=== PATIENT | male | born 1950 | race Caucasian/White ===

== ENCOUNTER 2019-02-18 12:16 | Emergency (ER) | payer BC, MEDICARE ==
[~2019-02-18] VITALS: Ht 177.8 cm; Wt 109.0 kg
[~2019-02-18 12:16] MED LIST: CPR500T PO; DIGO125T PO; FINA5TAB PO; FLEC100T2 PO; PHEN200T27 PO; SILO8CAP PO; WRF5T PO
--- NOTE | 2019-02-18 12:44 | ED GU-Male ---
General Chief Complaint: - Urinary Stated Complaint: HEMATURIA Nursing Triage Note: Pt ambulatory to ED with c/o blood in urine. Pt denies injury or any other pain or problem. Pt reports being on blood thinners. History of Present Illness Date Seen by Provider: Feb 18, 2019 Time Seen by Provider: 12:40 Initial Comments 68-year-old male Presents with grossly apparent hematuria first noted ~16 hours ago Is status post TURP about 9 years ago 2 or 3 years ago he began to have frequent urinary incontinence and has been wearing an external condom-type catheter since has not seen urologist also has implanted devise to help incontinence but says it didn't make any difference Has not had problems with urinary retention is not having any symptoms of infection no pain no fever no vomiting etc. He also apparently has had paroxysmal atrial fibrillation and reports a proximal aortic aneurysm he is on Coumadin, 5 mg by mouth daily most days 4 mg Friday and , prescribed by his mask design engineer who his aware of the aneurysm, he states he checks his INR at home, the last time he checked 10 days ago was 2.7 he has not had bleeding anywhere else such as nosebleed bleeding gums black tarry stools etc. Allergies and Home Medications Allergies Coded Allergies: No Known Drug Allergies (Unverified , 01/15/10) Home Medications Ciprofloxacin 500 Mg Tablet, 1 TAB PO BID, (Reported) Digoxin 125 Mcg Tablet, 1 EACH PO DAILY, (Reported) Finasteride 5 Mg Tablet, 5 MG PO DAILY, (Reported) Flecainide Acetate 100 Mg Tablet, 100 MG PO DAILY, (Reported) Phenazopyridine Hcl 200 Mg Tablet, 200 MG PO TID PRN, (Reported) Silodosin 8 Mg Capsule, 8 MG PO DAILY, (Reported) Warfarin Sod 5 Mg Tab, 5 MG PO DAILY, (Reported) 5 MG PER DAY, AND ON FRIDAY ONLY TAKES AN ADDITIONAL 2 MG Patient Home Medication List Home Medication List Reviewed: Yes Review of Systems Review of Systems Constitutional: no symptoms reported; No chills, No dizziness, No fever EENTM: epistaxis Respiratory: no symptoms reported Cardiovascular: no symptoms reported Gastrointestinal: no symptoms reported; No hematemesis, No melena, No nausea, No vomiting Genitourinary: denies burning, denies discharge, denies dysuria, denies frequency, denies flank pain; hematuria Skin: no symptoms reported Patient has bilateral leg edema left worse than right he states this is baseline for him All Other Systemes Reviewed Negative Unless Noted: Yes Past Uofcgio-Yauybv-Qgdikz Hx Patient Social History Recent Foreign Travel: No Contact w/Someone Who Travel: No Recent Infectious Disease Expo: No Past Medical History Reproductive Disorders: No Physical Exam Vital Signs Vital Signs - First Documented 02/18/19 12:34 Pulse 60 Resp 14 B/P (MAP) 129/75 (93) Pulse Ox 95 Capillary Refill : Less Than 3 Seconds Height, Weight, BMI Height: '" Weight: lbs. oz. kg; 34.00 BMI Method: General Appearance: WD/WN HEENT: PERRL/EOMI Neck: non-tender Cardiovascular: regular rate, rhythm Respiratory: lungs clear, normal breath sounds Gastrointestinal: normal bowel sounds, non tender, soft Genital/Rectal: normal genital exam (no bladder distension or tenderness CVA's neg abd exam normal) Progress/Results/Core Measures Suspected Sepsis Recent Fever Within 48 Hours: No Infection Criteria Present: None New/Unexplained Altered Menta: No Sepsis Screen: No Definite Risk SIRS Temperature: Pulse: 60 Respiratory Rate: 14 Laboratory Tests 02/18/19 12:45: White Blood Count 9.9 Blood Pressure 129 /75 Mean: 93 Laboratory Tests 02/18/19 12:45: Creatinine 1.09, INR Comment 3.0H, Platelet Count 433H Results/Orders Lab Results Laboratory Tests Test 02/18/19 12:23 02/18/19 12:45 Range/Units Urine Color BROWN H Urine Clarity TURBID H Urine pH 6.5 5-9 Urine Specific Grandin 1.020 1.016-1.022 Urine Protein 2+ H NEGATIVE Urine Glucose (UA) NEGATIVE NEGATIVE Urine Ketones NEGATIVE NEGATIVE Urine Nitrite NEGATIVE NEGATIVE Urine Bilirubin NEGATIVE NEGATIVE Urine Urobilinogen 0.2 NORMAL MG/DL Urine Leukocyte Esterase 2+ H NEGATIVE Urine RBC (Auto) 3+ H NEGATIVE Urine RBC >100 H /HPF Urine WBC >100 H /HPF Urine Crystals NONE /LPF Urine Bacteria LARGE H /HPF Urine Casts NONE /LPF Urine Mucus NEGATIVE /LPF Urine Culture Indicated YES White Blood Count 9.9 4.3-11.0 10^3/uL Red Blood Count 4.17 L 4.35-5.85 10^6/uL Hemoglobin 13.1 L 13.3-17.7 G/DL Hematocrit 39 L 40-54 % Mean Corpuscular Volume 94 80-99 FL Mean Corpuscular Hemoglobin 31 25-34 PG Mean Corpuscular Hemoglobin Concent 34 32-36 G/DL Red Cell Distribution Width 15.3 H 10.0-14.5 % Platelet Count 433 H 130-400 10^3/uL Mean Platelet Volume 9.3 7.4-10.4 FL Prothrombin Time 32.9 H 12.2-14.7 SEC INR Comment 3.0 H 0.8-1.4 Sodium Level 137 135-145 MMOL/L Potassium Level 4.8 3.6-5.0 MMOL/L Chloride Level 104 98-107 MMOL/L Carbon Dioxide Level 21 21-32 MMOL/L Anion Gap 12 5-14 MMOL/L Blood Urea Nitrogen 32 H 7-18 MG/DL Creatinine 1.09 0.60-1.30 MG/DL Estimat Glomerular Filtration Rate > 60 BUN/Creatinine Ratio 29 Glucose Level 97 70-105 MG/DL Calcium Level 9.0 8.5-10.1 MG/DL My Orders Orders - MÓNICA DIAZ MD Cbc No Diff (02/18/19 12:25) Urinalysis (02/18/19 12:25) Protime With Inr (02/18/19 12:25) Basic Metabolic Panel (02/18/19 12:25) Urine Culture (02/18/19 12:23) Lidocaine 1% Inj 20 Ml (Xylocaine 1% Inj (02/18/19 13:15) Ceftriaxone For Iv Use (Rocephin For I (02/18/19 13:45) Ct Abdomen/Pelvis W (02/18/19 13:34) Iohexol Injection (Omnipaque 350 Mg/Ml 1 (02/18/19 13:45) Received Contrast (Hold Metformin- Contr (02/18/19 13:45) Sodium Chloride Flush (Catheter Flush Sy (02/18/19 13:45) Ns (Ivpb) (Sodium Chloride 0.9% Ivpb Bag (02/18/19 13:45) Medications Given in ED Current Medications Medications Dose Ordered Sig/Benigno Route Start Time Stop Time Status Last Admin Dose Admin Ceftriaxone Sodium 1000 mg/ Sterile Water 10 ml @ 200 mls/hr ONCE ONCE IV 02/18/19 13:45 10/17/19 13:54 DC 02/18/19 14:21 200 MLS/HR Iohexol 100 ml ONCE ONCE IV 02/18/19 13:45 02/18/19 13:46 DC 02/18/19 14:03 100 ML Sodium Chloride 10 ml NEEDED PRN IV 02/18/19 13:45 02/18/19 14:03 10 ML Sodium Chloride 100 ml ONCE ONCE IV 02/18/19 13:45 02/18/19 13:46 DC 02/18/19 14:03 100 ML Vital Signs/I&O 02/18/19 12:34 Pulse 60 Resp 14 B/P (MAP) 129/75 (93) Pulse Ox 95 Capillary Refill : Less Than 3 Seconds Blood Pressure Mean: 93 Progress Note : Progress Note pt is stable Hb 13.1 WBC normal UA suggests UTI or colonization pt doesn't seem to have sx's of UTI INR 3.0 pt may simply have blood due to colonization and elevated INR will CT to see if any other pathology apparent urine cult and IV rocephin ordered Diagnostic Imaging Comments CT abd pelvis shows only enlarged prostate nothing acute Departure Impression Primary Impression: Hematuria Qualified Codes: R31.9 - Hematuria, unspecified Additional Impressions: Urinary tract infection Qualified Codes: N39.0 - Urinary tract infection, site not specified; R31.9 - Hematuria, unspecified Warfarin-induced coagulopathy Disposition: 01 HOME, SELF-CARE Condition: Stable Departure-Patient Inst. Decision time for Depature: 14:51 Referrals: MANI WALL MD (PCP/Family) Primary Care Physician Patient Instructions: Blood in the Urine (Hematuria), Adult (DC), Urinary Tract Infection, Adult (DC) Add. Discharge Instructions: CT scan showed only enlarged prostate, nothing more worrisome urine analysis shows infection and your INR is 3.0 these things combined are likely causing the blood recommend no coumadin today, 4mg Friday and Friday please check with your primary doctor on Friday for further guidance if you become worse in some way, don't hesitate to return antibiotic Rx SeptraDS one pill twice daily MÓNICA DIAZ MD Feb 18, 2019 12:44
[2019-02-18 12:47] LABS: CLARITY,URINE TURBID; COLOR,URINE BROWN; PH,URINE 6.5 (5-9); PROTEIN,URINE 2+ (NEGATIVE)
[2019-02-18 12:48] LABS: BACTERIA,URINE LARGE /HPF; BILIRUBIN,URINE NEGATIVE (NEGATIVE); GLUCOSE, URINE (UA) NEGATIVE (NEGATIVE); KETONES,URINE NEGATIVE (NEGATIVE); LEUKOCYTE ESTERASE ,URINE 2+ (NEGATIVE); NITRITE,URINE NEGATIVE (NEGATIVE); RBC,URINE >100 /HPF; WBC,URINE >100 /HPF
[2019-02-18] MEDS ORDERED: cefTRIAXone 500 MG/1.43 ML vial (IM ONLY) IM ONE (13:00)
[2019-02-18] MEDS ORDERED: LIDOCAINE 1% INJ 20 ML 20 ML VIAL ONE (13:15)
[2019-02-18 13:21] LABS: BUN/CREATININE RATIO 29; CARBON DIOXIDE 21 MMOL/L (21-32); CHLORIDE 104 MMOL/L (98-107); CREATININE SERUM 1.09 MG/DL (0.60-1.30); GFR ESTIMATED > 60; GLUCOSE 97 MG/DL (70-105); POTASSIUM 4.8 MMOL/L (3.6-5.0); SODIUM 137 MMOL/L (135-145)
[2019-02-18 13:22] LABS: PROTHROMBIN TIME PATIENT 32.9 SEC (12.2-14.7); WHITE BLOOD COUNT 9.9 10^3/uL (4.3-11.0)
[2019-02-18 13:23] LABS: HEMOGLOBIN 13.1 G/DL (13.3-17.7); MEAN PLATELET VOLUME 9.3 FL (7.4-10.4); RED CELL DISTRIBUTION WIDTH 15.3 % (10.0-14.5)
[2019-02-18] MEDS ORDERED: cefTRIAXone FOR IV USE 1,000 MG in WATER (STERILE) FOR INJECTION 10 ML IV ONE (13:45)
[2019-02-18] MEDS ORDERED: IOHEXOL 350 MG/ML 100 ML (OMNIPAQUE 350) VIAL IV ONE (13:45)
[2019-02-18] MEDS ORDERED: NS 100 ML (IVPB) BAG IV ONE (13:45)
[2019-02-18] MEDS ORDERED: CATHETER FLUSH 10 ML SYR IV PRN (13:45)
[2019-02-18] MEDS ORDERED: HOLD METFORMIN - RECEIVED CONTRAST 20 ML VIAL IV SCH (13:45)
--- NOTE | 2019-02-18 14:29 | Diagnostic Imaging Report ---
PROCEDURE: CT abdomen and pelvis with contrast. TECHNIQUE: Multiple contiguous axial images were obtained through the abdomen and pelvis after administration of intravenous contrast. Auto Exposure Controls were utilized during the CT exam to meet ALARA standards for radiation dose reduction. INDICATION: Painless severe hematuria since yesterday. COMPARISON: No prior studies are available for comparison. FINDINGS: The lung bases are clear. No discrete liver mass is detected. Gallbladder is unremarkable. No biliary ductal dilatation is seen. Pancreas and spleen are unremarkable. No adrenal mass is detected. No renal mass or calculus is seen. There is no hydronephrosis. The renal collecting systems and ureters opacify normally and are without evidence of filling defect. Bladder is unremarkable. Aorta is non-aneurysmal. No central, retroperitoneal or mesenteric lymphadenopathy is seen. Small and large bowel loops are normal caliber. Appendix is unremarkable. No obstruction is seen. There is no free fluid or loculated fluid collection. Prostate does appear to be enlarged. No pelvic lymphadenopathy is seen. IMPRESSION: Essentially unremarkable CT of the abdomen and pelvis. No urinary tract mass, calculus or hydronephrosis is seen. There is prostatomegaly. No other significant abnormality is seen. Dictated by: Dictated on workstation # [id number]
[2019-02-18 15:04] VITALS: BP 122/71
[2019-02-19] MEDS ORDERED: WARF-48 PO (09:07)
[2019-02-19] MEDS ORDERED: WARF4TAB70 PO (09:07)
[2019-02-19] MEDS ORDERED: ACET-2267 PO (09:07)
[2019-02-19] MEDS ORDERED: IBUP-30 PO (09:07)
[2019-02-19] MEDS ORDERED: SULF1TAB35 PO (09:07)
[2019-02-19] MEDS ORDERED: LISI-552 PO (09:07)
[2019-02-19] MEDS ORDERED: FLEC100T PO (09:07)
[2019-02-19] MEDS ORDERED: AMLO10TA7 PO (09:07)
== END 2019-02-18 15:04 | disposition home or self-care (01) ==
LOC: EDUNIT# 12:16 → ER FS 12:17
DX: N39.0 Urinary tract infection, site not specified (principal); D68.32 Hemorrhagic disorder due to extrinsic circulating anticoagulants; Z79.01 Long term (current) use of anticoagulants
CPT/HCPCS: 36415; 74177; 80048; 81000; 85027; 85610; 87077; 87088; 87186

== ENCOUNTER 2019-02-18 21:44 | Observation (INO) | payer MEDICARE ==
[~2019-02-18] VITALS: Ht 177.8 cm; Wt 106.0 kg
[2019-02-18] MEDS ORDERED: ONDANSETRON 4 MG/2 ML (SDV) Z0FRAN IVP STA (22:07)
[2019-02-18] MEDS ORDERED: NS IV 500 ML 500 ML IV STA (22:07)
--- NOTE | 2019-02-18 22:49 | ED General ---
General Chief Complaint: Allergic Reaction Stated Complaint: WEAKNESS Source of Information: Patient, EMS History of Present Illness Date Seen by Provider: Feb 18, 2019 Time Seen by Provider: 21:48 Initial Comments 68 yo M presenting by EMS with having subjective fever/chills at home and having low blood pressure. He had systolic blood pressure around 80 when he was feeling bad and having diaphoresis at home. He was 110-120 for systolic blood pressure for EMS. He was having diarrhea after getting home as well. He was concerned that he was having allergic reaction to his IV contrast from CT scan this afternoon when he was evaluated by ED. He had nausea but no vomiting only dry heaves. He was diagnosed with UTI this afternoon and started on Rocephin IV for antibiotics. Allergies and Home Medications Allergies Coded Allergies: No Known Drug Allergies (Unverified , 01/15/10) Home Medications Ciprofloxacin 500 Mg Tablet, 1 TAB PO BID, (Reported) Digoxin 125 Mcg Tablet, 1 EACH PO DAILY, (Reported) Finasteride 5 Mg Tablet, 5 MG PO DAILY, (Reported) Flecainide Acetate 100 Mg Tablet, 100 MG PO DAILY, (Reported) Phenazopyridine Hcl 200 Mg Tablet, 200 MG PO TID PRN, (Reported) Silodosin 8 Mg Capsule, 8 MG PO DAILY, (Reported) Warfarin Sod 5 Mg Tab, 5 MG PO DAILY, (Reported) 5 MG PER DAY, AND ON FRIDAY ONLY TAKES AN ADDITIONAL 2 MG Patient Home Medication List Home Medication List Reviewed: Yes Review of Systems Review of Systems Constitutional: chills, fever, malaise, weakness EENTM: no symptoms reported Respiratory: no symptoms reported Cardiovascular: no symptoms reported Gastrointestinal: abdominal pain (aching lower abdomen pain), diarrhea, nausea; No vomiting Genitourinary: no symptoms reported Musculoskeletal: no symptoms reported Skin: no symptoms reported Psychiatric/Neurological: No Symptoms Reported Past Dyapcye-Byzjte-Vjnezc Hx Patient Social History 2nd Hand Smoke Exposure: No Recent Foreign Travel: No Contact w/Someone Who Travel: No Recent Hopitalizations: Yes (PAST SURGERIES) Past Medical History Surgeries: No Respiratory: No Cardiac: Yes Aneurysm, Atrial Fibrillation Neurological: No Reproductive Disorders: No Genitourinary: Yes (Incontinence) Gastrointestinal: No Musculoskeletal: Yes Endocrine: No Cancer: No Psychosocial: Yes Blood Disorders: No Physical Exam Vital Signs Vital Signs - First Documented 02/18/19 22:00 Temp 36.7 Pulse 62 Resp 16 B/P (MAP) 114/54 (74) Pulse Ox 95 O2 Delivery Room Air Capillary Refill : Height, Weight, BMI Height: '" Weight: lbs. oz. kg; 34.00 BMI Method: General Appearance: WD/WN, Anxious, Chronically ill, Mild Distress HEENT: PERRL/EOMI, Pharynx Normal Neck: Normal Inspection, Non Tender, Supple Respiratory: Chest Non Tender, Lungs Clear, Normal Breath Sounds Cardiovascular: Regular Rate, Rhythm Gastrointestinal: No Pulsatile Mass, Soft, Abnormal Bowel Sounds (hyperactive bowel sounds); No Distended, No Guarding, No Mass, No Rebound; Tenderness (mild tenderness over low abdomen) Back: No CVA Tenderness Extremity: Normal Capillary Refill, Normal Inspection, Normal Range of Motion, Non Tender Neurologic/Psychiatric: Alert, Oriented x3, No Motor/Sensory Deficits Focused Exam Lactate Level 02/18/19 23:15: Lactic Acid Level 1.22 Lactic Acid Level Laboratory Tests Test 02/18/19 23:15 Lactic Acid Level 1.22 MMOL/L (0.50-2.00) Progress/Results/Core Measures Suspected Sepsis SIRS Temperature: Pulse: Respiratory Rate: Laboratory Tests 02/18/19 23:15: White Blood Count 26.5H Blood Pressure / Mean: 02/18/19 23:15: Lactic Acid Level 1.22 Laboratory Tests 02/18/19 23:15: Platelet Count 441H Results/Orders Lab Results Laboratory Tests Test 02/18/19 23:15 Range/Units White Blood Count 26.5 H 4.3-11.0 10^3/uL Red Blood Count 4.28 L 4.35-5.85 10^6/uL Hemoglobin 13.4 13.3-17.7 G/DL Hematocrit 41 40-54 % Mean Corpuscular Volume 96 80-99 FL Mean Corpuscular Hemoglobin 31 25-34 PG Mean Corpuscular Hemoglobin Concent 33 32-36 G/DL Red Cell Distribution Width 15.3 H 10.0-14.5 % Platelet Count 441 H 130-400 10^3/uL Mean Platelet Volume 9.1 7.4-10.4 FL Neutrophils (%) (Auto) 92 H 42-75 % Lymphocytes (%) (Auto) 2 L 12-44 % Monocytes (%) (Auto) 5 0-12 % Eosinophils (%) (Auto) 0 0-10 % Basophils (%) (Auto) 0 0-10 % Neutrophils # (Auto) 24.5 H 1.8-7.8 X 10^3 Lymphocytes # (Auto) 0.6 L 1.0-4.0 X 10^3 Monocytes # (Auto) 1.2 H 0.0-1.0 X 10^3 Eosinophils # (Auto) 0.0 0.0-0.3 10^3/uL Basophils # (Auto) 0.1 0.0-0.1 10^3/uL Neutrophils % (Manual) 94 % Lymphocytes % (Manual) 1 % Monocytes % (Manual) 1 % Eosinophils % (Manual) 1 % Band Neutrophils 2 % Atypical Lymphocytes % Reactive Lymphocytes 1 % Lactic Acid Level 1.22 0.50-2.00 MMOL/L My Orders Orders - LEOBARDO BERRIOS MD Lactic Acid Analyzer (02/18/19 22:07) Cbc With Automated Diff (02/18/19 22:07) Ondansetron Injection (Zofran Injectio (02/18/19 22:07) Ns Iv 500 Ml (Sodium Chloride 0.9%) (02/18/19 22:07) Monitor-Rhythm Ecg Trace Only (02/18/19 22:) Manual Differential (02/18/19 23:15) Ns Iv 1000 Ml (Sodium Chloride 0.9%) (02/19/19 01:00) Vital Signs/I&O 02/18/19 02/19/19 22:00 00:56 Temp 36.7 37.1 Pulse 62 60 Resp 16 16 B/P (MAP) 114/54 (74) 121/63 Pulse Ox 95 94 O2 Delivery Room Air Room Air 02/19/19 00:00 Intake Total 500 ml Balance 500 ml Capillary Refill : Progress Note #1: Progress Note obtain labs and recheck his CBC to see if any change from earlier today. Will add on Lactic acid since he had subjective fever and chills in case he might be septic. Give IVF for hydration. Progress Note #2: Progress Note Labs show he has more than doubled his WBC since this afternoon. His lactic acid is normal. He is feeling a little better after IVF in ED. However, with his sudden increase in WBC count with left shift and being treated for UTI with hypotension at home will admit to Dr. Rossi for CHC so that he can continue on IVF and antibiotics Departure Communication (Admissions) Time/Spoke to Admitting Phy: 00:[address] Rossi about the patient and his lab results. The fact that he had hypotension at home with his blood pressure monitor reading 80 systolic as well as having sweats with subjective fever and chills at home and now having a large jump in his white blood cell count from a little over 9000 to over 26,000 and less than 8 hours will admit for observation and continue IV antibiotics for the UTI in addition to IV fluids for hydration. Impression Primary Impression: UTI (urinary tract infection) Qualified Codes: N30.00 - Acute cystitis without hematuria Additional Impressions: Diarrhea Qualified Codes: R19.7 - Diarrhea, unspecified Leukocytosis Qualified Codes: D72.829 - Elevated white blood cell count, unspecified Disposition: ADMITTED INPATIENT Condition: Stable Admissions Decision to Admit Reason: Admit from ER (General) Decision to Admit/Date: Feb 19, 2019 Time/Decision to Admit Time: 00:25 Departure-Patient Inst. Referrals: MANI WALL MD (PCP/Family) Primary Care Physician LEOBARDO BERRIOS MD Feb 18, 2019 22:49
[2019-02-18 23:45] LABS: HEMATOCRIT 41 % (40-54); HEMOGLOBIN 13.4 G/DL (13.3-17.7); LYMPHOCYTES % (AUTO) 2 % (12-44); MEAN CORPUSCULAR HEMOGLOBIN 31 PG (25-34); MEAN CORPUSCULAR HGB CONC 33 G/DL (32-36); MEAN CORPUSCULAR VOLUME 96 FL (80-99); MEAN PLATELET VOLUME 9.1 FL (7.4-10.4); MONOCYTES % (AUTO) 5 % (0-12); NEUTROPHILS % (AUTO) 92 % (42-75); PLATELET COUNT 441 10^3/uL (130-400); RED CELL DISTRIBUTION WIDTH 15.3 % (10.0-14.5); WHITE BLOOD COUNT 26.5 10^3/uL (4.3-11.0)
[2019-02-18 23:46] LABS: BASOPHILS # (AUTO) 0.1 10^3/uL (0.0-0.1); BASOPHILS % (AUTO) 0 % (0-10); EOSINOPHILS % (AUTO) 0 % (0-10); LYMPHOCYTES # (AUTO) 0.6 X 10^3 (1.0-4.0); MONOCYTES # (AUTO) 1.2 X 10^3 (0.0-1.0); NEUTROPHILS # (AUTO) 24.5 X 10^3 (1.8-7.8)
[2019-02-18 23:59] LABS: BAND NEUTROPHILS 2 %; EOSINOPHILS % (MANUAL) 1 %; LYMPHOCYTES % (MANUAL) 1 %; MONOCYTES % (MANUAL) 1 %; NEUTROPHILS % (MANUAL) 94 %
[2019-02-19 00:01] LABS: REACTIVE LYMPHOCYTES 1 %
[2019-02-19] MEDS ORDERED: NS IV 1000 ML 1,000 ML IV SCH (01:00)
[2019-02-19 02:50] VITALS: BP 123/73
--- NOTE | 2019-02-19 03:27 | NUR ---
JER PETERSON admitted to room 429-1, with an admitting diagnosis of UTI, on 02/19/19 from EMS via [facility], accompanied by STAFF.JER PETERSON introduced to surroundings, call light, bed controls, phone, TV, temperature control, lights, meal times, smoking policy, visitor policy, side rail policy, bathrooms and showers. Patient Rights given to patient in the handbook. JER PETERSON verbalizes understanding that [facility] is not responsible for the loss or damage to any personal effects or valuables that are kept in the patients posession during their hospitalization.
[2019-02-19] MEDS ORDERED: ACETAMINOPHEN 325 MG TABLET PO PRN (03:30)
[2019-02-19 03:55] VITALS: BP 134/62
[2019-02-19] MEDS: NS IV 1000 ML 1,000 ML IV SCH ×3 (04:00→22:24)
[2019-02-19 08:00] VITALS: BP 126/60
[2019-02-19 08:09] LABS: BASOPHILS % (AUTO) 0 % (0-10); EOSINOPHILS # (AUTO) 0.1 10^3/uL (0.0-0.3); EOSINOPHILS % (AUTO) 1 % (0-10); HEMATOCRIT 36 % (40-54); HEMOGLOBIN 11.9 G/DL (13.3-17.7); LYMPHOCYTES # (AUTO) 1.5 X 10^3 (1.0-4.0); LYMPHOCYTES % (AUTO) 10 % (12-44); MEAN CORPUSCULAR HEMOGLOBIN 31 PG (25-34); MEAN CORPUSCULAR HGB CONC 33 G/DL (32-36); MEAN CORPUSCULAR VOLUME 94 FL (80-99); MEAN PLATELET VOLUME 9.3 FL (7.4-10.4); MONOCYTES # (AUTO) 1.2 X 10^3 (0.0-1.0); MONOCYTES % (AUTO) 8 % (0-12); NEUTROPHILS # (AUTO) 12.9 X 10^3 (1.8-7.8); NEUTROPHILS % (AUTO) 82 % (42-75); PLATELET COUNT 422 10^3/uL (130-400); RED CELL DISTRIBUTION WIDTH 15.7 % (10.0-14.5); WHITE BLOOD COUNT 15.7 10^3/uL (4.3-11.0)
[2019-02-19 08:23] LABS: ALANINE AMINOTRANSFERASE 16 U/L (0-55); ALBUMIN 3.3 GM/DL (3.2-4.5); ALKALINE PHOSPHATASE 45 U/L (40-136); BILIRUBIN,TOTAL 0.9 MG/DL (0.1-1.0); BUN/CREATININE RATIO 24; CALCIUM 8.9 MG/DL (8.5-10.1); CARBON DIOXIDE 21 MMOL/L (21-32); CHLORIDE 109 MMOL/L (98-107); CREATININE SERUM 1.18 MG/DL (0.60-1.30); GFR ESTIMATED > 60; GLUCOSE 97 MG/DL (70-105); POTASSIUM 4.6 MMOL/L (3.6-5.0); SODIUM 139 MMOL/L (135-145); TOTAL PROTEIN 6.5 GM/DL (6.4-8.2)
[2019-02-19] MEDS ORDERED: WARF4TAB70 PO (09:07)
[2019-02-19] MEDS ORDERED: WARF-48 PO (09:07)
[2019-02-19] MEDS ORDERED: LISI-552 PO (09:07)
[2019-02-19] MEDS ORDERED: ACET-2267 PO (09:07)
[2019-02-19] MEDS ORDERED: SULF1TAB35 PO (09:07)
[2019-02-19] MEDS ORDERED: FLEC100T PO (09:07)
[2019-02-19] MEDS ORDERED: IBUP-30 PO (09:07)
[2019-02-19] MEDS ORDERED: AMLO10TA7 PO (09:07)
--- NOTE | 2019-02-19 09:10 | NUR ---
SPOKE WITH THE PATIENT ABOUT HIS MEDICATIONS. HE HAD HIS BOTTLES WITH HIM AND VERIFIED HOW HE IS TAKING THEM. I COMPARED WITH THE EXT MED HX. IN ADDITION TO WHAT IS SHOWN ON THE EXT MED HX HE FILLED BACTRIM DS YESTERDAY 02-18-19 #14 BID. HE STATES HE DID NOT TAKE ONE TABLET BEFORE BEING ADMITTED BUT DOES HAVE IT WITH HIM. I ADDED IT TO THE MED REC TO BE ADDRESSED. HE TAKES TYLENOL 2 TABS BID AND IBU 4 TABS BID SCHEDULED OTC. HIS FLECAINIDE 100MG WAS FILLED #60 FOR 30 DAYS 01-13-19 HOWEVER HE STATES THIS WAS DECREASED BY THE DOCTOR TO 1/2 TAB BID.
[2019-02-19 12:00] VITALS: BP 115/55
[2019-02-19 16:45] VITALS: BP 121/61
--- NOTE | 2019-02-19 16:51 | History & Physical ---
HPI History of Present Illness: 68 yo M that presented to the ED x2 yesterday. He was first diagnosed with UTI and had normal labs and vital signs. States that he then went home and in about 6 hrs he was calmy and felt like he was going to pass out. Told his that he was unable to get to the van to go to the ER and patient's then called EMS. When they arrived his blood pressure was systolic 70s but patient stated that they could not get a bottom number. He was shaky and sweating profusely. Denies any chest pain or shortness of breath. States that he never got any rash or cough after antibiotics were given in the ER. Last does of coumadin was Wed because his INR was 3.0 which it is normal well controlled. His PCP had him hold his dose yesterday. Source: patient Exam Limitations: no limitations Date seen by provider: Feb 19, 2019 Time Seen by Provider: 10:15 Attending Physician Kana Rossi MD PCP Ramin Marcos MD Consult Date of Admission Feb 19, 2019 at 00:25 Home Medications Home Medications Reviewed patient Home Medication Reconciliation performed by pharmacy medication reconciliations technician anatomic pathology and/or nursing. Patients Allergies have been reviewed. Allergies Coded Allergies: No Known Drug Allergies (Unverified , 01/15/10) HFO-Hehkeo-Zwklag Hx Patient Social History Living Status: Lives at home with and adult son with down syndrome 2nd Hand Smoke Exposure: No Recent Foreign Travel: No Contact w/other who traveled: No Recent Hopitalizations: Yes (PAST SURGERIES) Recent Infectious Disease Expo: No Past Medical History Atrial Fibrillation BPH Chronic Catheter (Condom) Review of Systems (CHC) Constitutional: chills, fever, malaise, weakness EENTM: no symptoms reported; No mouth pain, No mouth swelling, No nose congestion, No nose pain, No throat pain, No throat swelling Respiratory: no symptoms reported; No cough, No dyspnea on exertion, No orthopnea, No short of breath Cardiovascular: no symptoms reported; No chest pain, No edema, No palpitations Gastrointestinal: abdominal pain; No constipation, No diarrhea; loss of appetite, nausea; No vomiting Genitourinary: hematuria Musculoskeletal: no symptoms reported; No back pain, No joint pain, No muscle pain Skin: no symptoms reported; No lesions, No rash Psychiatric/Neurological: Weakness Reviewed Test Results Reviewed Test Results Lab Laboratory Tests Test 02/18/19 23:15 02/19/19 07:55 Range/Units White Blood Count 26.5 H 15.7 H 4.3-11.0 10^3/uL Red Blood Count 4.28 L 3.85 L 4.35-5.85 10^6/uL Hemoglobin 13.4 11.9 L 13.3-17.7 G/DL Hematocrit 41 36 L 40-54 % Mean Corpuscular Volume 96 94 80-99 FL Mean Corpuscular Hemoglobin 31 31 25-34 PG Mean Corpuscular Hemoglobin Concent 33 33 32-36 G/DL Red Cell Distribution Width 15.3 H 15.7 H 10.0-14.5 % Platelet Count 441 H 422 H 130-400 10^3/uL Mean Platelet Volume 9.1 9.3 7.4-10.4 FL Neutrophils (%) (Auto) 92 H 82 H 42-75 % Lymphocytes (%) (Auto) 2 L 10 L 12-44 % Monocytes (%) (Auto) 5 8 0-12 % Eosinophils (%) (Auto) 0 1 0-10 % Basophils (%) (Auto) 0 0 0-10 % Neutrophils # (Auto) 24.5 H 12.9 H 1.8-7.8 X 10^3 Lymphocytes # (Auto) 0.6 L 1.5 1.0-4.0 X 10^3 Monocytes # (Auto) 1.2 H 1.2 H 0.0-1.0 X 10^3 Eosinophils # (Auto) 0.0 0.1 0.0-0.3 10^3/uL Basophils # (Auto) 0.1 0.0 0.0-0.1 10^3/uL Neutrophils % (Manual) 94 % Lymphocytes % (Manual) 1 % Monocytes % (Manual) 1 % Eosinophils % (Manual) 1 % Band Neutrophils 2 % Atypical Lymphocytes % Reactive Lymphocytes 1 % Lactic Acid Level 1.22 0.50-2.00 MMOL/L Sodium Level 139 135-145 MMOL/L Potassium Level 4.6 3.6-5.0 MMOL/L Chloride Level 109 H 98-107 MMOL/L Carbon Dioxide Level 21 21-32 MMOL/L Anion Gap 9 5-14 MMOL/L Blood Urea Nitrogen 28 H 7-18 MG/DL Creatinine 1.18 0.60-1.30 MG/DL Estimat Glomerular Filtration Rate > 60 BUN/Creatinine Ratio 24 Glucose Level 97 70-105 MG/DL Calcium Level 8.9 8.5-10.1 MG/DL Corrected Calcium 9.5 8.5-10.1 MG/DL Total Bilirubin 0.9 0.1-1.0 MG/DL Aspartate Amino Transf (AST/SGOT) 12 5-34 U/L Alanine Aminotransferase (ALT/SGPT) 16 0-55 U/L Alkaline Phosphatase 45 40-136 U/L Total Protein 6.5 6.4-8.2 GM/DL Albumin 3.3 3.2-4.5 GM/DL Physical Exam-(CHC) Physical Exam Vital Signs VS - Last 72 Hours, by Label 02/18/19 02/19/19 02/19/19 02/19/19 22:00 00:56 02:50 03:34 Temp 36.7 37.1 37.1 Pulse 62 60 60 Resp 16 16 24 B/P (MAP) 114/54 (74) 121/63 123/73 (90) Pulse Ox 95 94 98 O2 Delivery Room Air Room Air Room Air Room Air 02/19/19 02/19/19 02/19/19 02/19/19 03:55 04:04 07:00 08:00 Temp 37.2 Pulse 63 62 49 Resp 23 B/P (MAP) 134/62 (86) Pulse Ox 97 O2 Delivery Room Air Room Air 02/19/19 02/19/19 02/19/19 08:00 12:00 13:00 Temp 37.9 37.1 Pulse 56 52 57 Resp 18 18 B/P (MAP) 126/60 (82) 115/55 (75) Pulse Ox 97 98 O2 Delivery Room Air Room Air Capillary Refill : Less Than 3 SecondsLess Than 3 Seconds General Appearance: WD/WN, no apparent distress HEENT: PERRL/EOMI Neck: non-tender, full range of motion, supple Respiratory: chest non-tender, lungs clear, normal breath sounds, no respiratory distress, no accessory muscle use Cardiovascular: normal peripheral pulses, regular rate, rhythm, no edema, no murmur Gastrointestinal: normal bowel sounds, soft, other (suprapubic pain) Back: no CVA tenderness, no vertebral tenderness Extremities: normal range of motion, no pedal edema, no calf tenderness, normal capillary refill Neurologic/Psychiatric: car dispatcher II-XII nml as tested, no motor/sensory deficits, alert, normal mood/affect, oriented x 3 Skin: normal color, warm/dry Lymphatic: no adenopathy Assessment/Plan Assessment/Plan Admission Status: Observation (1) Sepsis Status: Acute Assessment & Plan: - Culture pending, continue IV antibiotics, LA normal, VS stabilized, Leukocytosis trending down Qualifiers: Qualified Codes: A41.9 - Sepsis, unspecified organism (2) UTI (urinary tract infection) Status: Acute Assessment & Plan: - See Above Qualifiers: Qualified Codes: N30.01 - Acute cystitis with hematuria (3) Atrial fibrillation Status: Chronic Assessment & Plan: - Patient on Coumadin, INR pending, last dose was friday when INR 3.0 Qualifiers: Qualified Codes: I48.91 - Unspecified atrial fibrillation (4) BPH (benign prostatic hyperplasia) Status: Chronic Assessment & Plan: - Patient wears condom catheter Qualifiers: Qualified Codes: N40.1 - Benign prostatic hyperplasia with lower urinary tract symptoms (5) DVT prophylaxis Status: Acute Assessment & Plan: - On coumadin, INR pending Clinical Quality Measures DVT/VTE Risk/Contraindication: Risk Factor Score Per Nursin RFS Level Per Nursing on Admit: 4+=Very High Copy Copies To 1: SELF,KANA PACHECO MD, MD Feb 19, 2019 16:51
--- NOTE | 2019-02-19 17:00 | NUR ---
Report received from Angelika REVELES, will assume care of patient at this time.
[2019-02-19 17:39] LABS: INR 2.9 (0.8-1.4); PROTHROMBIN TIME PATIENT 31.6 SEC (12.2-14.7)
[2019-02-19] MEDS: FLECAINIDE 100 MG (TAMBOCOR) TAB PO SCH (20:20)
[2019-02-19 20:59] VITALS: BP 136/77
[2019-02-19] MEDS: cefTRIAXone 1,000 MG/SWFI 10 ML IV PUSH IV SCH ×2 (22:19)
[2019-02-20 00:20] VITALS: BP 108/52
[2019-02-20 04:00] VITALS: BP 110/54
[2019-02-20 05:38] LABS: BASOPHILS % (AUTO) 0 % (0-10); EOSINOPHILS # (AUTO) 0.3 10^3/uL (0.0-0.3); EOSINOPHILS % (AUTO) 3 % (0-10); HEMATOCRIT 35 % (40-54); HEMOGLOBIN 11.3 G/DL (13.3-17.7); LYMPHOCYTES # (AUTO) 1.8 X 10^3 (1.0-4.0); LYMPHOCYTES % (AUTO) 18 % (12-44); MEAN CORPUSCULAR HEMOGLOBIN 31 PG (25-34); MEAN CORPUSCULAR HGB CONC 33 G/DL (32-36); MEAN CORPUSCULAR VOLUME 94 FL (80-99); MEAN PLATELET VOLUME 9.6 FL (7.4-10.4); MONOCYTES % (AUTO) 10 % (0-12); NEUTROPHILS # (AUTO) 7.1 X 10^3 (1.8-7.8); NEUTROPHILS % (AUTO) 70 % (42-75); PLATELET COUNT 355 10^3/uL (130-400); RED CELL DISTRIBUTION WIDTH 15.4 % (10.0-14.5); WHITE BLOOD COUNT 10.1 10^3/uL (4.3-11.0)
[2019-02-20 05:51] LABS: INR 2.3 (0.8-1.4); PROTHROMBIN TIME PATIENT 26.4 SEC (12.2-14.7)
[2019-02-20 05:59] LABS: ALANINE AMINOTRANSFERASE 13 U/L (0-55); ALBUMIN 3.1 GM/DL (3.2-4.5); ALKALINE PHOSPHATASE 52 U/L (40-136); BILIRUBIN,TOTAL 0.8 MG/DL (0.1-1.0); BUN/CREATININE RATIO 22; CALCIUM 8.3 MG/DL (8.5-10.1); CARBON DIOXIDE 20 MMOL/L (21-32); CHLORIDE 110 MMOL/L (98-107); GFR ESTIMATED > 60; GLUCOSE 93 MG/DL (70-105); POTASSIUM 4.3 MMOL/L (3.6-5.0); SODIUM 137 MMOL/L (135-145); TOTAL PROTEIN 6.2 GM/DL (6.4-8.2)
[2019-02-20 08:00] VITALS: BP 133/65
[2019-02-20] MEDS: NS IV 1000 ML 1,000 ML IV SCH (08:33)
[2019-02-20] MEDS: amLODIPine 10 MG (NORVASC) TAB PO SCH (09:02)
[2019-02-20] MEDS: FLECAINIDE 100 MG (TAMBOCOR) TAB PO SCH ×2 (09:02→20:40)
[2019-02-20] MEDS: lisINopril 20 MG (PRINIVIL) TABLET PO SCH (09:02)
[2019-02-20 12:00] VITALS: BP 137/68
--- NOTE | 2019-02-20 13:29 | Progress Note - Hospitalist ---
Subjective HPI/CC On Admission Date Seen by Provider: Feb 20, 2019 Time Seen by Provider: 13:00 Subjective/Events-last exam Patient is somewhat stronger but has to ambulate with a walker and has not been out of bed since admission. Urine grew out Escherichia coli greater than 10 to the fifth sensitive to Rocephin. His last diarrhea stool was early this morning. He has some concerns about a lesion the right lateral malleolus of his ankle where he has history of chronic venous stasis change and plate there. Review of Systems Neurological: Weakness Focused Exam Lactate Level 02/18/19 23:15: Lactic Acid Level 1.22 Objective Exam Vital Signs Vital Signs Date Time Temp Pulse Resp B/P (MAP) Pulse Ox O2 Delivery O2 Flow Rate FiO2 02/20/19 13:00 64 02/20/19 12:00 37.1 20 137/68 (91) 93 Room Air Capillary Refill : Less Than 3 SecondsLess Than 3 Seconds General Appearance: WD/WN HEENT: Normal ENT Inspection Neck: Supple Respiratory: Chest Non Tender, Lungs Clear, Normal Breath Sounds, No Accessory Muscle Use, No Respiratory Distress Cardiovascular: No Gallop, No Murmur, Irregularly Irregular Gastrointestinal: Normal Bowel Sounds, Non Tender, Soft Extremity: Pedal Edema, Other (right lateral malleolus a small 5 mm ulcer) Skin: Warm/Dry Results/Procedures Lab Laboratory Tests 02/20/19 05:20 Patient resulted labs reviewed. Assessment/Plan Assessment and Plan Assess & Plan/Chief Complaint Sepsis UTI greater than 10 to the fifth Diarrhea resolved Chronic basis stasis change with an ulcer will start wound dressing Chronic atrial fibrillation Possible discharge tomorrow if he is able to get up and walk with his walker Clinical Quality Measures DVT/VTE Risk/Contraindication: Risk Factor Score Per Nursin RFS Level Per Nursing on Admit: 4+=Very High PEDRO LINN MD Feb 20, 2019 13:29
[2019-02-20 16:00] VITALS: BP 127/75
[2019-02-20 20:00] VITALS: BP 130/70
[2019-02-20] MEDS: cefTRIAXone 1,000 MG/SWFI 10 ML IV PUSH IV SCH ×2 (23:19)
[2019-02-21 00:35] VITALS: BP 128/66
[2019-02-21 04:30] VITALS: BP 101/60
[2019-02-21 07:55] VITALS: BP 117/64
[2019-02-21] MEDS: FLECAINIDE 100 MG (TAMBOCOR) TAB PO SCH (08:44)
[2019-02-21] MEDS: amLODIPine 10 MG (NORVASC) TAB PO SCH (08:44)
[2019-02-21] MEDS: lisINopril 20 MG (PRINIVIL) TABLET PO SCH (08:44)
[2019-02-21 11:48] LABS: BASOPHILS # (AUTO) 0.1 10^3/uL (0.0-0.1); BASOPHILS % (AUTO) 1 % (0-10); EOSINOPHILS # (AUTO) 0.3 10^3/uL (0.0-0.3); EOSINOPHILS % (AUTO) 3 % (0-10); HEMATOCRIT 37 % (40-54); HEMOGLOBIN 12.5 G/DL (13.3-17.7); LYMPHOCYTES # (AUTO) 1.2 X 10^3 (1.0-4.0); LYMPHOCYTES % (AUTO) 14 % (12-44); MEAN CORPUSCULAR HEMOGLOBIN 31 PG (25-34); MEAN CORPUSCULAR HGB CONC 34 G/DL (32-36); MEAN CORPUSCULAR VOLUME 93 FL (80-99); MEAN PLATELET VOLUME 9.3 FL (7.4-10.4); MONOCYTES # (AUTO) 0.9 X 10^3 (0.0-1.0); MONOCYTES % (AUTO) 10 % (0-12); NEUTROPHILS # (AUTO) 6.5 X 10^3 (1.8-7.8); NEUTROPHILS % (AUTO) 73 % (42-75); PLATELET COUNT 389 10^3/uL (130-400)
[2019-02-21 12:00] LABS: INR 1.5 (0.8-1.4); PROTHROMBIN TIME PATIENT 18.2 SEC (12.2-14.7)
[2019-02-21 12:04] VITALS: BP 108/63
[2019-02-21 12:05] LABS: BUN/CREATININE RATIO 19; CARBON DIOXIDE 22 MMOL/L (21-32); CHLORIDE 106 MMOL/L (98-107); CREATININE SERUM 1.12 MG/DL (0.60-1.30); GFR ESTIMATED > 60; GLUCOSE 96 MG/DL (70-105); SODIUM 137 MMOL/L (135-145)
--- NOTE | 2019-02-21 13:11 | Discharge Summary ---
Discharge Summary Hospital Course Was the Problem List Reviewed?: Yes Hospital Course Date of Admission: Feb 19, 2019 at 00:25 Admission Diagnosis : Sepsis Urinary tract infection Prolonged INR Chronic A. fib Family Physician/Provider: Ramin Marcos MD Date of Discharge: 02/21/19 Discharge Diagnosis: [ ] Sepsis Urinary tract infection Chronic atrial fibrillation BPH Hospital Course: 68-year-old white male admitted with diagnosis of sepsis secondary to urinary tract infection. UA grew grew greater than 10 to the fifth Escherichia coli - sensitive to Rocephin and Bactrim. In addition the PT INR was prolonged. The patient had some weakness of the initial few days of hospitalization that improved dramatically with IV fluid hydration and IV antibiotics. At the time of discharge his INR is 1.5 any will restart his Coumadin of 5 mg at at bedtime. He will continue to monitor INR daily. He will receive a 1 time shot of Lovenox to cover overnight. [ ] Labs and Pending Lab Test: Laboratory Tests 02/21/19 11:30: White Blood Count 9.0, Red Blood Count 3.99L, Hemoglobin 12.5L, Hematocrit 37L, Mean Corpuscular Volume 93, Mean Corpuscular Hemoglobin 31, Mean Corpuscular Hemoglobin Concent 34, Red Cell Distribution Width 15.0H, Platelet Count 389, Mean Platelet Volume 9.3, Neutrophils (%) (Auto) 73, Lymphocytes (%) (Auto) 14, Monocytes (%) (Auto) 10, Eosinophils (%) (Auto) 3, Basophils (%) (Auto) 1, Neutrophils # (Auto) 6.5, Lymphocytes # (Auto) 1.2, Monocytes # (Auto) 0.9, Eosinophils # (Auto) 0.3, Basophils # (Auto) 0.1, Prothrombin Time 18.2H, INR Comment 1.5H, Sodium Level 137, Potassium Level 4.0, Chloride Level 106, Carbon Dioxide Level 22, Anion Gap 9, Blood Urea Nitrogen 21H, Creatinine 1.12, Estimat Glomerular Filtration Rate > 60, BUN/Creatinine Ratio 19, Glucose Level 96, Calcium Level 9.0 Home Meds Active Reported Flecainide Acetate 100 Mg Tablet 50 Mg PO BID TAKES 1/2 (100MG) TABLET Warfarin Sodium 5 Mg Tablet 5 Mg PO SUTUWEFRSA Warfarin Sodium 4 Mg Tablet 4 Mg PO MOTH Amlodipine Besylate 10 Mg Tablet 10 Mg PO DAILY Lisinopril 20 Mg Tablet 20 Mg PO DAILY Tylenol Extra Strength (Acetaminophen) 500 Mg Tablet 1,000 Mg PO BID Bactrim Ds Tablet (Sulfamethoxazole/Trimethoprim) 1 Each Tablet 1 Tab PO BID #14 TABLETS FILLED 02-18-19 Assessment/Pt Instructions Please monitor your INR closely as it may go out quickly secondary to the combination of taking a sulfa drug and Coumadin. Your INR at the day of discharge is 1.5. Discharge Planning: >30 minutes discharge planning Discharge Instructions Discharge Diet: No Restrictions Activity as Tolerated: Yes Pneumonia Vaccine Order Indica: Yes Discharge Physical Examination Vital Signs Vital Signs Date Time Temp Pulse Resp B/P (MAP) Pulse Ox O2 Delivery O2 Flow Rate FiO2 02/21/19 12:04 36.8 62 20 108/63 (78) 94 Room Air General Appearance: No Apparent Distress, WD/WN HEENT: TMs Normal, Normal ENT Inspection, Pharynx Normal Respiratory: Lungs Clear, Normal Breath Sounds, No Accessory Muscle Use, No Respiratory Distress Cardiovascular: Systolic Murmur, Irregularly Irregular Gastrointestinal: Non Tender, Soft Extremity: Normal Range of Motion, Non Tender, No Calf Tenderness Skin: Normal Color, Warm/Dry Neurologic/Psychiatric: Alert, Oriented x3, Normal Mood/Affect, fuel technician II-XII Norm as Tested Allergies: Coded Allergies: No Known Drug Allergies (Unverified , 01/15/10) Discharge Summary Date of Admission Feb 19, 2019 at 00:25 Date of Discharge Discharge Date: Feb 21, 2019 Discharge Time: 1500 Discharge Diagnosis Sepsis UTI greater than 10 to the fifth Diarrhea resolved Chronic basis stasis change with an ulcer will start wound dressing Chronic atrial fibrillation Possible discharge tomorrow if he is able to get up and walk with his walker Clinical Quality Measures DVT/VTE Risk/Contraindication: Risk Factor Score Per Nursin RFS Level Per Nursing on Admit: 4+=Very High PEDRO LINN MD Feb 21, 2019 13:11
[2019-02-21] MEDS ORDERED: ENOXAPARIN 100 MG/1 ML (LOVENOX) SYR SC ONE (13:15)
[2019-02-21 17:03] VITALS: BP 108/63
== END 2019-02-21 16:50 | disposition home or self-care (01) ==
LOC: EDUNIT# 21:44 → ER FS 21:46 → 4TH 02-19 00:25
PROVIDERS: ADMIT Family Medicine; ATTEND Family Medicine
DX: N30.01 Acute cystitis with hematuria (principal); A41.9 Sepsis, unspecified organism; I72.9 Aneurysm of unspecified site; I48.91 Unspecified atrial fibrillation; R19.7 Diarrhea, unspecified; D72.829 Elevated white blood cell count, unspecified; N40.1 Benign prostatic hyperplasia with lower urinary tract symptoms; Z79.01 Long term (current) use of anticoagulants; Z79.899 Other long term (current) drug therapy
CPT/HCPCS: 36415; 80048; 80053; 83605; 85007; 85025; 85027; 85610; 93041; 96374; G0378

== ENCOUNTER 2020-05-21 21:17 | Emergency (ER) | payer MEDICARE ==
[~2020-05-21] VITALS: Ht 182.9 cm; Wt 81.8 kg
[~2020-05-21 21:17] MED LIST changes: +ACET-2267 PO; +AMLO-251 PO; +CEPH500T PO; +FLEC100T PO; +IBUP-30 PO; +LISI-552 PO; +SULF1TAB35 PO; +WARF-48 PO; +WARF4TAB3 PO
[2020-05-21] MEDS ORDERED: NS IV 1000 ML 1,000 ML IV SCH (21:45)
--- NOTE | 2020-05-21 21:51 | ED GI ---
General Stated Complaint: NAUSEA/VOMITING Source of Information: Patient, EMS History of Present Illness Date Seen by Provider: May 21, 2020 Time Seen by Provider: 21:32 Initial Comments This 70 y/o male Saad and nonsmoker presents by EMS from his local residence where he reports severe generalized weakness from recent bloody emesis (on xarelto for a-fib) yesterday and 2-3 days of non-bloody diarrhea 15 or more times daily. he called EMs when got fed up with him lying in feces and too weak to walk to bathroom or to clean himself up. He was recently given antibiotics for a venous leg ulcer on RLE that was wrapped at wound care clinic < 1 week ago for 1st time. He denies fever, headache, cough, SOA, abdominal pain, chest pain, COVID sx/exposure, travel, or diabetes/HIV/immune disorder. Timing/Duration: 2-3 Days Severity/Quality: Severe Associated Symptoms: No Back Pain, No Chest Pain; Fatigue; No Headache; Nausea/Vomiting; No Shortness of Air, No Syncope; Weakness Allergies and Home Medications Allergies Coded Allergies: No Known Drug Allergies (Unverified , 01/15/10) Home Medications Acetaminophen 500 Mg Tablet, 1,000 MG PO BID, (Reported) Amlodipine Besylate 10 Mg Tablet, 10 MG PO DAILY, (Reported) Cephalexin 500 Mg Tablet, 500 MG PO BID Prescribed by: KIANA PICHARDO on 12/14/191731 Flecainide Acetate 100 Mg Tablet, 50 MG PO BID, (Reported) TAKES 1/2 (100MG) TABLET Lisinopril 20 Mg Tablet, 20 MG PO DAILY, (Reported) Sulfamethoxazole/Trimethoprim 1 Each Tablet, 1 TAB PO BID, (Reported) #14 TABLETS FILLED 02-18-19 Warfarin Sodium 4 Mg Tablet, 4 MG PO MoTh, (Reported) Warfarin Sodium 5 Mg Tablet, 5 MG PO SuTuWeFrSa, (Reported) Patient Home Medication List Home Medication List Reviewed: No Review of Systems Review of Systems Constitutional: see HPI; No fever; malaise, weakness EENTM: No Symptoms Reported Respiratory: No Symptoms Reported Cardiovascular: No Symptoms Reported Gastrointestinal: See HPI; Denies Abdominal Pain, Denies Blood Streaked Stools; Diarrhea, Nausea, Poor Fluid Intake, Vomiting (reportedly dark blood-colored) Genitourinary: Other (wears external catheter since bladder stim failed) Musculoskeletal: No back pain, No neck pain Skin: other (VLU on RLE under compression wrap from wound care center in [place]) Psychiatric/Neurological: Denies Headache, Denies Numbness; Weakness (global) Hematologic/Lymphatic: Easy Bruising (chronic oral anticoagulation for atrial fibrillation) Past Amijmef-Gaddwp-Dsmjsw Hx Past Med/Social Hx: Reviewed and Corrections made Patient Social History Smoking Status: Never a Smoker 2nd Hand Smoke Exposure: No Recent Hopitalizations: Yes Seasonal Allergies Seasonal Allergies: No Past Medical History Surgeries: Yes (previous bladder stimulator, not currently working) Orthopedic Respiratory: No Cardiac: Yes Aneurysm, Atrial Fibrillation, Heart Attack Neurological: No Reproductive Disorders: No Genitourinary: Yes (Incontinence, Wears external catheter) Gastrointestinal: No Musculoskeletal: Yes Endocrine: No HEENT: No Cancer: No Psychosocial: Yes Integumentary: No Blood Disorders: No Physical Exam Vital Signs Vital Signs - First Documented 05/21/20 21:17 Temp 36.3 Pulse 87 Resp 19 B/P (MAP) 113/76 (88) Pulse Ox 96 O2 Delivery Nasal Cannula O2 Flow Rate 2.00 Capillary Refill : Height/Weight/BMI Height: '" Weight: lbs. oz. kg; 34.00 BMI Method: General Appearance: no apparent distress HEENT: pharynx normal; No scleral icterus (R), No scleral icterus (L) Neck: non-tender, supple Respiratory: chest non-tender, lungs clear Cardiovascular: normal peripheral pulses Gastrointestinal: non tender, soft, no pulsatile mass Extremities: non-tender (except at VLU distal RLE-medial), no calf tenderness, slow capillary refill Back: no vertebral tenderness Neurologic/Psychiatric: no motor/sensory deficits, alert, oriented x 3 Skin: cool; No jaundice Focused Exam Lactate Level 05/22/20 01:30: Lactic Acid Level 3.19*H Lactic Acid Level Laboratory Tests Test 05/22/20 01:30 Lactic Acid Level 3.19 MMOL/L (0.50-2.00) *H Progress/Results/Core Measures Results/Orders Lab Results Laboratory Tests Test 05/21/20 22:00 05/22/20 01:30 Range/Units White Blood Count 28.1 H 4.3-11.0 10^3/uL Red Blood Count 5.37 4.35-5.85 10^6/uL Hemoglobin 16.1 13.3-17.7 G/DL Hematocrit 47 40-54 % Mean Corpuscular Volume 88 80-99 FL Mean Corpuscular Hemoglobin 30 25-34 PG Mean Corpuscular Hemoglobin Concent 34 32-36 G/DL Red Cell Distribution Width 14.6 H 10.0-14.5 % Platelet Count 288 130-400 10^3/uL Mean Platelet Volume 10.7 H 7.4-10.4 FL Immature Granulocyte % (Auto) 1 % Neutrophils (%) (Auto) 88 H 42-75 % Lymphocytes (%) (Auto) 6 L 12-44 % Monocytes (%) (Auto) 4 0-12 % Eosinophils (%) (Auto) 0 0-10 % Basophils (%) (Auto) 0 0-10 % Neutrophils # (Auto) 24.8 H 1.8-7.8 X 10^3 Lymphocytes # (Auto) 1.7 1.0-4.0 X 10^3 Monocytes # (Auto) 1.2 H 0.0-1.0 X 10^3 Eosinophils # (Auto) 0.0 0.0-0.3 10^3/uL Basophils # (Auto) 0.1 0.0-0.1 10^3/uL Immature Granulocyte # (Auto) 0.3 H 0.0-0.1 10^3/uL Neutrophils % (Manual) 84 % Lymphocytes % (Manual) 4 % Monocytes % (Manual) 4 % Eosinophils % (Manual) 0 % Basophils % (Manual) 1 % Metamyelocytes % 1 % Band Neutrophils 6 % Platelet Estimate ADEQUATE Blood Morphology Comment NORMAL Sodium Level 132 L 135-145 MMOL/L Potassium Level 3.8 3.6-5.0 MMOL/L Chloride Level 97 L 98-107 MMOL/L Carbon Dioxide Level 23 21-32 MMOL/L Anion Gap 12 5-14 MMOL/L Blood Urea Nitrogen 37 H 7-18 MG/DL Creatinine 1.39 H 0.60-1.30 MG/DL Estimat Glomerular Filtration Rate 50 BUN/Creatinine Ratio 27 Glucose Level 106 H 70-105 MG/DL Calcium Level 9.5 8.5-10.1 MG/DL Corrected Calcium 9.8 8.5-10.1 MG/DL Total Bilirubin 0.5 0.1-1.0 MG/DL Aspartate Amino Transf (AST/SGOT) 29 5-34 U/L Alanine Aminotransferase (ALT/SGPT) 20 0-55 U/L Alkaline Phosphatase 93 40-136 U/L Total Protein 8.1 6.4-8.2 GM/DL Albumin 3.6 3.2-4.5 GM/DL Lipase 31 8-78 U/L Lactic Acid Level 3.19 *H 0.50-2.00 MMOL/L My Orders Orders - AMY SANTOYO MD Comprehensive Metabolic Panel (05/21/20 21:28) Lipase (05/21/20 21:28) Ua Culture If Indicated (05/21/20 21:28) Ed Iv/Invasive Line Start (05/21/20 21:28) Acute Abd Series (05/21/20 21:28) Cbc With Automated Diff (05/21/20 21:28) C Difficile Ag + Toxin A/B. (05/21/20 21:28) Fecal Wbc (05/21/20 21:28) Occult Blood Stool (05/21/20 21:28) Isolation Central Supply Req (05/21/20 21:28) Ns Iv 1000 Ml (Sodium Chloride 0.9%) (05/21/20 21:45) Manual Differential (05/21/20 22:00) Famotidine Injection (Pepcid Injection) (05/21/20 23:15) Ng Tube To Low Wall Suction (05/21/20 23:10) Ng Tube Insert & Assessment (05/21/20 23:10) Ct Abdomen/Pelvis W (05/21/20 23:27) Iohexol Injection (Omnipaque 350 Mg/Ml 1 (05/21/20 23:45) Received Contrast (Hold Metformin- Contr (05/21/20 23:45) Sodium Chloride Flush (Catheter Flush Sy (05/21/20 23:45) Ns (Ivpb) (Sodium Chloride 0.9% Ivpb Bag (05/21/20 23:45) Ciprofloxacin Iv 400mg/200ml (Cipro Iv S (05/22/20 00:15) Metronidazole 500mg/100ml Ivpb (Flagyl 5 (05/22/20 00:15) Ondansetron Injection (Zofran Injectio (05/22/20 00:40) Lactic Acid Analyzer (05/22/20 01:18) Ondansetron Injection (Zofran Injectio (05/22/20 01:30) Medications Given in ED Current Medications Medications Dose Ordered Sig/Benigno Route Start Time Stop Time Status Last Admin Dose Admin Ciprofloxacin/ Dextrose 200 ml @ 200 mls/hr ONCE ONCE IV 05/22/20 00:15 05/22/20 01:14 DC 05/22/20 00:31 200 MLS/HR Famotidine 20 mg ONCE ONCE IVP 05/21/20 23:15 05/21/20 23:16 DC 05/22/20 00:06 20 MG Iohexol 100 ml ONCE ONCE IV 05/21/20 23:45 05/21/20 23:46 DC 05/22/20 00:35 100 ML Metronidazole 100 ml @ 100 mls/hr ONCE ONCE IV 05/22/20 00:15 05/22/20 01:14 DC 05/22/20 00:31 100 MLS/HR Ondansetron HCl 4 mg ONCE ONCE IVP 05/22/20 01:30 05/22/20 01:31 DC 05/22/20 01:28 4 MG Sodium Chloride 10 ml NEEDED PRN IV 05/21/20 23:45 05/22/20 00:36 10 ML Sodium Chloride 100 ml ONCE ONCE IV 05/21/20 23:45 05/21/20 23:46 DC 05/22/20 00:36 100 ML Vital Signs/I&O 05/21/20 05/22/20 05/22/20 21:17 03:19 03:32 Temp 36.3 36.0 36.0 Pulse 87 88 88 Resp 19 20 20 B/P (MAP) 113/76 (88) 114/68 114/68 Pulse Ox 96 96 96 O2 Delivery Nasal Cannula Room Air Room Air O2 Flow Rate 2.00 Consults : Consulting Physician: A Consults Notes Disc by phone w/ Dr Whaley, senior automation engineer for Dr Marcos, and she accepts admission / transfer to [facility] and will call in orders (no beds in [place]); she requests CT ABD/pelvis with IV contrast and hold patient in ER until 3 am due to congestion in transfer traffic at [place]. 00:40 I spoke w/ Dr Villanueva, radiologist, who advised me CT shows "possible sigmoid volvulus"; I then contacted Dr Whaley who still accepts transfer but requests surgical consult w/ "Dr Leonardo" who admits to [place]. I then spoke w/ Dr Leonardo and he accepts consultation; only additional request is NPO and no Xarelto. 03:30 Awaiting transfer; remains stable; blood cultures taken and antibiotics started. Responded nicely to IV fluid bolus and skin perfusion, mental status, vital signs improved and/or stable. Transfer of Care Time: 23:24 Departure Communication (Admissions) Time/Spoke to Consulting Phy: 00:42 as above Impression Primary Impression: Diarrhea Additional Impressions: Nausea and vomiting Volvulus of sigmoid colon Disposition: XFER SHT-TRM HOSP Condition: Stable Admissions Decision to Admit Reason: Admit from ER (General) Decision to Admit/Date: May 22, 2020 Time/Decision to Admit Time: 00:44 Transfer Transfer Reason: Exceeds level of care (Local facility at [place] has no beds; we have no inpatient care at [facility] ER) Time Spoke to Accepting Phy: 00:[address] Whaley & Dr Leonardo Method of Transfer: EMS Departure-Patient Inst. Referrals: MANI MARCOS MD (PCP/Family) Primary Care Physician AMY SANTOYO MD May 21, 2020 21:51
[2020-05-21 22:53] LABS: HEMATOCRIT 47 % (40-54); HEMOGLOBIN 16.1 G/DL (13.3-17.7); MEAN CORPUSCULAR HEMOGLOBIN 30 PG (25-34); MEAN CORPUSCULAR VOLUME 88 FL (80-99); WHITE BLOOD COUNT 28.1 10^3/uL (4.3-11.0)
[2020-05-21 22:54] LABS: BASOPHILS % (AUTO) 0 % (0-10); EOSINOPHILS % (AUTO) 0 % (0-10); LYMPHOCYTES # (AUTO) 1.7 X 10^3 (1.0-4.0); LYMPHOCYTES % (AUTO) 6 % (12-44); MEAN PLATELET VOLUME 10.7 FL (7.4-10.4); MONOCYTES % (AUTO) 4 % (0-12); NEUTROPHILS # (AUTO) 24.8 X 10^3 (1.8-7.8); NEUTROPHILS % (AUTO) 88 % (42-75); PLATELET COUNT 288 10^3/uL (130-400)
[2020-05-21 22:55] LABS: BASOPHILS # (AUTO) 0.1 10^3/uL (0.0-0.1); MEAN CORPUSCULAR HGB CONC 34 G/DL (32-36); MONOCYTES # (AUTO) 1.2 X 10^3 (0.0-1.0)
--- NOTE | 2020-05-21 22:55 | NUR ---
CALLED (GUSTAVO) AT THIS TIME AND SHE STATED THAT SHE MADE AN APPOINTMENT WITH THE DOCTOR FOR 1500 ON FRIDAY, BUT THE PATIENT STATED HE COULDN'T MAKE IT. SHE IS IN A WHEELCHAIR AND COULDN'T GET HIM ANYWHERE. HER SON AND DAUGHTER ATTEMPTED TO GET HIM IN THE BATHTUB TODAY WITH A GAIT BELT AND WERE NOT ABLE TO GET HIM UP, SO THEY CALLED EMS. PT WAS SEEN IN [place] FROM WOUND CARE LAST FRIDAY (DR. CONTI) AND WAS PRESCRIBED AN ANTIBIOTIC. PT IS SUPPOSED TO HAVE DRESSING CHANGE ON FRIDAY. PT STARTED IT FRIDAY, BUT ONLY TOOK ONE DOSE. STATED PT DID NOT TAKE SOME OF HIS MEDICATIONS, BECAUSE HE HASN'T BEEN ABLE TO KEEP ANYTHING DOWN. WAS WORRIED ABOUT HIM BEING DEHYDRATED.
[2020-05-21 22:57] LABS: BAND NEUTROPHILS 6 %; BASOPHILS % (MANUAL) 1 %; EOSINOPHILS % (MANUAL) 0 %; LYMPHOCYTES % (MANUAL) 4 %; METAMYELOCYTES % 1 %; MONOCYTES % (MANUAL) 4 %; NEUTROPHILS % (MANUAL) 84 %
[2020-05-21 22:58] LABS: PLATELET ESTIMATE ADEQUATE; RBC MORPH NORMAL
[2020-05-21 23:03] LABS: BILIRUBIN,TOTAL 0.5 MG/DL (0.1-1.0); CALCIUM 9.5 MG/DL (8.5-10.1); CREATININE SERUM 1.39 MG/DL (0.60-1.30); POTASSIUM 3.8 MMOL/L (3.6-5.0)
[2020-05-21 23:04] LABS: ALBUMIN 3.6 GM/DL (3.2-4.5); TOTAL PROTEIN 8.1 GM/DL (6.4-8.2)
[2020-05-21] MEDS ORDERED: FAMOTIDINE 20MG/2ML IV (PEPCID) IVP ONE (23:15)
[2020-05-21] MEDS ORDERED: CATHETER FLUSH 10 ML SYR IV PRN (23:45)
[2020-05-21] MEDS ORDERED: HOLD METFORMIN - RECEIVED CONTRAST 20 ML VIAL IV SCH (23:45)
[2020-05-21] MEDS ORDERED: NS 100 ML (IVPB) BAG IV ONE (23:45)
[2020-05-21] MEDS ORDERED: IOHEXOL 350 MG/ML 100 ML (OMNIPAQUE 350) VIAL IV ONE (23:45)
[2020-05-22] MEDS ORDERED: CIPROFLOXACIN IV 400MG/200ML 200 ML IV ONE (00:15)
[2020-05-22] MEDS ORDERED: metroNIDAZOLE 500MG/100ML IVPB 100 ML IV ONE (00:15)
[2020-05-22] MEDS ORDERED: ONDANSETRON 4 MG/2 ML (SDV) Z0FRAN ONE (00:40)
[2020-05-22] MEDS ORDERED: ONDANSETRON 4 MG/2 ML (SDV) Z0FRAN IVP ONE (01:30)
[2020-05-22 03:32] VITALS: BP 114/68
--- NOTE | 2020-05-22 04:10 | NUR ---
REPORT WAS GIVEN TO [facility] AT THIS TIME. CARE WAS TRANSFERRED.
[2020-05-22 04:47] LABS: BILIRUBIN,URINE 1+ (NEGATIVE); CLARITY,URINE CLOUDY; COLOR,URINE YELLOW; GLUCOSE, URINE (UA) NEGATIVE (NEGATIVE); KETONES,URINE NEGATIVE (NEGATIVE); NITRITE,URINE NEGATIVE (NEGATIVE); PROTEIN,URINE TRACE (NEGATIVE)
[2020-05-22 04:48] LABS: BACTERIA,URINE LARGE /HPF; LEUKOCYTE ESTERASE ,URINE 3+ (NEGATIVE); WBC,URINE 25-50 /HPF
--- NOTE | 2020-05-22 07:39 | Diagnostic Imaging Report ---
INDICATION: Nausea vomiting and diarrhea EXAMINATION: Abdomen series 05/21/2020. FINDINGS: Linear atelectasis seen at the lung bases. Heart and pulmonary vasculature unremarkable. No free air seen beneath diaphragm. Diffusely distended large bowel seen especially in the right mid and upper abdomen. There is air and stool to the left lower quadrant. Hyperdensity throughout the abdomen likely contrast from a previous administration. Stimulator device overlies the left hip and extends towards the sacrum. IMPRESSION: 1. Possible early colonic obstructive process versus ileus. Correlate with symptoms follow-up recommended. 2. Bibasilar atelectasis. Dictated by: Dictated on workstation # [id number]
--- NOTE | 2020-05-22 08:22 | Diagnostic Imaging Report ---
PROCEDURE: CT abdomen and pelvis with contrast. TECHNIQUE: Multiple contiguous axial images were obtained through the abdomen and pelvis after administration of intravenous contrast. Auto Exposure Controls were utilized during the CT exam to meet ALARA standards for radiation dose reduction. All CT scans use one or more of the following dose optimizing techniques: automated exposure control, MA and/or KvP adjustment based on patient size and exam type or iterative reconstruction. INDICATION: Nausea, vomiting, and diarrhea. Abdominal pain. EXAMINATION: CT abdomen and pelvis with contrast 05/21/2020 COMPARISON: 02/18/2019 FINDINGS: There is linear atelectasis at the lung bases. Diffuse dilated loops of large bowel seen in the upper abdomen. The region of the rectosigmoid demonstrates wall thickening and overall narrowing. In configuration these findings may be due to a sigmoid volvulus. Early partial obstruction is not excluded. There is no evidence for free air. No abscess. The liver demonstrates fatty infiltration. Spleen unremarkable. Adrenal glands unremarkable. No acute process in either kidney. A feeding tube tip lies in the stomach. There is atherosclerotic disease. There are cystic lesions within the pancreas the largest of which is in the distal body measuring approximately 1.5 x 1.5 cm. A smaller subcentimeter nodule is seen in the tail. There is no free air or free fluid seen. Minimal wall thickening of the urinary bladder is noted and likely due to incomplete distention; cystitis should be clinically excluded. There is a stimulator device overlying the left buttock region. The osseous structures demonstrate chronic disease. IMPRESSION: 1. Findings suspicious for a sigmoid volvulus with early obstruction not excluded. Wall thickening of the distal sigmoid and into the rectosigmoid nonspecific. Focal colitis not excluded. 2. Small lesions within the pancreas nonspecific. Follow-up using pancreatic protocol CT could provide further characterization. 3. Other incidental findings as discussed above. The pertinent findings do agree with the preliminary report. Dictated by: Dictated on workstation # [id number]
== END 2020-05-22 04:15 | disposition short-term general hospital (02) ==
LOC: EDUNIT# 21:17 → ER FS 21:20
DX: R19.7 Diarrhea, unspecified (principal); R11.2 Nausea with vomiting, unspecified; K56.2 Volvulus; I25.2 Old myocardial infarction; I48.91 Unspecified atrial fibrillation; Z79.01 Long term (current) use of anticoagulants
CPT/HCPCS: 36415; 51702; 74022; 74177; 80053; 81000; 83605; 83690; 85007; 85027; 87088

== ENCOUNTER 2020-08-05 11:53 | Emergency (ER) | payer MEDICARE ==
[~2020-08-05 11:53] MED LIST changes: -LISI-552 PO; +LISI20TA26 PO
--- NOTE | 2020-08-05 12:08 | ED Dyspnea ---
General Stated Complaint: HIGH BLOOD PRESSURE | SOB Source of Information: Patient Exam Limitations: No Limitations History of Present Illness Date Seen by Provider: Aug 05, 2020 Time Seen by Provider: 12:08 Initial Comments 70-year-old male presents with complaint of shortness of air. States that he got up this morning and ate breakfast and after he stood up he felt lightheaded and a little short of air so he checked his blood pressure and it was 200 systolic. He waited 15 minutes and checked again and had a gone down to 165. He was seen in the urgent care and advised to come to the emergency room. On a rrival he denies chest pain, only has minimal shortness of air, primarily with light exertion. He denies any abdominal pain or excessive swelling of extremities. He does admit he was on lisinopril until June when he was taken off after hospitalization as his blood pressure seem to have normalized. Denies recent illness, fever or chills. Denies cough or abdominal pain Allergies and Home Medications Allergies Coded Allergies: No Known Drug Allergies (Unverified , 01/15/10) Home Medications Acetaminophen 500 Mg Tablet, 1,000 MG PO BID, (Reported) Amlodipine Besylate 10 Mg Tablet, 10 MG PO DAILY, (Reported) Cephalexin 500 Mg Tablet, 500 MG PO BID Prescribed by: KIANA PICHARDO on 12/14/191731 Flecainide Acetate 100 Mg Tablet, 50 MG PO BID, (Reported) TAKES 1/2 (100MG) TABLET Lisinopril 20 Mg Tablet, 20 MG PO DAILY, (Reported) Sulfamethoxazole/Trimethoprim 1 Each Tablet, 1 TAB PO BID, (Reported) #14 TABLETS FILLED 02-18-19 Warfarin Sodium 4 Mg Tablet, 4 MG PO MoTh, (Reported) Warfarin Sodium 5 Mg Tablet, 5 MG PO SuTuWeFrSa, (Reported) Patient Home Medication List Home Medication List Reviewed: Yes Review of Systems Review of Systems Constitutional: No chills, No diaphoresis; dizziness; No fever; malaise; No weakness EENTM: no symptoms reported Respiratory: see HPI; No cough, No orthopnea, No phlegm; short of breath; No stridor, No wheezing Cardiovascular: see HPI; No chest pain, No palpitations, No syncope Gastrointestinal: No abdominal pain, No nausea, No vomiting Musculoskeletal: No back pain, No joint pain Skin: No change in color, No lesions, No lumps Past Rlpgdvi-Cpcajn-Tbjtog Hx Past Med/Social Hx: Reviewed Nursing Past Med/Soc Hx Patient Social History 2nd Hand Smoke Exposure: No Recent Hopitalizations: Yes Seasonal Allergies Seasonal Allergies: No Past Medical History Surgeries: Yes (previous bladder stimulator, not currently working) Orthopedic Respiratory: No Cardiac: Yes Aneurysm, Atrial Fibrillation, Heart Attack Neurological: No Reproductive Disorders: No Genitourinary: Yes (Incontinence, Wears external catheter) Gastrointestinal: No Musculoskeletal: Yes Endocrine: No HEENT: No Cancer: No Psychosocial: Yes Integumentary: No Blood Disorders: No Physical Exam Vital Signs Vital Signs - First Documented 08/05/20 08/05/20 12:00 13:38 Temp 36.6 Pulse 58 Resp 17 B/P (MAP) 161/72 (101) Pulse Ox 96 O2 Delivery Room Air Capillary Refill : Height, Weight, BMI Height: '" Weight: lbs. oz. kg; 24.00 BMI Method: General Appearance: No Apparent Distress, WD/WN HEENT: PERRL/EOMI, Normal ENT Inspection Neck: Normal Inspection, Non Tender, Supple Respiratory: Chest Non Tender, Lungs Clear, Normal Breath Sounds, No Accessory Muscle Use, No Respiratory Distress Cardiovascular: Regular Rate, Rhythm, No Edema, No Gallop, No JVD, No Murmur, Normal Peripheral Pulses Gastrointestinal: No Organomegaly, Non Tender, Soft Extremity: Normal Capillary Refill, Non Tender, No Calf Tenderness Neurologic/Psychiatric: Alert, Oriented x3, Normal Mood/Affect Skin: Normal Color, Warm/Dry Progress/Results/Core Measures Results/Orders Lab Results Laboratory Tests Test 08/05/20 12:30 Range/Units White Blood Count 7.8 4.3-11.0 10^3/uL Red Blood Count 4.93 4.35-5.85 10^6/uL Hemoglobin 14.7 13.3-17.7 G/DL Hematocrit 43 40-54 % Mean Corpuscular Volume 88 80-99 FL Mean Corpuscular Hemoglobin 30 25-34 PG Mean Corpuscular Hemoglobin Concent 34 32-36 G/DL Red Cell Distribution Width 15.1 H 10.0-14.5 % Platelet Count 234 130-400 10^3/uL Mean Platelet Volume 10.6 H 7.4-10.4 FL Immature Granulocyte % (Auto) 0 % Neutrophils (%) (Auto) 81 H 42-75 % Lymphocytes (%) (Auto) 12 12-44 % Monocytes (%) (Auto) 5 0-12 % Eosinophils (%) (Auto) 1 0-10 % Basophils (%) (Auto) 1 0-10 % Neutrophils # (Auto) 6.3 1.8-7.8 X 10^3 Lymphocytes # (Auto) 0.9 L 1.0-4.0 X 10^3 Monocytes # (Auto) 0.4 0.0-1.0 X 10^3 Eosinophils # (Auto) 0.1 0.0-0.3 10^3/uL Basophils # (Auto) 0.1 0.0-0.1 10^3/uL Immature Granulocyte # (Auto) 0.0 0.0-0.1 10^3/uL Sodium Level 139 135-145 MMOL/L Potassium Level 4.3 3.6-5.0 MMOL/L Chloride Level 105 98-107 MMOL/L Carbon Dioxide Level 26 21-32 MMOL/L Anion Gap 8 5-14 MMOL/L Blood Urea Nitrogen 21 H 7-18 MG/DL Creatinine 0.98 0.60-1.30 MG/DL Estimat Glomerular Filtration Rate > 60 BUN/Creatinine Ratio 21 Glucose Level 106 H 70-105 MG/DL Calcium Level 9.4 8.5-10.1 MG/DL Corrected Calcium 9.3 8.5-10.1 MG/DL Total Bilirubin 0.7 0.1-1.0 MG/DL Aspartate Amino Transf (AST/SGOT) 13 5-34 U/L Alanine Aminotransferase (ALT/SGPT) 9 0-55 U/L Alkaline Phosphatase 76 40-136 U/L Troponin I < 0.30 <0.30 NG/ML Pro-B-Type Natriuretic Peptide 947.2 H <75.0 PG/ML Total Protein 7.8 6.4-8.2 GM/DL Albumin 4.1 3.2-4.5 GM/DL My Orders Orders - ROVENSTJER HARDWICK DO Ed Iv/Invasive Line Start (08/05/20 12:10) Cbc With Automated Diff (08/05/20 12:10) Comprehensive Metabolic Panel (08/05/20 12:10) Probnp Fs (08/05/20 12:10) Troponin I Fs (08/05/20 12:10) Chest 1 View Ap/Pa Only (08/05/20 12:10) Ekg Tracing (08/05/20 12:10) Vital Signs/I&O 08/05/20 08/05/20 12:00 13:38 Temp 36.6 Pulse 58 48 Resp 17 18 B/P (MAP) 161/72 (101) 138/56 Pulse Ox 96 99 O2 Delivery Room Air Progress Progress Note : Progress Note patient stable for entire ER visit with normal vitals, did have pulse upper 40's to 50's. Patient admits his HR runs around 50 and his Provisioning Specialist is aware. Discussed normal labs and CXR and advised to communicate w his PCP and Cardio, but would resume his Lisinopril tomorrow. He expresses understanding. Asymptomatic and without any complaint Initial ECG Impression Date: Aug 05, 2020 Initial ECG Impression Time: 12:20 Initial ECG Rate: 53 Initial ECG Rhythm: Normal Sinus Initial ECG Intervals: Normal Departure Impression Primary Impression: Dyspnea Qualified Codes: R06.00 - Dyspnea, unspecified Additional Impressions: Hypertension Qualified Codes: I10 - Essential (primary) hypertension Bradycardia Disposition: 01 HOME, SELF-CARE Condition: Improved Departure-Patient Inst. Decision time for Depature: 13:18 Referrals: SELF,MANI VALENZUELA (PCP/Family) Primary Care Physician Add. Discharge Instructions: RE-start your Lisinopril and see Doctor Self in 1 week. Call your Provisioning Specialist on Friday to set up a follow up appointment regarding your slow heart rate. JER ZAVALA DO Aug 05, 2020 12:08
[2020-08-05 12:36] LABS: HEMATOCRIT 43 % (40-54); HEMOGLOBIN 14.7 G/DL (13.3-17.7); MEAN CORPUSCULAR HEMOGLOBIN 30 PG (25-34); MEAN CORPUSCULAR HGB CONC 34 G/DL (32-36); MEAN CORPUSCULAR VOLUME 88 FL (80-99); WHITE BLOOD COUNT 7.8 10^3/uL (4.3-11.0)
[2020-08-05 12:37] LABS: BASOPHILS # (AUTO) 0.1 10^3/uL (0.0-0.1); BASOPHILS % (AUTO) 1 % (0-10); EOSINOPHILS # (AUTO) 0.1 10^3/uL (0.0-0.3); EOSINOPHILS % (AUTO) 1 % (0-10); LYMPHOCYTES # (AUTO) 0.9 X 10^3 (1.0-4.0); LYMPHOCYTES % (AUTO) 12 % (12-44); MEAN PLATELET VOLUME 10.6 FL (7.4-10.4); MONOCYTES # (AUTO) 0.4 X 10^3 (0.0-1.0); MONOCYTES % (AUTO) 5 % (0-12); NEUTROPHILS # (AUTO) 6.3 X 10^3 (1.8-7.8); NEUTROPHILS % (AUTO) 81 % (42-75); PLATELET COUNT 234 10^3/uL (130-400)
[2020-08-05 12:53] LABS: ALANINE AMINOTRANSFERASE 9 U/L (0-55); ALBUMIN 4.1 GM/DL (3.2-4.5); ALKALINE PHOSPHATASE 76 U/L (40-136); BILIRUBIN,TOTAL 0.7 MG/DL (0.1-1.0); BUN/CREATININE RATIO 21; CALCIUM 9.4 MG/DL (8.5-10.1); CARBON DIOXIDE 26 MMOL/L (21-32); CHLORIDE 105 MMOL/L (98-107); CREATININE SERUM 0.98 MG/DL (0.60-1.30); GFR ESTIMATED > 60; GLUCOSE 106 MG/DL (70-105); POTASSIUM 4.3 MMOL/L (3.6-5.0); SODIUM 139 MMOL/L (135-145); TOTAL PROTEIN 7.8 GM/DL (6.4-8.2)
--- NOTE | 2020-08-05 13:19 | Diagnostic Imaging Report ---
INDICATION: Shortness of breath. COMPARISON: 05/21/2020 FINDINGS: There is cardiomegaly. There is no pleural effusion or pneumothorax. Mediastinum is unremarkable. IMPRESSION: No acute cardiopulmonary abnormality. Cardiomegaly. Dictated by: Dictated on workstation # [id number]
[2020-08-05 13:38] VITALS: BP 138/56
== END 2020-08-05 13:39 | disposition home or self-care (01) ==
LOC: EDUNIT# 11:53 → ER FS 11:55
DX: I10 Essential (primary) hypertension (principal); I25.2 Old myocardial infarction; I48.91 Unspecified atrial fibrillation; Z79.01 Long term (current) use of anticoagulants; Z79.899 Other long term (current) drug therapy
CPT/HCPCS: 36415; 71045; 80053; 83880; 84484; 85025; 93005

== ENCOUNTER 2020-09-04 13:46 | Emergency (ER) | payer MEDICARE ==
--- NOTE | 2020-09-04 13:53 | ED General ---
General Stated Complaint: LOW BP; GEN WEAKNESS History of Present Illness Date Seen by Provider: September 04, 2020 Time Seen by Provider: 13:52 Initial Comments 70-year-old male presents with some generalized weakness, body aches, nausea vomiting diarrhea. Patient also reports his blood pressure seemed a little bit low. Patient reports around 10/08/1930's morning he started with some nausea vomiting diarrhea. He is just has some generalized body aches now along with some continued nausea. Reports he feels like he got ran over by a truck. Patient denies any cough, shortness of breath, chest pain, fever, chills, abdominal pain. He denies any other systemic complaints Allergies and Home Medications Allergies Coded Allergies: No Known Drug Allergies (Unverified , 01/15/10) Home Medications Acetaminophen 500 Mg Tablet, 1,000 MG PO BID, (Reported) Amlodipine Besylate 10 Mg Tablet, 10 MG PO DAILY, (Reported) Cephalexin 500 Mg Tablet, 500 MG PO BID Prescribed by: KIANA PICHARDO on 12/14/191731 Flecainide Acetate 100 Mg Tablet, 50 MG PO BID, (Reported) TAKES 1/2 (100MG) TABLET Lisinopril 20 Mg Tablet, 20 MG PO DAILY, (Reported) Sulfamethoxazole/Trimethoprim 1 Each Tablet, 1 TAB PO BID, (Reported) #14 TABLETS FILLED 02-18-19 Warfarin Sodium 4 Mg Tablet, 4 MG PO MoTh, (Reported) Warfarin Sodium 5 Mg Tablet, 5 MG PO SuTuWeFrSa, (Reported) Patient Home Medication List Home Medication List Reviewed: Yes Review of Systems Review of Systems Constitutional: No chills, No fever; malaise, weakness Respiratory: No cough, No short of breath Cardiovascular: No chest pain, No palpitations Gastrointestinal: No abdominal pain; diarrhea, nausea, vomiting Genitourinary: no symptoms reported Musculoskeletal: no symptoms reported Skin: no symptoms reported Past Sfloqat-Gctcad-Hwfhtz Hx Past Med/Social Hx: Reviewed Nursing Past Med/Soc Hx Patient Social History 2nd Hand Smoke Exposure: No Recent Hopitalizations: Yes Seasonal Allergies Seasonal Allergies: No Past Medical History Surgeries: Yes (previous bladder stimulator, not currently working) Orthopedic Respiratory: No Cardiac: Yes Aneurysm, Atrial Fibrillation, Heart Attack Neurological: No Reproductive Disorders: No Genitourinary: Yes (Incontinence, Wears external catheter) Gastrointestinal: No Musculoskeletal: Yes Endocrine: No HEENT: No Cancer: No Psychosocial: Yes Integumentary: No Blood Disorders: No Physical Exam Vital Signs Vital Signs - First Documented 09/04/20 14:15 Temp 36.4 Pulse 61 Resp 20 B/P (MAP) 113/64 (80) Pulse Ox 95 Capillary Refill : Height, Weight, BMI Height: '" Weight: lbs. oz. kg; 24.00 BMI Method: General Appearance: No Apparent Distress, WD/WN Neck: Supple Respiratory: Lungs Clear, Normal Breath Sounds Cardiovascular: Regular Rate, Rhythm, No Edema Gastrointestinal: Soft; No Distended, No Guarding; Tenderness (minimal diffuse ) Extremity: Normal Capillary Refill Neurologic/Psychiatric: Alert, Oriented x3, No Motor/Sensory Deficits, strategic planning director II- XII Norm as Tested Skin: Normal Color, Warm/Dry Progress/Results/Core Measures Suspected Sepsis SIRS Temperature: Pulse: Respiratory Rate: Laboratory Tests 09/04/20 14:07: White Blood Count 22.8H Blood Pressure / Mean: Laboratory Tests 09/04/20 14:07: Creatinine 1.10, Platelet Count 216, Total Bilirubin 1.1H Results/Orders Lab Results Laboratory Tests Test 09/04/20 14:07 Range/Units White Blood Count 22.8 H 4.3-11.0 10^3/uL Red Blood Count 4.89 4.35-5.85 10^6/uL Hemoglobin 14.6 13.3-17.7 G/DL Hematocrit 44 40-54 % Mean Corpuscular Volume 89 80-99 FL Mean Corpuscular Hemoglobin 30 25-34 PG Mean Corpuscular Hemoglobin Concent 34 32-36 G/DL Red Cell Distribution Width 14.5 10.0-14.5 % Platelet Count 216 130-400 10^3/uL Mean Platelet Volume 10.8 H 7.4-10.4 FL Immature Granulocyte % (Auto) 1 % Neutrophils (%) (Auto) 98 H 42-75 % Lymphocytes (%) (Auto) 1 L 12-44 % Monocytes (%) (Auto) 1 0-12 % Eosinophils (%) (Auto) 0 0-10 % Basophils (%) (Auto) 0 0-10 % Neutrophils # (Auto) 22.2 H 1.8-7.8 X 10^3 Lymphocytes # (Auto) 0.2 L 1.0-4.0 X 10^3 Monocytes # (Auto) 0.2 0.0-1.0 X 10^3 Eosinophils # (Auto) 0.0 0.0-0.3 10^3/uL Basophils # (Auto) 0.1 0.0-0.1 10^3/uL Immature Granulocyte # (Auto) 0.2 H 0.0-0.1 10^3/uL Neutrophils % (Manual) 60 % Lymphocytes % (Manual) 0 % Monocytes % (Manual) 1 % Metamyelocytes % 3 % Band Neutrophils 36 % Blood Morphology Comment NORMAL Sodium Level 139 135-145 MMOL/L Potassium Level 3.5 L 3.6-5.0 MMOL/L Chloride Level 106 98-107 MMOL/L Carbon Dioxide Level 19 L 21-32 MMOL/L Anion Gap 14 5-14 MMOL/L Blood Urea Nitrogen 21 H 7-18 MG/DL Creatinine 1.10 0.60-1.30 MG/DL Estimat Glomerular Filtration Rate > 60 BUN/Creatinine Ratio 19 Glucose Level 106 H 70-105 MG/DL Calcium Level 9.1 8.5-10.1 MG/DL Corrected Calcium 9.6 8.5-10.1 MG/DL Total Bilirubin 1.1 H 0.1-1.0 MG/DL Aspartate Amino Transf (AST/SGOT) 224 H 5-34 U/L Alanine Aminotransferase (ALT/SGPT) 118 H 0-55 U/L Alkaline Phosphatase 107 40-136 U/L C-Reactive Protein 1.78 H <0.50 MG/DL Total Protein 6.8 6.4-8.2 GM/DL Albumin 3.4 3.2-4.5 GM/DL Lipase 13 8-78 U/L Micro Results Microbiology 09/04/20 Influenza Types A,B Antigen (ACRRIE) - Final, Complete My Orders Orders - GILLIAN MARTINEZ DO Cbc With Automated Diff (09/04/20 13:59) Comprehensive Metabolic Panel (09/04/20 13:59) Lipase (09/04/20 13:59) Influenza A And B Antigens (09/04/20 13:59) Crp Fs (09/04/20 13:59) Abdomen (Kub) 1 View (09/04/20 13:59) Ondansetron Injection (Zofran Injectio (09/04/20 14:00) Lactated Ringers (Lr 1000 Ml Iv Solution (09/04/20 13:59) Manual Differential (09/04/20 14:07) Ct Abdomen/Pelvis W (09/04/20 14:43) Iohexol Injection (Omnipaque 350 Mg/Ml 1 (09/04/20 15:00) Received Contrast (Hold Metformin- Contr (09/04/20 15:00) Sodium Chloride Flush (Catheter Flush Sy (09/04/20 15:00) Ns (Ivpb) (Sodium Chloride 0.9% Ivpb Bag (09/04/20 15:00) Medications Given in ED Current Medications Medications Dose Ordered Sig/Benigno Route Start Time Stop Time Status Last Admin Dose Admin Iohexol 100 ml ONCE ONCE IV 09/04/20 15:00 09/04/20 15:01 DC 09/04/20 15:21 100 ML Ondansetron HCl 4 mg ONCE ONCE IVP 09/04/20 14:00 09/04/20 14:02 DC 09/04/20 14:12 4 MG Sodium Chloride 10 ml NEEDED PRN IV 09/04/20 15:00 09/04/20 15:22 10 ML Sodium Chloride 100 ml ONCE ONCE IV 09/04/20 15:00 09/04/20 15:01 DC 09/04/20 15:22 80 ML Vital Signs/I&O 09/04/20 14:15 Temp 36.4 Pulse 61 Resp 20 B/P (MAP) 113/64 (80) Pulse Ox 95 Capillary Refill : Progress Note : Progress Note Patient with elevated white count likely from gastroenteritis. Patient with negative x-ray, CT. Patient was offered admission. However patient states he can rest just as well at home. I will provide him with Flagyl, Cipro and Zofran. He should drink plenty of fluids, I recommend Gatorade or body armor. Recommend he return to the ER if symptoms continue to worsen for admission. Patient voices understanding and is in agreement with that plan. Patient is stable at discharge Departure Impression Primary Impression: Gastroenteritis and colitis, viral Disposition: 01 HOME, SELF-CARE Condition: Stable Departure-Patient Inst. Referrals: SELF,MANI VALENZUELA (PCP/Family) Primary Care Physician Patient Instructions: Viral Gastroenteritis, Adult (DC) Add. Discharge Instructions: Tylenol or ibuprofen as needed for pain Drink plenty of fluids Clear liquid diet then advance as you can tolerate Scripts Ondansetron (Ondansetron Odt) 4 Mg Tab.rapdis 4 MG PO Q6H PRN for NAUSEA/VOMITING, #20 TAB 0 Refills Prov: GILLIAN MARTINEZ DO 09/04/20 Metronidazole (Metronidazole) 500 Mg Tablet 500 MG PO BID, #14 TAB 0 Refills Prov: GILLIAN MARTINEZ DO 09/04/20 Ciprofloxacin HCl (Ciprofloxacin HCl) 500 Mg Tablet 500 MG PO BID, #14 TAB Prov: GILLIAN MARTINEZ DO 09/04/20 GILLIAN MARTINEZ DO September 04, 2020 13:52
[2020-09-04] MEDS ORDERED: LACTATED RINGERS 1,000 ML IV STA (13:59)
[2020-09-04] MEDS ORDERED: ONDANSETRON 4 MG/2 ML (SDV) Z0FRAN IVP ONE (14:00)
[2020-09-04 14:28] LABS: WHITE BLOOD COUNT 22.8 10^3/uL (4.3-11.0)
[2020-09-04 14:29] LABS: BASOPHILS # (AUTO) 0.1 10^3/uL (0.0-0.1); BASOPHILS % (AUTO) 0 % (0-10); EOSINOPHILS % (AUTO) 0 % (0-10); HEMATOCRIT 44 % (40-54); HEMOGLOBIN 14.6 G/DL (13.3-17.7); LYMPHOCYTES # (AUTO) 0.2 X 10^3 (1.0-4.0); LYMPHOCYTES % (AUTO) 1 % (12-44); MEAN CORPUSCULAR HEMOGLOBIN 30 PG (25-34); MEAN CORPUSCULAR HGB CONC 34 G/DL (32-36); MEAN CORPUSCULAR VOLUME 89 FL (80-99); MEAN PLATELET VOLUME 10.8 FL (7.4-10.4); MONOCYTES # (AUTO) 0.2 X 10^3 (0.0-1.0); MONOCYTES % (AUTO) 1 % (0-12); NEUTROPHILS # (AUTO) 22.2 X 10^3 (1.8-7.8); NEUTROPHILS % (AUTO) 98 % (42-75); PLATELET COUNT 216 10^3/uL (130-400)
--- NOTE | 2020-09-04 14:31 | Diagnostic Imaging Report ---
INDICATION: Abdominal pain. COMPARISON: 05/21/2020 FINDINGS: Two supine radiographic views of the abdomen were obtained. Small bowel loops are nondistended. Moderate air is seen scattered throughout the colon. There is no large collection of free intraperitoneal air. No unexpected extraosseous calcifications or radiopaque foreign bodies are seen. Note is made of sacral neurostimulator device on the left. Osseous structures show age-related degenerative changes. IMPRESSION: 1. Nonobstructed small bowel gas pattern. Dictated by: Dictated on workstation # [id number]
[2020-09-04 14:33] LABS: ALANINE AMINOTRANSFERASE 118 U/L (0-55); ALKALINE PHOSPHATASE 107 U/L (40-136); BILIRUBIN,TOTAL 1.1 MG/DL (0.1-1.0); BUN/CREATININE RATIO 19; CALCIUM 9.1 MG/DL (8.5-10.1); CARBON DIOXIDE 19 MMOL/L (21-32); CHLORIDE 106 MMOL/L (98-107); GFR ESTIMATED > 60; GLUCOSE 106 MG/DL (70-105); POTASSIUM 3.5 MMOL/L (3.6-5.0); SODIUM 139 MMOL/L (135-145)
[2020-09-04 14:34] LABS: ALBUMIN 3.4 GM/DL (3.2-4.5); LIPASE 13 U/L (8-78); TOTAL PROTEIN 6.8 GM/DL (6.4-8.2)
[2020-09-04 15:00] LABS: BAND NEUTROPHILS 36 %; LYMPHOCYTES % (MANUAL) 0 %; METAMYELOCYTES % 3 %; MONOCYTES % (MANUAL) 1 %; NEUTROPHILS % (MANUAL) 60 %; RBC MORPH NORMAL
[2020-09-04] MEDS ORDERED: HOLD METFORMIN - RECEIVED CONTRAST 20 ML VIAL IV SCH (15:00)
[2020-09-04] MEDS ORDERED: CATHETER FLUSH 10 ML SYR IV PRN (15:00)
[2020-09-04] MEDS ORDERED: IOHEXOL 350 MG/ML 100 ML (OMNIPAQUE 350) VIAL IV ONE (15:00)
[2020-09-04] MEDS ORDERED: NS 100 ML (IVPB) BAG IV ONE (15:00)
--- NOTE | 2020-09-04 15:37 | Diagnostic Imaging Report ---
EXAMINATION: CT abdomen and pelvis with intravenous contrast. TECHNIQUE: Multiple contiguous axial images were obtained through the abdomen and pelvis after the uneventful administration of intravenous contrast. All CT scans use one or more of the following dose optimizing techniques: automated exposure control, MA and/or KvP adjustment based on patient size and exam type or iterative reconstruction. HISTORY: Abdominal pain, elevated white blood cell count. COMPARISON: 05/21/2020. 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 The liver is normal without focal lesion. There is no biliary ductal dilation. Gallbladder is normal. There is an unchanged 14 mm cyst in the body of the pancreas. Spleen is normal. Adrenal glands are normal. The kidneys are normal. There is no hydronephrosis. Urinary bladder is normal. Visualized bowel is normal in caliber without obstruction or inflammation. No drainable fluid collection is seen. No free fluid or air. No abdominal or pelvic lymphadenopathy. Aorta is normal in caliber without aneurysm. There are no suspicious osseous lesions. Sacral nerve stimulator is present. IMPRESSION: 1. No acute abnormality in the abdomen or pelvis. 2. 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 Dictated by: Dictated on workstation # [id number]
[2020-09-04] MEDS ORDERED: METR-145 PO (15:49)
[2020-09-04] MEDS ORDERED: ONDA4TAB11 PO (15:49)
[2020-09-04] MEDS ORDERED: CIPR500T5 PO (15:49)
[2020-09-04 15:56] VITALS: BP 117/60
== END 2020-09-04 16:10 | disposition home or self-care (01) ==
LOC: EDUNIT# 13:46 → ER FS 13:47
DX: A08.4 Viral intestinal infection, unspecified (principal); I48.91 Unspecified atrial fibrillation; I25.2 Old myocardial infarction; Z79.01 Long term (current) use of anticoagulants
CPT/HCPCS: 36415; 74018; 74177; 80053; 83690; 85007; 85027; 86141; 87804

== ENCOUNTER 2020-09-23 12:40 | Inpatient (IN) | payer MEDICARE ==
[~2020-09-23] VITALS: Ht 182 cm; Wt 90.0 kg
[~2020-09-23 12:40] MED LIST changes: +CIPR500T5 PO; +METR-145 PO; +ONDA4TAB11 PO
--- NOTE | 2020-09-23 12:46 | ED GI ---
General Chief Complaint: Abdominal/GI Problems Stated Complaint: NAUSEA | VOMITING History of Present Illness Date Seen by Provider: September 23, 2020 Time Seen by Provider: 12:42 Initial Comments 70-year-old male presents via EMS for weakness, nausea & vomiting. Normally able to get up and walk around and a little more active, however lately just sitting and has soiled himself it is failure to get to the bathroom. Patient admits to vomiting even liquids for the past couple days. Allergies and Home Medications Allergies Coded Allergies: No Known Drug Allergies (Unverified , 01/15/10) Home Medications Acetaminophen 500 Mg Tablet, 1,000 MG PO BID, (Reported) Last Action: Continued Amlodipine Besylate 10 Mg Tablet, 10 MG PO DAILY, (Reported) Last Action: Held Flecainide Acetate 100 Mg Tablet, 50 MG PO BID, (Reported) TAKES 1/2 (100MG) TABLET Last Action: Continued Lisinopril 20 Mg Tablet, 20 MG PO DAILY, (Reported) Last Action: Held Ondansetron 4 Mg Tab.rapdis, 4 MG PO Q6H PRN for NAUSEA/VOMITING Prescribed by: GILLIAN MARTINEZ on 09/04/20 0529 Last Action: Continued Rivaroxaban 10 Mg Tablet, 20 MG PO DAILY, (Reported) Last Action: Continued Patient Home Medication List Home Medication List Reviewed: Yes Review of Systems Review of Systems Constitutional: No chills, No fever; malaise, weakness Respiratory: Denies Cough, Denies Shortness of Air Cardiovascular: Denies Chest Pain; Edema; Denies Lightheadedness, Denies Palpitations, Denies Syncope Gastrointestinal: Denies Abdominal Pain; Diarrhea, Nausea, Vomiting Skin: No change in color, No rash Psychiatric/Neurological: Denies Headache, Denies Seizure; Weakness Past Askpvxi-Wdtfcb-Sojiyd Hx Past Med/Social Hx: Reviewed Nursing Past Med/Soc Hx Physical Exam Vital Signs Vital Signs - First Documented 09/23/20 12:42 Temp 37.3 Pulse 82 Resp 18 B/P (MAP) 105/89 (94) Pulse Ox 96 O2 Delivery Room Air Capillary Refill : Height/Weight/BMI Height: '" Weight: lbs. oz. kg; BMI Method: General Appearance: WD/WN, other (soiled pants- urine and stool) Respiratory: chest non-tender, lungs clear Cardiovascular: regular rate, rhythm, no JVD Gastrointestinal: non tender, soft Neurologic/Psychiatric: no motor/sensory deficits, alert, normal mood/affect Skin: normal color, warm/dry Progress/Results/Core Measures Results/Orders Lab Results Laboratory Tests Test 09/23/20 12:47 09/23/20 13:38 Range/Units White Blood Count 18.2 H 4.3-11.0 10^3/uL Red Blood Count 5.07 4.35-5.85 10^6/uL Hemoglobin 15.0 13.3-17.7 G/DL Hematocrit 45 40-54 % Mean Corpuscular Volume 88 80-99 FL Mean Corpuscular Hemoglobin 30 25-34 PG Mean Corpuscular Hemoglobin Concent 34 32-36 G/DL Red Cell Distribution Width 15.6 H 10.0-14.5 % Platelet Count 277 130-400 10^3/uL Mean Platelet Volume 10.7 H 7.4-10.4 FL Immature Granulocyte % (Auto) 0 % Neutrophils (%) (Auto) 86 H 42-75 % Lymphocytes (%) (Auto) 5 L 12-44 % Monocytes (%) (Auto) 9 0-12 % Eosinophils (%) (Auto) 0 0-10 % Basophils (%) (Auto) 0 0-10 % Neutrophils # (Auto) 15.7 H 1.8-7.8 X 10^3 Lymphocytes # (Auto) 0.8 L 1.0-4.0 X 10^3 Monocytes # (Auto) 1.5 H 0.0-1.0 X 10^3 Eosinophils # (Auto) 0.0 0.0-0.3 10^3/uL Basophils # (Auto) 0.1 0.0-0.1 10^3/uL Immature Granulocyte # (Auto) 0.1 0.0-0.1 10^3/uL Neutrophils % (Manual) 82 % Lymphocytes % (Manual) 4 % Monocytes % (Manual) 9 % Band Neutrophils 5 % Sodium Level 130 L 135-145 MMOL/L Potassium Level 6.0 H 3.6-5.0 MMOL/L Chloride Level 101 98-107 MMOL/L Carbon Dioxide Level 17 L 21-32 MMOL/L Anion Gap 12 5-14 MMOL/L Blood Urea Nitrogen 33 H 7-18 MG/DL Creatinine 0.83 0.60-1.30 MG/DL Estimat Glomerular Filtration Rate > 60 BUN/Creatinine Ratio 40 Glucose Level 135 H 70-105 MG/DL Calcium Level 8.7 8.5-10.1 MG/DL Corrected Calcium 9.4 8.5-10.1 MG/DL Total Bilirubin 1.5 H 0.1-1.0 MG/DL Aspartate Amino Transf (AST/SGOT) 47 H 5-34 U/L Alanine Aminotransferase (ALT/SGPT) 23 0-55 U/L Alkaline Phosphatase 106 40-136 U/L Total Protein 7.1 6.4-8.2 GM/DL Albumin 3.1 L 3.2-4.5 GM/DL Urine Color DARK YELLOW Urine Clarity CLOUDY Urine pH 6.0 5-9 Urine Specific [place] 1.025 H 1.016-1.022 Urine Protein TRACE H NEGATIVE Urine Glucose (UA) NEGATIVE NEGATIVE Urine Ketones NEGATIVE NEGATIVE Urine Nitrite POSITIVE H NEGATIVE Urine Bilirubin 2+ H NEGATIVE Urine Urobilinogen 1.0 < = 1.0 MG/DL Urine Leukocyte Esterase TRACE H NEGATIVE Urine RBC (Auto) NEGATIVE NEGATIVE Urine RBC NONE /HPF Urine WBC 10-25 H /HPF Urine Squamous Epithelial Cells NONE /HPF Urine Renal Epithelial Cells 2-5 /HPF Urine Crystals NONE /LPF Urine Bacteria LARGE H /HPF Urine Casts PRESENT /LPF Urine Coarse Granular Casts 0-2 H /LPF Urine Mucus NEGATIVE /LPF Urine Culture Indicated YES My Orders Orders - JER ZAVALA DO Cbc With Automated Diff (09/23/20 12:46) Comprehensive Metabolic Panel (09/23/20 12:46) Urinalysis (09/23/20 12:46) Abdomen Flat & Upright/Decub (09/23/20 12:46) Ns Iv 500 Ml (Sodium Chloride 0.9%) (09/23/20 13:00) Ondansetron Injection (Zofran Injectio (09/23/20 13:00) Herman Cath (09/23/20 12:46) Manual Differential (09/23/20 12:47) Alcohol (09/23/20 13:46) Urine Culture (09/23/20 13:38) Vital Signs/I&O 09/23/20 12:42 Temp 37.3 Pulse 82 Resp 18 B/P (MAP) 105/89 (94) Pulse Ox 96 O2 Delivery Room Air Departure Communication (Admissions) Time/Spoke to Admitting Phy: 13:[address] Whaley who accepts for admission. 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 Likely needs LT care placement. Impression Primary Impression: Weakness generalized Additional Impressions: Physical debility Incontinence of urine Qualified Codes: R32 - Unspecified urinary incontinence Incontinence of bowel Qualified Codes: R15.9 - Full incontinence of feces Disposition: 30 STILL A PATIENT Condition: Stable Admissions Decision to Admit Reason: Admit from ER (General) Decision to Admit/Date: September 23, 2020 Time/Decision to Admit Time: 12:48 JER ZAVALA DO September 23, 2020 12:46
[2020-09-23 12:53] LABS: BASOPHILS # (AUTO) 0.1 10^3/uL (0.0-0.1); BASOPHILS % (AUTO) 0 % (0-10); EOSINOPHILS % (AUTO) 0 % (0-10); HEMATOCRIT 45 % (40-54); LYMPHOCYTES # (AUTO) 0.8 X 10^3 (1.0-4.0); LYMPHOCYTES % (AUTO) 5 % (12-44); MEAN CORPUSCULAR HEMOGLOBIN 30 PG (25-34); MEAN CORPUSCULAR HGB CONC 34 G/DL (32-36); MEAN CORPUSCULAR VOLUME 88 FL (80-99); MEAN PLATELET VOLUME 10.7 FL (7.4-10.4); MONOCYTES # (AUTO) 1.5 X 10^3 (0.0-1.0); MONOCYTES % (AUTO) 9 % (0-12); NEUTROPHILS # (AUTO) 15.7 X 10^3 (1.8-7.8); NEUTROPHILS % (AUTO) 86 % (42-75); PLATELET COUNT 277 10^3/uL (130-400); WHITE BLOOD COUNT 18.2 10^3/uL (4.3-11.0)
[2020-09-23] MEDS ORDERED: NS IV 500 ML 500 ML IV SCH (13:00)
[2020-09-23] MEDS ORDERED: ONDANSETRON 4 MG/2 ML (SDV) Z0FRAN IVP ONE (13:00)
[2020-09-23 13:10] LABS: BUN/CREATININE RATIO 40; CALCIUM 8.7 MG/DL (8.5-10.1); CARBON DIOXIDE 17 MMOL/L (21-32); CHLORIDE 101 MMOL/L (98-107); CREATININE SERUM 0.83 MG/DL (0.60-1.30); GFR ESTIMATED > 60; GLUCOSE 135 MG/DL (70-105); SODIUM 130 MMOL/L (135-145)
[2020-09-23 13:11] LABS: ALANINE AMINOTRANSFERASE 23 U/L (0-55); ALBUMIN 3.1 GM/DL (3.2-4.5); ALKALINE PHOSPHATASE 106 U/L (40-136); BILIRUBIN,TOTAL 1.5 MG/DL (0.1-1.0); TOTAL PROTEIN 7.1 GM/DL (6.4-8.2)
[2020-09-23 13:25] LABS: BAND NEUTROPHILS 5 %; LYMPHOCYTES % (MANUAL) 4 %; MONOCYTES % (MANUAL) 9 %; NEUTROPHILS % (MANUAL) 82 %
[2020-09-23 13:46] LABS: CLARITY,URINE CLOUDY; COLOR,URINE DARK YELLOW
[2020-09-23 13:47] LABS: BACTERIA,URINE LARGE /HPF; BILIRUBIN,URINE 2+ (NEGATIVE); GLUCOSE, URINE (UA) NEGATIVE (NEGATIVE); KETONES,URINE NEGATIVE (NEGATIVE); LEUKOCYTE ESTERASE ,URINE TRACE (NEGATIVE); NITRITE,URINE POSITIVE (NEGATIVE); PROTEIN,URINE TRACE (NEGATIVE)
--- NOTE | 2020-09-23 14:27 | Diagnostic Imaging Report ---
INDICATION: Vomiting. Weakness. FINDINGS: The visualized portion of the lung bases demonstrate some chronic interstitial changes but no alveolar consolidation or effusion. The abdomen demonstrates a large degree of stool within the colon but no convincing evidence of abnormal small bowel dilation. There is a sacral stimulator device. There are advanced degenerative features present within the spine. There are also arthritic changes at both of the hips. There is no evidence of free air. There are no unexpected abdominal calcifications. IMPRESSION: Large degree of stool within the colon particularly at the ascending colon and proximal transverse colon at the level of the rectum. There are no findings to suggest abnormal small bowel dilatation by plain radiography. There is no free air. There are no unexpected abdominal calcifications. Lung bases appear clear. Dictated by: Dictated on workstation # [id number]
[2020-09-23] MEDS: ONDANSETRON 4 MG/2 ML (SDV) Z0FRAN IVP PRN ×2 (15:30→20:51)
[2020-09-23 15:40] VITALS: BP 137/70
[2020-09-23] MEDS ORDERED: ONDANSETRON 4 MG/2 ML (SDV) Z0FRAN ONE (15:52)
[2020-09-23] MEDS ORDERED: CATHETER FLUSH 10 ML SYR IV PRN (16:15)
[2020-09-23] MEDS ORDERED: ONDANSETRON 4 MG/2 ML (SDV) Z0FRAN IV PRN (16:15)
[2020-09-23] MEDS ORDERED: HYDROcodone/APAP 5 MG/325 MG (LORTAB) TAB PO PRN (16:30)
[2020-09-23] MEDS ORDERED: DOCUSATE SODIUM 100 MG (COLACE) CAP PO PRN (16:30)
[2020-09-23] MEDS ORDERED: CALCIUM CARBONATE 500 MG (TUMS) TAB.CHEW PO PRN (16:30)
[2020-09-23] MEDS ORDERED: diphenhydrAMINE 25 MG TAB (BENADRYL) PO PRN (16:30)
[2020-09-23] MEDS ORDERED: ENOXAPARIN 40 MG/0.4 ML (LOVENOX) SYR SC SCH (16:30)
[2020-09-23] MEDS ORDERED: ACETAMINOPHEN 325 MG TABLET PO PRN (16:30)
[2020-09-23] MEDS ORDERED: MELATONIN 3 MG TABLET PO PRN (16:30)
[2020-09-23] MEDS ORDERED: ACETAMINOPHEN 500 MG TAB (TYLENOL) PO PRN (16:30)
[2020-09-23] MEDS ORDERED: morphine INJ 10 MG/ML 1ML (SYR OR VIAL) IVP PRN (16:30)
[2020-09-23] MEDS: NS IV 1000 ML 1,000 ML IV SCH (16:31)
[2020-09-23] MEDS: cefTRIAXone FOR IV USE 1,000 MG in WATER (STERILE) FOR INJECTION 10 ML IV SCH (16:40)
[2020-09-23] MEDS ORDERED: TRAM50TA3 PO (16:48)
[2020-09-23] MEDS ORDERED: CELE100C84 PO (16:48)
[2020-09-23] MEDS ORDERED: RIVA10TA PO (16:48)
[2020-09-23] MEDS ORDERED: ONDANSETRON 4 MG (ZOFRAN) ORAL DISSOLVE TAB PO PRN (17:00)
[2020-09-23] MEDS ORDERED: PATIENT MAY USE OWN MEDS, ALL MC SCH (18:00)
[2020-09-23] MEDS ORDERED: RELABEL FOR HOME USE MC SCH (18:00)
[2020-09-23] MEDS: polyethylene glycoL POWDER 17 GM (MIRALAX) PACK PO SCH (20:02)
[2020-09-23] MEDS: SENNA W/DOCUSATE (SENOKOT S) TABLET PO SCH (20:03)
[2020-09-23 20:06] VITALS: BP 111/58
[2020-09-23] MEDS: ALPRAZolam 0.25 MG (XANAX) TAB PO PRN (20:51)
[2020-09-23] MEDS: ACETAMINOPHEN 500 MG TAB (TYLENOL) PO SCH (20:57)
[2020-09-23] MEDS: FLECAINIDE 100 MG (TAMBOCOR) TAB PO SCH ×2 (20:58→21:07)
[2020-09-23 23:33] VITALS: BP 122/60
[2020-09-24] MEDS: NS IV 1000 ML 1,000 ML IV SCH ×3 (02:47→22:39)
[2020-09-24 04:41] VITALS: BP 97/57
[2020-09-24] MEDS: LOPERAMIDE 2 MG (IMODIUM) TABLET PO PRN ×2 (04:45→16:27)
[2020-09-24 04:58] LABS: BASOPHILS # (AUTO) 0.1 10^3/uL (0.0-0.1); BASOPHILS % (AUTO) 0 % (0-10); EOSINOPHILS % (AUTO) 0 % (0-10); HEMATOCRIT 39 % (40-54); HEMOGLOBIN 13.2 g/dL (13.3-17.7); LYMPHOCYTES # (AUTO) 1.3 10^3/uL (1.0-4.0); LYMPHOCYTES % (AUTO) 10 % (12-44); MEAN CORPUSCULAR HEMOGLOBIN 30 pg (25-34); MEAN CORPUSCULAR HGB CONC 34 g/dL (32-36); MEAN CORPUSCULAR VOLUME 87 fL (80-99); MEAN PLATELET VOLUME 10.6 fL (9.0-12.2); MONOCYTES # (AUTO) 2.1 10^3/uL (0.0-1.0); MONOCYTES % (AUTO) 15 % (0-12); NEUTROPHILS # (AUTO) 10.3 10^3/uL (1.8-7.8); NEUTROPHILS % (AUTO) 74 % (42-75); PLATELET COUNT 299 10^3/uL (130-400); WHITE BLOOD COUNT 13.8 10^3/uL (4.3-11.0)
[2020-09-24 05:19] LABS: ALANINE AMINOTRANSFERASE 19 U/L (0-55); ALBUMIN 2.8 GM/DL (3.2-4.5); ALKALINE PHOSPHATASE 74 U/L (40-136); BILIRUBIN,TOTAL 0.9 MG/DL (0.1-1.0); BUN/CREATININE RATIO 30; CARBON DIOXIDE 20 MMOL/L (21-32); CHLORIDE 108 MMOL/L (98-107); CREATININE SERUM 1.06 MG/DL (0.60-1.30); GFR ESTIMATED > 60; GLUCOSE 97 MG/DL (70-105); POTASSIUM 4.1 MMOL/L (3.6-5.0); SODIUM 134 MMOL/L (135-145); TOTAL PROTEIN 5.9 GM/DL (6.4-8.2)
--- NOTE | 2020-09-24 06:34 | History & Physical-Hospitalist ---
History of Present Illness HPI/Chief Complaint CC: Dehydration and UTI HPI: This is a 70yoWM clinic patient of [facility] who is [place] me [place] [facility] [place] of [place] who presents to the [facility] with report of poor social living situation in [place] with severe poor hygiene and was found to have UTI and BALBIR. Patient is doing better currently and all his home meds have been restarted. No pain is reported. Source: patient Exam Limitations: no limitations Date Seen 09/24/20 Time Seen by a Provider: 10:00 Attending Physician Monserrat Whaley DO PCP Self,Ramin VALENZUELA Referring Physician Date of Admission September 23, 2020 at 15:30 Home Medications & Allergies Home Medications Reviewed patient Home Medication Reconciliation performed by pharmacy medication reconciliations tool and die technician and/or nursing. Patients Allergies have been reviewed. Allergies Allergies Coded Allergies No Known Drug Allergies (Unverified01/15/10) Past Medical/Social/Family Hx Patient Social History Marrital Status: single Employed/Student: retired Tobacco Use?: No Smoking Status: Never a Smoker Alcohol Use?: No Pt stated abuse/neglect: No Immunizations Up To Date Influenza Vaccine Up-to-Date: No; Not Current First/Initial COVID19 Vaccinat: 09/18/2020 Second COVID19 Vaccination Piter: 10/19/2020-scheduled Current Status Advance Directives: No Communicates: Verbally Primary Language: Cook Islander Preferred Spoken Language: [place] Islander Is interpretation needed?: No Implanted or Applied Medical D: None Past Medical History Atrial Fibrillation BPH Chronic Catheter (Condom) Partial colon resection Review of Systems Constitutional: see HPI, malaise, weakness Physical Exam Physical Exam Vital Signs Vital Signs - First Documented 09/23/20 09/23/20 12:42 15:40 Temp 37.3 Pulse 82 Resp 18 B/P (MAP) 105/89 (94) Pulse Ox 96 O2 Delivery Room Air O2 Flow Rate 126.00 79.00 Capillary Refill : Less Than 3 Seconds Height, Weight, BMI Height: '" Weight: lbs. oz. kg; 27.17 BMI Method: General Appearance: No Apparent Distress, Chronically ill Eyes: Right Eye Normal Inspection, Right Eye PERRL HEENT: PERRL/EOMI, Normal ENT Inspection, Pharynx Normal, Moist Mucous Membranes Neck: Full Range of Motion, Normal Inspection, Non Tender Respiratory: Chest Non Tender, Lungs Clear, Normal Breath Sounds, No Accessory Muscle Use, No Respiratory Distress Cardiovascular: No Edema, No Gallop, No JVD, No Murmur, Normal Peripheral Pulse s, Irregularly Irregular Gastrointestinal: Normal Bowel Sounds, No Organomegaly, No Pulsatile Mass, Non Tender, Soft Back: Normal Inspection, No CVA Tenderness, No Vertebral Tenderness Extremity: Normal Capillary Refill, Normal Inspection, Normal Range of Motion, Non Tender, No Calf Tenderness, No Pedal Edema Neurologic/Psychiatric: Alert, Oriented x3, No Motor/Sensory Deficits, Normal Mood/Affect Skin: Normal Color, Warm/Dry Lymphatic: No Adenopathy Results Results/Procedures Labs Laboratory Tests 09/23/20 12:47 09/24/20 04:45 Patient resulted labs reviewed. Assessment/Plan Admission Diagnosis Assessment: Dehydration with diarrhea and UTI and BALBIR Previous partial colon [place] 05/29/20 Dr [place] [facility] [place] Chronic urinary incontinence HTN AF CAD Plan: Home meds Monitor closely OAC Admission Status: Inpatient Order (span 2 midnights) Reason for Inpatient Admission: balbir and dehydration MONSERRAT WHALEY DO September 24, 2020 06:34
[2020-09-24 08:00] VITALS: BP 132/67
[2020-09-24] MEDS ORDERED: RIVAROXABAN 10 MG TABLET (XARELTO) PO SCH (08:00)
[2020-09-24] MEDS: CELECOXIB 100 MG (CeleBREX) CAP PO SCH (08:13)
[2020-09-24] MEDS: ACETAMINOPHEN 500 MG TAB (TYLENOL) PO SCH ×2 (08:13→20:20)
[2020-09-24] MEDS: FLECAINIDE 100 MG (TAMBOCOR) TAB PO SCH ×2 (08:21→20:19)
[2020-09-24] MEDS: polyethylene glycoL POWDER 17 GM (MIRALAX) PACK PO SCH ×2 (08:33→19:35)
[2020-09-24] MEDS: SENNA W/DOCUSATE (SENOKOT S) TABLET PO SCH ×2 (08:34→19:35)
[2020-09-24 11:38] VITALS: BP 112/65
[2020-09-24 16:09] VITALS: BP 116/67
[2020-09-24] MEDS: cefTRIAXone FOR IV USE 1,000 MG in WATER (STERILE) FOR INJECTION 10 ML IV SCH (16:19)
[2020-09-24 19:08] VITALS: BP 140/70
[2020-09-25 00:07] VITALS: BP 98/63
[2020-09-25 03:51] VITALS: BP 156/73
[2020-09-25 04:35] LABS: BASOPHILS % (AUTO) 0 % (0-10); EOSINOPHILS % (AUTO) 0 % (0-10); HEMATOCRIT 39 % (40-54); HEMOGLOBIN 12.9 g/dL (13.3-17.7); LYMPHOCYTES # (AUTO) 1.7 10^3/uL (1.0-4.0); LYMPHOCYTES % (AUTO) 18 % (12-44); MEAN CORPUSCULAR HEMOGLOBIN 29 pg (25-34); MEAN CORPUSCULAR HGB CONC 33 g/dL (32-36); MEAN CORPUSCULAR VOLUME 89 fL (80-99); MEAN PLATELET VOLUME 10.8 fL (9.0-12.2); MONOCYTES # (AUTO) 1.1 10^3/uL (0.0-1.0); MONOCYTES % (AUTO) 12 % (0-12); NEUTROPHILS # (AUTO) 6.5 10^3/uL (1.8-7.8); NEUTROPHILS % (AUTO) 69 % (42-75); PLATELET COUNT 258 10^3/uL (130-400); WHITE BLOOD COUNT 9.4 10^3/uL (4.3-11.0)
[2020-09-25 04:57] LABS: ALANINE AMINOTRANSFERASE 14 U/L (0-55); ALBUMIN 2.6 GM/DL (3.2-4.5); ALKALINE PHOSPHATASE 61 U/L (40-136); BILIRUBIN,TOTAL 0.5 MG/DL (0.1-1.0); BUN/CREATININE RATIO 24; CALCIUM 7.8 MG/DL (8.5-10.1); CARBON DIOXIDE 20 MMOL/L (21-32); CHLORIDE 110 MMOL/L (98-107); CREATININE SERUM 0.75 MG/DL (0.60-1.30); GFR ESTIMATED > 60; GLUCOSE 93 MG/DL (70-105); POTASSIUM 3.7 MMOL/L (3.6-5.0); SODIUM 136 MMOL/L (135-145); TOTAL PROTEIN 5.5 GM/DL (6.4-8.2)
[2020-09-25 07:44] VITALS: BP 128/79
[2020-09-25] MEDS: FLECAINIDE 100 MG (TAMBOCOR) TAB PO SCH ×2 (08:11→20:10)
[2020-09-25] MEDS: RIVAROXABAN 20 MG TABLET (XARELTO) PO SCH (08:12)
[2020-09-25] MEDS: ACETAMINOPHEN 500 MG TAB (TYLENOL) PO SCH ×2 (08:12→20:10)
[2020-09-25] MEDS: polyethylene glycoL POWDER 17 GM (MIRALAX) PACK PO SCH ×2 (08:12→20:09)
[2020-09-25] MEDS: CELECOXIB 100 MG (CeleBREX) CAP PO SCH (08:12)
[2020-09-25] MEDS: NS IV 1000 ML 1,000 ML IV SCH ×2 (08:12→17:47)
[2020-09-25] MEDS: SENNA W/DOCUSATE (SENOKOT S) TABLET PO SCH ×2 (08:13→20:09)
[2020-09-25] MEDS ORDERED: CELE400C PO (10:26)
[2020-09-25] MEDS ORDERED: ONDA4TAB11 PO (10:26)
--- NOTE | 2020-09-25 10:51 | Physical Therapy Evaluation ---
PT Evaluation-General Medical Diagnosis Admission Date September 23, 2020 at 15:30 Medical Diagnosis: weakness/physical debility Onset Date: September 23, 2020 Therapy Diagnosis Therapy Diagnosis: generalized weakness/debility Precautions Precautions/Isolations: Fall Prevention, Standard Precautions Weight Bear Status Right Lower Extremity: Right Weight Bearing/Tolerated Left Lower Extremity: Left Weight Bearing/Tolerated Referral Physician: Jovana Reason for Referral: Evaluation/Treatment Medical History Pertinent Medical History: Atrial Fib, CAD, HTN Additional Medical History colon resection Current History EMS secondary to nausea, vomiting, diarrhea, and weakness (inability to care for self) Reviewed History: Yes Social History Current Living Status: Spouse (disabled) Prior Prior Level of Function SCALE: Activities may be completed with or without assistive devices. 9-Cllscnibhz-hxtnzlr completes the activity by him/herself with no assistance from a helper. 5-Set-up or Clean-up Assistance-helper sets up or cleans up; patient completes activity. [place] assists only prior to or following the activity. 4-Supervision or Touching Assistance-helper provides verbal cues and/or touching/steadying and/or contact guard assistance as patient completes activity. Assistance may be provided throughout the activity or intermittently. 3-Partial/Moderate Assistance-helper does LESS THAN HALF the effort. [place] lifts, holds or supports trunk or limbs, but provides less than half the effort. 2-Substantial/Maximal Assistance-helper does MORE THAN HALF the effort. [place] lifts or holds trunk or limbs and provides more than half the effort. 2-Hgzpxaant-gzhozu does ALL the effort. Patient does none of the effort to co mplete the activity. Or, the assistance of 2 or more helpers is required for the patient to complete the activity. If activity was not attempted, code reason: 7-Patient Refused. 9-Not Applicable-not attempted and the patient did not perform the activity before the current illness, exacerbation or injury. 10-Not Attempted due to Environmental Limitations-(lack of equipment, weather restraints, etc.). 88-Not Attempted due to Medical Conditions or Safety Concerns. Bed Mobility: 4 Transfers (B,C,W/C): 4 Gait: 4 Stairs: 9 Indoor Mobility (Ambulation): Needed Some Help Stairs: Not Applicalbe Prior Devices Use: Walker PT Evaluation-Current Subjective Patient agrees to PT. Objective Patient Orientation: Normal For Age Attachments: Herman Catheter, IV ROM/Strength ROM Lower Extremities bilateral LE WFL Strength Lower Extremities 2+/5 grossly bilateral LE Integumentary/Posture Integumentary refer to nursing notes Bowel Incontinence: Yes Bladder Incontinence: Herman Cath Posture severe kyphosis (noted severely diminished core strength) Neuromuscular (Tone, Coordination, Reflexes) severely diminished coordination due to severe weakness/inactivity Sensory Vision: Functional Hearing: Functional Transfers Roll Left to Right (QC): 2 Sit to Lying (QC): 2 Lying to Sitting/Side of Bed(Q: 2 Sit to Stand (QC): 1 (x 2 x 5 sets with display of severe trunk and bilateral knee flexion posture) Chair/Say-kz-Nhggl Xfer(QC): 88 Toilet Transfer (QC): 88 Gait Does the Patient Walk?: No and Walking Goal IS indicated Balance Sitting Static: Fair Sitting Dynamic: Fair Standing Static: Poor Standing Dynamic: Poor Treatment Patient unable to perform sit to stand to FWW and will require sit to stand lift for safe sit to stand transfers. RN notified Assessment/Needs 70 y.o. male, will benefit from skilled PT to address functional strength and mobility to improve current LOF. Patient has recently received skilled stay at [place] per patient report. From a PT standpoint, patient will require extended care facility due to severe debility and inability to care for self. Rehab Potential: Guarded PT Clin Asst Goals Clin Asst Goals PT Clin Asst Goals Time Frame: Oct 14, 2020 Roll Left & Right (QC): 4 Sit to Lying (QC): 4 Lying-Sitting on Side/Bed(QC): 4 Sit to Stand (QC): 3 Chair/Ptu-tu-Ifdpr Xfer(QC): 3 Toilet Transfer (QC): 3 Walk 10 feet (QC): 3 PT Plan Problem List Problem List: Activity Tolerance, Functional Strength, Safety, Balance, Gait, Transfer, Bed Mobility Treatment/Plan Treatment Plan: Continue Plan of Care Treatment Plan: Bed Mobility, Education, Functional Activity Norma, Functional Strength, Gait, Safety, Therapeutic Exercise, Transfers Treatment Duration: Oct 14, 2020 Frequency: 6 times per week Estimated Hrs Per Day: .25 hour per day Patient and/or Family Agrees t: Yes Discharge Recommendations Therapy Discharge Recommendati: Other, See Comments (nursing home facility) Time/GCodes Time In: 955 Time Out: 1012 Total Billed Treatment Time: 17 Total Billed Treatment 1 visit EVMod 17 min SVITLANA SANCHEZ PT September 25, 2020 10:51
[2020-09-25 11:38] VITALS: BP 151/83
[2020-09-25 15:27] VITALS: BP 123/68
[2020-09-25] MEDS: cefTRIAXone FOR IV USE 1,000 MG in WATER (STERILE) FOR INJECTION 10 ML IV SCH (16:35)
--- NOTE | 2020-09-25 18:11 | Progress Note ---
Subjective Subjective/Events-last exam Afebrile, is feeling much better. He states he has had much less diarrhea in the past several hours and ate a good breakfast, but still feels very weak. Objective Exam Last Set of Vital Signs Vital Signs Date Time Temp Pulse Resp B/P (MAP) Pulse Ox O2 Delivery O2 Flow Rate FiO2 09/25/20 15:27 37.0 80 18 123/68 (86) 96 Room Air 09/23/20 15:40 126.00 79.00 Capillary Refill : Less Than 3 Seconds I&O Intake and Output 09/25/20 00:00 Intake Total 3060 ml Output Total 1050 ml Balance 2010 ml Intake Oral 2060 ml IV Total 1000 ml Output Urine Total 1050 ml # Bowel Movements 5 General: Alert, No Acute Distress Lungs: Clear to Auscultation, Normal Air Movement Heart: Regular Rate Abdomen: Normal Bowel Sounds, Soft Neuro: Normal Speech Psych/Mental Status: Mental Status NL, Mood NL Results/Procedures Lab Laboratory Tests 09/25/20 04:02: White Blood Count 9.4, Red Blood Count 4.45, Hemoglobin 12.9L, Hematocrit 39L, Mean Corpuscular Volume 89, Mean Corpuscular Hemoglobin 29, Mean Corpuscular Hemoglobin Concent 33, Red Cell Distribution Width 15.1H, Platelet Count 258, Mean Platelet Volume 10.8, Immature Granulocyte % (Auto) 0, Neutrophils (%) (Auto) 69, Lymphocytes (%) (Auto) 18, Monocytes (%) (Auto) 12, Eosinophils (%) (Auto) 0, Basophils (%) (Auto) 0, Neutrophils # (Auto) 6.5, Lymphocytes # (Auto) 1.7, Monocytes # (Auto) 1.1H, Eosinophils # (Auto) 0.0, Basophils # (Auto) 0.0, Immature Granulocyte # (Auto) 0.0, Sodium Level 136, Potassium Level 3.7, Chloride Level 110H, Carbon Dioxide Level 20L, Anion Gap 6, Blood Urea Nitrogen 18, Creatinine 0.75, Estimat Glomerular Filtration Rate > 60, BUN/Creatinine Ratio 24, Glucose Level 93, Calcium Level 7.8L, Corrected Calcium 8.9, Total Bilirubin 0.5, Aspartate Amino Transf (AST/SGOT) 13, Alanine Aminotransferase (ALT/SGPT) 14, Alkaline Phosphatase 61, Total Protein 5.5L, Albumin 2.6L Microbiology 5/22/21 Urine Culture - Preliminary, Resulted Escherichia coli Assessment/Plan Assessment/Plan (1) Sepsis Status: Acute Assessment & Plan: Secondary to UTI. On ceftriaxone. Qualifiers: Qualified Codes: A41.51 - Sepsis due to Escherichia coli [e. coli] (2) UTI (urinary tract infection) Status: Acute Assessment & Plan: Culture with E coli, sensitivity pending. On ceftriaxone. Qualifiers: Qualified Codes: N30.00 - Acute cystitis without hematuria (3) Atrial fibrillation Status: Chronic Assessment & Plan: Resumed home flecainide and Xarelto. (4) Hypertension Status: Chronic Assessment & Plan: Had some low BP initially as well as hyperkalemia, home lisinopril held, resume as needed. Qualifiers: Qualified Codes: I10 - Essential (primary) hypertension (5) Gastroenteritis and colitis, viral Status: Acute Assessment & Plan: Improving with supportive care. (6) Weakness generalized Status: Acute (7) Physical debility Status: Acute Assessment & Plan: Discussed possible need for assisted, he notes he has needed in the past. (8) Hyponatremia Status: Resolved Assessment & Plan: Suspect hypovolemic. (9) Hyperkalemia Status: Resolved (10) DVT prophylaxis Status: Acute Assessment & Plan: On rivaroxaban. PIERCE POWERS MD September 25, 2020 18:11
[2020-09-25 19:31] VITALS: BP 122/64
[2020-09-26] VITALS: BP 118/67
[2020-09-26] MEDS: NS IV 1000 ML 1,000 ML IV SCH ×3 (03:20→21:48)
[2020-09-26 04:00] VITALS: BP 132/67
[2020-09-26 04:52] LABS: HEMATOCRIT 37 % (40-54); HEMOGLOBIN 12.4 g/dL (13.3-17.7); MEAN CORPUSCULAR HEMOGLOBIN 29 pg (25-34); MEAN CORPUSCULAR HGB CONC 34 g/dL (32-36); MEAN CORPUSCULAR VOLUME 87 fL (80-99); MEAN PLATELET VOLUME 10.3 fL (9.0-12.2); PLATELET COUNT 265 10^3/uL (130-400); WHITE BLOOD COUNT 6.2 10^3/uL (4.3-11.0)
[2020-09-26 05:01] LABS: CHLORIDE 109 MMOL/L (98-107); POTASSIUM 3.3 MMOL/L (3.6-5.0); SODIUM 140 MMOL/L (135-145)
[2020-09-26 05:02] LABS: GLUCOSE 99 MG/DL (70-105)
[2020-09-26 05:04] LABS: CARBON DIOXIDE 22 MMOL/L (21-32)
[2020-09-26 05:06] LABS: CREATININE SERUM 0.69 MG/DL (0.60-1.30); GFR ESTIMATED > 60
[2020-09-26 05:07] LABS: BUN/CREATININE RATIO 12
[2020-09-26] MEDS ORDERED: KCL 20 MEQ TAB (K-DUR) PO ONE (07:45)
[2020-09-26 08:00] VITALS: BP 174/89
[2020-09-26] MEDS: RIVAROXABAN 20 MG TABLET (XARELTO) PO SCH (08:58)
[2020-09-26] MEDS: CELECOXIB 100 MG (CeleBREX) CAP PO SCH (08:59)
[2020-09-26] MEDS: SENNA W/DOCUSATE (SENOKOT S) TABLET PO SCH ×2 (08:59→20:24)
[2020-09-26] MEDS: ALPRAZolam 0.25 MG (XANAX) TAB PO PRN (08:59)
[2020-09-26] MEDS: ACETAMINOPHEN 500 MG TAB (TYLENOL) PO SCH ×2 (08:59→21:43)
[2020-09-26] MEDS: FLECAINIDE 100 MG (TAMBOCOR) TAB PO SCH ×2 (08:59→21:43)
[2020-09-26] MEDS: polyethylene glycoL POWDER 17 GM (MIRALAX) PACK PO SCH ×2 (09:00→20:24)
--- NOTE | 2020-09-26 09:40 | Physical Therapy Daily Note ---
PT Daily Note-Current Subjective Patient agrees to PT and reports he is feeling better today. Pain Numeric Pain Scale: 0-No Pain Location: No Pain Reported Mental Status Patient Orientation: Normal For Age Attachments: Herman Catheter, IV Transfers SCALE: Activities may be completed with or without assistive devices. 0-Wbhkersgds-bwksqex completes the activity by him/herself with no assistance from a helper. 5-Set-up or Clean-up Assistance-helper sets up or cleans up; patient completes activity. [place] assists only prior to or following the activity. 4-Supervision or Touching Assistance-helper provides verbal cues and/or touching/steadying and/or contact guard assistance as patient completes activity. Assistance may be provided throughout the activity or intermittently. 3-Partial/Moderate Assistance-helper does LESS THAN HALF the effort. [place] lifts, holds or supports trunk or limbs, but provides less than half the effort. 2-Substantial/Maximal Assistance-helper does MORE THAN HALF the effort. [place] lifts or holds trunk or limbs and provides more than half the effort. 3-Mixvjfqbp-hegqdr does ALL the effort. Patient does none of the effort to complete the activity. Or, the assistance of 2 or more helpers is required for the patient to complete the activity. If activity was not attempted, code reason: 7-Patient Refused. 9-Not Applicable-not attempted and the patient did not perform the activity before the current illness, exacerbation or injury. 10-Not Attempted due to Environmental Limitations-(lack of equipment, weather restraints, etc.). 88-Not Attempted due to Medical Conditions or Safety Concerns. Lying to Sitting/Side of Bed(Q: 3 Sit to Stand (QC): 2 (x 4 reps to FWW with standing x 1 min each) Chair/Bvj-ju-Isqda Xfer(QC): 2 patient able to take a few steps to recliner with use of FWW Weight Bearing Right Lower Extremity: Right Weight Bearing/Tolerated Left Lower Extremity: Left Weight Bearing/Tolerated Gait Training Does the Patient Walk?: No and Walking Goal IS indicated Distance: 5 steps to recliner Gait Assistive Device: FWW Exercises Supine Ex: Ankle pumps, Heel Slides, Straight leg raise Supine Reps: 8 (AAROM bilateral LE) Assessment Patient improved on this date and fatigues with minimal activity. Patient is in recliner with needs met. Nursing is aware. PT General Ii Farmworker Goals General Ii Farmworker Goals PT [facility] Goals Time Frame: Oct 14, 2020 Roll Left & Right (QC): 4 Sit to Lying (QC): 4 Lying-Sitting on Side/Bed(QC): 4 Sit to Stand (QC): 3 Chair/Uaq-zh-Kdaid Xfer(QC): 3 Toilet Transfer (QC): 3 Walk 10 feet (QC): 3 PT Plan Treatment/Plan Treatment Plan: Continue Plan of Care Treatment Plan: Bed Mobility, Education, Functional Activity Norma, Functional Strength, Gait, Safety, Therapeutic Exercise, Transfers Treatment Duration: Oct 14, 2020 Frequency: 6 times per week Estimated Hrs Per Day: .25 hour per day Patient and/or Family Agrees t: Yes Time/GCodes Time In: 857 Time Out: 912 Total Billed Treatment Time: 15 Total Billed Treatment 1 visit FA 15 min SVITLANA SANCHEZ PT September 26, 2020 09:40
--- NOTE | 2020-09-26 13:02 | Progress Note ---
Subjective Subjective/Events-last exam Feeling again significantly better than yesterday, eating well, reports decreasing frequency of bowel movements. Is ready to go to [facility] when he can. Objective Exam Last Set of Vital Signs Vital Signs Date Time Temp Pulse Resp B/P (MAP) Pulse Ox O2 Delivery O2 Flow Rate FiO2 09/26/20 08:00 37.0 82 16 174/89 (117) 93 Room Air 09/23/20 15:40 126.00 79.00 Capillary Refill : Less Than 3 Seconds I&O Intake and Output 09/26/20 00:00 Intake Total 2600 ml Output Total 1900 ml Balance 700 ml Intake Oral 2000 ml IV Total 600 ml Output Urine Total 1900 ml # Bowel Movements 3 General: Alert, No Acute Distress Lungs: Clear to Auscultation, Normal Air Movement Heart: Other (irregularly irregular) Abdomen: Normal Bowel Sounds, Soft, No Tenderness Psych/Mental Status: Mental Status NL Results/Procedures Lab Laboratory Tests 09/26/20 04:38: White Blood Count 6.2, Red Blood Count 4.22L, Hemoglobin 12.4L, Hematocrit 37L, Mean Corpuscular Volume 87, Mean Corpuscular Hemoglobin 29, Mean Corpuscular Hemoglobin Concent 34, Red Cell Distribution Width 14.8H, Platelet Count 265, Mean Platelet Volume 10.3, Sodium Level 140, Potassium Level 3.3L, Chloride Level 109H, Carbon Dioxide Level 22, Anion Gap 9, Blood Urea Nitrogen 8, Creatinine 0.69, Estimat Glomerular Filtration Rate > 60, BUN/Creatinine Ratio 12, Glucose Level 99, Calcium Level 8.0L Microbiology 09/23/20 Urine Culture - Final, Complete Escherichia coli Assessment/Plan Assessment/Plan (1) Sepsis Status: Acute Assessment & Plan: Secondary to UTI. On ceftriaxone. 09/26 change to cefdinir Qualifiers: Qualified Codes: A41.51 - Sepsis due to Escherichia coli [e. coli] (2) UTI (urinary tract infection) Status: Acute Assessment & Plan: Culture with E coli, sensitivity pending. On ceftriaxone. Qualifiers: Qualified Codes: N30.00 - Acute cystitis without hematuria (3) Atrial fibrillation Status: Chronic Assessment & Plan: Resumed home flecainide and Xarelto. (4) Hypertension Status: Chronic Assessment & Plan: Had some low BP initially as well as hyperkalemia, home lisinopril held, resume as needed. Qualifiers: Qualified Codes: I10 - Essential (primary) hypertension (5) Gastroenteritis and colitis, viral Status: Acute Assessment & Plan: Improving with supportive care. (6) Weakness generalized Status: Acute (7) Physical debility Status: Acute Assessment & Plan: Discussed possible need for [facility], he notes he has needed in the past. (8) Hyponatremia Status: Resolved Assessment & Plan: Suspect hypovolemic. (9) Hyperkalemia Status: Resolved (10) DVT prophylaxis Status: Acute Assessment & Plan: On rivaroxaban. PIERCE POWERS MD September 26, 2020 13:02
[2020-09-26 15:44] VITALS: BP 156/85
[2020-09-26] MEDS: CEFDINIR 300 MG (OMNICEF) CAP PO SCH (21:43)
[2020-09-27 00:45] VITALS: BP 125/78
[2020-09-27 05:53] LABS: HEMATOCRIT 37 % (40-54); HEMOGLOBIN 12.6 g/dL (13.3-17.7); MEAN CORPUSCULAR HEMOGLOBIN 29 pg (25-34); MEAN CORPUSCULAR HGB CONC 34 g/dL (32-36); MEAN CORPUSCULAR VOLUME 87 fL (80-99); MEAN PLATELET VOLUME 10.6 fL (9.0-12.2); PLATELET COUNT 263 10^3/uL (130-400); WHITE BLOOD COUNT 8.2 10^3/uL (4.3-11.0)
[2020-09-27 06:02] LABS: CHLORIDE 109 MMOL/L (98-107); POTASSIUM 3.6 MMOL/L (3.6-5.0); SODIUM 138 MMOL/L (135-145)
[2020-09-27 06:03] LABS: CALCIUM 8.3 MG/DL (8.5-10.1)
[2020-09-27 06:04] LABS: GLUCOSE 95 MG/DL (70-105)
[2020-09-27 06:05] LABS: CARBON DIOXIDE 21 MMOL/L (21-32)
[2020-09-27 06:07] LABS: GFR ESTIMATED > 60
[2020-09-27 06:08] LABS: BUN/CREATININE RATIO 10
[2020-09-27] MEDS: SENNA W/DOCUSATE (SENOKOT S) TABLET PO SCH ×2 (07:50→16:54)
[2020-09-27] MEDS: polyethylene glycoL POWDER 17 GM (MIRALAX) PACK PO SCH ×2 (07:51→16:54)
[2020-09-27] MEDS ORDERED: CEFD300C3 PO (08:05)
[2020-09-27] MEDS ORDERED: LOPE2CAP PO (08:05)
[2020-09-27 08:10] VITALS: BP 162/89
[2020-09-27] MEDS: NS IV 1000 ML 1,000 ML IV SCH ×2 (09:36→20:35)
[2020-09-27] MEDS: CEFDINIR 300 MG (OMNICEF) CAP PO SCH ×2 (09:38→20:35)
[2020-09-27] MEDS: CELECOXIB 100 MG (CeleBREX) CAP PO SCH (09:38)
[2020-09-27] MEDS: FLECAINIDE 100 MG (TAMBOCOR) TAB PO SCH ×2 (09:38→20:35)
[2020-09-27] MEDS: RIVAROXABAN 20 MG TABLET (XARELTO) PO SCH (09:38)
[2020-09-27] MEDS: ACETAMINOPHEN 500 MG TAB (TYLENOL) PO SCH ×2 (09:38→20:35)
--- NOTE | 2020-09-27 15:10 | Physical Therapy Daily Note ---
PT Daily Note-Current Subjective Patient sitting in chair upon PT arrival with nurse in the room, both agreeable to treatment. Patient rates pain at 0/10 currently, but notes he has had to use the BR and is uncomfortable. Pain Numeric Pain Scale: 0-No Pain Mental Status Patient Orientation: Person, Place, Time, Situation Transfers SCALE: Activities may be completed with or without assistive devices. 1-Lsoqgcfrxm-zdpcrjh completes the activity by him/herself with no assistance from a helper. 5-Set-up or Clean-up Assistance-helper sets up or cleans up; patient completes activity. [place] assists only prior to or following the activity. 4-Supervision or Touching Assistance-helper provides verbal cues and/or touching/steadying and/or contact guard assistance as patient completes activity. Assistance may be provided throughout the activity or intermittently. 3-Partial/Moderate Assistance-helper does LESS THAN HALF the effort. [place] lifts, holds or supports trunk or limbs, but provides less than half the effort. 2-Substantial/Maximal Assistance-helper does MORE THAN HALF the effort. [place] lifts or holds trunk or limbs and provides more than half the effort. 0-Dfpbsxmao-bsvghp does ALL the effort. Patient does none of the effort to complete the activity. Or, the assistance of 2 or more helpers is required for the patient to complete the activity. If activity was not attempted, code reason: 7-Patient Refused. 9-Not Applicable-not attempted and the patient did not perform the activity before the current illness, exacerbation or injury. 10-Not Attempted due to Environmental Limitations-(lack of equipment, weather restraints, etc.). 88-Not Attempted due to Medical Conditions or Safety Concerns. Sit to Stand (QC): 3 Chair/Eav-dq-Tpfcy Xfer(QC): 3 Toilet Transfer (QC): 3 Weight Bearing Right Lower Extremity: Right Weight Bearing/Tolerated Left Lower Extremity: Left Weight Bearing/Tolerated Gait Training Does the Patient Walk?: Yes Distance: 30 feet Walk 10 feet (QC): 3 Walk 50 ft with 2 Turns(QC): 1 Walk 150 ft (QC): 1 Gait Persons Needed: 1 Gait Assistive Device: FWW Patient ambulates with severe thoracic kyphosis, forward trunk posture and forward head posture. Lacks ~ 20 degrees TKE during stance phase and unable to come fully erect. Patient demonstrates narrow DONNY, shortened stride length bilaterally. Wheelchair Training Does the Pt Use a Wheelchair?: No Exercises Seated Therapy Exercises: Ankle pumps, Long arc quads, Hip flexion, Hamstring Curls, Hip abd/add Seated Reps: 20 Assessment Current Status: Fair Progress PT Music Video Producer Goals Music Video Producer Goals PT Half-Way Goals Time Frame: Oct 14, 2020 Roll Left & Right (QC): 4 Sit to Lying (QC): 4 Lying-Sitting on Side/Bed(QC): 4 Sit to Stand (QC): 3 Chair/Ynd-hz-Kyxge Xfer(QC): 3 Toilet Transfer (QC): 3 Walk 10 feet (QC): 3 PT Plan Problem List Problem List: Activity Tolerance, Functional Strength, Balance, Gait, Transfer Treatment/Plan Treatment Plan: Continue Plan of Care Treatment Plan: Bed Mobility, Education, Functional Activity Norma, Functional Strength, Gait, Safety, Therapeutic Exercise, Transfers Treatment Duration: Oct 14, 2020 Frequency: 6 times per week Estimated Hrs Per Day: .25 hour per day Patient and/or Family Agrees t: Yes Safety Risks/Education Patient Education: Gait Training, Transfer Techniques Teaching Recipient: Patient Teaching Methods: Demonstration, Discussion Response to Teaching: Verbalize Understanding Time/GCodes Time In: 1430 Time Out: 1510 Total Billed Treatment Time: 40 Total Billed Treatment Visit, Gait (15), Ther ex (15), Ther Act (10) HILARIO BUSCH PT September 27, 2020 15:10
--- NOTE | 2020-09-27 15:57 | Progress Note ---
Subjective Subjective/Events-last exam Afebrile, feeling pretty well, and overall having less stools, but now bloody stools and still with incontinence. Objective Exam Last Set of Vital Signs Vital Signs Date Time Temp Pulse Resp B/P (MAP) Pulse Ox O2 Delivery O2 Flow Rate FiO2 09/27/20 08:10 36.8 80 16 162/89 (113) 96 Room Air 09/23/20 15:40 126.00 79.00 Capillary Refill : Less Than 3 Seconds I&O Intake and Output 09/27/20 00:00 Intake Total 5760 ml Output Total 4050 ml Balance 1710 ml Intake Oral 2260 ml IV Total 3500 ml Output Urine Total 4050 ml # Bowel Movements 2 General: Alert, No Acute Distress Heart: Other (irregular) Abdomen: Normal Bowel Sounds, Soft Neuro: Normal Speech Psych/Mental Status: Mood NL Results/Procedures Lab Laboratory Tests 09/27/20 05:20: White Blood Count 8.2, Red Blood Count 4.30, Hemoglobin 12.6L, Hematocrit 37L, Mean Corpuscular Volume 87, Mean Corpuscular Hemoglobin 29, Mean Corpuscular Hemoglobin Concent 34, Red Cell Distribution Width 14.8H, Platelet Count 263, M sravani Platelet Volume 10.6, Sodium Level 138, Potassium Level 3.6, Chloride Level 109H, Carbon Dioxide Level 21, Anion Gap 8, Blood Urea Nitrogen 7, Creatinine 0.70, Estimat Glomerular Filtration Rate > 60, BUN/Creatinine Ratio 10, Glucose Level 95, Calcium Level 8.3L Microbiology 09/23/20 Urine Culture - Final, Complete Escherichia coli Assessment/Plan Assessment/Plan (1) Sepsis Status: Acute Assessment & Plan: Secondary to UTI. On ceftriaxone. 09/26 change to cefdinir Qualifiers: Qualified Codes: A41.51 - Sepsis due to Escherichia coli [e. coli] (2) UTI (urinary tract infection) Status: Acute Assessment & Plan: Culture with E coli. On ceftriaxone. Qualifiers: Qualified Codes: N30.00 - Acute cystitis without hematuria (3) Atrial fibrillation Status: Chronic Assessment & Plan: Resumed home flecainide and Xarelto. (4) Hypertension Status: Chronic Assessment & Plan: Had some low BP initially as well as hyperkalemia, home lisinopril held, resume as needed. Qualifiers: Qualified Codes: I10 - Essential (primary) hypertension (5) Gastroenteritis and colitis, viral Status: Acute Assessment & Plan: 09/27 given bloody stool and need for anticoagulation, will check stool cultures, c diff and monitor blood counts closely (6) Weakness generalized Status: Acute (7) Physical debility Status: Acute Assessment & Plan: Discussed possible need for [place] [facility], he notes he has needed in the past. (8) Hyponatremia Status: Resolved Assessment & Plan: Suspect hypovolemic. (9) Hyperkalemia Status: Resolved (10) DVT prophylaxis Status: Acute Assessment & Plan: On rivaroxaban. PIERCE POWERS MD September 27, 2020 15:57
[2020-09-27 16:00] VITALS: BP 135/74
[2020-09-28] VITALS: BP 124/62
[2020-09-28 04:51] LABS: HEMATOCRIT 35 % (40-54); HEMOGLOBIN 12.2 g/dL (13.3-17.7); MEAN CORPUSCULAR HEMOGLOBIN 30 pg (25-34); MEAN CORPUSCULAR HGB CONC 35 g/dL (32-36); MEAN CORPUSCULAR VOLUME 85 fL (80-99); MEAN PLATELET VOLUME 9.8 fL (9.0-12.2); PLATELET COUNT 266 10^3/uL (130-400); WHITE BLOOD COUNT 10.1 10^3/uL (4.3-11.0)
[2020-09-28 04:57] LABS: CHLORIDE 108 MMOL/L (98-107); POTASSIUM 3.4 MMOL/L (3.6-5.0)
[2020-09-28 04:58] LABS: SODIUM 137 MMOL/L (135-145)
[2020-09-28 04:59] LABS: CALCIUM 7.9 MG/DL (8.5-10.1); GLUCOSE 99 MG/DL (70-105)
[2020-09-28 05:01] LABS: CARBON DIOXIDE 20 MMOL/L (21-32)
[2020-09-28 05:03] LABS: CREATININE SERUM 0.74 MG/DL (0.60-1.30); GFR ESTIMATED > 60
[2020-09-28 05:04] LABS: BUN/CREATININE RATIO 14
[2020-09-28] MEDS: NS IV 1000 ML 1,000 ML IV SCH ×3 (06:32→23:39)
[2020-09-28 08:00] VITALS: BP 134/91
[2020-09-28] MEDS: polyethylene glycoL POWDER 17 GM (MIRALAX) PACK PO SCH ×2 (08:26→19:53)
[2020-09-28] MEDS: SENNA W/DOCUSATE (SENOKOT S) TABLET PO SCH ×2 (08:26→19:53)
[2020-09-28] MEDS: ACETAMINOPHEN 500 MG TAB (TYLENOL) PO SCH ×2 (09:22→19:52)
[2020-09-28] MEDS: FLECAINIDE 100 MG (TAMBOCOR) TAB PO SCH ×2 (09:22→19:52)
[2020-09-28] MEDS: CEFDINIR 300 MG (OMNICEF) CAP PO SCH ×2 (09:22→19:52)
[2020-09-28] MEDS: RIVAROXABAN 20 MG TABLET (XARELTO) PO SCH (09:22)
[2020-09-28] MEDS: CELECOXIB 100 MG (CeleBREX) CAP PO SCH (09:22)
[2020-09-28 12:00] VITALS: BP 122/77
--- NOTE | 2020-09-28 14:19 | Physical Therapy Daily Note ---
PT Daily Note-Current Subjective Patient agrees to PT. No c/o. Mental Status Patient Orientation: Normal For Age Attachments: Herman Catheter, IV Transfers SCALE: Activities may be completed with or without assistive devices. 0-Znebkwybve-xiejpoo completes the activity by him/herself with no assistance from a helper. 5-Set-up or Clean-up Assistance-helper sets up or cleans up; patient completes activity. [place] assists only prior to or following the activity. 4-Supervision or Touching Assistance-helper provides verbal cues and/or touching/steadying and/or contact guard assistance as patient completes activity. Assistance may be provided throughout the activity or intermittently. 3-Partial/Moderate Assistance-helper does LESS THAN HALF the effort. [place] lifts, holds or supports trunk or limbs, but provides less than half the effort. 2-Substantial/Maximal Assistance-helper does MORE THAN HALF the effort. [place] lifts or holds trunk or limbs and provides more than half the effort. 7-Dpubhjujf-jjkjef does ALL the effort. Patient does none of the effort to complete the activity. Or, the assistance of 2 or more helpers is required for the patient to complete the activity. If activity was not attempted, code reason: 7-Patient Refused. 9-Not Applicable-not attempted and the patient did not perform the activity before the current illness, exacerbation or injury. 10-Not Attempted due to Environmental Limitations-(lack of equipment, weather restraints, etc.). 88-Not Attempted due to Medical Conditions or Safety Concerns. Sit to Lying (QC): 2 Lying to Sitting/Side of Bed(Q: 3 Sit to Stand (QC): 3 Weight Bearing Right Lower Extremity: Right Weight Bearing/Tolerated Left Lower Extremity: Left Weight Bearing/Tolerated Gait Training Does the Patient Walk?: Yes Distance: 35' Walk 10 feet (QC): 3 Gait Assistive Device: FWW flexed trunk and bilateral knee posture (noted kyphosis)/shuffle gait sequence Assessment Patient returned to bed with needs met. Plan dismissal to [facility] this week per BRANDON. PT Skilled Nursing Goals Barrel Repairer Goals PT Barrel Repairer Goals Time Frame: Oct 14, 2020 Roll Left & Right (QC): 4 Sit to Lying (QC): 4 Lying-Sitting on Side/Bed(QC): 4 Sit to Stand (QC): 3 Chair/Xyl-dd-Itnjb Xfer(QC): 3 Toilet Transfer (QC): 3 Walk 10 feet (QC): 3 PT Plan Treatment/Plan Treatment Plan: Continue Plan of Care Treatment Plan: Bed Mobility, Education, Functional Activity Norma, Functional Strength, Gait, Safety, Therapeutic Exercise, Transfers Treatment Duration: Oct 14, 2020 Frequency: 6 times per week Estimated Hrs Per Day: .25 hour per day Patient and/or Family Agrees t: Yes Time/GCodes Time In: 1340 Time Out: 1356 Total Billed Treatment Time: 16 Total Billed Treatment 1 visit GT 16 min SVITLANA SANCHEZ PT September 28, 2020 14:19
[2020-09-28 16:11] VITALS: BP 129/74
--- NOTE | 2020-09-28 16:26 | Progress Note ---
Subjective Subjective/Events-last exam Afebrile, continues to have diarrhea, but infrequent. Objective Exam Last Set of Vital Signs Vital Signs Date Time Temp Pulse Resp B/P (MAP) Pulse Ox O2 Delivery O2 Flow Rate FiO2 09/28/20 16:11 36.6 77 18 129/74 (92) 97 Room Air 09/23/20 15:40 126.00 79.00 Capillary Refill : Less Than 3 Seconds I&O Intake and Output0 09/28/20 00:00 Intake Total 3980 ml Output Total 3175 ml Balance 805 ml Intake Oral 2680 ml IV Total 1300 ml Output Urine Total 3175 ml # Bowel Movements 2 General: Alert, No Acute Distress Lungs: Clear to Auscultation, Normal Air Movement Heart: Regular Rate, No Murmurs Abdomen: Normal Bowel Sounds, Soft Neuro: Normal Speech Psych/Mental Status: Mood NL Results/Procedures Lab Laboratory Tests 09/28/20 04:43: White Blood Count 10.1, Red Blood Count 4.11L, Hemoglobin 12.2L, Hematocrit 35L, Mean Corpuscular Volume 85, Mean Corpuscular Hemoglobin 30, Mean Corpuscular Hemoglobin Concent 35, Red Cell Distribution Width 14.6H, Platelet Count 266, Mean Platelet Volume 9.8, Sodium Level 137, Potassium Level 3.4L, Chloride Level 108H, Carbon Dioxide Level 20L, Anion Gap 9, Blood Urea Nitrogen 10, Creatinine 0.74, Estimat Glomerular Filtration Rate > 60, BUN/Creatinine Ratio 14, Glucose Level 99, Calcium Level 7.9L Microbiology 09/27/20 C. difficile GDH Antigen & Toxins - Final, Resulted 09/27/20 Stool Culture, Resulted Pending 09/23/20 Urine Culture - Final, Complete Escherichia coli Assessment/Plan Assessment/Plan (1) Sepsis Status: Acute Assessment & Plan: Secondary to UTI. On ceftriaxone. 09/26 change to cefdinir Qualifiers: Qualified Codes: A41.51 - Sepsis due to Escherichia coli [e. coli] (2) UTI (urinary tract infection) Status: Acute Assessment & Plan: Culture with E coli. On cefdinir. Qualifiers: Qualified Codes: N30.00 - Acute cystitis without hematuria (3) Atrial fibrillation Status: Chronic Assessment & Plan: Resumed home flecainide and Xarelto. (4) Hypertension Status: Chronic Assessment & Plan: Had some low BP initially as well as hyperkalemia, home lisinopril held, resume as needed. Qualifiers: Qualified Codes: I10 - Essential (primary) hypertension (5) Gastroenteritis and colitis, viral Status: Acute Assessment & Plan: 09/27 given bloody stool and need for anticoagulation, will check stool cultures, c diff and monitor blood counts closely 09/28 C diff indeterminate, waiting on confirmation (6) Weakness generalized Status: Acute (7) Physical debility Status: Acute Assessment & Plan: Planning for d/c to SNF. (8) Hyponatremia Status: Resolved Assessment & Plan: Suspect hypovolemic. (9) Hyperkalemia Status: Resolved (10) DVT prophylaxis Status: Acute Assessment & Plan: On rivaroxaban. PIERCE PWOERS MD September 28, 2020 16:26
[2020-09-28] MEDS: VANCOMYCIN 125 MG CAPSULE PO SCH (23:38)
[2020-09-28 23:39] VITALS: BP 157/78
[2020-09-29 05:42] LABS: HEMATOCRIT 36 % (40-54); HEMOGLOBIN 12.2 g/dL (13.3-17.7); MEAN CORPUSCULAR HEMOGLOBIN 29 pg (25-34); MEAN CORPUSCULAR HGB CONC 34 g/dL (32-36); MEAN CORPUSCULAR VOLUME 86 fL (80-99); MEAN PLATELET VOLUME 10.1 fL (9.0-12.2); PLATELET COUNT 291 10^3/uL (130-400); WHITE BLOOD COUNT 10.7 10^3/uL (4.3-11.0)
[2020-09-29] MEDS: VANCOMYCIN 125 MG CAPSULE PO SCH ×2 (05:48→11:41)
[2020-09-29 05:57] LABS: CHLORIDE 110 MMOL/L (98-107); POTASSIUM 3.4 MMOL/L (3.6-5.0); SODIUM 140 MMOL/L (135-145)
[2020-09-29 05:58] LABS: CALCIUM 8.1 MG/DL (8.5-10.1)
[2020-09-29 05:59] LABS: GLUCOSE 94 MG/DL (70-105)
[2020-09-29 06:00] LABS: CARBON DIOXIDE 20 MMOL/L (21-32)
[2020-09-29 06:03] LABS: GFR ESTIMATED > 60
[2020-09-29 06:04] LABS: BUN/CREATININE RATIO 11
[2020-09-29 07:30] VITALS: BP 159/84
[2020-09-29] MEDS: SENNA W/DOCUSATE (SENOKOT S) TABLET PO SCH (07:57)
[2020-09-29] MEDS: FLECAINIDE 100 MG (TAMBOCOR) TAB PO SCH (07:57)
[2020-09-29] MEDS: CELECOXIB 100 MG (CeleBREX) CAP PO SCH (07:57)
[2020-09-29] MEDS: RIVAROXABAN 20 MG TABLET (XARELTO) PO SCH (07:57)
[2020-09-29] MEDS: ACETAMINOPHEN 500 MG TAB (TYLENOL) PO SCH (07:57)
[2020-09-29] MEDS: polyethylene glycoL POWDER 17 GM (MIRALAX) PACK PO SCH (07:58)
[2020-09-29] MEDS ORDERED: VANC125C5 PO (08:37)
[2020-09-29] MEDS ORDERED: KCL 20 MEQ TAB (K-DUR) PO ONE (08:45)
--- NOTE | 2020-09-29 11:27 | Discharge Inst-Skilled Nursing ---
Discharge Inst-Skilled NF Patient Instructions Patient Problems: Debility C diff colitis Urinary tract infection Atrial fibrillation Consult/Follow Up/Orders Skilled NF Admit to: [facility] Certifications SNF I certify that SNF services are required to be given on an inpatient basis because of the above named patient's need for assisted care on a continuing basis for the conditions(s) for which he/she was receiving inpatient hospital services prior to his/her transfer to the SNF. [facility] Facility Order: Nursing Services, Physical Therapy-Evaluate & Treat Oxygen Delivery Method: Room Air Discharge Diet: Cardiac Diet Daily Activity as Tolerated: Yes Discharge Medications New Medications: Loperamide HCl (Loperamide) 2 Mg Capsule 2 MG PO NEEDED PRN for DIARRHEA MDD 8 capsules, #60 CAP 0 Refills Vancomycin HCl (Vancomycin HCl) 125 Mg Capsule 125 MG PO Q6HR for 9 Days, #36 CAP 0 Refills Continued Medications: Acetaminophen (Tylenol Extra Strength) 500 Mg Tablet 1000 MG PO BID, TAB Amlodipine Besylate (Amlodipine Besylate) 10 Mg Tablet 10 MG PO DAILY, TAB Celecoxib (Celebrex) 400 Mg Capsule 400 MG PO DAILY, CAP Flecainide Acetate (Flecainide Acetate) 100 Mg Tablet 100 MG PO BID, TAB Lisinopril (Lisinopril) 20 Mg Tablet 20 MG PO DAILY, TAB Ondansetron (Ondansetron Odt) 4 Mg Tab.rapdis 4 MG PO Q6H PRN for NAUSEA/VOMITING-1ST LINE, TAB Rivaroxaban (Xarelto) 10 Mg Tablet 20 MG PO HS Tramadol HCl (Tramadol HCl) 50 Mg Tablet 100 MG PO BID, TAB TAKES 2 (50MG) TABLETS Pierce Gupta September 29, 2020 11:24 PIERCE GUPTA MD September 29, 2020 11:27
[2020-09-29 11:49] VITALS: BP 159/84
--- NOTE | 2020-09-29 12:37 | Discharge Summary ---
Discharge Summary Hospital Course Problems/Diagnosis: (1) Sepsis Status: Resolved Resolution Date/Time: 09/29/20 @ 12:34 Assessment & Plan: Secondary to UTI. On ceftriaxone. 09/26 change to cefdinir, completed course prior to d/c. Qualifiers: Qualified Codes: A41.51 - Sepsis due to Escherichia coli [e. coli] (2) UTI (urinary tract infection) Status: Resolved Resolution Date/Time: 09/29/20 @ 12:34 Assessment & Plan: Culture with E coli. On cefdinir, completed course prior to d/c. Qualifiers: Qualified Codes: N30.00 - Acute cystitis without hematuria (3) Atrial fibrillation Status: Chronic Assessment & Plan: Resumed home flecainide and Xarelto. (4) Hypertension Status: Chronic Assessment & Plan: Had some low BP initially as well as hyperkalemia, home lisinopril held, resumed on d/c. Qualifiers: Qualified Codes: I10 - Essential (primary) hypertension (5) Weakness generalized Status: Acute (6) Physical debility Status: Acute Assessment & Plan: Planning for d/c to SNF. (7) Hyponatremia Status: Resolved Resolution Date/Time: 09/25/20 @ 18:11 Assessment & Plan: Suspect hypovolemic. (8) Hyperkalemia Status: Resolved Resolution Date/Time: 09/25/20 @ 18:11 (9) C. difficile diarrhea Status: Acute Assessment & Plan: Oral Vancomycin, continued on d/c, having small amount of output by d/c. Hospital Course Date of Admission: September 23, 2020 at 15:30 Admission Diagnosis : Family Physician/Provider: Ramin Marcos MD Date of Discharge: 09/29/20 Discharge Diagnosis: See problem list Hospital Course: See problem list Labs and Pending Lab Test: Laboratory Tests 09/29/20 05:12: White Blood Count 10.7, Red Blood Count 4.20L, Hemoglobin 12.2L, Hematocrit 36L, Mean Corpuscular Volume 86, Mean Corpuscular Hemoglobin 29, Mean Corpuscular Hemoglobin Concent 34, Red Cell Distribution Width 14.9H, Platelet Count 291, Mean Platelet Volume 10.1, Sodium Level 140, Potassium Level 3.4L, Chloride Level 110H, Carbon Dioxide Level 20L, Anion Gap 10, Blood Urea Nitrogen 8, Creatinine 0.70, Estimat Glomerular Filtration Rate > 60, BUN/Creatinine Ratio 11, Glucose Level 94, Calcium Level 8.1L Microbiology 09/27/20 C. difficile DNA Amplification - Final, Complete 09/23/20 Urine Culture - Final, Complete Escherichia coli Home Meds Active Vancomycin HCl 125 Mg Capsule 125 Mg PO Q6HR 9 Days Loperamide (Loperamide HCl) 2 Mg Capsule 2 Mg PO NEEDED PRN MDD 8 capsules Reported Celebrex (Celecoxib) 400 Mg Capsule 400 Mg PO DAILY Ondansetron Odt (Ondansetron) 4 Mg Tab.rapdis 4 Mg PO Q6H PRN Tramadol HCl 50 Mg Tablet 100 Mg PO BID TAKES 2 (50MG) TABLETS Xarelto (Rivaroxaban) 10 Mg Tablet 20 Mg PO HS Flecainide Acetate 100 Mg Tablet 100 Mg PO BID Amlodipine Besylate 10 Mg Tablet 10 Mg PO DAILY Lisinopril 20 Mg Tablet 20 Mg PO DAILY Tylenol Extra Strength (Acetaminophen) 500 Mg Tablet 1,000 Mg PO BID Assessment/Pt DC Instructions Follow up with Dr. Marcos after SNF d/c. Discharge Diet: Cardiac Diet Activity as Tolerated: Yes Discharge Physical Examination Allergies: Coded Allergies: No Known Drug Allergies (Unverified , 01/15/10) General Appearance: No Apparent Distress, WD/WN Respiratory: Lungs Clear Cardiovascular: Irregularly Irregular Extremity: No Pedal Edema Skin: Warm/Dry Neurologic/Psychiatric: Alert, Normal Mood/Affect Copy Copies To 1: MAE,PIERCE LABOY MD, MD September 29, 2020 12:37
[2020-09-29] MEDS: NS IV 1000 ML 1,000 ML IV SCH (12:47)
== END 2020-09-29 14:10 | DRG 872 ==
LOC: EDUNIT# 12:40 → ER FS 12:42 → 4TH 15:30 → INTOOBSV 15:30 → UNDOADMOB 15:30 → OBSVTOIN 09-27 08:41 → 4TH 09-27 12:38 → UNDODISOB 09-29 14:10
PROVIDERS: ADMIT Internal Medicine; ATTEND Family Medicine
DX: A41.51 Sepsis due to Escherichia coli [E. coli] (principal); N39.0 Urinary tract infection, site not specified; A04.72 Enterocolitis due to Clostridium difficile, not specified as recurrent; N17.9 Acute kidney failure, unspecified; E87.1 Hypo-osmolality and hyponatremia; E86.0 Dehydration; E87.5 Hyperkalemia; R32 Unspecified urinary incontinence; I48.91 Unspecified atrial fibrillation; N40.0 Benign prostatic hyperplasia without lower urinary tract symptoms; I10 Essential (primary) hypertension; I25.10 Atherosclerotic heart disease of native coronary artery without angina pectoris; Z90.49 Acquired absence of other specified parts of digestive tract
CPT/HCPCS: 36415; 51702; 74019; 80048; 80053; 80320; 81000; 82274; 85007; 85025; 85027; 87015; 87045; 87046; 87077; 87088; 87186; 87324; 87449; 87493; 87899; G0378

== ENCOUNTER → 2020-10-11 | Outpatient (CLI) | payer MEDICARE ==
[~2020-10-11] MED LIST changes: +CEFD300C3 PO; +CELE100C84 PO; +CELE400C PO; +LOPE2CAP PO; +RIVA10TA PO; +TRAM50TA3 PO; +VANC125C5 PO
== END ==
LOC: LAB FS 13:53
PROVIDERS: ATTEND Family Medicine
DX: A04.72 Enterocolitis due to Clostridium difficile, not specified as recurrent (principal)
CPT/HCPCS: 87324; 87449

== ENCOUNTER 2020-10-21 12:06 | Inpatient (IN) | payer MEDICARE ==
[~2020-10-21] VITALS: Ht 182.8 cm; Wt 90.0 kg
[2020-10-21] MEDS ORDERED: NS IV 1000 ML 1,000 ML IV STA (12:23)
[2020-10-21] MEDS ORDERED: IOHEXOL 350 MG/ML 100 ML (OMNIPAQUE 350) VIAL IV ONE (12:30)
[2020-10-21] MEDS ORDERED: NS 100 ML (IVPB) BAG IV ONE (12:30)
[2020-10-21] MEDS ORDERED: CATHETER FLUSH 10 ML SYR IV PRN (12:30)
[2020-10-21] MEDS ORDERED: HOLD METFORMIN - RECEIVED CONTRAST 20 ML VIAL IV SCH (12:30)
[2020-10-21 12:31] LABS: BASOPHILS % (AUTO) 0 % (0-10); EOSINOPHILS % (AUTO) 0 % (0-10); HEMATOCRIT 40 % (40-54); HEMOGLOBIN 13.7 G/DL (13.3-17.7); LYMPHOCYTES % (AUTO) 5 % (12-44); MEAN CORPUSCULAR HEMOGLOBIN 30 PG (25-34); MEAN CORPUSCULAR HGB CONC 34 G/DL (32-36); MEAN CORPUSCULAR VOLUME 87 FL (80-99); MEAN PLATELET VOLUME 9.5 FL (7.4-10.4); MONOCYTES % (AUTO) 7 % (0-12); NEUTROPHILS % (AUTO) 87 % (42-75); PLATELET COUNT 313 10^3/uL (130-400); WHITE BLOOD COUNT 25.2 10^3/uL (4.3-11.0)
[2020-10-21 12:32] LABS: BASOPHILS # (AUTO) 0.1 10^3/uL (0.0-0.1); LYMPHOCYTES # (AUTO) 1.3 X 10^3 (1.0-4.0); MONOCYTES # (AUTO) 1.8 X 10^3 (0.0-1.0)
--- NOTE | 2020-10-21 12:38 | ED General ---
General Chief Complaint: Abdominal/GI Problems Stated Complaint: DIARRHEA Nursing Triage Note: Patient presents to the ED with c/o of nausea and diarrhea. He reports that his symptoms began yesterday and have not improved. Nursing Sepsis Screen: No Definite Risk Source of Information: Patient, Old Records History of Present Illness Date Seen by Provider: Oct 21, 2020 Time Seen by Provider: 12:07 Initial Comments 70 yo male presenting with recurrent issues of diarrhea and nausea. He states that this started for him yesterday and has been nonstop diarrhea since it started yesterday morning. He has had nausea but no vomiting. He has had decreased intake. He has a catheter for his urine because he had previous prostate issues and has no control over his bladder. He states the urine has been darker in color today. He denies fever chills but states he did get very hot and flushed this morning when the family had to help him try get into the tub to clean up and is able help him get back out. He has recently been in the hospital in September for similar symptoms and had to be on antibiotics at that time. he states this seems similar but is not as severe yet. He has edema in legs and presents in wheelchair because he has difficulty standing and walking. Timing/Duration: 1-2 Days Severity: Severe Associated Systoms: No Chest Pain, No Cough, No Diaphoresis, No Fever/Chills, No Headaches; Malaise, Nausea/Vomiting (nausea but no vomiting); No Rash, No Seizure, No Shortness of Air, No Syncope; Weakness (generalized) Allergies and Home Medications Allergies Coded Allergies: No Known Drug Allergies (Unverified , 01/15/10) Home Medications Acetaminophen 500 Mg Tablet, 1,000 MG PO BID, (Reported) Amlodipine Besylate 10 Mg Tablet, 10 MG PO DAILY, (Reported) Celecoxib 400 Mg Capsule, 400 MG PO DAILY, (Reported) Flecainide Acetate 100 Mg Tablet, 100 MG PO BID, (Reported) Lisinopril 20 Mg Tablet, 20 MG PO DAILY, (Reported) Loperamide HCl 2 Mg Capsule, 2 MG PO NEEDED PRN for DIARRHEA Prescribed by: PIERCE POWERS on 09/27/20 0805 Ondansetron 4 Mg Tab.rapdis, 4 MG PO Q6H PRN for NAUSEA/VOMITING-1ST LINE, (Reported) Rivaroxaban 10 Mg Tablet, 20 MG PO HS, (Reported) Tramadol HCl 50 Mg Tablet, 100 MG PO BID, (Reported) TAKES 2 (50MG) TABLETS Vancomycin HCl 125 Mg Capsule, 125 MG PO Q6HR Prescribed by: PIERCE POWERS on 09/29/20 0837 Patient Home Medication List Home Medication List Reviewed: Yes Review of Systems Review of Systems Constitutional: see HPI; No chills EENTM: no symptoms reported Respiratory: no symptoms reported Cardiovascular: no symptoms reported Gastrointestinal: see HPI Genitourinary: see HPI Musculoskeletal: no symptoms reported Skin: no symptoms reported Psychiatric/Neurological: See HPI Past Jtipzrb-Yhorjd-Nhgvwa Hx Past Med/Social Hx: Reviewed Nursing Past Med/Soc Hx Patient Social History Alcohol Use: Denies Use Smoking Status: Never a Smoker 2nd Hand Smoke Exposure: No Recent Infectious Disease Expo: No Recent Hopitalizations: Yes Seasonal Allergies Seasonal Allergies: No Past Medical History Surgeries: Yes (previous bladder stimulator, not currently working) Orthopedic Respiratory: No Cardiac: Yes Aneurysm, Atrial Fibrillation, Heart Attack Neurological: No Reproductive Disorders: No Genitourinary: Yes (Incontinence, Wears external catheter) Gastrointestinal: No Musculoskeletal: Yes Endocrine: No HEENT: No Cancer: No Psychosocial: Yes Integumentary: No Blood Disorders: No Physical Exam Vital Signs Vital Signs - First Documented 10/21/20 12:20 Temp 37.6 Pulse 78 Resp 20 B/P (MAP) 132/54 (80) Pulse Ox 94 O2 Delivery Room Air Capillary Refill : Less Than 3 Seconds Height, Weight, BMI Height: '" Weight: lbs. oz. kg; 26.00 BMI Method: General Appearance: Chronically ill HEENT: No Moist Mucous Membranes (slightly dry mucus membranes) Respiratory: Chest Non Tender, No Accessory Muscle Use, No Respiratory Distress, Decreased Breath Sounds Cardiovascular: Regular Rate, Rhythm, Normal Peripheral Pulses Gastrointestinal: Normal Bowel Sounds, No Pulsatile Mass, Non Tender, Soft Rectal: Deferred Extremity: Normal Capillary Refill, Pedal Edema (2-3 + pedal edema to BLE) Neurologic/Psychiatric: Alert, Oriented x3 Skin: Normal Color, Warm/Dry Focused Exam Lactate Level 10/21/20 12:21: Lactic Acid Level 1.78 Lactic Acid Level Laboratory Tests Test 10/21/20 12:21 Lactic Acid Level 1.78 MMOL/L (0.50-2.00) Progress/Results/Core Measures Suspected Sepsis Recent Fever Within 48 Hours: No Infection Criteria Present: Suspected New Infection New/Unexplained Altered Menta: No Sepsis Screen: No Definite Risk SIRS Temperature: Pulse: 78 Respiratory Rate: 20 Laboratory Tests 10/21/20 12:21: White Blood Count 25.2H Blood Pressure 132 /54 Mean: 80 10/21/20 12:21: Lactic Acid Level 1.78 Laboratory Tests 10/21/20 12:21: Creatinine 1.21, Platelet Count 313, Total Bilirubin 0.9 Results/Orders Lab Results Laboratory Tests Test 10/21/20 12:21 10/21/20 14:00 Range/Units White Blood Count 25.2 H 4.3-11.0 10^3/uL Red Blood Count 4.63 4.35-5.85 10^6/uL Hemoglobin 13.7 13.3-17.7 G/DL Hematocrit 40 40-54 % Mean Corpuscular Volume 87 80-99 FL Mean Corpuscular Hemoglobin 30 25-34 PG Mean Corpuscular Hemoglobin Concent 34 32-36 G/DL Red Cell Distribution Width 16.1 H 10.0-14.5 % Platelet Count 313 130-400 10^3/uL Mean Platelet Volume 9.5 7.4-10.4 FL Immature Granulocyte % (Auto) 0 % Neutrophils (%) (Auto) 87 H 42-75 % Lymphocytes (%) (Auto) 5 L 12-44 % Monocytes (%) (Auto) 7 0-12 % Eosinophils (%) (Auto) 0 0-10 % Basophils (%) (Auto) 0 0-10 % Neutrophils # (Auto) 22.0 H 1.8-7.8 X 10^3 Lymphocytes # (Auto) 1.3 1.0-4.0 X 10^3 Monocytes # (Auto) 1.8 H 0.0-1.0 X 10^3 Eosinophils # (Auto) 0.0 0.0-0.3 10^3/uL Basophils # (Auto) 0.1 0.0-0.1 10^3/uL Immature Granulocyte # (Auto) 0.1 0.0-0.1 10^3/uL Neutrophils % (Manual) 89 % Lymphocytes % (Manual) 5 % Monocytes % (Manual) 5 % Band Neutrophils 1 % Toxic Granulation 4+ Polychromasia SLIGHT Elliptocytes SLIGHT Blood Morphology Comment LRG PLTS Sodium Level 135 135-145 MMOL/L Potassium Level 3.6 3.6-5.0 MMOL/L Chloride Level 101 98-107 MMOL/L Carbon Dioxide Level 21 21-32 MMOL/L Anion Gap 13 5-14 MMOL/L Blood Urea Nitrogen 25 H 7-18 MG/DL Creatinine 1.21 0.60-1.30 MG/DL Estimat Glomerular Filtration Rate 59 BUN/Creatinine Ratio 21 Glucose Level 122 H 70-105 MG/DL Lactic Acid Level 1.78 0.50-2.00 MMOL/L Calcium Level 8.5 8.5-10.1 MG/DL Corrected Calcium 9.0 8.5-10.1 MG/DL Total Bilirubin 0.9 0.1-1.0 MG/DL Aspartate Amino Transf (AST/SGOT) 12 5-34 U/L Alanine Aminotransferase (ALT/SGPT) 7 0-55 U/L Alkaline Phosphatase 78 40-136 U/L Total Protein 7.3 6.4-8.2 GM/DL Albumin 3.4 3.2-4.5 GM/DL Lipase 14 8-78 U/L Urine Color YELLOW Urine Clarity CLOUDY Urine pH 6.0 5-9 Urine Specific [place] 1.010 L 1.016-1.022 Urine Protein TRACE H NEGATIVE Urine Glucose (UA) NEGATIVE NEGATIVE Urine Ketones NEGATIVE NEGATIVE Urine Nitrite POSITIVE H NEGATIVE Urine Bilirubin NEGATIVE NEGATIVE Urine Urobilinogen 0.2 < = 1.0 MG/DL Urine Leukocyte Esterase 1+ H NEGATIVE Urine RBC (Auto) 1+ H NEGATIVE Urine RBC /HPF Urine WBC TNTC H /HPF Urine Crystals NONE /LPF Urine Bacteria /HPF Urine Casts NONE /LPF Urine Mucus /LPF Urine Culture Indicated YES My Orders Orders - LEOBARDO BERRIOS MD Stool Culture (10/21/20 12:23) Fecal Wbc (10/21/20 12:23) C Difficile Ag + Toxin A/B. (10/21/20 12:23) Comprehensive Metabolic Panel (10/21/20 12:23) Lipase (10/21/20 12:23) Ua Culture If Indicated (10/21/20 12:23) Ed Iv/Invasive Line Start (10/21/20 12:23) Cbc With Automated Diff (10/21/20 12:23) Ct Abdomen/Pelvis W (10/21/20 12:23) Isolation Central Supply Req (10/21/20 12:23) Lactic Acid Analyzer (10/21/20 12:23) Ns Iv 1000 Ml (Sodium Chloride 0.9%) (10/21/20 12:23) Iohexol Injection (Omnipaque 350 Mg/Ml 1 (10/21/20 12:30) Di Iv Start (Assessment) .IV start (10/21/20 12:28) Received Contrast (Hold Metformin- Contr (10/21/20 12:30) Sodium Chloride Flush (Catheter Flush Sy (10/21/20 12:30) Ns (Ivpb) (Sodium Chloride 0.9% Ivpb Bag (10/21/20 12:30) Manual Differential (10/21/20 12:21) Ritchie Cath (10/21/20 13:48) Blood Culture (10/21/20 13:48) Urine Culture (10/21/20 14:00) Medications Given in ED Current Medications Medications Dose Ordered Sig/Benigno Route Start Time Stop Time Status Last Admin Dose Admin Iohexol 100 ml ONCE ONCE IV 10/21/20 12:30 10/21/20 12:31 DC 10/21/20 12:44 100 ML Sodium Chloride 10 ml NEEDED PRN IV 10/21/20 12:30 10/21/20 12:44 10 ML Sodium Chloride 100 ml ONCE ONCE IV 10/21/20 12:30 10/21/20 12:31 DC 10/21/20 12:44 80 ML Vital Signs/I&O 10/21/20 12:20 Temp 37.6 Pulse 78 Resp 20 B/P (MAP) 132/54 (80) Pulse Ox 94 O2 Delivery Room Air Capillary Refill : Less Than 3 Seconds Blood Pressure Mean: 80 Progress Note #1: Progress Note Check labs and urine as well as CT scan of abdomen pelvis with his complaint of diarrhea. Diarrhea for stool studies. Give IVF for hydration. Had recent sepsis and UTI with similar symptoms so will recheck for that. Differential diagnosis includes C. difficile colitis, diverticulitis, UTI, cholecystitis, colitis, infectious diarrhea Progress Note #2: Progress Note Labs show elevated white count 25,000 left shift. His lactic acid was not elevated. His BUN was elevated 25 up from 8 at the end of September. His creatinine has gone from 0.7 to 1.4 since the end of September. He has No acute findings on CT scan and appears stable from September 04. He does have a large amount of stool in colon. No signs of colitis or diverticulitis. He has a condom or [place] catheter on and has not provided any urine so will place ritchie and send UA. Progress Note #3: Progress Note UA shows Nit and Bacteria for signs of UTI. With his elevated white blood cell count and findings for UTI will start him on antibiotics as well as continue some fluids. His last urine culture result showed sensitivity of E. coli to ceftriaxone. Will treat with ceftriaxone for now and await stool studies. Discussed with Dr. Whaley for the [facility] service and will admit as an observation patient for IV fluids and antibiotics. Diagnostic Imaging Diagonstic Imaging: CT Plain Films/CT/US/NM/MRI: abdomen, pelvis Comments [facility] [place], [place] NAME: JER PETERSON [facility] REC#: [id number] PT STATUS: REG ER : 1950 PHYSICIAN: LEOBARDO BERRIOS MD ADMIT DATE: 10/21/20/ER FS Signed Date of Exam:10/21/20 CT ABDOMEN/PELVIS W PROCEDURE: CT abdomen and pelvis with contrast. TECHNIQUE: Multiple contiguous axial images were obtained through the abdomen and pelvis after administration of intravenous contrast. Auto Exposure Controls were utilized during the CT exam to meet ALARA standards for radiation dose reduction. All CT scans use one or more of the following dose optimizing techniques: automated exposure control, MA and/or KvP adjustment based on patient size and exam type or iterative reconstruction. INDICATION: Diarrhea. Patient has history of prostate carcinoma. Comparison is made with prior CT from 09/04/2020. Imaging through lung bases demonstrate some linear atelectasis or scarring bilateral lower lobes. Liver is unremarkable. Gallbladder is unremarkable. No biliary ductal dilatation. There is a small cyst in the region of the pancreatic body 14 mm in size, stable when compared with prior exam. No pancreatic ductal dilatation is seen. The spleen is unremarkable. No adrenal mass is detected. Kidneys are unremarkable. Aorta is calcified but nonaneurysmal. Bowel loops appear to be fairly normal caliber without evidence of obstruction. There is moderate stool right colon as well as the sigmoid and rectum. Bladder is decompressed. No free fluid or fluid collection is identified. IMPRESSION: Overall stable CT abdomen and pelvis with compared prior exam from 09/04/2020. No acute abnormality is identified. There is moderate stool in the colon particularly the rectum and sigmoid. Dictated by: Dictated on workstation # [id number] Dict: 10/21/20 1257 Trans: 10/21/20 1533 CVB [id number] Interpreted by: ROMELIA FRAUSTO MD Electronically signed by: ROMELIA FRAUSTO MD 10/21/20 1533 Reviewed: Reviewed by Me Departure Communication (Admissions) Time/Spoke to Admitting Phy: 14:49 d/w Dr. Whaley for [facility] and will place in observation status for UTI and dehydration with diarrhea. Based off of his last culture she should be sensitive to Rocephin will start with that. Impression Primary Impression: Cystitis with hematuria Additional Impressions: Dehydration Acute kidney injury Diarrhea Qualified Codes: R19.7 - Diarrhea, unspecified Leukocytosis, unspecified Disposition: 30 STILL A PATIENT Condition: Stable Admissions Decision to Admit Reason: Admit from ER (General) Decision to Admit/Date: Oct 21, 2020 Time/Decision to Admit Time: 14:49 Departure-Patient Inst. Referrals: MANI WALL MD (PCP/Family) Primary Care Physician LEOBARDO BERRIOS MD Oct 21, 2020 12:38
[2020-10-21 12:48] LABS: CALCIUM 8.5 MG/DL (8.5-10.1); CREATININE SERUM 1.21 MG/DL (0.60-1.30); POTASSIUM 3.6 MMOL/L (3.6-5.0)
[2020-10-21 12:49] LABS: ALBUMIN 3.4 GM/DL (3.2-4.5); BILIRUBIN,TOTAL 0.9 MG/DL (0.1-1.0); TOTAL PROTEIN 7.3 GM/DL (6.4-8.2)
[2020-10-21 13:02] LABS: BAND NEUTROPHILS 1 %; LYMPHOCYTES % (MANUAL) 5 %; MONOCYTES % (MANUAL) 5 %; NEUTROPHILS % (MANUAL) 89 %
[2020-10-21 13:03] LABS: ELLIPT/OVALOCYTES SLIGHT; POLYCHROMASIA SLIGHT; RBC MORPH LRG PLTS; TOXIC GRANULATION/VACUOLAZATIO 4+
--- NOTE | 2020-10-21 13:09 | Diagnostic Imaging Report ---
PROCEDURE: CT abdomen and pelvis with contrast. TECHNIQUE: Multiple contiguous axial images were obtained through the abdomen and pelvis after administration of intravenous contrast. Auto Exposure Controls were utilized during the CT exam to meet ALARA standards for radiation dose reduction. All CT scans use one or more of the following dose optimizing techniques: automated exposure control, MA and/or KvP adjustment based on patient size and exam type or iterative reconstruction. INDICATION: Diarrhea. Patient has history of prostate carcinoma. Comparison is made with prior CT from 09/04/2020. Imaging through lung bases demonstrate some linear atelectasis or scarring bilateral lower lobes. Liver is unremarkable. Gallbladder is unremarkable. No biliary ductal dilatation. There is a small cyst in the region of the pancreatic body 14 mm in size, stable when compared with prior exam. No pancreatic ductal dilatation is seen. The spleen is unremarkable. No adrenal mass is detected. Kidneys are unremarkable. Aorta is calcified but nonaneurysmal. Bowel loops appear to be fairly normal caliber without evidence of obstruction. There is moderate stool right colon as well as the sigmoid and rectum. Bladder is decompressed. No free fluid or fluid collection is identified. IMPRESSION: Overall stable CT abdomen and pelvis with compared prior exam from 09/04/2020. No acute abnormality is identified. There is moderate stool in the colon particularly the rectum and sigmoid. Dictated by: Dictated on workstation # [id number]
[2020-10-21 14:10] LABS: CLARITY,URINE CLOUDY; COLOR,URINE YELLOW; GLUCOSE, URINE (UA) NEGATIVE (NEGATIVE); KETONES,URINE NEGATIVE (NEGATIVE); PROTEIN,URINE TRACE (NEGATIVE)
[2020-10-21 14:11] LABS: BILIRUBIN,URINE NEGATIVE (NEGATIVE); LEUKOCYTE ESTERASE ,URINE 1+ (NEGATIVE); NITRITE,URINE POSITIVE (NEGATIVE); WBC,URINE TNTC /HPF
[2020-10-21] MEDS ORDERED: ACETAMINOPHEN 500 MG TAB (TYLENOL) PO PRN (19:30)
[2020-10-21] MEDS ORDERED: CALCIUM CARBONATE 500 MG (TUMS) TAB.CHEW PO PRN (19:30)
[2020-10-21] MEDS ORDERED: diphenhydrAMINE 25 MG TAB (BENADRYL) PO PRN (19:30)
[2020-10-21] MEDS ORDERED: HYDROcodone/APAP 5 MG/325 MG (LORTAB) TAB PO PRN (19:30)
[2020-10-21] MEDS ORDERED: ONDANSETRON 4 MG/2 ML (SDV) Z0FRAN IVP PRN (19:30)
[2020-10-21] MEDS ORDERED: MELATONIN 3 MG TABLET PO PRN (19:30)
[2020-10-21] MEDS ORDERED: LOPERAMIDE 2 MG (IMODIUM) TABLET PO PRN (19:30)
[2020-10-21] MEDS ORDERED: ONDANSETRON 4 MG (ZOFRAN) ORAL DISSOLVE TAB PO PRN (19:30)
[2020-10-21] MEDS ORDERED: ALPRAZolam 0.25 MG (XANAX) TAB PO PRN (19:30)
[2020-10-21] MEDS ORDERED: DOCUSATE SODIUM 100 MG (COLACE) CAP PO PRN (19:30)
[2020-10-21] MEDS: cefTRIAXone 1,000 MG/SWFI 10 ML IV PUSH IV SCH ×2 (20:00)
[2020-10-21] MEDS: NS IV 1000 ML 1,000 ML IV SCH (20:01)
[2020-10-21] MEDS: SENNA W/DOCUSATE (SENOKOT S) TABLET PO SCH (20:07)
[2020-10-21 20:16] VITALS: BP 116/78
[2020-10-21] MEDS: FLECAINIDE 100 MG (TAMBOCOR) TAB PO SCH (21:30)
[2020-10-21] MEDS: RIVAROXABAN 10 MG TABLET (XARELTO) PO SCH (21:30)
[2020-10-21] MEDS: ACETAMINOPHEN 500 MG TAB (TYLENOL) PO SCH (21:31)
[2020-10-22] VITALS (7 sets, daily range): BP systolic 97–117; BP diastolic 57–63
[2020-10-22 05:23] LABS: BASOPHILS # (AUTO) 0.1 10^3/uL (0.0-0.1); BASOPHILS % (AUTO) 1 % (0-10); EOSINOPHILS # (AUTO) 0.4 10^3/uL (0.0-0.3); EOSINOPHILS % (AUTO) 3 % (0-10); HEMATOCRIT 35 % (40-54); HEMOGLOBIN 11.5 g/dL (13.3-17.7); LYMPHOCYTES # (AUTO) 1.5 10^3/uL (1.0-4.0); LYMPHOCYTES % (AUTO) 11 % (12-44); MEAN CORPUSCULAR HEMOGLOBIN 29 pg (25-34); MEAN CORPUSCULAR HGB CONC 33 g/dL (32-36); MEAN CORPUSCULAR VOLUME 88 fL (80-99); MEAN PLATELET VOLUME 9.7 fL (9.0-12.2); MONOCYTES # (AUTO) 1.2 10^3/uL (0.0-1.0); MONOCYTES % (AUTO) 9 % (0-12); NEUTROPHILS # (AUTO) 10.8 10^3/uL (1.8-7.8); NEUTROPHILS % (AUTO) 77 % (42-75); PLATELET COUNT 265 10^3/uL (130-400)
[2020-10-22 05:37] LABS: ALBUMIN 2.8 GM/DL (3.2-4.5); CHLORIDE 108 MMOL/L (98-107); POTASSIUM 3.3 MMOL/L (3.6-5.0); SODIUM 138 MMOL/L (135-145)
[2020-10-22 05:38] LABS: CALCIUM 7.6 MG/DL (8.5-10.1)
[2020-10-22 05:39] LABS: GLUCOSE 95 MG/DL (70-105)
[2020-10-22 05:40] LABS: TOTAL PROTEIN 5.6 GM/DL (6.4-8.2)
[2020-10-22 05:41] LABS: BILIRUBIN,TOTAL 0.7 MG/DL (0.1-1.0); CARBON DIOXIDE 18 MMOL/L (21-32)
[2020-10-22 05:43] LABS: ALKALINE PHOSPHATASE 58 U/L (40-136); CREATININE SERUM 0.91 MG/DL (0.60-1.30); GFR ESTIMATED > 60
[2020-10-22 05:44] LABS: BUN/CREATININE RATIO 22
[2020-10-22 05:46] LABS: ALANINE AMINOTRANSFERASE 11 U/L (0-55)
--- NOTE | 2020-10-22 05:48 | History & Physical-Hospitalist ---
History of Present Illness HPI/Chief Complaint Chief complaint: UTI with weakness History of present illness: This is a 70-year-old white male who is known to me from multiple hospital stays presented to the [place] [facility] due to severe weakness. Elevated white count and UTI prompted admission. Diarrhea has been much improved when given medication from his primary care provider but C. difficile has been diagnosed during my interview with the patient. He had been discharged to [facility] last time he was hospitalized and after 19 days he went home so is only been home for about a week. In my opinion he needs to be in a long-term care facility. Source: patient Exam Limitations: no limitations Date Seen 10/22/20 Time Seen by a Provider: 11:30 Attending Physician Monserrat Whaley DO PCP Self,Ramin VALENZUELA Referring Physician Date of Admission Oct 21, 2020 at 16:16 Home Medications & Allergies Home Medications Reviewed patient Home Medication Reconciliation performed by pharmacy medication reconciliations dietetic technician registered and/or nursing. Patients Allergies have been reviewed. Allergies Allergies Coded Allergies No Known Drug Allergies (Unverified01/15/10) Past Rjqralg-Sjuwio-Tcfvsx Hx Patient Social History Marrital Status: single Employed/Student: retired Tobacco Use?: No Smoking Status: Never a Smoker Use of E-Cig and/or Vaping dev: No Substance use?: No Alcohol Use?: No Pt feels they are or have been: No Immunizations Up To Date First/Initial COVID19 Vaccinat: 09/21/20 Second COVID19 Vaccination Piter: 10/19/20 Tetanus Booster (TDap): Unknown Seasonal Allergies Seasonal Allergies: No Current Status Advance Directives: No Primary Language: Irish Preferred Spoken Language: Irish Is interpretation needed?: No Past Medical History Surgeries: Abdominal (Partial colon resection), Orthopedic Aneurysm, Atrial Fibrillation, Heart Attack Bladder Infection, Neurogenic Bladder Blood Disorders: No Atrial Fibrillation BPH Chronic Catheter (Condom) Partial colon resection Review of Systems Constitutional: see HPI, malaise, weakness Gastrointestinal: diarrhea Physical Exam Physical Exam Vital Signs Vital Signs - First Documented 10/21/20 12:20 Temp 37.6 Pulse 78 Resp 20 B/P (MAP) 132/54 (80) Pulse Ox 94 O2 Delivery Room Air Capillary Refill : Less Than 3 Seconds Height, Weight, BMI Height: '" Weight: lbs. oz. kg; 26.93 BMI Method: General Appearance: No Apparent Distress, Chronically ill Eyes: Right Eye Normal Inspection, Right Eye PERRL HEENT: PERRL/EOMI, Normal ENT Inspection, Pharynx Normal, Moist Mucous Membranes Neck: Full Range of Motion, Normal Inspection, Non Tender Respiratory: Chest Non Tender, Lungs Clear, Normal Breath Sounds, No Accessory Muscle Use, No Respiratory Distress Cardiovascular: No Edema, No Gallop, No JVD, No Murmur, Normal Peripheral Pulses, Irregularly Irregular, Tachycardia Gastrointestinal: Normal Bowel Sounds, No Organomegaly, No Pulsatile Mass, Non Tender, Soft Back: Normal Inspection, No CVA Tenderness, No Vertebral Tenderness Extremity: Normal Capillary Refill, Normal Inspection, Normal Range of Motion, Non Tender, No Calf Tenderness, No Pedal Edema Neurologic/Psychiatric: Alert, Oriented x3, No Motor/Sensory Deficits, Normal Mood/Affect Skin: Normal Color, Warm/Dry Lymphatic: No Adenopathy Results Results/Procedures Labs Laboratory Tests 10/21/20 12:21 10/22/20 04:50 Patient resulted labs reviewed. Assessment/Plan Admission Diagnosis Assessment: UTI Weakness C. difficile colitis Chronic diarrhea Atrial fibrillation Plan: Home meds Cardiology consult IV antibiotics Vancomycin p.o. Admission Status: Observation Diagnosis/Problems Diagnosis/Problems (1) UTI (urinary tract infection) Status: Acute (2) C. difficile diarrhea Status: Acute MONSERRAT WHALEY DO Oct 22, 2020 05:48
[2020-10-22] MEDS: SENNA W/DOCUSATE (SENOKOT S) TABLET PO SCH ×2 (07:55→17:19)
[2020-10-22] MEDS: NS IV 1000 ML 1,000 ML IV SCH ×2 (08:04→22:50)
[2020-10-22] MEDS: ACETAMINOPHEN 500 MG TAB (TYLENOL) PO SCH ×2 (08:05→20:26)
[2020-10-22] MEDS: FLECAINIDE 100 MG (TAMBOCOR) TAB PO SCH ×2 (08:05→20:26)
[2020-10-22] MEDS: amLODIPine 10 MG (NORVASC) TAB PO SCH (08:05)
[2020-10-22] MEDS: CELECOXIB 100 MG (CeleBREX) CAP PO SCH (08:05)
[2020-10-22] MEDS: lisINopril 20 MG (PRINIVIL) TABLET PO SCH (11:12)
[2020-10-22] MEDS ORDERED: KCL 10 MEQ TAB (MICRO K) PO ONE (11:30)
[2020-10-22] MEDS: VANCOMYCIN 125 MG CAPSULE PO SCH ×2 (12:37→17:19)
[2020-10-22] MEDS: cefTRIAXone 1,000 MG/SWFI 10 ML IV PUSH IV SCH ×2 (17:19)
[2020-10-22] MEDS: KCL 10 MEQ TAB (MICRO K) PO SCH (17:19)
[2020-10-22] MEDS: RIVAROXABAN 10 MG TABLET (XARELTO) PO SCH (20:27)
[2020-10-23] MEDS: VANCOMYCIN 125 MG CAPSULE PO SCH ×5 (00:02→23:09)
[2020-10-23] MEDS: NS IV 1000 ML 1,000 ML IV SCH ×2 (04:08→17:24)
[2020-10-23 04:34] VITALS: BP 106/63
[2020-10-23 06:43] LABS: BASOPHILS % (AUTO) 0 % (0-10); EOSINOPHILS # (AUTO) 0.6 10^3/uL (0.0-0.3); EOSINOPHILS % (AUTO) 6 % (0-10); HEMATOCRIT 34 % (40-54); HEMOGLOBIN 11.3 g/dL (13.3-17.7); LYMPHOCYTES # (AUTO) 1.4 10^3/uL (1.0-4.0); LYMPHOCYTES % (AUTO) 14 % (12-44); MEAN CORPUSCULAR HEMOGLOBIN 29 pg (25-34); MEAN CORPUSCULAR HGB CONC 33 g/dL (32-36); MEAN CORPUSCULAR VOLUME 88 fL (80-99); MEAN PLATELET VOLUME 10.2 fL (9.0-12.2); MONOCYTES # (AUTO) 0.9 10^3/uL (0.0-1.0); MONOCYTES % (AUTO) 9 % (0-12); NEUTROPHILS % (AUTO) 70 % (42-75); PLATELET COUNT 256 10^3/uL (130-400)
[2020-10-23 06:59] LABS: ALBUMIN 2.8 GM/DL (3.2-4.5); CHLORIDE 109 MMOL/L (98-107); POTASSIUM 3.3 MMOL/L (3.6-5.0); SODIUM 138 MMOL/L (135-145)
[2020-10-23 07:00] LABS: CALCIUM 7.5 MG/DL (8.5-10.1)
[2020-10-23 07:01] LABS: GLUCOSE 88 MG/DL (70-105)
[2020-10-23 07:02] LABS: TOTAL PROTEIN 5.5 GM/DL (6.4-8.2)
[2020-10-23 07:03] LABS: BILIRUBIN,TOTAL 0.3 MG/DL (0.1-1.0); CARBON DIOXIDE 20 MMOL/L (21-32)
[2020-10-23 07:05] LABS: ALKALINE PHOSPHATASE 57 U/L (40-136); CREATININE SERUM 0.82 MG/DL (0.60-1.30); GFR ESTIMATED > 60
[2020-10-23 07:06] LABS: BUN/CREATININE RATIO 23
[2020-10-23 07:08] LABS: ALANINE AMINOTRANSFERASE 16 U/L (0-55)
[2020-10-23] MEDS: SENNA W/DOCUSATE (SENOKOT S) TABLET PO SCH (07:26)
[2020-10-23] MEDS: lisINopril 20 MG (PRINIVIL) TABLET PO SCH (07:27)
[2020-10-23] MEDS: amLODIPine 10 MG (NORVASC) TAB PO SCH (07:27)
[2020-10-23] MEDS: FLECAINIDE 100 MG (TAMBOCOR) TAB PO SCH ×2 (07:51→20:42)
[2020-10-23] MEDS: ACETAMINOPHEN 500 MG TAB (TYLENOL) PO SCH ×2 (07:51→20:43)
[2020-10-23] MEDS: KCL 10 MEQ TAB (MICRO K) PO SCH ×2 (07:51→17:24)
[2020-10-23] MEDS: CELECOXIB 100 MG (CeleBREX) CAP PO SCH (07:52)
[2020-10-23 08:13] VITALS: BP 130/79
[2020-10-23] MEDS ORDERED: KCL 20 MEQ TAB (K-DUR) PO ONE (08:45)
--- NOTE | 2020-10-23 09:53 | Consultation-Cardiology ---
HPI-Cardiology Cardiology Consultation Date of Consultation 10/23/20 Date of Admission Time Seen by Provider: 11:30 Indication: PAF HPI Patient is a 70 y/o male with history of atrial fibrillation, HTN, TAA. Follows with Dr. Suazo out of [facility]. Admitted to the hospital for UTI, C diff colitits, generalized weakness. Denies any chest pain, dyspnea, dizziness. Home Medications & Allergies Allergies: Coded Allergies: No Known Drug Allergies (Unverified , 01/15/10) Home Medication List Reviewed: Yes YAT-Gkyrrj-Oqebvx Hx Patient Social History Marital Status: Employed/Student: retired Recreational Drug Use: No Smoking Status: Never a Smoker 2nd Hand Smoke Exposure: No Recent Hopitalizations: Yes Have you traveled recently?: No Alcohol Use?: No Past Medical History PAF, HTN, TAA Review of Systems-General Review of Systems Constitutional: see HPI, malaise, weakness EENTM: see HPI, no symptoms reported Respiratory: no symptoms reported, see HPI, cough; No dyspnea on exertion Cardiovascular: no symptoms reported; No chest pain, No Hx of Intervention, No palpitations Gastrointestinal: diarrhea Genitourinary: see HPI Musculoskeletal: no symptoms reported Skin: no symptoms reported Psychiatric/Neurological: See HPI Reviewed Test Results Reviewed Test Results Lab Laboratory Tests 10/23/20 06:22: White Blood Count 10.0, Red Blood Count 3.89L, Hemoglobin 11.3L, Hematocrit 34L, Mean Corpuscular Volume 88, Mean Corpuscular Hemoglobin 29, Mean Corpuscular Hemoglobin Concent 33, Red Cell Distribution Width 15.9H, Platelet Count 256, Mean Platelet Volume 10.2, Immature Granulocyte % (Auto) 0, Neutrophils (%) (Auto) 70, Lymphocytes (%) (Auto) 14, Monocytes (%) (Auto) 9, Eosinophils (%) (Auto) 6, Basophils (%) (Auto) 0, Neutrophils # (Auto) 7.0, Lymphocytes # (Auto) 1.4, Monocytes # (Auto) 0.9, Eosinophils # (Auto) 0.6H, Basophils # (Auto) 0.0, Immature Granulocyte # (Auto) 0.0, Sodium Level 138, Potassium Level 3.3L, Chloride Level 109H, Carbon Dioxide Level 20L, Anion Gap 9, Blood Urea Nitrogen 19H, Creatinine 0.82, Estimat Glomerular Filtration Rate > 60, BUN/Creatinine Ratio 23, Glucose Level 88, Calcium Level 7.5L, Corrected Calcium 8.5, Total Bilirubin 0.3, Aspartate Amino Transf (AST/SGOT) 15, Alanine Aminotransferase (ALT/SGPT) 16, Alkaline Phosphatase 57, Total Protein 5.5L, Albumin 2.8L Microbiology 10/21/20 Urine Culture - Preliminary, Resulted Probable E.coli 10/21/20 Stool Culture - Preliminary, Resulted 10/21/20 Blood Culture - Preliminary, Resulted No growth Physical Exam Physical Exam Vital Signs Vital Signs - First Documented 10/21/20 12:20 Temp 37.6 Pulse 78 Resp 20 B/P (MAP) 132/54 (80) Pulse Ox 94 O2 Delivery Room Air Capillary Refill : Less Than 3 Seconds Height, Weight, BMI Height: '" Weight: lbs. oz. kg; 26.93 BMI Method: General Appearance: No Apparent Distress, Chronically ill Eyes: Right Eye Normal Inspection, Right Eye PERRL HEENT: PERRL/EOMI, Normal ENT Inspection, Pharynx Normal, Moist Mucous Membranes Neck: Full Range of Motion, Normal Inspection, Non Tender Respiratory: Chest Non Tender, Lungs Clear, Normal Breath Sounds, No Accessory Muscle Use, No Respiratory Distress Cardiovascular: Regular Rate, Rhythm, No Edema, No Gallop, No JVD, No Murmur, Normal Peripheral Pulses Gastrointestinal: Normal Bowel Sounds, No Organomegaly, No Pulsatile Mass, Non Tender, Soft Rectal: Deferred Back: Normal Inspection, No CVA Tenderness, No Vertebral Tenderness Extremity: Normal Capillary Refill, Normal Inspection, Normal Range of Motion, Non Tender, No Calf Tenderness, No Pedal Edema Neurologic/Psychiatric: Alert, Oriented x3, No Motor/Sensory Deficits, Normal Mood/Affect Skin: Normal Color, Warm/Dry Lymphatic: No Adenopathy A/P-Cardiology Admission Diagnosis PAF TAA HTN UTI C Diff colitis Assessment/Plan Paroxysmal atrial fibrillation, reports long standing hx. Recently started following Dr. Suazo out of [facility]. Maintained on Flecainide, Xarelto. I will evaluate 2D Echo, EKG. HTN, controlled, continue to monitor. Thoracic aortic aneurysm, reports last CT showed TAA approx 5cm. I will evaluate 2D Echo, continue with tight BP control UTI, management per medical services C. diff colitis, management per medical services Generalized debility/weakness Thank you for allowing us to participate in the management of Mr. Casillas. This is Michelle Tolentino PA-C, as a scribe for Dr. Ballesteros. Patient was seen and evaluated with Michelle, I interviewed the patient and performed physical examination, discussed with the patient the management plan, in summary he is a 70 years old gentleman admitted with diarrhea weakness and cystitis in addition to possible C. difficile colitis. Has extensive cardiac history including paroxysmal atrial fibrillation, maintained in sinus rhythm. History of thoracic aortic aneurysm and aortic valve regurgitation. No recent work-up was done, he was scheduled for echo couple of times and it was canceled. I will evaluate 2D echo Restart home medication monitor blood pressure and lipids. MICHELLE BARRIOS Oct 23, 2020 9:53 am BETHANIE BALLESTEROS MD Oct 23, 2020 10:20 am
[2020-10-23] MEDS ORDERED: ACET325T49 PO (11:35)
[2020-10-23] MEDS ORDERED: MELO7.5T46 PO (11:38)
[2020-10-23 11:49] VITALS: BP 125/66
[2020-10-23 15:30] VITALS: BP 119/58
--- NOTE | 2020-10-23 16:28 | Progress Note ---
Subjective Subjective/Events-last exam Pt states he is feeling okay, but weak. Having less bowel movements, but still feels uncomfortable. Focused Exam Lactate Level 10/21/20 12:21: Lactic Acid Level 1.78 Objective Exam Last Set of Vital Signs Vital Signs Date Time Temp Pulse Resp B/P (MAP) Pulse Ox O2 Delivery O2 Flow Rate FiO2 10/23/20 15:30 36.3 60 18 119/58 (78) 96 Room Air Capillary Refill : Less Than 3 Seconds I&O Intake and Output 10/23/20 00:00 Intake Total 1590 ml Output Total 550 ml Balance 1040 ml Intake Oral 1590 ml Output Urine Total 550 ml # Bowel Movements 4 General: Alert, No Acute Distress Lungs: Clear to Auscultation, Normal Air Movement Abdomen: Normal Bowel Sounds, Soft Neuro: Normal Speech Psych/Mental Status: Mood NL Results/Procedures Lab Laboratory Tests 10/23/20 06:22: White Blood Count 10.0, Red Blood Count 3.89L, Hemoglobin 11.3L, Hematocrit 34L, Mean Corpuscular Volume 88, Mean Corpuscular Hemoglobin 29, Mean Corpuscular Hemoglobin Concent 33, Red Cell Distribution Width 15.9H, Platelet Count 256, Mean Platelet Volume 10.2, Immature Granulocyte % (Auto) 0, Neutrophils (%) (Auto) 70, Lymphocytes (%) (Auto) 14, Monocytes (%) (Auto) 9, Eosinophils (%) (Auto) 6, Basophils (%) (Auto) 0, Neutrophils # (Auto) 7.0, Lymphocytes # (Auto) 1.4, Monocytes # (Auto) 0.9, Eosinophils # (Auto) 0.6H, Basophils # (Auto) 0.0, Immature Granulocyte # (Auto) 0.0, Sodium Level 138, Potassium Level 3.3L, Chlo ride Level 109H, Carbon Dioxide Level 20L, Anion Gap 9, Blood Urea Nitrogen 19H, Creatinine 0.82, Estimat Glomerular Filtration Rate > 60, BUN/Creatinine Ratio 23, Glucose Level 88, Calcium Level 7.5L, Corrected Calcium 8.5, Total Bilirubin 0.3, Aspartate Amino Transf (AST/SGOT) 15, Alanine Aminotransferase (ALT/SGPT) 16, Alkaline Phosphatase 57, Total Protein 5.5L, Albumin 2.8L Microbiology 10/21/20 Urine Culture - Final, Complete Escherichia coli 10/21/20 Stool Culture - Preliminary, Resulted 10/21/20 Blood Culture - Preliminary, Resulted No growth Assessment/Plan Assessment/Plan (1) C. difficile diarrhea Status: Acute Assessment & Plan: Just treated for C diff with vancomycin the end of September. Repeat vanc course, monitor for improvement. (2) UTI (urinary tract infection) Status: Acute Assessment & Plan: E coli in culture, continue ceftriaxone. Qualifiers: Qualified Codes: T83.511A - Infection and inflammatory reaction due to indwelling urethral catheter, initial encounter; N39.0 - Urinary tract infection, site not specified (3) Atrial fibrillation Status: Chronic Assessment & Plan: Cardiology consulted, appreciate recommendations (4) BPH (benign prostatic hyperplasia) Status: Chronic Assessment & Plan: With indwelling ritchie Qualifiers: Qualified Codes: N40.1 - Benign prostatic hyperplasia with lower urinary tract symptoms; R33.8 - Other retention of urine (5) Hypertension Status: Chronic (6) Weakness generalized Status: Chronic Assessment & Plan: Just discharged from senior living 2 days prior to readmit, will consult PT and OT (7) Leukocytosis, unspecified Status: Resolved Assessment & Plan: On admit, possibly secondary to UTI. (8) Acute kidney injury Status: Resolved (9) DVT prophylaxis Status: Acute Assessment & Plan: On rivaroxaban PIERCE POWERS MD Oct 23, 2020 16:28
[2020-10-23] MEDS: cefTRIAXone 1,000 MG/SWFI 10 ML IV PUSH IV SCH ×2 (17:24)
[2020-10-23 20:19] VITALS: BP 108/56
[2020-10-23] MEDS: RIVAROXABAN 10 MG TABLET (XARELTO) PO SCH (20:42)
[2020-10-24] VITALS (7 sets, daily range): BP systolic 110–133; BP diastolic 58–81
[2020-10-24 05:35] LABS: HEMATOCRIT 34 % (40-54); HEMOGLOBIN 11.2 g/dL (13.3-17.7); MEAN CORPUSCULAR HEMOGLOBIN 29 pg (25-34); MEAN CORPUSCULAR HGB CONC 33 g/dL (32-36); MEAN CORPUSCULAR VOLUME 88 fL (80-99); MEAN PLATELET VOLUME 10.1 fL (9.0-12.2); PLATELET COUNT 269 10^3/uL (130-400)
[2020-10-24 05:56] LABS: BUN/CREATININE RATIO 14; CALCIUM 7.9 MG/DL (8.5-10.1); CARBON DIOXIDE 20 MMOL/L (21-32); CHLORIDE 109 MMOL/L (98-107); CREATININE SERUM 0.69 MG/DL (0.60-1.30); GFR ESTIMATED > 60; GLUCOSE 86 MG/DL (70-105); POTASSIUM 3.8 MMOL/L (3.6-5.0); SODIUM 137 MMOL/L (135-145)
[2020-10-24] MEDS: VANCOMYCIN 125 MG CAPSULE PO SCH ×4 (06:27→21:04)
[2020-10-24] MEDS: NS IV 1000 ML 1,000 ML IV SCH ×2 (06:54→17:59)
--- NOTE | 2020-10-24 08:06 | Cardiology Progress Note ---
Subjective Date Seen by Provider: Oct 24, 2020 Time Seen by Provider: 08:03 Subjective/Events-last exam Patient is laying down in bed, reporting persistent diarrhea Review of Systems General: No Chills, No Night Sweats; Fatigue; No Malaise, No Appetite, No Other HEENT: No Head Aches, No Visual Changes, No Eye Pain, No Ear Pain, No Dysphasia, No Sinus Congestion, No Post Nasal Drip, No Sore Throat, No Other Pulmonary: No Dyspnea, No Cough, No Pleuritic Chest Pain, No Other Cardiovascular: No: Chest Pain, Palpitations, Orthopnea, Paroxysmal Noc. Dyspnea, Edema, Lt Headedness, Other Focused Exam Lactate Level 10/21/20 12:21: Lactic Acid Level 1.78 Objective-Cardiology Exam Last Set of Vital Signs Vital Signs 10/24/20 04:16 Temp 36.2 Pulse 55 Resp 18 B/P (MAP) 133/72 (92) Pulse Ox 99 O2 Delivery Room Air Capillary Refill : Less Than 3 Seconds I&O Intake and Output 10/23/20 23:59 Intake Total 2075 ml Output Total 2150 ml Balance -75 ml Intake Oral 1075 ml IV Total 1000 ml Output Urine Total 2150 ml # Bowel Movements 5 General: Alert, Oriented X3, Cooperative, No Acute Distress HEENT: Atraumatic, PERRLA Neck: Supple Lungs: Clear to Auscultation, Normal Air Movement Heart: Regular Rate, Normal S1, Normal S2 Abdomen: Normal Bowel Sounds, Soft Extremities: No Clubbing, No Cyanosis Skin: No Rashes, No Breakdown Neuro: Normal Speech, Strength at 5/5 X4 Ext Psych/Mental Status: Mental Status NL, Mood NL Results Lab Laboratory Tests 10/24/20 05:10 A/P-Cardiology Admission Diagnosis PAF TAA HTN UTI C Diff colitis Assessment/Plan Paroxysmal atrial fibrillation, reports long standing hx. Recently started following Dr. Suazo out of [facility]. Maintained on Flecainide, Xarelto. Echocardiogram showed normal LV size and function ejection fraction 55 to 65%, dilated aortic root measuring 4.5 cm, moderate aortic regurgitation. Continue to monitor Hypertension, controlled on current medication. Continue to monitor C. difficile colitis, persistent diarrhea, managed by primary care team Urinary tract infection, managed by primary care team Thoracic aortic aneurysm, last CT scan reported TAA approximately 5 cm, on the echocardiogram aortic root was measuring 4.5 cm. Continue to monitor. Following with Dr. Suazo at [facility] Generalized debility/weakness BETHANIE WILSON MD Oct 24, 2020 08:06
[2020-10-24] MEDS ORDERED: RIVA20TA2 PO (08:18)
[2020-10-24] MEDS: LACTOBACILLUS ACIDOPHILUS (PROBIOTIC) CAPSULE PO SCH ×3 (08:22→16:35)
[2020-10-24] MEDS: CELECOXIB 100 MG (CeleBREX) CAP PO SCH (08:22)
[2020-10-24] MEDS: ACETAMINOPHEN 500 MG TAB (TYLENOL) PO SCH ×2 (08:22→21:03)
[2020-10-24] MEDS: FLECAINIDE 100 MG (TAMBOCOR) TAB PO SCH ×2 (08:23→21:04)
[2020-10-24] MEDS: KCL 10 MEQ TAB (MICRO K) PO SCH ×2 (08:23→16:35)
[2020-10-24] MEDS: lisINopril 20 MG (PRINIVIL) TABLET PO SCH (08:23)
[2020-10-24] MEDS: amLODIPine 10 MG (NORVASC) TAB PO SCH (08:23)
--- NOTE | 2020-10-24 11:01 | Physical Therapy Evaluation ---
PT Evaluation-General Medical Diagnosis Admission Date Oct 21, 2020 at 16:16 Medical Diagnosis: cystitis with hematuria Onset Date: Oct 21, 2020 Therapy Diagnosis Therapy Diagnosis: generalized weakness/debility Precautions Precautions/Isolations: Contact Isolation, Fall Prevention Referral Physician: Alonso Reason for Referral: Evaluation/Treatment Medical History Pertinent Medical History: Atrial Fib, CAD, HTN, [place] Current History ER secondary to nausea and diarrhea/bilateral LE edema Reviewed History: Yes Social History Home: Care Home Prior Prior Level of Function SCALE: Activities may be completed with or without assistive devices. 4-Dktiolxoun-iktpnpm completes the activity by him/herself with no assistance from a helper. 5-Set-up or Clean-up Assistance-helper sets up or cleans up; patient completes activity. [place] assists only prior to or following the activity. 4-Supervision or Touching Assistance-helper provides verbal cues and/or touching/steadying and/or contact guard assistance as patient completes activ ity. Assistance may be provided throughout the activity or intermittently. 3-Partial/Moderate Assistance-helper does LESS THAN HALF the effort. [place] lifts, holds or supports trunk or limbs, but provides less than half the effort. 2-Substantial/Maximal Assistance-helper does MORE THAN HALF the effort. [place] lifts or holds trunk or limbs and provides more than half the effort. 4-Vlzjsgcjc-mznxwa does ALL the effort. Patient does none of the effort to complete the activity. Or, the assistance of 2 or more helpers is required for the patient to complete the activity. If activity was not attempted, code reason: 7-Patient Refused. 9-Not Applicable-not attempted and the patient did not perform the activity before the current illness, exacerbation or injury. 10-Not Attempted due to Environmental Limitations-(lack of equipment, weather restraints, etc.). 88-Not Attempted due to Medical Conditions or Safety Concerns. Bed Mobility: 3 Transfers (B,C,W/C): 3 Gait: 3 Stairs: 9 Indoor Mobility (Ambulation): Needed Some Help Stairs: Not Applicalbe Prior Devices Use: Manual wheelchair, Walker PT Evaluation-Current Subjective Patient agrees to PT. He reports he is feeling stronger on this date. Objective Patient Orientation: Normal For Age Attachments: Herman Catheter, IV ROM/Strength ROM Lower Extremities bilateral LE WFL Strength Lower Extremities 3+/5 grossly bilateral LE Integumentary/Posture Integumentary refer to nursing notes Bowel Incontinence: Yes Bladder Incontinence: Herman Cath Posture trunk and bilateral knee flexed posture Neuromuscular (Tone, Coordination, Reflexes) grossly intact Sensory Vision: Functional Hearing: Functional Transfers Roll Left to Right (QC): 2 Sit to Lying (QC): 2 Lying to Sitting/Side of Bed(Q: 3 Sit to Stand (QC): 3 Gait Does the Patient Walk?: Yes Mode of Locomotion: Both Anticipated Mode of Locomotion: Both Walk 10 feet (QC): 3 Walk 50 ft with 2 Turns(QC): 3 Walk 150 ft (QC): 88 Distance: 75' Gait Assistive Device: FWW Comments/Gait Description shuffle gait sequence with no foot clearance Balance Sitting Static: Normal Sitting Dynamic: Normal Standing Static: Fair Standing Dynamic: Fair Assessment/Needs 70 y.o. male, will benefit from skilled PT to address functional strength and mobility to improve current LOF to safely return to home or NH for continued. Rehab Potential: Fair PT Detention Goals Extruder Operator Helper Goals PT Extruder Operator Helper Goals Time Frame: Nov 04, 2020 Roll Left & Right (QC): 3 Sit to Lying (QC): 3 Lying-Sitting on Side/Bed(QC): 3 Sit to Stand (QC): 3 Chair/Yym-dt-Mpejo Xfer(QC): 3 (lift chair/patient unable to perform sit to stand from low surface) Does the Patient Walk: Yes Walk 10 feet (QC): 3 Walk 50ft with 2 Turns (QC): 3 Walk 150 ft (QC): 3 PT Plan Problem List Problem List: Activity Tolerance, Functional Strength, Balance, Gait, Transfer, Bed Mobility Treatment/Plan Treatment Plan: Continue Plan of Care Treatment Plan: Bed Mobility, Education, Functional Activity Norma, Functional Strength, Gait, Safety, Therapeutic Exercise, Transfers Treatment Duration: Nov 04, 2020 Frequency: 6 times per week Estimated Hrs Per Day: .25 hour per day Patient and/or Family Agrees t: Yes Time/GCodes Time In: 1014 Time Out: 1028 Total Billed Treatment Time: 14 Total Billed Treatment 1 visit EVModC 14 min SVITLANA SANCHEZ PT Oct 24, 2020 11:01
--- NOTE | 2020-10-24 15:54 | Progress Note ---
Subjective Subjective/Events-last exam Reports feeling improved, still having frequent very loose stools though. Objective Exam Last Set of Vital Signs Vital Signs Date Time Temp Pulse Resp B/P (MAP) Pulse Ox O2 Delivery O2 Flow Rate FiO2 10/24/20 11:59 36.2 65 20 123/64 (83) 95 Room Air Capillary Refill : Less Than 3 Seconds I&O Intake and Output 10/24/20 00:00 Intake Total 2075 ml Output Total 2150 ml Balance -75 ml Intake Oral 1075 ml IV Total 1000 ml Output Urine Total 2150 ml # Bowel Movements 5 General: Alert, No Acute Distress Lungs: Clear to Auscultation, Normal Air Movement Abdomen: Normal Bowel Sounds, Soft, No Tenderness Psych/Mental Status: Mood NL Results/Procedures Lab Laboratory Tests 10/24/20 05:10: White Blood Count 11.0, Red Blood Count 3.84L, Hemoglobin 11.2L, Hematocrit 34L, Mean Corpuscular Volume 88, Mean Corpuscular Hemoglobin 29, Mean Corpuscular Hemoglobin Concent 33, Red Cell Distribution Width 15.7H, Platelet Count 269, Mean Platelet Volume 10.1, Sodium Level 137, Potassium Level 3.8, Chloride Level 109H, Carbon Dioxide Level 20L, Anion Gap 8, Blood Urea Nitrogen 10, Creatinine 0.69, Estimat Glomerular Filtration Rate > 60, BUN/Creatinine Ratio 14, Glucose Level 86, Calcium Level 7.9L Microbiology 10/21/20 Urine Culture - Final, Complete Escherichia coli 10/21/20 Stool Culture - Final, Complete 10/21/20 Blood Culture - Preliminary, Resulted Probable Coag Negative Staph See Comments Assessment/Plan Assessment/Plan (1) C. difficile diarrhea Status: Acute Assessment & Plan: Just treated for C diff with vancomycin the end of September. Repeat vanc course, monitor for improvement. (2) UTI (urinary tract infection) Status: Acute Assessment & Plan: E coli in culture, continue ceftriaxone. Qualifiers: Qualified Codes: T83.511A - Infection and inflammatory reaction due to indwelling urethral catheter, initial encounter; N39.0 - Urinary tract infection, site not specified (3) Atrial fibrillation Status: Chronic Assessment & Plan: Cardiology consulted, appreciate recommendations (4) BPH (benign prostatic hyperplasia) Status: Chronic Assessment & Plan: With indwelling ritchie Qualifiers: Qualified Codes: N40.1 - Benign prostatic hyperplasia with lower urinary tract symptoms; R33.8 - Other retention of urine (5) Hypertension Status: Chronic (6) Weakness generalized Status: Chronic Assessment & Plan: Just discharged from assisted 2 days prior to readmit, will consult PT and OT (7) Leukocytosis, unspecified Status: Resolved Assessment & Plan: On admit, possibly secondary to UTI. (8) Acute kidney injury Status: Resolved (9) DVT prophylaxis Status: Acute Assessment & Plan: On rivaroxaban PIERCE POWERS MD Oct 24, 2020 15:54
[2020-10-24] MEDS: cefTRIAXone 1,000 MG/SWFI 10 ML IV PUSH IV SCH ×2 (16:36)
--- NOTE | 2020-10-24 16:56 | Occupational Therapy Eval ---
OT Evaluation-General/PLF Medical Diagnosis Admission Date Oct 21, 2020 at 16:16 Medical Diagnosis: UTI with weakness/C. Diff Onset Date: Oct 21, 2020 Therapy Diagnosis Therapy Diagnosis: Decreased ADL skills Precautions Precautions/Isolations: Contact Isolation, Fall Prevention Weight Bear Status Weight Bearing Restriction: Weight Bearing/Tolerated Referral Physician: Alonso Landeros Reason: Activity Tolerance, Self Care, Evaluation/Treatment, Strengthening/ROM Medical History Pertinent Medical History: Atrial Fib, CAD, HTN, [place] Additional Medical History Partial colon resection, aneurysm, condom catheter Current History Pt. was in [facility] approximately 20 days after hospitalization. Went home for 2 days and came back with UTI and C.Diff. Reviewed History: Yes Social History Home: Single Level Current Living Status: Spouse ADL-Prior Level of Function SCALE: Activities may be completed with or without assistive devices. 9-Jammcuwilh-jjebeam completes the activity by him/herself with no assistance from a helper. 5-Set-up or Clean-up Assistance-helper sets up or cleans up; patient completes activity. [place] assists only prior to or following the activity. 4-Supervision or Touching Assistance-helper provides verbal cues and/or touching/steadying and/or contact guard assistance as patient completes activity. Assistance may be provided throughout the activity or intermittently. 3-Partial/Moderate Assistance-helper does LESS THAN HALF the effort. [place] lifts, holds or supports trunk or limbs, but provides less than half the effort. 2-Substantial/Maximal Assistance-helper does MORE THAN HALF the effort. [place] lifts or holds trunk or limbs and provides more than half the effort. 5-Nrznsfxrg-alivkt does ALL the effort. Patient does none of the effort to complete the activity. Or, the assistance of 2 or more helpers is required for the patient to complete the activity. If activity was not attempted, code reason: 7-Patient Refused. 9-Not Applicable-not attempted and the patient did not perform the activity before the current illness, exacerbation or injury. 10-Not Attempted due to Environmental Limitations-(lack of equipment, weather restraints, etc.). 88-Not Attempted due to Medical Conditions or Safety Concerns. ADL PLOF Comments Pt. states that his spouse and sometimes his son assisted him with shoes and socks. Otherwise, he was independent with daily tasks. He did use a walker for ambulation. Self Care: Unknown Functional Cognition: Unknown OT unable to fully assess all of pt's prior history and equipment at evaluation. Pt. had been incontinent of bowel, and OT attending to this with nursing assist. Pt. required cues for re-direction as well at times, as he had difficulty staying on specific topics when asked about previous history. Will continue to gather information at treatment sessions for best picture to assist pt. at discharge. OT Current Status Subjective Pt. does not report pain. Mental Status/Objective Patient Orientation: Person, Place Attachments: Herman Catheter ADL-Treatment Eating (QC): 5 (Per pt.) Lower Body Dressing (QC): 2 (Per clinical judgement.) On/Off Footwear (QC): 1 Toileting Hygiene (QC): 1 Other Treatments Pt. at bed level when OT entered room. OT introduced self and educated pt. on OT role. Pt. verbalizes understanding. OT attempted to have pt. sit EOB and participate in self care. Pt. states that he might be soiled. OT assesses. Pt. is, and OT turns on light for clean wipes, linens. Engaged pt. to role side to side to assist with cleaning process. Nursing came in and assisted with clean up. Noted increased red areas in bottom. After cleansing, OT applied barrier cream. Pt. tired, and required max x 2 for bed mobility and further positioning on side. All needs met at bed level. Education OT Patient Education: Correct positioning, Modified ADL techniques, Progress toward Goal/Update tx plan, Purpose of tx/functional activities, Reviewed precautions, Rehab process, Transfer techniques Teaching Recipient: Patient Teaching Methods: Demonstration, Discussion Response to Teaching: Verbalize Understanding, Return Demonstration, Reinforcement Needed OT Short Term Goals Short Term Goals Time Frame: Oct 31, 2020 Eatin Oral hygiene: 5 Toileting hygiene: 3 Shower/bathe self: 3 Upper body dressin Lower body dressin Putting on/taking off footwear: 3 OT Steam Drier Operator Goals Steam Drier Operator Goals Time Frame: Nov 07, 2020 Eating (QC): 6 Oral Hygiene (QC): 6 Toileting Hygiene (QC): 6 Shower/Bathe Self (QC): 4 Upper Body Dressing (QC): 5 Lower Body Dressing (QC): 4 On/Off Footwear (QC): 6 Additional Goals: 1-Demonstrate ADL Tasks, 2-Verbalize Understanding, 3- ImproveStrength/Norma 1=Demonstrate adherence to instructed precautions during ADL tasks. 2=Patient will verbalize/demonstrate understanding of assistive devices/modifications for ADL. 3=Patient will improve strength/tolerance for activity to enable patient to perform ADL's. OT Education/Plan Problem List/Assessment Assessment: Decreased Activ Tolerance, Dependent Transfers, Impaired Bed Mobility, Impaired Funct Balance, Impaired I ADL's, Impaired Self-Care Skills Discharge Recommendations Plan/Recommendations: Continue POC Therapy Discharge Recommendati: Home & Family, Post Acute OT Equpiment Recommendations-D/C: Hip Kit Treatment Plan/Plan of Care Treatment,Training & Education: Yes Patient would benefit from OT for education, treatment and training to promote independence in ADL's, mobility, safety and/or upper extremity function for ADL's. Plan of Care: ADL Retraining, Functional Mobility, UE Funct Exercise/Act Treatment Duration: Nov 07, 2020 Frequency: At least 5 of 7 days/Wk (IRF) Estimated Hrs Per Day: 1.5 hours per day Agreement: Yes Rehab Potential: Fair Time/GCodes Start Time: 09:40 Stop Time: 10:05 Total Time Billed (hr/min): 25 Billed Treatment Time 1, EVH x 10minutes, ADL x 15minutes CHERELLE WOMACK OT Oct 24, 2020 16:56
[2020-10-24] MEDS: RIVAROXABAN 20 MG TABLET (XARELTO) PO SCH (21:04)
[2020-10-25 03:41] VITALS: BP 107/56
[2020-10-25 05:51] LABS: HEMATOCRIT 36 % (40-54); HEMOGLOBIN 11.4 g/dL (13.3-17.7); MEAN CORPUSCULAR HEMOGLOBIN 29 pg (25-34); MEAN CORPUSCULAR HGB CONC 32 g/dL (32-36); MEAN CORPUSCULAR VOLUME 90 fL (80-99); PLATELET COUNT 281 10^3/uL (130-400); WHITE BLOOD COUNT 9.5 10^3/uL (4.3-11.0)
[2020-10-25 06:23] LABS: BUN/CREATININE RATIO 13; CALCIUM 8.1 MG/DL (8.5-10.1); CARBON DIOXIDE 20 MMOL/L (21-32); CHLORIDE 109 MMOL/L (98-107); CREATININE SERUM 0.76 MG/DL (0.60-1.30); GFR ESTIMATED > 60; GLUCOSE 103 MG/DL (70-105); SODIUM 136 MMOL/L (135-145)
[2020-10-25 07:58] VITALS: BP 118/66
--- NOTE | 2020-10-25 08:57 | Cardiology Progress Note ---
Subjective Date Seen by Provider: Oct 25, 2020 Time Seen by Provider: 08:56 Subjective/Events-last exam Patient is sitting up in bed, no new complaints, denies any chest pain or dyspnea. Review of Systems General: No Chills, No Night Sweats, No Fatigue, No Malaise, No Appetite, No Other HEENT: No Head Aches, No Visual Changes, No Eye Pain, No Ear Pain, No Dysphasia, No Sinus Congestion, No Post Nasal Drip, No Sore Throat, No Other Pulmonary: No Dyspnea, No Cough, No Pleuritic Chest Pain, No Other Cardiovascular: No: Chest Pain, Palpitations, Orthopnea, Paroxysmal Noc. Dyspnea, Edema, Lt Headedness, Other Objective-Cardiology Exam Last Set of Vital Signs Vital Signs 10/25/20 10/25/20 07:58 08:00 Temp 35.9 Pulse 53 Resp 20 B/P (MAP) 118/66 (83) Pulse Ox 94 O2 Delivery Room Air Capillary Refill : Less Than 3 Seconds I&O Intake and Output 10/25/20 00:00 Intake Total 1895 ml Output Total 4675 ml Balance -2780 ml Intake Oral 1895 ml Output Urine Total 4675 ml # Bowel Movements 3 General: Alert, No Acute Distress HEENT: Atraumatic, PERRLA Neck: Supple Lungs: Clear to Auscultation, Normal Air Movement Heart: Normal S1, Normal S2, Other (irregulary irregular) Abdomen: Normal Bowel Sounds, Soft, No Tenderness Extremities: No Clubbing, No Cyanosis Skin: No Rashes, No Breakdown Neuro: Normal Speech, Strength at 5/5 X4 Ext Psych/Mental Status: Mood NL Results Lab Laboratory Tests 10/25/20 05:26 A/P-Cardiology Admission Diagnosis PAF TAA HTN UTI C Diff colitis Assessment/Plan Paroxysmal atrial fibrillation, reports long standing hx. Recently started following Dr. Suazo out of [place]. Maintained on Flecainide, Xarelto. Echocardiogram showed normal LV size and function ejection fraction 55 to 65%, dilated aortic root measuring 4.5 cm, moderate aortic regurgitation. Continue to monitor Hypertension, controlled on current medication. Continue to monitor C. difficile colitis, persistent diarrhea, managed by primary care team Urinary tract infection, managed by primary care team Thoracic aortic aneurysm, last CT scan reported TAA approximately 5 cm, on the echocardiogram aortic root was measuring 4.5 cm. Continue to monitor. Following with Dr. Suazo at [facility] Generalized debility/weakness Patient was seen and evaluated with Michelle, examination performed, management plan was discussed, agree with the current scribed note, I made few changes to the note using Italic font Patient was seen at bedside, feeling better, still having diarrhea Receiving physical therapy Blood pressure is better controlled Continue to monitor, no changes are recommended I am signing off at this point, please feel free to reconsult if needed Supervisory-Addendum Brief Supervisory Addendum Participated in pt care: history, MDM, physical Personally performed: exam, history, MDM Care discussed with: MICHELLE CORREA Oct 25, 2020 8:57 am BETHANIE WILSON MD Oct 25, 2020 11:58 am
[2020-10-25] MEDS: CELECOXIB 100 MG (CeleBREX) CAP PO SCH (10:19)
[2020-10-25] MEDS: VANCOMYCIN 125 MG CAPSULE PO SCH ×4 (10:19→20:47)
[2020-10-25] MEDS: lisINopril 20 MG (PRINIVIL) TABLET PO SCH (10:20)
[2020-10-25] MEDS: LACTOBACILLUS ACIDOPHILUS (PROBIOTIC) CAPSULE PO SCH ×3 (10:20→17:28)
[2020-10-25] MEDS: FLECAINIDE 100 MG (TAMBOCOR) TAB PO SCH ×2 (10:21→20:47)
[2020-10-25] MEDS: ACETAMINOPHEN 500 MG TAB (TYLENOL) PO SCH ×2 (10:21→20:47)
[2020-10-25] MEDS: amLODIPine 10 MG (NORVASC) TAB PO SCH (10:21)
[2020-10-25] MEDS: KCL 10 MEQ TAB (MICRO K) PO SCH ×2 (10:22→17:28)
--- NOTE | 2020-10-25 10:38 | Physical Therapy Daily Note ---
PT Daily Note-Current Subjective Patient in bed pre tx, agrees to PT, has no complaints of pain. Appearance Patient in recliner post tx with nurse call, phone, tray, all needs met. Patient notified to use nurse call if he needs to get back to bed. Mental Status Patient Orientation: Person, Place, Situation Attachments: Herman Catheter Transfers SCALE: Activities may be completed with or without assistive devices. 1-Pdkznuxhcx-imexcnx completes the activity by him/herself with no assistance from a helper. 5-Set-up or Clean-up Assistance-helper sets up or cleans up; patient completes activity. [place] assists only prior to or following the activity. 4-Supervision or Touching Assistance-helper provides verbal cues and/or touching/steadying and/or contact guard assistance as patient completes activity. Assistance may be provided throughout the activity or intermittently. 3-Partial/Moderate Assistance-helper does LESS THAN HALF the effort. [place] lifts, holds or supports trunk or limbs, but provides less than half the effort. 2-Substantial/Maximal Assistance-helper does MORE THAN HALF the effort. [place] lifts or holds trunk or limbs and provides more than half the effort. 7-Irxwsczrf-nxaxhn does ALL the effort. Patient does none of the effort to complete the activity. Or, the assistance of 2 or more helpers is required for the patient to complete the activity. If activity was not attempted, code reason: 7-Patient Refused. 9-Not Applicable-not attempted and the patient did not perform the activity before the current illness, exacerbation or injury. 10-Not Attempted due to Environmental Limitations-(lack of equipment, weather restraints, etc.). 88-Not Attempted due to Medical Conditions or Safety Concerns. Roll Left & Right (QC): 6 Lying to Sitting/Side of Bed(Q: 6 Sit to Stand (QC): 4 Chair/Qqq-mi-Vkmtl Xfer(QC): 4 Gait Training Distance: 100' Walk 10 feet (QC): 4 Walk 50 ft with 2 Turns(QC): 4 Gait Persons Needed: 1 Gait Assistive Device: FWW CGA, patient has a tendency to use walker too far forward and needs cues for that, he also has poor foot clearance and slides his feet across the floor. Exercises Seated Therapy Exercises: Ankle pumps, Long arc quads Seated Reps: 20 Treatments bed mobility and transfers, ambulation, LE strengthening Assessment Current Status: Fair Progress slowly improving functional mobility PT Population Health Coach Goals Population Health Coach Goals PT Population Health Coach Goals Time Frame: Nov 04, 2020 Roll Left & Right (QC): 3 Sit to Lying (QC): 3 Lying-Sitting on Side/Bed(QC): 3 Sit to Stand (QC): 3 Chair/Mri-ac-Kgsvc Xfer(QC): 3 (lift chair/patient unable to perform sit to stand from low surface) Does the Patient Walk: Yes Walk 10 feet (QC): 3 Walk 50ft with 2 Turns (QC): 3 Walk 150 ft (QC): 3 PT Plan Problem List Problem List: Activity Tolerance, Functional Strength, Safety, Balance, Gait, Transfer, Bed Mobility, ROM Treatment/Plan Treatment Plan: Continue Plan of Care Treatment Plan: Bed Mobility, Education, Functional Activity Norma, Functional Strength, Gait, Safety, Therapeutic Exercise, Transfers Treatment Duration: Nov 04, 2020 Frequency: 6 times per week Estimated Hrs Per Day: .25 hour per day Patient and/or Family Agrees t: Yes Safety Risks/Education Patient Education: Gait Training, Transfer Techniques, Correct Positioning, Safety Issues Teaching Recipient: Patient Teaching Methods: Demonstration, Discussion Response to Teaching: Reinforcement Needed Time/GCodes Time In: 0955 Time Out: 1017 Total Billed Treatment Time: 22 Total Billed Treatment 1 visit FA ' LYLE VIRAMONTES PT Oct 25, 2020 10:38
--- NOTE | 2020-10-25 10:44 | Progress Note ---
Subjective Subjective/Events-last exam Afebrile, states he didn't have a BM during the night, but this morning had loose stool that got from his bottom all the way to his feet in the bed. He hasn't been able to get to the bedside commode yet. He is working with PT today. Objective Exam Last Set of Vital Signs Vital Signs Date Time Temp Pulse Resp B/P (MAP) Pulse Ox O2 Delivery O2 Flow Rate FiO2 10/25/20 07:58 35.9 53 20 118/66 (83) 94 Room Air Capillary Refill : Less Than 3 Seconds I&O Intake and Output 10/24/20 23:59 Intake Total 1895 ml Output Total 4675 ml Balance -2780 ml Intake Oral 1895 ml Output Urine Total 4675 ml # Bowel Movements 3 General: Alert, No Acute Distress Heart: Regular Rate Extremities: No Edema Neuro: Normal Speech Psych/Mental Status: Mental Status NL, Mood NL Results/Procedures Lab Laboratory Tests 10/25/20 05:26: White Blood Count 9.5, Red Blood Count 3.99L, Hemoglobin 11.4L, Hematocrit 36L, Mean Corpuscular Volume 90, Mean Corpuscular Hemoglobin 29, Mean Corpuscular Hemoglobin Concent 32, Red Cell Distribution Width 15.9H, Platelet Count 281, Mean Platelet Volume 10.0, Sodium Level 136, Potassium Level 4.0, Chloride Level 109H, Carbon Dioxide Level 20L, Anion Gap 7, Blood Urea Nitrogen 10, Creatinine 0.76, Estimat Glomerular Filtration Rate > 60, BUN/Creatinine Ratio 13, Glucose Level 103, Calcium Level 8.1L Microbiology 10/21/20 Urine Culture - Final, Complete Escherichia coli 10/21/20 Stool Culture - Final, Complete 10/21/20 Blood Culture - Preliminary, Resulted Probable Coag Negative Staph See Comments Assessment/Plan Assessment/Plan (1) C. difficile diarrhea Status: Acute Assessment & Plan: Just treated for C diff with vancomycin the end of September. Repeat vanc course, monitor for improvement. (2) UTI (urinary tract infection) Status: Acute Assessment & Plan: E coli in culture, continue ceftriaxone- last dose today. Qualifiers: Qualified Codes: T83.511A - Infection and inflammatory reaction due to indwelling urethral catheter, initial encounter; N39.0 - Urinary tract infection, site not specified (3) Atrial fibrillation Status: Chronic Assessment & Plan: Cardiology consulted, appreciate recommendations (4) BPH (benign prostatic hyperplasia) Status: Chronic Assessment & Plan: With indwelling ritchie Qualifiers: Qualified Codes: N40.1 - Benign prostatic hyperplasia with lower urinary tract symptoms; R33.8 - Other retention of urine (5) Hypertension Status: Chronic Qualifiers: Qualified Codes: I10 - Essential (primary) hypertension (6) Weakness generalized Status: Chronic Assessment & Plan: Just [facility] from [facility] 2 days prior to readmit, will consult PT and OT (7) Leukocytosis, unspecified Status: Resolved Assessment & Plan: On admit, possibly secondary to UTI. (8) Acute kidney injury Status: Resolved (9) DVT prophylaxis Status: Acute Assessment & Plan: On rivaroxaban PIERCE POWERS MD Oct 25, 2020 10:44
[2020-10-25 12:26] VITALS: BP 107/57
[2020-10-25] MEDS ORDERED: ACETAMINOPHEN 325 MG TABLET PO PRN (14:15)
--- NOTE | 2020-10-25 14:39 | Occupational Ther Daily Note ---
OT Current Status-Daily Note Subjective Pt agreeable to OT tx. Pt talked about his life with this therapist, requiring redirection to task. ADL-Treatment Therapy Code Descriptions/Definitions Functional [place] Measure: 0=Not Assessed/NA 4=Minimal Assistance 1=Total Assistance 5=Supervision or Setup 2=Maximal Assistance 6=Modified [place] 3=Moderate Assistance 7=Complete IndependenceSCALE: Activities may be completed with or without assistive devices. 9-Rgcwnlysrq-hysuyuc completes the activity by him/herself with no assistance from a helper. 5-Set-up or Clean-up Assistance-helper sets up or cleans up; patient completes activity. [place] assists only prior to or following the activity. 4-Supervision or Touching Assistance-helper provides verbal cues and/or touching/steadying and/or contact guard assistance as patient completes activity. Assistance may be provided throughout the activity or intermittently. 3-Partial/Moderate Assistance-helper does LESS THAN HALF the effort. [place] lifts, holds or supports trunk or limbs, but provides less than half the effort. 2-Substantial/Maximal Assistance-helper does MORE THAN HALF the effort. [place] lifts or holds trunk or limbs and provides more than half the effort. 8-Hzhdpmdmr-jqzrfh does ALL the effort. Patient does none of the effort to complete the activity. Or, the assistance of 2 or more helpers is required for the patient to complete the activity. If activity was not attempted, code reason: 7-Patient Refused. 9-Not Applicable-not attempted and the patient did not perform the activity before the current illness, exacerbation or injury. 10-Not Attempted due to Environmental Limitations-(lack of equipment, weather restraints, etc.). 88-Not Attempted due to Medical Conditions or Safety Concerns. Oral Hygiene (QC): 4 (CGA standing at sink) Toileting Hygiene (QC): 4 (CGA, pt able to manage hygiene post BM) Other Treatment Pt seated in recliner, used FWW to ambulate into bathroom and onto toilet, CGA. Pt completed toileting, then used FWW to stand at sink to brush teeth, CGA. Pt returned to recliner. OT noted red spot on pt's R buttocks, nurse notified and barrier cream applied. Post tx, pt seated in recliner, call light in reach and all needs met. Education OT Patient Education: Correct positioning, Modified ADL techniques, Progress toward Goal/Update tx plan, Purpose of tx/functional activities Teaching Recipient: Patient Teaching Methods: Discussion Response to Teaching: Verbalize Understanding OT Short Term Goals Short Term Goals Time Frame: Oct 31, 2020 Eatin Oral hygiene: 5 Toileting hygiene: 3 Shower/bathe self: 3 Upper body dressin Lower body dressin Putting on/taking off footwear: 3 OT Service Desk Analyst Goals [facility] Goals Time Frame: Nov 07, 2020 Eating (QC): 6 Oral Hygiene (QC): 6 Toileting Hygiene (QC): 6 Shower/Bathe Self (QC): 4 Upper Body Dressing (QC): 5 Lower Body Dressing (QC): 4 On/Off Footwear (QC): 6 Additional Goals: 1-Demonstrate ADL Tasks, 2-Verbalize Understanding, 3- ImproveStrength/Norma 1=Demonstrate adherence to instructed precautions during ADL tasks. 2=Patient will verbalize/demonstrate understanding of assistive devices/modifications for ADL. 3=Patient will improve strength/tolerance for activity to enable patient to perform ADL's. OT Education/Plan Problem List/Assessment Assessment: Decreased Activ Tolerance, Decreased UE Strength, Impaired I ADL's, Impaired Self-Care Skills Discharge Recommendations Plan/Recommendations: Continue POC Treatment Plan/Plan of Care Patient would benefit from OT for education, treatment and training to promote independence in ADL's, mobility, safety and/or upper extremity function for ADL's. Plan of Care: ADL Retraining, Functional Mobility, UE Funct Exercise/Act Treatment Duration: Nov 07, 2020 Frequency: At least 5 of 7 days/Wk (IRF) Estimated Hrs Per Day: 1.5 hours per day Agreement: Yes Rehab Potential: Fair Time/GCodes Start Time: 13:50 Stop Time: 14:25 Total Time Billed (hr/min): 35 Billed Treatment Time 1, ADL 2 (35') SUZY BYRNE OT Oct 25, 2020 14:39
[2020-10-25 16:22] VITALS: BP 100/63
[2020-10-25] MEDS: NS IV 1000 ML 1,000 ML IV SCH ×2 (16:25→20:47)
[2020-10-25] MEDS: cefTRIAXone 1,000 MG/SWFI 10 ML IV PUSH IV SCH ×2 (18:10)
[2020-10-25 19:58] VITALS: BP 148/75
[2020-10-25] MEDS: RIVAROXABAN 20 MG TABLET (XARELTO) PO SCH (20:47)
[2020-10-25 23:30] VITALS: BP 108/58
[2020-10-26 03:34] VITALS: BP 104/55
[2020-10-26 06:04] LABS: HEMATOCRIT 35 % (40-54); HEMOGLOBIN 11.6 g/dL (13.3-17.7); MEAN CORPUSCULAR HEMOGLOBIN 30 pg (25-34); MEAN CORPUSCULAR HGB CONC 33 g/dL (32-36); MEAN CORPUSCULAR VOLUME 90 fL (80-99); MEAN PLATELET VOLUME 9.7 fL (9.0-12.2); PLATELET COUNT 298 10^3/uL (130-400); WHITE BLOOD COUNT 7.4 10^3/uL (4.3-11.0)
[2020-10-26 06:06] LABS: CHLORIDE 108 MMOL/L (98-107); POTASSIUM 3.9 MMOL/L (3.6-5.0); SODIUM 137 MMOL/L (135-145)
[2020-10-26 06:07] LABS: CALCIUM 8.2 MG/DL (8.5-10.1); GLUCOSE 118 MG/DL (70-105)
[2020-10-26 06:09] LABS: CARBON DIOXIDE 20 MMOL/L (21-32)
[2020-10-26 06:11] LABS: CREATININE SERUM 0.76 MG/DL (0.60-1.30); GFR ESTIMATED > 60
[2020-10-26 06:12] LABS: BUN/CREATININE RATIO 16
[2020-10-26 07:53] VITALS: BP 135/67
--- NOTE | 2020-10-26 09:34 | Occupational Ther Daily Note ---
OT Current Status-Daily Note Subjective Pt's call light on, agrees to tx. On stool upon entry. Pt denies pain, states feeling, "Better and better each day." Mental Status/Objective Patient Orientation: Person, Place, Situation, Normal For Age ADL-Treatment Therapy Code Descriptions/Definitions Functional [place] Measure: 0=Not Assessed/NA 4=Minimal Assistance 1=Total Assistance 5=Supervision or Setup 2=Maximal Assistance 6=Modified [place] 3=Moderate Assistance 7=Complete IndependenceSCALE: Activities may be completed with or without assistive devices. 2-Ysccnxqhhy-cpcqrhj completes the activity by him/herself with no assistance from a helper. 5-Set-up or Clean-up Assistance-helper sets up or cleans up; patient completes activity. [place] assists only prior to or following the activity. 4-Supervision or Touching Assistance-helper provides verbal cues and/or touching/steadying and/or contact guard assistance as patient completes activity. Assistance may be provided throughout the activity or intermittently. 3-Partial/Moderate Assistance-helper does LESS THAN HALF the effort. [place] lifts, holds or supports trunk or limbs, but provides less than half the effort. 2-Substantial/Maximal Assistance-helper does MORE THAN HALF the effort. [place] lifts or holds trunk or limbs and provides more than half the effort. 0-Yxbndupgo-tutxbf does ALL the effort. Patient does none of the effort to complete the activity. Or, the assistance of 2 or more helpers is required for the patient to complete the activity. If activity was not attempted, code reason: 7-Patient Refused. 9-Not Applicable-not attempted and the patient did not perform the activity before the current illness, exacerbation or injury. 10-Not Attempted due to Environmental Limitations-(lack of equipment, weather restraints, etc.). 88-Not Attempted due to Medical Conditions or Safety Concerns. Eating (QC): 6 Shower/Bathe Self (QC): 7 Toileting Hygiene (QC): 6 Toilet Transfer (QC): 4 Other Treatment Pt completes sit to stand with SBA, use of walker and gb. Pt ambulates with walker to chair, completes sit with control/ increased time. Pt completes 3 reps of 15-20 of the following exercises with doubled/ yellow theraband: back flies, shoulder flexion, and bicep curls. Pt denies needs, denies pain; is instructed to complete 2-3x daily. All needs met, call light in reach. Education OT Patient Education: Correct positioning, Exercise program, Home exercise program, Modified ADL techniques, Progress toward Goal/Update tx plan, Purpose of tx/functional activities, Safety issues, Transfer techniques Teaching Recipient: Patient Teaching Methods: Demonstration, Discussion Response to Teaching: Verbalize Understanding, Return Demonstration, Reinforcement Needed OT Short Term Goals Short Term Goals Time Frame: Oct 31, 2020 Eatin Oral hygiene: 5 Toileting hygiene: 3 Shower/bathe self: 3 Upper body dressin Lower body dressin Putting on/taking off footwear: 3 OT [employer] Set Up Operator Goals Retirement Goals Time Frame: Nov 07, 2020 Eating (QC): 6 Oral Hygiene (QC): 6 Toileting Hygiene (QC): 6 Shower/Bathe Self (QC): 4 Upper Body Dressing (QC): 5 Lower Body Dressing (QC): 4 On/Off Footwear (QC): 6 Additional Goals: 1-Demonstrate ADL Tasks, 2-Verbalize Understanding, 3-Impr oveStrength/Norma 1=Demonstrate adherence to instructed precautions during ADL tasks. 2=Patient will verbalize/demonstrate understanding of assistive devices/modifications for ADL. 3=Patient will improve strength/tolerance for activity to enable patient to perform ADL's. OT Education/Plan Problem List/Assessment Assessment: Decreased Activ Tolerance, Decreased UE Strength, Dependent Transfers, Impaired Funct Balance, Impaired I ADL's, Impaired Self-Care Skills Discharge Recommendations Plan/Recommendations: Continue POC Therapy Discharge Recommendati: Home & Family, Post Acute OT Treatment Plan/Plan of Care Treatment,Training & Education: Yes Patient would benefit from OT for education, treatment and training to promote independence in ADL's, mobility, safety and/or upper extremity function for ADL's. Plan of Care: ADL Retraining, Functional Mobility, UE Funct Exercise/Act Treatment Duration: Nov 07, 2020 Frequency: At least 5 of 7 days/Wk (IRF) Estimated Hrs Per Day: 1.5 hours per day Agreement: Yes Rehab Potential: Fair Time/GCodes Start Time: 08:30 Stop Time: 08:52 Total Time Billed (hr/min): 22 Billed Treatment Time 1, ADL (22) MARTIN COLLIER OTR Oct 26, 2020 09:34
[2020-10-26] MEDS: VANCOMYCIN 125 MG CAPSULE PO SCH ×3 (09:43→17:30)
[2020-10-26] MEDS: ACETAMINOPHEN 500 MG TAB (TYLENOL) PO SCH (09:44)
[2020-10-26] MEDS: CELECOXIB 100 MG (CeleBREX) CAP PO SCH (09:44)
[2020-10-26] MEDS: LACTOBACILLUS ACIDOPHILUS (PROBIOTIC) CAPSULE PO SCH ×3 (09:44→17:30)
[2020-10-26] MEDS: amLODIPine 10 MG (NORVASC) TAB PO SCH (09:44)
[2020-10-26] MEDS: lisINopril 20 MG (PRINIVIL) TABLET PO SCH (09:44)
[2020-10-26] MEDS: FLECAINIDE 100 MG (TAMBOCOR) TAB PO SCH (09:44)
[2020-10-26] MEDS: KCL 10 MEQ TAB (MICRO K) PO SCH ×2 (09:45→17:30)
[2020-10-26] MEDS: NS IV 1000 ML 1,000 ML IV SCH (09:48)
--- NOTE | 2020-10-26 09:54 | Physical Therapy Daily Note ---
PT Daily Note-Current Subjective Patient agrees to PT. Mental Status Patient Orientation: Normal For Age Attachments: Herman Catheter, IV Transfers SCALE: Activities may be completed with or without assistive devices. 3-Fpveewnbtg-tjqrngn completes the activity by him/herself with no assistance from a helper. 5-Set-up or Clean-up Assistance-helper sets up or cleans up; patient completes activity. [place] assists only prior to or following the activity. 4-Supervision or Touching Assistance-helper provides verbal cues and/or touching/steadying and/or contact guard assistance as patient completes activity. Assistance may be provided throughout the activity or intermittently. 3-Partial/Moderate Assistance-helper does LESS THAN HALF the effort. [place] lifts, holds or supports trunk or limbs, but provides less than half the effort. 2-Substantial/Maximal Assistance-helper does MORE THAN HALF the effort. [place] lifts or holds trunk or limbs and provides more than half the effort. 8-Edgybartp-lbvkbh does ALL the effort. Patient does none of the effort to complete the activity. Or, the assistance of 2 or more helpers is required for the patient to complete the activity. If activity was not attempted, code reason: 7-Patient Refused. 9-Not Applicable-not attempted and the patient did not perform the activity before the current illness, exacerbation or injury. 10-Not Attempted due to Environmental Limitations-(lack of equipment, weather restraints, etc.). 88-Not Attempted due to Medical Conditions or Safety Concerns. Sit to Stand (QC): 5 Gait Training Does the Patient Walk?: Yes Distance: 300' Walk 10 feet (QC): 5 Walk 50 ft with 2 Turns(QC): 5 Walk 150 ft (QC): 5 Gait Assistive Device: FWW slow, shuffle gait sequence with trunk and bilateral knee flexed posture Exercises Seated Therapy Exercises: Long arc quads Seated Reps: 12 Assessment Improved functional mobility. Per nursing and patient, no BM incontinence since yesterday. PT Half-Way Goals Dentistry Professor Goals PT Dentistry Professor Goals Time Frame: Nov 04, 2020 Roll Left & Right (QC): 3 Sit to Lying (QC): 3 Lying-Sitting on Side/Bed(QC): 3 Sit to Stand (QC): 3 Chair/Amb-kb-Qgkmk Xfer(QC): 3 (lift chair/patient unable to perform sit to stand from low surface) Does the Patient Walk: Yes Walk 10 feet (QC): 3 Walk 50ft with 2 Turns (QC): 3 Walk 150 ft (QC): 3 PT Plan Treatment/Plan Treatment Plan: Continue Plan of Care Treatment Plan: Bed Mobility, Education, Functional Activity Norma, Functional Strength, Gait, Safety, Therapeutic Exercise, Transfers Treatment Duration: Nov 04, 2020 Frequency: 6 times per week Estimated Hrs Per Day: .25 hour per day Patient and/or Family Agrees t: Yes Time/GCodes Time In: 850 Time Out: 813 Total Billed Treatment Time: 23 Total Billed Treatment 1 visit FA x 2 23 min SVITLANA SANCHEZ PT Oct 26, 2020 09:53
[2020-10-26 12:15] VITALS: BP 105/66
[2020-10-26] MEDS ORDERED: LACT1CAP7 PO (15:12)
[2020-10-26] MEDS ORDERED: VANC50SO3 PO (15:12)
--- NOTE | 2020-10-26 15:18 | D/C HH Face to Face Order ---
D/C Face to Face Orders Instructions for Patient Via [facility], Patient Instructions/FollowUp: Follow up with Dr. Marcos November 02 at 9:45 am. Physician to follow Patient: Dr. Marcos Discharge Diet for Home: Cardiac Diet Patient Problems: C diff colitis Weakness Atrial fibrillation Patient Data-Allergies,Ht & Wt Patient Allergies: Coded Allergies: No Known Drug Allergies (Unverified , 01/15/10) Home Health Need/Face to Face Date of Face to Face: Oct 26, 2020 Clinical Findings: Generalized weakness and fatigue, Muscle weakness I have seen Pt ijex-sb-uqmi: Yes Discharged To: Home Diagnosis/Conditions: C diff colitis Weakness Atrial fibrillation Patient is Homebound due to: Muscle weakness Homebound Status Due to the above stated illness, injury or surgical procedure (medical condition or diagnosis) and associated clinical findings, the patient is homebound because of his/her inability to leave home except with aid of a supportive device and/or person AND leaving the home requires a considerable and taxing effort or is medically contraindicated. Pt req the following assistanc: [facility] Start Date: Oct 21, 2020 Therapy Orders Therapy Orders: Physical Therapy, PT to assess for OT Certify Stmt I certify that this patient is under my care and that I, a nurse practitioner or a physician; a medical support assistant working with me, had a face to face encounter that - meets the physician face to face encounter requirements with this patient as dated. PIERCE POWERS MD Oct 26, 2020 15:18
[2020-10-26 15:34] VITALS: BP 116/73
[2020-10-26 20:00] VITALS: BP 167/84
--- NOTE | 2020-10-26 23:07 | Discharge Summary ---
Discharge Summary Hospital Course Problems/Diagnosis: (1) C. difficile diarrhea Status: Acute Assessment & Plan: Just treated for C diff with vancomycin the end of September. Repeat vanc course but with higher dose taper. No bowel accidents night prior and day of dc. (2) UTI (urinary tract infection) Status: Acute Resolution Date/Time: 09/29/20 @ 12:34 Assessment & Plan: E coli in culture, completed treatment with ceftriaxone Qualifiers: Qualified Codes: T83.511A - Infection and inflammatory reaction due to indwelling urethral catheter, initial encounter; N39.0 - Urinary tract infection, site not specified (3) Atrial fibrillation Status: Chronic Assessment & Plan: Cardiology consulted, appreciate recommendations (4) BPH (benign prostatic hyperplasia) Status: Chronic Assessment & Plan: With indwelling ritchie- patient uses condom cath at home and was out of supplies, requested to leave ritchie in until supplies arrive. Qualifiers: Qualified Codes: N40.1 - Benign prostatic hyperplasia with lower urinary tract symptoms; R33.8 - Other retention of urine (5) Hypertension Status: Chronic Qualifiers: Qualified Codes: I10 - Essential (primary) hypertension (6) Weakness generalized Status: Chronic Assessment & Plan: Just discharged from nursing home 2 days prior to readmit, will consult PT and OT (7) Leukocytosis, unspecified Status: Resolved Resolution Date/Time: 10/22/20 @ 16:28 Assessment & Plan: On admit, possibly secondary to UTI. (8) Acute kidney injury Status: Resolved Resolution Date/Time: 10/22/20 @ 16:29 Hospital Course Date of Admission: Oct 21, 2020 at 16:16 Admission Diagnosis : Family Physician/Provider: Ramin Marcos MD Date of Discharge: 10/26/20 Discharge Diagnosis: See problem list Hospital Course: See problem list Labs and Pending Lab Test: Laboratory Tests 10/26/20 05:34: White Blood Count 7.4, Red Blood Count 3.93L, Hemoglobin 11.6L, Hematocrit 35L, Mean Corpuscular Volume 90, Mean Corpuscular Hemoglobin 30, Mean Corpuscular Hemoglobin Concent 33, Red Cell Distribution Width 15.9H, Platelet Count 298, Mean Platelet Volume 9.7, Sodium Level 137, Potassium Level 3.9, Chloride Level 108H, Carbon Dioxide Level 20L, Anion Gap 9, Blood Urea Nitrogen 12, Creatinine 0.76, Estimat Glomerular Filtration Rate > 60, BUN/Creatinine Ratio 16, Glucose Level 118H, Calcium Level 8.2L Microbiology 10/21/20 Urine Culture - Final, Complete Escherichia coli 10/21/20 Stool Culture - Final, Complete 10/21/20 Blood Culture - Preliminary, Resulted Probable Coag Negative Staph See Comments Home Meds Active Acidophilus-Pectin Capsule (Lactobacillus Acidophilus/Pect) 1 Each Capsule 2 Each PO TIDWM Vancomycin HCl 50 Mg/1 Ml Soln.recon 0 PO UD 250 mg QID x 9 days, then BID x 7 days, then daily x 7days, then 250 every three days for 7 days. Reported Xarelto Tablet (Rivaroxaban) 20 Mg Tablet 20 Mg PO DAILY@1700 Meloxicam 7.5 Mg Tablet 7.5 Mg PO DAILY Acetaminophen 325 Mg Tablet 650 Mg PO Q6H PRN TAKES 2 (325MG) TABLETS Tramadol HCl 50 Mg Tablet 100 Mg PO BID TAKES 2 (50MG) TABLETS Flecainide Acetate 100 Mg Tablet 100 Mg PO BID Amlodipine Besylate 10 Mg Tablet 10 Mg PO DAILY Lisinopril 20 Mg Tablet 20 Mg PO DAILY Assessment/Pt DC Instructions [facility] up at [facility] as directed in HH discharge instructions. Discharge Diet: No Restrictions Activity as Tolerated: Yes Discharge Physical Examination Allergies: Coded Allergies: No Known Drug Allergies (Unverified , 01/15/10) General Appearance: No Apparent Distress, WD/WN Respiratory: Lungs Clear, Normal Breath Sounds Cardiovascular: Regular Rate, Rhythm, No Murmur Gastrointestinal: Normal Bowel Sounds, Non Tender, Soft Skin: Normal Color, Warm/Dry Neurologic/Psychiatric: Alert, Normal Mood/Affect Copy Copies To 1: SELF,PIERCE LABOY MD, MD Oct 26, 2020 23:07
== END 2020-10-26 19:45 | disposition home health service (06) | DRG 372 ==
LOC: EDUNIT# 12:06 → ER FS 12:08 → UNDOADMOB 16:16 → 4TH 16:16 → OBSVTOIN 10-23 13:19 → 4TH 10-26 07:47 → UNDODISOB 10-26 19:45
PROVIDERS: ADMIT Internal Medicine; ATTEND Family Medicine
DX: A04.72 Enterocolitis due to Clostridium difficile, not specified as recurrent (principal); T83.511A Infection and inflammatory reaction due to indwelling urethral catheter, initial encounter; N17.9 Acute kidney failure, unspecified; I48.0 Paroxysmal atrial fibrillation; N40.1 Benign prostatic hyperplasia with lower urinary tract symptoms; N39.498 Other specified urinary incontinence; N30.91 Cystitis, unspecified with hematuria; B96.20 Unspecified Escherichia coli [E. coli] as the cause of diseases classified elsewhere; E86.0 Dehydration; N31.9 Neuromuscular dysfunction of bladder, unspecified; I71.2 Thoracic aortic aneurysm, without rupture; I25.2 Old myocardial infarction; Z85.46 Personal history of malignant neoplasm of prostate
CPT/HCPCS: 36415; 51702; 74177; 80048; 80053; 81000; 83605; 83690; 85007; 85025; 85027; 87015; 87040; 87045; 87046; 87088; 87186; 87324; 87449; 87899; 93306; G0378

== ENCOUNTER 2021-02-27 19:47 | Inpatient (IN) | payer MEDICARE ==
[~2021-02-27] VITALS: Ht 180.3 cm; Wt 102.8 kg
[~2021-02-27 19:47] MED LIST changes: +ACET325T49 PO; +LACT1CAP7 PO; +MELO7.5T46 PO; +RIVA20TA2 PO; -SULF1TAB35 PO; +SULF1TAB38 PO; +VANC50SO3 PO
--- OUTSIDE RECORDS SUMMARY | 2021-02-27 19:52 | XMS REPORT | Clinical Summary ---
Author Author [facility] Organization [facility] Address Unknown Phone Unavailable Care Team Providers Care Neurobiologist Name Role Phone PCP Unavailable Allergies Not on File Medications Not on file Active Problems Not on file Social History Date Tobacco Use Types Packs/Day Years Used Never Assessed Sex Assigned at Date Recorded Not on file Last Filed Vital Signs Not on file Plan of Treatment Not on file Results Not on filefrom Last 3 Months
[2021-02-27] MEDS ORDERED: NS IV 1000 ML 1,000 ML IV SCH ×2 (20:15→22:00)
[2021-02-27 20:40] LABS: BASOPHILS % (AUTO) 0 % (0-10); EOSINOPHILS % (AUTO) 0 % (0-10); HEMATOCRIT 48 % (40-54); HEMOGLOBIN 15.8 g/dL (13.3-17.7); LYMPHOCYTES # (AUTO) 1.2 X 10^3 (1.0-4.0); LYMPHOCYTES % (AUTO) 6 % (12-44); MEAN CORPUSCULAR HEMOGLOBIN 29 pg (25-34); MEAN CORPUSCULAR HGB CONC 33 g/dL (32-36); MEAN CORPUSCULAR VOLUME 87 fL (80-99); MEAN PLATELET VOLUME 11.1 fL (9.0-12.2); MONOCYTES % (AUTO) 6 % (0-12); NEUTROPHILS # (AUTO) 16.8 X 10^3 (1.8-7.8); NEUTROPHILS % (AUTO) 87 % (42-75); PLATELET COUNT 214 10^3/uL (130-400); WHITE BLOOD COUNT 19.4 10^3/uL (4.3-11.0)
[2021-02-27 20:41] LABS: MONOCYTES # (AUTO) 1.2 X 10^3 (0.0-1.0)
--- NOTE | 2021-02-27 20:44 | Diagnostic Imaging Report ---
INDICATION: Sepsis. FINDINGS: There is a large degree of free air demonstrated below the diaphragms. There is also a Rigler's sign with visualization of both sides of loops of bowel. The lungs demonstrate patchy scattered alveolar opacities bilaterally suggesting pneumonia. There is no large effusion or pneumothorax. Heart size appropriate for AP technique. Pulmonary vascularity appears appropriate without evidence of current failure IMPRESSION: 1. Large volume of free air below the diaphragms. 2. Patchy bilateral alveolar opacities suggesting developing pneumonia. These findings were called to Dr. Tavera in the [facility] prior to dictation. Dictated by: Dictated on workstation # [id number]
[2021-02-27 20:56] LABS: LYMPHOCYTES % (MANUAL) 7 %; MONOCYTES % (MANUAL) 6 %; NEUTROPHILS % (MANUAL) 87 %
[2021-02-27 20:57] LABS: ANISOCYTOSIS SLIGHT; PLATELET CLUMPS SLIGHT; POLYCHROMASIA SLIGHT; RBC MORPH LRG PLTS
[2021-02-27 20:58] LABS: TOXIC GRANULATION/VACUOLAZATIO 3+
[2021-02-27 20:59] LABS: POTASSIUM 4.6 MMOL/L (3.6-5.0)
[2021-02-27 21:00] LABS: ALBUMIN 3.5 GM/DL (3.2-4.5); BILIRUBIN,TOTAL 0.9 MG/DL (0.1-1.0); CALCIUM 9.4 MG/DL (8.5-10.1); TOTAL PROTEIN 8.2 GM/DL (6.4-8.2)
[2021-02-27 21:01] LABS: CREATININE SERUM 1.56 MG/DL (0.60-1.30)
--- NOTE | 2021-02-27 21:15 | Diagnostic Imaging Report ---
AP view of the abdomen. CORRELATION made with chest radiograph from earlier in the same day and prior KUB from 12/06/2011. FINDINGS: Large volume of free air is again demonstrated within the abdomen and pelvis. Both sides of the bowel wall are evident compatible with a Rigler sign. No convincing evidence of bowel dilation is evident on these 2 views. There is a sacral InterStim device. IMPRESSION: Large volume of abdominal and pelvis free intraperitoneal air. This finding was previously called to the emergency department. Dictated by: Dictated on workstation # [id number]
[2021-02-27 21:31] LABS: CLARITY,URINE CLEAR; COLOR,URINE YELLOW; GLUCOSE, URINE (UA) NEGATIVE (NEGATIVE); KETONES,URINE NEGATIVE (NEGATIVE); NITRITE,URINE POSITIVE (NEGATIVE); PH,URINE 5.5 (5-9); PROTEIN,URINE TRACE (NEGATIVE)
[2021-02-27 21:32] LABS: LEUKOCYTE ESTERASE ,URINE 1+ (NEGATIVE)
[2021-02-27 21:34] LABS: BACTERIA,URINE MODERATE /HPF; BILIRUBIN,URINE 1+ (NEGATIVE); SQUAMOUS EPITHELIAL CELL,UR RARE /HPF
[2021-02-27] MEDS ORDERED: NS 100 ML (IVPB) BAG IV ONE (22:00)
[2021-02-27] MEDS ORDERED: IOHEXOL 350 MG/ML 100 ML (OMNIPAQUE 350) VIAL IV ONE (22:00)
[2021-02-27] MEDS ORDERED: HOLD METFORMIN - RECEIVED CONTRAST 20 ML VIAL IV SCH (22:00)
[2021-02-27 22:11] LABS: PROTHROMBIN TIME PATIENT 18.6 SEC (12.2-14.7)
[2021-02-27 22:12] LABS: INR 1.5 (0.8-1.4)
--- NOTE | 2021-02-27 22:13 | Diagnostic Imaging Report ---
INDICATION: Line placement Frontal chest obtained at 09:39 p.m. and compared to same day at 08:06 p.m. Heart is mildly enlarged. There is mild central vascular prominence and some mild right basilar atelectasis. Extensive pneumoperitoneum is again noted, similar to the prior study. New right IJ central catheter is seen with tip overlying the right atrium. There is no pneumothorax. IMPRESSION: New right IJ central catheter tip overlies the right atrium. There is no pneumothorax. There is mild right basilar atelectasis. Extensive pneumoperitoneum is unchanged compared to the previous study. Dictated by: Dictated on workstation # [id number]
[2021-02-27] MEDS ORDERED: PIPERACILLIN SODIUM/TAZOBACTAM 4.5 GM in NS (IVPB) 100 ML IV ONE (22:15)
[2021-02-27] MEDS ORDERED: FLUCONAZOLE 150 MG TABLET (ED ONLY) PO ONE (23:15)
--- NOTE | 2021-02-27 23:33 | ED General ---
General Chief Complaint: General Problems/Pain Stated Complaint: DIARRHEA Nursing Triage Note: Patient states that he began having diarrhea since Friday. Patient has progressively gotten weak. Patient is unable to help transfer. Patient states that he has been unable to eat or drink and just feels sick. Source of Information: Patient Exam Limitations: No Limitations History of Present Illness Date Seen by Provider: Feb 27, 2021 Time Seen by Provider: 19:50 Initial Comments Patient is a 71-year-old male with history of volvulus and colon resection who presents with watery diarrhea starting 4 days ago. Patient r reports decreased appetite, generalized weakness, fatigue body aches with watery diarrhea. No fever chills or sweats. Patient was unable to get out of the vehicle and did require 3 person assist. He has been incontinent of urine and stool. Reports vague intermittent abdominal pain. Denies chest pain palpitations shortness of breath. No urinary frequency urgency or. No other symptoms or complaints. Additional history obtained from the patient the patient spouse. Timing/Duration: 1-3 Hours Severity: Moderate Modifying Factors: improves with Other Associated Systoms: Other Allergies and Home Medications Allergies Coded Allergies: No Known Drug Allergies (Unverified , 01/15/10) Patient Home Medication List Home Medication List Reviewed: Yes Acetaminophen (Acetaminophen) 325 Mg Tablet, 650 MG PO Q6H PRN for PAIN-MILD (1- 4), (Reported) Entered as Reported by: SANAM TREJO on 10/23/20 1135 Amlodipine Besylate (Amlodipine Besylate) 10 Mg Tablet, 10 MG PO DAILY, (R eported) Entered as Reported by: NELIA LLOYD on 02/19/19 09 Flecainide Acetate (Flecainide Acetate) 100 Mg Tablet, 100 MG PO BID, (Reported) Entered as Reported by: NELIA LLOYD on 02/19/19 09 Lactobacillus Acidophilus/Pect (Acidophilus-Pectin Capsule) 1 Each Capsule, 2 EACH PO TIDWM Prescribed by: PIERCE POWERS on 10/26/20 151 Lisinopril (Lisinopril) 20 Mg Tablet, 20 MG PO DAILY, (Reported) Entered as Reported by: NELIA LLOYD on 02/19/19 09 Meloxicam (Meloxicam) 7.5 Mg Tablet, 7.5 MG PO DAILY, (Reported) Entered as Reported by: SANAM TREJO on 10/23/20 1138 Rivaroxaban (Xarelto Tablet) 20 Mg Tablet, 20 MG PO DAILY@1700, (Reported) Entered as Reported by: YOGESH HAY on 10/24/20 0818 Tramadol HCl (Tramadol HCl) 50 Mg Tablet, 100 MG PO BID, (Reported) Entered as Reported by: JOSE CHOPRA on 09/23/20 1648 Vancomycin HCl (Vancomycin HCl) 50 Mg/1 Ml Soln.recon, 0 PO UD Prescribed by: PIERCE POWERS on 10/26/20 1512 Review of Systems Review of Systems Constitutional: see HPI EENTM: see HPI Respiratory: see HPI Cardiovascular: see HPI Gastrointestinal: see HPI Genitourinary: see HPI Musculoskeletal: see HPI Skin: see HPI Psychiatric/Neurological: See HPI Hematologic/Lymphatic: See HPI Immunological/Allergic: see HPI All Other Systems Reviewed Negative Unless Noted: Yes Past Ilnwuzd-Rwyecb-Ripret Hx Patient Social History Tobacco Use?: Yes Substance use?: No Alcohol Use?: No Immunizations Up To Date COVID19 Vaccine Carton Inspector: Moderna Seasonal Allergies Seasonal Allergies: No Past Medical History Surgeries: Yes (previous bladder stimulator, not currently working) Abdominal, Orthopedic Respiratory: No Cardiac: Yes Aneurysm, Atrial Fibrillation, Heart Attack Neurological: No Reproductive Disorders: No Genitourinary: Yes (Incontinence, Wears external catheter) Bladder Infection, Neurogenic Bladder Gastrointestinal: No Musculoskeletal: Yes Endocrine: No HEENT: No Cancer: No Psychosocial: Yes Integumentary: No Blood Disorders: No Physical Exam Vital Signs Vital Signs - First Documented 02/27/21 19:50 Temp 36.2 Pulse 90 Resp 20 B/P (MAP) 156/56 (89) Pulse Ox 94 O2 Delivery Room Air Capillary Refill : Less Than 3 Seconds Height, Weight, BMI Height: '" Weight: lbs. oz. kg; 28.00 BMI Method: General Appearance: Anxious Eyes: Bilateral Eye Normal Inspection, Bilateral Eye PERRL, Bilateral Eye EOMI HEENT: PERRL/EOMI, Other (Dry mucous membrane) Neck: Full Range of Motion, Non Tender, Supple Respiratory: Lungs Clear Cardiovascular: Regular Rate, Rhythm Gastrointestinal: Soft, Distended, Tenderness (Diffuse mild tenderness, no guarding rebound rigidity) Genital/Rectal: Other (Excoriation of genitalia with scabbing, bright red erythema of scrotum, penis and intertriginous region) Extremity: Non Tender, No Calf Tenderness Neurologic/Psychiatric: Alert, Oriented x3 Skin: Normal Color Focused Exam Sepsis Stage: Ruled Out Possible Source: GI Tract/Intra-Abdominal Lactate Level 02/27/21 21:52: Lactic Acid Level 1.92 Time of Focused Exam: 19:50 Respiratory: Lungs Clear Cardiovascular: Regular Rate, Rhythm Lactic Acid Level Laboratory Tests Test 02/27/21 21:52 Lactic Acid Level 1.92 MMOL/L (0.50-2.00) Procedures/Interventions Central Line Procedure: betadine prep, sterile drapes applied Position: internal jugular (R) Anesthesia: Lidocaine Volume Anesthetic (ccs): 2 Complications: none Operating physician: Marlene Tavera Name of procedure: Central line placement Indication: Need for long-term IV access, inability to obtain peripheral IV access despite repeat attempts Consent: risk versus benefits versus alternatives discussed in detail with patient who verbalized understanding and signed written consent Patient had a triple-lumen in central line placed via a reverse Seldinger technique in the right IJ under ultrasound guidance. Successful localization and cannulization of the subclavian vein. All 3 ports aspirated and flushed. The line was sewn into place and position was confirmed by chest x-ray. No complication was noted to be present. Progress/Results/Core Measures Suspected Sepsis SIRS Temperature: Pulse: 90 Respiratory Rate: 20 Laboratory Tests 02/27/21 20:32: White Blood Count 19.4H Blood Pressure 156 /56 Mean: 89 02/27/21 21:52: Lactic Acid Level 1.92 Laboratory Tests 02/27/21 20:32: Creatinine 1.56H, Platelet Count 214, Total Bilirubin 0.9 02/27/21 21:52: INR Comment 1.5H Results/Orders Lab Results Laboratory Tests Test 02/27/21 20:32 02/27/21 21:15 02/27/21 21:52 Range/Units White Blood Count 19.4 H 4.3-11.0 10^3/uL Red Blood Count 5.49 4.30-5.52 10^6/uL Hemoglobin 15.8 13.3-17.7 g/dL Hematocrit 48 40-54 % Mean Corpuscular Volume 87 80-99 fL Mean Corpuscular Hemoglobin 29 25-34 pg Mean Corpuscular Hemoglobin Concent 33 32-36 g/dL Red Cell Distribution Width 15.1 H 10.0-14.5 % Platelet Count 214 130-400 10^3/uL Mean Platelet Volume 11.1 9.0-12.2 fL Immature Granulocyte % (Auto) 1 % Neutrophils (%) (Auto) 87 H 42-75 % Lymphocytes (%) (Auto) 6 L 12-44 % Monocytes (%) (Auto) 6 0-12 % Eosinophils (%) (Auto) 0 0-10 % Basophils (%) (Auto) 0 0-10 % Neutrophils # (Auto) 16.8 H 1.8-7.8 X 10^3 Lymphocytes # (Auto) 1.2 1.0-4.0 X 10^3 Monocytes # (Auto) 1.2 H 0.0-1.0 X 10^3 Eosinophils # (Auto) 0.0 0.0-0.3 10^3/uL Basophils # (Auto) 0.0 0.0-0.1 10^3/uL Immature Granulocyte # (Auto) 0.1 0.0-0.1 10^3/uL Neutrophils % (Manual) 87 % Lymphocytes % (Manual) 7 % Monocytes % (Manual) 6 % Toxic Granulation 3+ Clumped Platelets SLIGHT Polychromasia SLIGHT Anisocytosis SLIGHT Macrocytosis SLIGHT Blood Morphology Comment LRG PLTS Sodium Level 131 L 135-145 MMOL/L Potassium Level 4.6 3.6-5.0 MMOL/L Chloride Level 98 98-107 MMOL/L Carbon Dioxide Level 16 L 21-32 MMOL/L Anion Gap 17 H 5-14 MMOL/L Blood Urea Nitrogen 49 H 7-18 MG/DL Creatinine 1.56 H 0.60-1.30 MG/DL Estimat Glomerular Filtration Rate 44 BUN/Creatinine Ratio 31 Glucose Level 117 H 70-105 MG/DL Calcium Level 9.4 8.5-10.1 MG/DL Corrected Calcium 9.8 8.5-10.1 MG/DL Total Bilirubin 0.9 0.1-1.0 MG/DL Aspartate Amino Transf (AST/SGOT) 18 5-34 U/L Alanine Aminotransferase (ALT/SGPT) 9 0-55 U/L Alkaline Phosphatase 78 40-136 U/L Total Protein 8.2 6.4-8.2 GM/DL Albumin 3.5 3.2-4.5 GM/DL Urine Color YELLOW Urine Clarity CLEAR Urine pH 5.5 5-9 Urine Specific [place] >=1.030 1.016-1.022 Urine Protein TRACE H NEGATIVE Urine Glucose (UA) NEGATIVE NEGATIVE Urine Ketones NEGATIVE NEGATIVE Urine Nitrite POSITIVE H NEGATIVE Urine Bilirubin 1+ H NEGATIVE Urine Urobilinogen 0.2 < = 1.0 MG/DL Urine Leukocyte Esterase 1+ H NEGATIVE Urine RBC (Auto) 3+ H NEGATIVE Urine RBC 5-10 H /HPF Urine WBC 2-5 /HPF Urine Squamous Epithelial Cells RARE /HPF Urine Crystals NONE /LPF Urine Bacteria MODERATE H /HPF Urine Casts PRESENT /LPF Urine Hyaline Casts 2-5 H /LPF Urine Mucus SMALL H /LPF Urine Culture Indicated CULTURE PENDING Prothrombin Time 18.6 H 12.2-14.7 SEC INR Comment 1.5 H 0.8-1.4 Activated Partial Thromboplast Time 36 H 24-35 SEC Lactic Acid Level 1.92 0.50-2.00 MMOL/L My Orders Orders - MARLENE TAVERA DO Cbc With Automated Diff (02/27/21 20:02) Comprehensive Metabolic Panel (02/27/21 20:02) Blood Culture (02/27/21 20:02) Urinalysis (02/27/21 20:02) Urine Culture (02/27/21 20:02) Protime With Inr (02/27/21 20:02) Partial Thromboplastin Time (02/27/21 20:02) Chest 1 View Ap/Pa Only (02/27/21 20:02) Ed Iv/Invasive Line Start (02/27/21 20:02) Ed Iv/Invasive Line Start (02/27/21 20:02) Vital Signs Adult Sepsis Patie Q15M (02/27/21 20:02) O2 (02/27/21 20:02) Remove Rings In Anticipation O (02/27/21 20:02) Lactic Acid Analyzer (02/27/21 20:02) Ns Iv 1000 Ml (Sodium Chloride 0.9%) (02/27/21 20:15) Influenza A & B Antigens (02/27/21 20:02) Abdomen (Kub) 1 View (02/27/21 20:24) Manual Differential (02/27/21 20:32) Chest 1 View Ap/Pa Only (02/27/21 21:47) Ct Abdomen/Pelvis W (02/27/21 21:48) Ns Iv 1000 Ml (Sodium Chloride 0.9%) (02/27/21 22:00) Iohexol Injection (Omnipaque 350 Mg/Ml 1 (02/27/21 22:00) Received Contrast (Hold Metformin- Contr (02/27/21 22:00) Ns (Ivpb) (Sodium Chloride 0.9% Ivpb Bag (02/27/21 22:00) Herman Cath (02/27/21 22:14) Piperacillin Sodium/Tazobactam (Zosyn Vi (02/27/21 22:15) Fluconazole Tablet (Ed Only) (Diflucan T (02/27/21 23:15) Medications Given in ED Current Medications Medications Dose Ordered Sig/Benigno Route Start Time Stop Time Status Last Admin Dose Admin Iohexol 100 ml ONCE ONCE IV 02/27/21 22:00 02/27/21 22:09 DC 02/27/21 22:42 50 ML Piperacillin Sod/ Tazobactam Sod 4.5 gm/Sodium Chloride 100 ml @ 200 mls/hr ONCE ONCE IV 02/27/21 22:15 02/27/21 22:44 DC 02/27/21 22:37 200 MLS/HR Sodium Chloride 100 ml ONCE ONCE IV 02/27/21 22:00 02/27/21 22:09 DC 02/27/21 22:42 80 ML Vital Signs/I&O 02/27/21 19:50 Temp 36.2 Pulse 90 Resp 20 B/P (MAP) 156/56 (89) Pulse Ox 94 O2 Delivery Room Air Capillary Refill : Less Than 3 Seconds Blood Pressure Mean: 89 Departure Communication (Admissions) Chest x-ray: Large amount of free air below the diaphragm, adequate placement of central line catheter without complication per radiology report CT abdomen pelvis with contrast. Large amount of pneumoperitoneum with out localization of source or significant free fluid per radiology report. Patient with pneumoperitoneum likely secondary to perforated viscus. Patient with elevated white blood cell count with normal lactic acid. Abdomen is soft nonperitoneal during ED stay. Central line placed due to poor peripheral IV access empiric antibiotics repeat fluid bolus given. Initiated. Case reviewed with Dr. Honeycutt on-call for general surgery [facility]. Recommendations are ICU admission, IV Zosyn and Diflucan, strict n.p.o. all medications including apixaban, and hospitalist consult. Dr. Sosa inventory control planner for the hospitalist agrees to consult. Courtesy bridge orders provided. Patient and family members updated of treatment plan. All questions answered to their satisfaction. Impression Primary Impression: Pneumoperitoneum of unknown etiology Additional Impressions: Acute renal insufficiency Urinary tract infection Disposition: ADMITTED INPATIENT Condition: Stable Admissions Decision to Admit Reason: Admit from ER (Trauma) Decision to Admit/Date: Feb 27, 2021 Time/Decision to Admit Time: 23:15 Transfer Method of Transfer: EMS Departure-Patient Inst. Referrals: MANI WALL MD (PCP/Family) Primary Care Physician MARLENE TAVERA DO Feb 27, 2021 23:33
[2021-02-28] VITALS (15 sets, daily range): BP systolic 94–135; BP diastolic 56–78
[2021-02-28 03:42] LABS: BASOPHILS # (AUTO) 0.1 10^3/uL (0.0-0.1); BASOPHILS % (AUTO) 0 % (0-10); EOSINOPHILS % (AUTO) 0 % (0-10); HEMATOCRIT 40 % (40-54); HEMOGLOBIN 13.7 g/dL (13.3-17.7); LYMPHOCYTES # (AUTO) 1.6 10^3/uL (1.0-4.0); LYMPHOCYTES % (AUTO) 9 % (12-44); MEAN CORPUSCULAR HEMOGLOBIN 29 pg (25-34); MEAN CORPUSCULAR HGB CONC 34 g/dL (32-36); MEAN CORPUSCULAR VOLUME 85 fL (80-99); MEAN PLATELET VOLUME 10.7 fL (9.0-12.2); MONOCYTES % (AUTO) 6 % (0-12); NEUTROPHILS # (AUTO) 14.7 10^3/uL (1.8-7.8); NEUTROPHILS % (AUTO) 84 % (42-75); PLATELET COUNT 249 10^3/uL (130-400); WHITE BLOOD COUNT 17.5 10^3/uL (4.3-11.0)
[2021-02-28] MEDS: D5 1/2 NS 1000 ML IV SOLUTION 1,000 ML IV SCH ×2 (03:42→12:44)
[2021-02-28] MEDS: FLUCONAZOLE 200 MG/100 ML 100 ML IV SCH ×4 (03:43→08:08)
[2021-02-28] MEDS: fentaNYL INJ 100 MCG/2 ML AMP IVP PRN ×5 (03:43→19:50)
[2021-02-28] MEDS: PIPERACILLIN/TAZO 4.5 GM/NS 100 ML IV SCH ×6 (03:46→21:24)
[2021-02-28 04:01] LABS: ALBUMIN 3.1 GM/DL (3.2-4.5); POTASSIUM 3.4 MMOL/L (3.6-5.0)
[2021-02-28 04:02] LABS: CALCIUM 8.9 MG/DL (8.5-10.1)
[2021-02-28 04:04] LABS: TOTAL PROTEIN 6.7 GM/DL (6.4-8.2)
[2021-02-28 04:05] LABS: BILIRUBIN,TOTAL 1.3 MG/DL (0.1-1.0)
[2021-02-28 04:07] LABS: CREATININE SERUM 1.35 MG/DL (0.60-1.30); PHOSPHORUS 2.6 MG/DL (2.3-4.7)
--- NOTE | 2021-02-28 04:33 | Tele-ICU Progress Note ---
Progress Note 71M h/o volvulus, colon resection presented with vague intermittent abd pain, profound weakness, body aches, watery diarrhea, incontinent of urine and stool. CT with pneumoperitoneum consistent with perf viscous, no peritoneal signs. Surgery was consulted, recomend monitoring in ICU, strict NPO. CVL was placed due to inability to obtain peripherals. Initiated on zosyn, diflucan. Has been HD stable since arrival. Pain controlled with PRN fentanyl. Will monitor pending surgical eval. Focused Exam Lactate Level 02/27/21 21:52: Lactic Acid Level 1.92 Height, Weight, BMI Height: '" Weight: lbs. oz. kg; 30.17 BMI Method: Time of Focused Exam: 19:50 SYMONE WHEATLEY MD Feb 28, 2021 04:33
[2021-02-28] MEDS: KCL 20 MEQ TAB (K-DUR) PO SCH (05:33)
[2021-02-28] MEDS: MAGNESIUM 1 GM/100 ML IVPB 100 ML IV SCH (05:33)
[2021-02-28] MEDS: POTASSIUM CL 10MEQ/50ML IVPB 50 ML IV SCH ×3 (05:33→05:40)
[2021-02-28] MEDS ORDERED: FLU QUAD HIGH DOSE 240 MCG/0.7 ML 2021-22 (FLUZONE) IM ONE (07:00)
--- NOTE | 2021-02-28 07:43 | History & Physical-Surgical ---
SHAUN EDMONDS MED STUDENT 02/28/21 0743: History of Present Illness History of Present Illness Reason for visit/HPI Patient with a history of sigmoid volvulus s/p colon resection presented overg for diffuse abdominal pain. He says it was an 8/10, but is 6/10 this morning That started friday morning and felt like "somebody has a fist in my abdomen", it has stayed constant, nothing has seemed to make it better or worse. He decided to present to the ED because it was not improving. He has had decrease intake of food, he had one episode of nausea on friday which he dry heaved, but has not happened since. He has had soft "pudding like" stool since friday. He denies any history of GERD or heart burn. He does not know when his last colonoscopy was. He last to his xarelto on friday. He denies any fevers, sweats, shortness of breath, changes in his urinary habits. Date of Admission Feb 28, 2021 at 03:00 Date Seen by a Provider: Feb 28, 2021 Time Seen by a Provider: 06:00 I consulted on this patient on 02/28/21 07:38 Attending Physician Jesse Tello DO Admitting Physician Ramin Marcos MD Consult Allergies and Home Medications Allergies Coded Allergies: No Known Drug Allergies (Unverified , 01/15/10) Patient Home Medication List Amlodipine Besylate (Amlodipine Besylate) 10 Mg Tablet, 10 MG PO DAILY, (Reported) Entered as Reported by: NELIA LLOYD on 02/19/19906 Last Action: Reviewed Flecainide Acetate (Flecainide Acetate) 100 Mg Tablet, 100 MG PO BID, (Reported) Entered as Reported by: NELIA LLOYD on 02/19/19906 Last Action: Reviewed L.acidoph & Paracasei,B.lactis (Probiotic) 1 Each Capsule, 2 EACH PO BID, (Reported) Entered as Reported by: MARIA ISABEL DONOHUE on 02/28/21 09 Last Action: Reviewed Lisinopril (Lisinopril) 20 Mg Tablet, 20 MG PO DAILY, (Reported) Entered as Reported by: NELIA LLOYD on 02/19/19906 Last Action: Reviewed Meloxicam (Meloxicam) 15 Mg Tablet, 15 MG PO DAILY, (Reported) Entered as Reported by: MARIA ISABEL DONOHUE on 02/28/21 1002 Last Action: Reviewed Rivaroxaban (Xarelto) 20 Mg Tablet, 20 MG PO 1900, (Reported) Entered as Reported by: MARIA ISABEL DONOHUE on 02/28/21 0953 Last Action: Reviewed Tramadol HCl (Tramadol HCl) 50 Mg Tablet, 100 MG PO BID, (Reported) Entered as Reported by: JOSE CHOPRA on 09/23/20 1648 Last Action: Reviewed Discontinued Medications Acetaminophen (Acetaminophen) 325 Mg Tablet, 650 MG PO Q6H PRN for PAIN-MILD (1- 4), (Reported) Discontinued Reason: No Longer Taking Entered as Reported by: SANAM TREJO on 10/23/20 1135 Last Action: Discontinued Lactobacillus Acidophilus/Pect (Acidophilus-Pectin Capsule) 1 Each Capsule, 2 EACH PO TIDWM Discontinued Reason: Duplicate Order Prescribed by: PIERCE POWERS on 10/26/201511 Last Action: Discontinued Meloxicam (Meloxicam) 7.5 Mg Tablet, 7.5 MG PO DAILY, (Reported) Discontinued Reason: Prescription changed Entered as Reported by: SANAM TREJO on 10/23/20 113 Last Action: Last Taken Edited Rivaroxaban (Xarelto Tablet) 20 Mg Tablet, 20 MG PO DAILY@1700, (Reported) Discontinued Reason: Duplicate Order Entered as Reported by: YOGESH HAY on 10/24/20 0818 Last Action: Discontinued Vancomycin HCl (Vancomycin HCl) 50 Mg/1 Ml Soln.recon, 0 PO UD Discontinued Reason: No Longer Taking Prescribed by: PIERCE POWERS on 10/26/201511 Last Action: Discontinued Past Nqgmysk-Djfbhk-Polgkf Hx Patient Social History Tobacco Use?: No Smoking Status: Never a Smoker Use of E-Cig and/or Vaping dev: No Substance use?: No Alcohol Use?: No Pt feels they are or have been: No Immunizations Up To Date Second COVID19 Vaccination Piter: 08/2020 Tetanus Booster (TDap): Unknown Seasonal Allergies Seasonal Allergies: No Current Status Advance Directives: No Communicates: Verbally Primary Language: Citizen Of [place] Preferred Spoken Language: Citizen Of [place] Is interpretation needed?: No Sensory deficits: Hearing impairment Implanted or Applied Medical D: Other Past Medical History Surgeries: Abdominal (colon rescetion s/p Volvulus), Orthopedic Aneurysm (aortic of the arch), Atrial Fibrillation, Heart Attack Bladder Infection, Neurogenic Bladder Are Your Blood Sugars Over 250: No Loss of Vision: Denies Blood Disorders: No Atrial Fibrillation BPH Chronic Catheter (Condom) Partial colon resection Family Medical History Heart Disease (mother and father) Review of Systems Constitutional: No chills, No diaphoresis, No fever; weight loss EENTM: No blurred vision, No double vision Respiratory: No cough, No dyspnea on exertion Cardiovascular: No chest pain, No palpitations Gastrointestinal: abdominal pain (diffuse), diarrhea (soft) Genitourinary: No dysuria, No hematuria Musculoskeletal: No back pain, No muscle pain, No muscle stiffness Skin: No dryness, No lesions, No lumps Psychiatric/Neurological: Denies Headache, Denies Numbness, Denies Paresthesia Physical Exam Vital Signs Vital Signs - First Documented 02/27/21 19:50 Temp 36.2 Pulse 90 Resp 20 B/P (MAP) 156/56 (89) Pulse Ox 94 O2 Delivery Room Air Capillary Refill : Less Than 3 Seconds Height, Weight, BMI Height: '" Weight: lbs. oz. kg; 30.17 BMI Method: General Appearance: No Apparent Distress, WD/WN Eyes: Bilateral Eye Normal Inspection, Bilateral Eye PERRL, Bilateral Eye EOMI HEENT: Pharynx Normal; No Moist Mucous Membranes, No Scleral Icterus (L), No S cleral Icterus (R) Neck: Normal Inspection, Non Tender, Supple Respiratory: Chest Non Tender, Lungs Clear, Normal Breath Sounds, No Accessory Muscle Use, No Respiratory Distress Cardiovascular: No Murmur, Normal Peripheral Pulses, Irregularly Irregular Gastrointestinal: No Pulsatile Mass, Soft, Tenderness (supraumbillical with deep palpation) Back: No CVA Tenderness Extremity: No Pedal Edema Data Review Labs Laboratory Tests 02/27/21 20:32: White Blood Count 19.4H, Red Blood Count 5.49, Hemoglobin 15.8, Hematocrit 48, Mean Corpuscular Volume 87, Mean Corpuscular Hemoglobin 29, Mean Corpuscular Hemoglobin Concent 33, Red Cell Distribution Width 15.1H, Platelet Count 214, Mean Platelet Volume 11.1, Immature Granulocyte % (Auto) 1, Neutrophils (%) (Auto) 87H, Lymphocytes (%) (Auto) 6L, Monocytes (%) (Auto) 6, Eosinophils (%) (Auto) 0, Basophils (%) (Auto) 0, Neutrophils # (Auto) 16.8H, Lymphocytes # (Auto) 1.2, Monocytes # (Auto) 1.2H, Eosinophils # (Auto) 0.0, Basophils # (Auto) 0.0, Immature Granulocyte # (Auto) 0.1, Neutrophils % (Manual) 87, Lymphocytes % (Manual) 7, Monocytes % (Manual) 6, Toxic Granulation 3+, Clumped Platelets SLIGHT, Polychromasia SLIGHT, Anisocytosis SLIGHT, Macrocytosis SLIGHT, Blood Morphology Comment LRG PLTS, Sodium Level 131L, Potassium Level 4.6, Chloride Level 98, Carbon Dioxide Level 16L, Anion Gap 17H, Blood Urea Nitrogen 49H, Creatinine 1.56H, Estimat Glomerular Filtration Rate 44, BUN/Creatinine Ratio 31, Glucose Level 117H, Calcium Level 9.4, Corrected Calcium 9.8, Total Bilirubin 0.9, Aspartate Amino Transf (AST/SGOT) 18, Alanine Aminotransferase (ALT/SGPT) 9, Alkaline Phosphatase 78, Total Protein 8.2, Albumin 3.5 02/27/21 21:15: Urine Color YELLOW, Urine Clarity CLEAR, Urine pH 5.5, Urine Specific [place] >=1.030, Urine Protein TRACEH, Urine Glucose (UA) NEGATIVE, Urine Ketones NEGAT [place], Urine Nitrite POSITIVEH, Urine Bilirubin 1+H, Urine Urobilinogen 0.2, Urine Leukocyte Esterase 1+H, Urine RBC (Auto) 3+H, Urine RBC 5-10H, Urine WBC 2-5, Urine Squamous Epithelial Cells RARE, Urine Crystals NONE, Urine Bacteria MODERATEH, Urine Casts PRESENT, Urine Hyaline Casts 2-5H, Urine Mucus SMALLH, Urine Culture Indicated CULTURE PENDING 02/27/21 21:52: Prothrombin Time 18.6H, INR Comment 1.5H, Activated Partial Thromboplast Time 36H, Lactic Acid Level 1.92 02/28/21 03:30: White Blood Count 17.5H, Red Blood Count 4.74, Hemoglobin 13.7, Hematocrit 40, Mean Corpuscular Volume 85, Mean Corpuscular Hemoglobin 29, Mean Corpuscular Hemoglobin Concent 34, Red Cell Distribution Width 14.6H, Platelet Count 249, Mean Platelet Volume 10.7, Immature Granulocyte % (Auto) 1, Neutrophils (%) (Auto) 84H, Lymphocytes (%) (Auto) 9L, Monocytes (%) (Auto) 6, Eosinophils (%) (Auto) 0, Basophils (%) (Auto) 0, Neutrophils # (Auto) 14.7H, Lymphocytes # (Auto) 1.6, Monocytes # (Auto) 1.0, Eosinophils # (Auto) 0.0, Basophils # (Auto) 0.1, Immature Granulocyte # (Auto) 0.1, Sodium Level 134L, Potassium Level 3.4L, Chloride Level 105, Carbon Dioxide Level 17L, Anion Gap 12, Blood Urea Nitrogen 42H, Creatinine 1.35H, Estimat Glomerular Filtration Rate 52, BUN/Creatinine Ratio 31, Glucose Level 106H, Calcium Level 8.9, Corrected Calcium 9.6, Total Bilirubin 1.3H, Aspartate Amino Transf (AST/SGOT) 10, Alanine Aminotransferase (ALT/SGPT) 9, Alkaline Phosphatase 56, Total Protein 6.7, Albumin 3.1L, Phosphorus Level 2.6, Magnesium Level 2.0, SARS-CoV-2 RNA (RT-PCR) Not Detected Radiology NAME: JER [facility] REC#: [id number] PT STATUS: ADM IN : 1950 PHYSICIAN: MARLENE GIORDANO DO ADMIT DATE: 02/28/21/ICU Draft Date of Exam:02/27/21 CT ABDOMEN/PELVIS W PROCEDURE: CT abdomen and pelvis with contrast. TECHNIQUE: Multiple contiguous axial images were obtained through the abdomen and pelvis after administration of intravenous contrast. Auto Exposure Controls were utilized during the CT exam to meet ALARA standards for radiation dose reduction. All CT scans use one or more of the following dose optimizing techniques: automated exposure control, MA and/or KvP adjustment based on patient size and exam type or iterative reconstruction. INDICATION: Abdominal pain. FINDINGS: There is moderate basilar atelectasis. There is a large amount of free air in the abdomen. The liver, gallbladder, and bile ducts appear normal. Pancreas and spleen are normal. The adrenal glands and kidneys appear normal. Stomach and small bowel are not distended. Colon shows very little stool or gas present. There is stool in the rectum. There is an anastomotic suture line in the proximal sigmoid colon. There are no changes to suggest abscess. Herman catheter is present with decompression of the bladder. No intra-abdominal adenopathy. No free fluid. There is opacification of the aorta and abdominal vessels with no evidence of aneurysm. No bony abnormalities. IMPRESSION: Large amount of free air most prominent in the upper abdomen. Perforated viscus primary consideration. Would consider duodenum or proximal bowel. These findings are in agreement with the preliminary report. Dictated on workstation # [id number] Dict: 02/28/21 0729 Trans: 02/28/21 0744 [facility] [id number] Interpreted by: JESSE CONRAD MD Electronically signed by: Assessment/Plan Assessment/Plan Assessment/Plan Pneumoperitoneum History of sigmoid volvulus s/p colon resection HTN A-Fib Osteoarthiritis plan to take to OR for DLE and all procedure as indicated this AM Zosyn and diflucan NPO Hold eliquis Lactate Ringer @140mL/hr pain control JESSE TELLO DO 02/28/21 1127: History of Present Illness History of Present Illness Reason for visit/HPI Pt admitted last night with pneumoperitoneum, states today he still has moderate abdominal pain. "I couldn't eat if I wanted to". Rating pain now as 6 out of 10. He states this is different than last time he had abdominal surgery. Time Seen by a Provider: 10:48 Allergies and Home Medications Allergies Coded Allergies: No Known Drug Allergies (Unverified , 01/15/10) Patient Home Medication List Home Medication List Reviewed: Yes Amlodipine Besylate (Amlodipine Besylate) 10 Mg Tablet, 10 MG PO DAILY, (Reported) Entered as Reported by: NELIA LLOYD on 02/19/19906 Last Action: Reviewed Flecainide Acetate (Flecainide Acetate) 100 Mg Tablet, 100 MG PO BID, (Reported) Entered as Reported by: NELIA LLOYD on 02/19/19906 Last Action: Reviewed L.acidoph & Paracasei,B.lactis (Probiotic) 1 Each Capsule, 2 EACH PO BID, (Reported) Entered as Reported by: MARIA ISABEL DONOHUE on 02/28/21 09 Last Action: Reviewed Lisinopril (Lisinopril) 20 Mg Tablet, 20 MG PO DAILY, (Reported) Entered as Reported by: NELIA LLOYD on 10/18/19 0907 Last Action: Reviewed Meloxicam (Meloxicam) 15 Mg Tablet, 15 MG PO DAILY, (Reported) Entered as Reported by: MARIA ISABEL DONOHUE on 02/28/21 1002 Last Action: Reviewed Rivaroxaban (Xarelto) 20 Mg Tablet, 20 MG PO 1900, (Reported) Entered as Reported by: MRAIA ISABEL DONOHUE on 02/28/21 0953 Last Action: Reviewed Tramadol HCl (Tramadol HCl) 50 Mg Tablet, 100 MG PO BID, (Reported) Entered as Reported by: JOSE CHOPRA on 09/23/20 1648 Last Action: Reviewed Discontinued Medications Acetaminophen (Acetaminophen) 325 Mg Tablet, 650 MG PO Q6H PRN for PAIN-MILD (1- 4), (Reported) Discontinued Reason: No Longer Taking Entered as Reported by: SANAM TREJO on 10/23/20 113 Last Action: Discontinued Lactobacillus Acidophilus/Pect (Acidophilus-Pectin Capsule) 1 Each Capsule, 2 EACH PO TIDWM Discontinued Reason: Duplicate Order Prescribed by: PIERCE POWERS on 10/26/201511 Last Action: Discontinued Meloxicam (Meloxicam) 7.5 Mg Tablet, 7.5 MG PO DAILY, (Reported) Discontinued Reason: Prescription changed Entered as Reported by: SANAM TREJO on 10/23/20 113 Last Action: Last Taken Edited Rivaroxaban (Xarelto Tablet) 20 Mg Tablet, 20 MG PO DAILY@1700, (Reported) Discontinued Reason: Duplicate Order Entered as Reported by: YOGESH HAY on 10/24/20 0818 Last Action: Discontinued Vancomycin HCl (Vancomycin HCl) 50 Mg/1 Ml Soln.recon, 0 PO UD Discontinued Reason: No Longer Taking Prescribed by: PIERCE POWERS on 10/26/201511 Last Action: Discontinued Past Dfxrzhi-Tkwhdk-Vuszwo Hx Patient Social History Smoking Status: Never a Smoker Substance use?: No Alcohol Use?: No Past Medical History Surgeries: Abdominal (colon rescetion s/p Volvulus), Orthopedic COPD (Pt denies) Aneurysm (aortic of the arch), Atrial Fibrillation, Heart Attack Benign Prostatic Hyperpl Obstructive Bowel Arthritis Are Your Blood Sugars Over 250: No Family Medical History Heart Disease (mother and father) Review of Systems Constitutional: No chills, No diaphoresis, No fever; weight loss EENTM: No blurred vision, No double vision Respiratory: No cough, No dyspnea on exertion Cardiovascular: No chest pain, No palpitations Gastrointestinal: abdominal pain (diffuse), diarrhea (soft) Genitourinary: No dysuria, No hematuria Musculoskeletal: No back pain; joint pain, joint swelling; No muscle pain, No muscle stiffness Skin: No dryness, No lesions, No lumps Psychiatric/Neurological: Denies Headache, Denies Numbness, Denies Paresthesia Physical Exam General Appearance: No Apparent Distress, WD/WN Eyes: Bilateral Eye PERRL, Bilateral Eye EOMI HEENT: Pharynx Normal, Moist Mucous Membranes; No Scleral Icterus (L), No Scleral Icterus (R) Neck: Normal Inspection, Non Tender, Supple Respiratory: Chest Non Tender, Lungs Clear, Normal Breath Sounds, No Accessory Muscle Use, No Respiratory Distress Cardiovascular: No Murmur, Irregularly Irregular Gastrointestinal: Soft, Guarding, Tenderness (supraumbillical with deep palpation) Back: No CVA Tenderness Extremity: No Calf Tenderness, Pedal Edema Neurologic/Psychiatric: Alert, Oriented x3, Normal Mood/Affect, supervisor wall mirror department II-XII Norm as Tested Skin: Normal Color, Warm/Dry Lymphatic: No Adenopathy (neck, axilla or groin) Assessment/Plan Assessment/Plan Admission Diagonsis Pneumoperitoneum Afib Aortic Aneursym Admission Status: Inpatient Order (span 2 midnights) Reason for Inpatient Admission: Pt will be going to the OR for emergent surgery due to pneumoperitoneum, afterwards will be NPO for at least 2 days Assessment/Plan Pneumoperitoneum History of sigmoid volvulus s/p colon resection HTN A-Fib Osteoarthiritis Plan to take to OR for Diagnostic Laparoscopy, possible Laparotomy and all other indicated procedures. Went over risks and complications, not limited to pain, bleeding, infection, scar, damage to bowel and need for further procedure. All questions answered to his satisfaction. Zosyn and diflucan., NPO, Hold eliquis, Lactate Ringer @140mL/hr, pain control Supervisory-Addendum Brief Verification & Attestation Participated in pt care: history, MDM, physical Personally performed: exam, history, MDM, supervision of care Care discussed with: Medical Student Procedures: n/a Verification and Attestation of Medical Student E/M Service A medical student performed and documented this service. I then reviewed and verified all information documented by the medical student and made modifications to such information, when appropriate. I personally performed a physical exam, medical decision making and then discussed any differences between the notes and made revisions as necessary to create one note. Jesse Tello , 02/28/21 , 11:30 SHAUN EDMONDS MED STUDENT Feb 28, 2021 07:43 JESSE TELLO DO Feb 28, 2021 11:27
--- NOTE | 2021-02-28 08:19 | Tele-ICU Progress Note ---
Subjective Date Seen by a Provider: Feb 28, 2021 Time Seen by a Provider: 07:00 Subjective/Events-last exam This virtual visit was conducted using real time audio/video. Thank you for asking us to see this patient for a perforated viscus. HPC: Recent events: surgery consult pending. Still pain issues. PE: VSS O2 sat 97% on RA. HEENT: No obvious masses, adenopathy or JVD. Chest: clear to auscultation. CV: RRR S1 S2 No murmur or added sounds. Abd: Non-tender. Bowel sounds Y. : Unremarkable. Herman N. FIBROUS PLASTERER/psychiatric: Alert and oriented, grossly intact. No obvious focal findings. Extremities: No edema. Capillary refill < 3 seconds. Skin: unremarkable. Results: Elevated BUN/CR, WCC 17.5. Decreased K 3.4, CO2 17. CXR w pneumoperitoneum. A/P: Perf viscus per surgery Available chart/ vitals / labs / images reviewed. Video assessment done using teleICU camera, rest of exam as per RN. Critical Care: critically ill patient. Cont. Zosyn, Diflucan. Increase Fent to 75 mcg q 1H. Discussed with RN Nae. Asked RN to reach out to eICU if any questions or concerns later. Time spent with patient/coordination of care with other health professionals (mins): 20 Sepsis Event Evaluation Height, Weight, BMI Height: '" Weight: lbs. oz. kg; 30.17 BMI Method: Focused Exam Lactate Level 02/27/21 21:52: Lactic Acid Level 1.92 Time of Focused Exam: 19:50 Exam Exam Patient acknowledged, consented, and participated in this virtual visit which was conducted using real time audio/video Vital Signs Date Time Temp Pulse Resp B/P (MAP) Pulse Ox O2 Delivery O2 Flow Rate FiO2 02/28/21 06:00 96 22 106/56 (73) 95 Room Air 02/28/21 05:00 66 28 115/63 (80) 95 Room Air 02/28/21 05:00 Room Air 02/28/21 04:00 91 20 135/76 (95) 95 Room Air 02/28/21 03:42 93 02/28/21 03:30 94 Room Air 02/28/21 03:05 37.7 85 20 126/78 (94) 93 Room Air 02/28/21 02:51 16 111/73 97 Room Air 02/27/21 19:50 36.2 90 20 156/56 (89) 94 Room Air I & O 02/28/21 07:00 Intake Total 4520 ml Output Total 475 ml Balance 4045 ml Height & Weight Height: '" Weight: lbs. oz. kg; 30.17 BMI Method: General Appearance: No Apparent Distress, WD/WN, Mild Distress HEENT: Pharynx Normal; No Moist Mucous Membranes, No Scleral Icterus (L), No Scleral Icterus (R) Neck: Normal Inspection, Non Tender, Supple Respiratory: Chest Non Tender, Lungs Clear, Normal Breath Sounds, No Accessory Muscle Use, No Respiratory Distress Cardiovascular: No Murmur, Normal Peripheral Pulses, Irregularly Irregular Capillary Refill: Less Than 3 Seconds Peripheral Pulses: 1+ Dorsalis Pedis (R), 1+ Left Dors-Pedis (L) Extremity: No Pedal Edema Neurologic/Psychiatric: Alert, Oriented x3 Skin: Normal Color Results Lab Laboratory Tests 02/27/21 20:32 02/28/21 03:30 Assessment/Plan Assessment/Plan See free text. Critical Care: Critically Ill Patient JE ADAM MD Feb 28, 2021 08:19
[2021-02-28] MEDS ORDERED: LIDOCAINE/EPI 1%-1:100,000 (XYLOCAINE) 20ML ONE (09:25)
[2021-02-28] MEDS ORDERED: RIVA20TA PO (09:53)
[2021-02-28] MEDS ORDERED: L.AC1CAP6 PO (09:53)
[2021-02-28] MEDS ORDERED: MELO15TA39 PO (10:02)
[2021-02-28] MEDS ORDERED: LIDOCAINE PF 2% 5 ML (XYLOCAINE) VIAL ONE (11:03)
[2021-02-28] MEDS ORDERED: ROCURONIUM 10 MG/ML 5 ML SYRINGE IV ONE (11:03)
[2021-02-28] MEDS ORDERED: fentaNYL INJ 100 MCG/2 ML AMP ONE ×2 (11:03→12:05)
[2021-02-28] MEDS ORDERED: ONDANSETRON 4 MG/2 ML (SDV) Z0FRAN ONE (11:03)
[2021-02-28] MEDS ORDERED: GLYCOPYRROLATE 0.2 MG/ML (ROBINUL) 2 ML VIAL ONE (11:03)
[2021-02-28] MEDS ORDERED: NEOSTIGMINE 3 MG/3 ML VIAL ONE (11:03)
[2021-02-28] MEDS ORDERED: proPOfol 200 MG/20 ML (DIPRIVAN) VIAL IV ONE (11:03)
[2021-02-28] MEDS: LACTATED RINGERS 1,000 ML IV PRN ×2 (11:09→13:58)
[2021-02-28] MEDS ORDERED: SEVOFLURANE (ULTANE) 15 ML INHAL SOLN ONE (13:16)
[2021-02-28] MEDS ORDERED: HYDROmorphone 2 MG/ML VIAL (DILAUDID) IV ONE (14:15)
[2021-02-28] MEDS ORDERED: fentaNYL INJ 100 MCG/2 ML AMP IVP ONE (14:15)
[2021-02-28] MEDS ORDERED: ONDANSETRON 4 MG/2 ML (SDV) Z0FRAN IVP PRN (14:15)
[2021-02-28] MEDS ORDERED: morphine INJ 10 MG/ML 1ML (SYR OR VIAL) IVP ONE (14:15)
--- NOTE | 2021-02-28 16:58 | Wound Care Assessment ---
Wound Care Assessment Date Seen by Provider: Feb 28, 2021 Time Seen by Provider: 16:45 Chief Complaint 1. Sacral/Buttock ulcer 2. Skin breakdown scrotum HPI Patient with h/o volvulus admitted for perforated bowel and associated diarrhea. Incontinent of stool and urine prior to admission. We are consulted due to skin breakdown in scrotal region as well as a small pressure injury to left buttock and moisture related injury to sacrum/gluteal cleft. Patient now with ritchie catheter. Leukocytosis improved today (17.5 from 19.4), creatinine improved from 1.56 to 1.35 and Albumin 3.1. Patient does appear debilitated. He does have a h/o cardiac disease (atrial fibrillation and CAD). He is immediately post-op and limited in movement currently due to pain. Wound #1: Skin breakdown of scrotum etiology primary moisture associated injury. Macerated skin with weeping. Appears partial thickness. Drainage is large and serous, no tunnelling or undermining, margins flat, no granulation, no necrotic, no epithelialization. The entire scrotum is affected. Plan for thick layer barrier paste and elevation to assist in moisture protection. Wound #2 is left buttock stage 2 pressure injury. Wound margins flat, no drainage, no granulation, epithlialization or necrosis. 1.0x1.0 cm. We will treat with bordered foam qod. Wound #3 is gluteal cleft/sacrum partial thickness moisture associated injury. Epithelialization, necrosis and granulation all none, wound margins flat, drainage minimal and serous, no tunnelling or undermining. We will treat this also with barrier paste . Frequent turning will be necessary. Ritchie should assist with urinary incontinence but he continues to struggle with diarrhea. Frequent changing will be necessary to assist in protecting skin. Past Medical History: Admits Heart Disease Smoking Status: Never a Smoker Review of Systems General: Fatigue Gastrointestinal: Abdominal Pain, Diarrhea Genitourinary: Incontinence Neurological: Weakness Exam Vital Signs Date Time Temp Pulse Resp B/P (MAP) Pulse Ox O2 Delivery O2 Flow Rate FiO2 02/28/21 16:00 37.2 02/28/21 15:00 77 24 102/66 93 Room Air 02/28/21 14:30 3 Capillary Refill : Less Than 3 SecondsLess Than 3 Seconds General Appearance: moderate distress (pain with movement (post op)) HEENT: PERRL/EOMI Respiratory: no respiratory distress, no accessory muscle use Skin: normal color, warm/dry, other (See wound assessment above) Skin Character: erythema (surrounding gluteal pressure injury) Results Laboratory Tests 02/27/21 20:32: White Blood Count 19.4H, Red Blood Count 5.49, Hemoglobin 15.8, Hematocrit 48, Mean Corpuscular Volume 87, Mean Corpuscular Hemoglobin 29, Mean Corpuscular Hemoglobin Concent 33, Red Cell Distribution Width 15.1H, Platelet Count 214, Mean Platelet Volume 11.1, Immature Granulocyte % (Auto) 1, Neutrophils (%) (Auto) 87H, Lymphocytes (%) (Auto) 6L, Monocytes (%) (Auto) 6, Eosinophils (%) (Auto) 0, Basophils (%) (Auto) 0, Neutrophils # (Auto) 16.8H, Lymphocytes # (Auto) 1.2, Monocytes # (Auto) 1.2H, Eosinophils # (Auto) 0.0, Basophils # (Auto) 0.0, Immature Granulocyte # (Auto) 0.1, Neutrophils % (Manual) 87, Lymphocytes % (Manual) 7, Monocytes % (Manual) 6, Toxic Granulation 3+, Clumped Platelets SLIGHT, Polychromasia SLIGHT, Anisocytosis SLIGHT, Macrocytosis SLIGHT, Blood Morphology Comment LRG PLTS, Sodium Level 131L, Potassium Level 4.6, Chloride Level 98, Carbon Dioxide Level 16L, Anion Gap 17H, Blood Urea Nitrogen 49H, Creatinine 1.56H, Estimat Glomerular Filtration Rate 44, BUN/Creatinine Ratio 31, Glucose Level 117H, Calcium Level 9.4, Corrected Calcium 9.8, Total Bilirubin 0.9, Aspartate Amino Transf (AST/SGOT) 18, Alanine Aminotransferase (ALT/SGPT) 9, Alkaline Phosphatase 78, Total Protein 8.2, Albumin 3.5 02/27/21 21:15: Urine Color YELLOW, Urine Clarity CLEAR, Urine pH 5.5, Urine Specific [place] >=1.030, Urine Protein TRACEH, Urine Glucose (UA) NEGATIVE, Urine Ketones NEGATIVE, Urine Nitrite POSITIVEH, Urine Bilirubin 1+H, Urine Urobilinogen 0.2, Urine Leukocyte Esterase 1+H, Urine RBC (Auto) 3+H, Urine RBC 5-10H, Urine WBC 2-5, Urine Squamous Epithelial Cells RARE, Urine Crystals NONE, Urine Bacteria MODERATEH, Urine Casts PRESENT, Urine Hyaline Casts 2-5H, Urine Mucus SMALLH, Urine Culture Indicated CULTURE PENDING 02/27/21 21:52: Prothrombin Time 18.6H, INR Comment 1.5H, Activated Partial Thromboplast Time 36H, Lactic Acid Level 1.92 02/28/21 03:30: White Blood Count 17.5H, Red Blood Count 4.74, Hemoglobin 13.7, Hematocrit 40, Mean Corpuscular Volume 85, Mean Corpuscular Hemoglobin 29, Mean Corpuscular Hemoglobin Concent 34, Red Cell Distribution Width 14.6H, Platelet Count 249, Mean Platelet Volume 10.7, Immature Granulocyte % (Auto) 1, Neutrophils (%) (Auto) 84H, Lymphocytes (%) (Auto) 9L, Monocytes (%) (Auto) 6, Eosinophils (%) (Auto) 0, Basophils (%) (Auto) 0, Neutrophils # (Auto) 14.7H, Lymphocytes # (Auto) 1.6, Monocytes # (Auto) 1.0, Eosinophils # (Auto) 0.0, Basophils # (Auto) 0.1, Immature Granulocyte # (Auto) 0.1, Sodium Level 134L, Potassium Level 3.4L, Chloride Level 105, Carbon Dioxide Level 17L, Anion Gap 12, Blood Urea Nitrogen 42H, Creatinine 1.35H, Estimat Glomerular Filtration Rate 52, BUN/Creatinine Ratio 31, Glucose Level 106H, Calcium Level 8.9, Corrected Calcium 9.6, Total Bilirubin 1.3H, Aspartate Amino Transf (AST/SGOT) 10, Alanine Aminotransferase (ALT/SGPT) 9, Alkaline Phosphatase 56, Total Protein 6.7, Albumin 3.1L, Phosphorus Level 2.6, Magnesium Level 2.0, SARS-CoV-2 RNA (RT-PCR) Not Detected 02/28/21 16:39: Glucometer 143H Assessment/Plan/Dx A: 1. Wound #1: Skin breakdown scrotum due to moisture related injury Partial thickness 2. Wound #2: Stage 2 pressure injury left buttock 3. Wound #3: partial thickness wound gluteal cleft P: 1. Wound #1: Thick layer of barrier paste twice daily and prn. Elevate scrotum to prevent further maceration 2. Wound #2: Allevyn bordered foam qod 3. Wound #3: Thick layer barrier paste twice daily and prn. 4. All wounds: Cleanse with NS or sterile water 5. Change frequently for bowel incontinence. 6. Turn frequently and cushion appropriately KIM SAAB MD Feb 28, 2021 16:58
[2021-03-01] MEDS: fentaNYL INJ 100 MCG/2 ML AMP IVP PRN ×5 (01:06→22:08)
[2021-03-01 04:08] LABS: BASOPHILS % (AUTO) 0 % (0-10); EOSINOPHILS % (AUTO) 0 % (0-10); HEMATOCRIT 36 % (40-54); HEMOGLOBIN 12.2 g/dL (13.3-17.7); LYMPHOCYTES # (AUTO) 0.7 10^3/uL (1.0-4.0); LYMPHOCYTES % (AUTO) 4 % (12-44); MEAN CORPUSCULAR HEMOGLOBIN 29 pg (25-34); MEAN CORPUSCULAR HGB CONC 34 g/dL (32-36); MEAN CORPUSCULAR VOLUME 85 fL (80-99); MEAN PLATELET VOLUME 10.6 fL (9.0-12.2); MONOCYTES # (AUTO) 0.5 10^3/uL (0.0-1.0); MONOCYTES % (AUTO) 3 % (0-12); NEUTROPHILS % (AUTO) 92 % (42-75); PLATELET COUNT 209 10^3/uL (130-400); WHITE BLOOD COUNT 17.4 10^3/uL (4.3-11.0)
[2021-03-01 04:35] LABS: ALBUMIN 2.7 GM/DL (3.2-4.5); POTASSIUM 4.2 MMOL/L (3.6-5.0)
[2021-03-01 04:36] LABS: CALCIUM 8.8 MG/DL (8.5-10.1)
[2021-03-01 04:40] LABS: PHOSPHORUS 2.5 MG/DL (2.3-4.7)
[2021-03-01 04:41] LABS: CREATININE SERUM 0.88 MG/DL (0.60-1.30)
[2021-03-01 04:44] LABS: MAGNESIUM 1.9 MG/DL (1.6-2.4)
[2021-03-01] MEDS: PIPERACILLIN/TAZO 4.5 GM/NS 100 ML IV SCH ×6 (05:43→20:46)
[2021-03-01] MEDS: MAGNESIUM 1 GM/100 ML IVPB 100 ML IV SCH (05:52)
[2021-03-01] MEDS: KCL 20 MEQ TAB (K-DUR) PO SCH (05:52)
[2021-03-01] MEDS: POTASSIUM CL 10MEQ/50ML IVPB 50 ML IV SCH (05:52)
--- NOTE | 2021-03-01 07:32 | Progress Note - Surgery ---
SHAUN EDMONDS MED STUDENT 03/01/21 0732: Subjective Date Seen by a Provider: Mar 01, 2021 Time Seen by a Provider: 06:00 Subjective/Events-last exam Patient is POD#1 DLE converted to Ex Lap with colonic resection and primary anastomosis. Overall he is much improved since yesterday. His pain is minimal around incision 10, he only complains of crampy right leg pain overnight that improved after pain medication given. He denies any n/v, is having ice chips, is "starving" and is adamant that he needs food today. He is not having flatus at this point, has ritchie cath and is urinating appropriately. He is nonambulatory at this point. Review of Systems General: No Chills, No Night Sweats HEENT: No Visual Changes Pulmonary: No Dyspnea, No Cough Cardiovascular: No: Chest Pain, Palpitations Gastrointestinal: Abdominal Pain (around incision); No: Nausea, Vomiting Genitourinary: No Hematuria Musculoskeletal: leg pain, foot pain Neurological: No: Change in speech, Confusion Focused Exam Lactate Level 02/27/21 21:52: Lactic Acid Level 1.92 Time of Focused Exam: 19:50 Objective Exam Vital Signs Date Time Temp Pulse Resp B/P (MAP) Pulse Ox O2 Delivery O2 Flow Rate FiO2 03/01/21 06:00 80 20 108/61 95 Room Air 03/01/21 05:00 53 18 104/55 93 Room Air 03/01/21 04:00 36.7 03/01/21 04:00 97 Nasal Cannula 3.00 03/01/21 04:00 60 18 127/60 95 Room Air 03/01/21 03:00 61 15 81/45 93 Room Air 03/01/21 02:00 58 14 111/57 96 Room Air 03/01/21 01:00 65 03/01/21 01:00 57 15 129/71 96 Room Air 03/01/21 00:00 48 21 102/74 96 Room Air 03/01/21 00:00 36.8 03/01/21 00:00 97 Nasal Cannula 3.00 02/28/21 23:00 47 20 118/59 97 Room Air 02/28/21 22:00 66 20 106/59 96 Room Air 02/28/21 21:00 60 20 110/62 98 Room Air 02/28/21 20:21 97 Nasal Cannula 3.00 02/28/21 20:00 97 Nasal Cannula 3.00 02/28/21 20:00 36.4 02/28/21 20:00 61 17 113/63 97 Room Air 02/28/21 19:00 68 22 105/65 99 Room Air 02/28/21 19:00 68 02/28/21 18:00 67 23 115/71 99 Room Air 02/28/21 17:00 84 26 91/55 99 Room Air 02/28/21 16:00 89 19 115/63 96 Room Air 02/28/21 16:00 37.2 02/28/21 16:00 97 Nasal Cannula 3.00 02/28/21 15:00 77 24 102/66 93 Room Air 02/28/21 14:30 37.3 20 115/63 (80) 93 Nasal Cannula 3 02/28/21 14:30 77 02/28/21 14:30 Nasal Cannula 3 02/28/21 14:20 20 120/63 (82) 93 OxyMask 3 02/28/21 14:15 OxyMask 4 02/28/21 14:10 20 113/65 (81) 93 OxyMask 4 02/28/21 14:00 OxyMask 4 02/28/21 14:00 110/69 02/28/21 14:00 20 116/70 (85) 94 OxyMask 4 02/28/21 13:50 20 115/68 (84) 94 OxyMask 6 02/28/21 13:45 OxyMask 6 02/28/21 13:40 20 116/67 (83) 94 OxyMask 6 02/28/21 13:30 20 105/58 (74) 95 OxyMask 6 02/28/21 13:30 OxyMask 6 02/28/21 13:27 OxyMask 6 02/28/21 13:27 37.6 20 107/58 (74) 96 OxyMask 6 02/28/21 11:00 69 28 95 Room Air 02/28/21 10:00 83 29 118/75 94 Room Air 02/28/21 09:00 72 24 118/65 (82) 95 Room Air 02/28/21 08:00 80 28 125/70 (88) 94 Room Air 02/28/21 08:00 95 Room Air I & O 03/01/21 07:00 Intake Total 2570 ml Output Total 1995 ml Balance 575 ml Capillary Refill : Less Than 3 SecondsLess Than 3 Seconds General Appearance: No Apparent Distress, WD/WN HEENT: Pharynx Normal, Moist Mucous Membranes; No Scleral Icterus (L), No Scleral Icterus (R) Neck: Normal Inspection Respiratory: Chest Non Tender, No Accessory Muscle Use, No Respiratory Distress Cardiovascular: Irregularly Irregular Peripheral Pulses: 1+ Radial Pulses (R), 1+ Radial Pulses (L) Gastrointestinal: soft, no organomegaly, no pulsatile mass, tenderness (appropriate tenderness around incision, strikethrough through midline dressing, sersanguinous, Left sided incision dressing is clean and dry) Extremity: No Calf Tenderness, Pedal Edema Neurologic/Psychiatric: Alert, Oriented x3, Normal Mood/Affect Skin: Normal Color, Warm/Dry Results Lab Laboratory Tests 02/28/21 16:39: Glucometer 143H 03/01/21 04:00: White Blood Count 17.4H, Red Blood Count 4.21L, Hemoglobin 12.2L, Hematocrit 36L , Mean Corpuscular Volume 85, Mean Corpuscular Hemoglobin 29, Mean Corpuscular Hemoglobin Concent 34, Red Cell Distribution Width 15.0H, Platelet Count 209, Mean Platelet Volume 10.6, Immature Granulocyte % (Auto) 1, Neutrophils (%) (Auto) 92H, Lymphocytes (%) (Auto) 4L, Monocytes (%) (Auto) 3, Eosinophils (%) (Auto) 0, Basophils (%) (Auto) 0, Neutrophils # (Auto) 16.0H, Lymphocytes # (Auto) 0.7L, Monocytes # (Auto) 0.5, Eosinophils # (Auto) 0.0, Basophils # (Auto) 0.0, Immature Granulocyte # (Auto) 0.1, Sodium Level 135, Potassium Level 4.2, Chloride Level 107, Carbon Dioxide Level 18L, Anion Gap 10, Blood Urea Nitrogen 25H, Creatinine 0.88, Estimat Glomerular Filtration Rate 85, BUN/Cre atinine Ratio 28, Glucose Level 134H, Calcium Level 8.8, Corrected Calcium 9.8, Phosphorus Level 2.5, Magnesium Level 1.9, Total Bilirubin 1.0, Aspartate Amino Transf (AST/SGOT) 14, Alanine Aminotransferase (ALT/SGPT) 10, Alkaline Phos phatase 53, Total Protein 6.0L, Albumin 2.7L Microbiology 02/27/21 Urine Culture - Preliminary, Resulted Assessment/Plan Assessment/Plan Assessment/Plan Pod#1 DLE converted to Ex Lap with colonic resection with primary anastomosis for Pneumoperitoneum with suspected sealed perforation of previous anastomosis site History of sigmoid volvulus s/p colon resection UTI scrotal, left buttock, left gluteal cleft - wound team following HTN A-Fib aortic aneurysms Osteoarthiritis Zosyn and stop diflucan., continue NPO, Hold eliquis start Heparin 5,000 units SQ, Lactate Ringer @140mL/hr, pain control - yonis tylenol with morphine PRN, restart home meds. Patient appears stable, transfer to 4th floor, Order PT/OT, patient is refusing IS at this time, continue to follow. KAHLIL TELLO DO 03/01/21 1315: Subjective Time Seen by a Provider: 12:08 Subjective/Events-last exam Pt seen and examined, states pain is well controlled and he is hungry and wants to eat. Review of Systems General: No Chills, No Night Sweats Pulmonary: No Dyspnea, No Cough Cardiovascular: No: Chest Pain, Palpitations Gastrointestinal: Abdominal Pain (around incision); No: Nausea, Vomiting Musculoskeletal: leg pain, foot pain Objective Exam General Appearance: No Apparent Distress, WD/WN HEENT: Moist Mucous Membranes Respiratory: Lungs Clear, No Accessory Muscle Use, No Respiratory Distress Cardiovascular: Irregularly Irregular Gastrointestinal: soft, no organomegaly, tenderness (appropriate tenderness around incision, strikethrough through midline dressing, sersanguinous, Left sided incision dressing is clean and dry) Assessment/Plan Assessment/Plan Assessment/Plan Pod#1 Colonic resection with primary anastomosis UTI scrotal, left buttock, left gluteal cleft - wound team following HTN A-Fib aortic aneurysms Osteoarthiritis Zosyn and stop diflucan, continue pain control and will start clear liquid diet. Hold eliquis start Heparin 5,000 units SQ, Lactate Ringer @140mL/hr, pain control - yonis tylenol with morphine PRN, restart home meds. Patient appears stable, transfer to 4th floor, Order PT/OT, patient is refusing IS at this time, continue to follow. Supervisory-Addendum Brief Verification & Attestation Participated in pt care: history, MDM, physical Personally performed: exam, history, MDM, supervision of care Care discussed with: Medical Student Procedures: n/a Verification and Attestation of Medical Student E/M Service A medical student performed and documented this service. I then reviewed and verified all information documented by the medical student and made modification s to such information, when appropriate. I personally performed a physical exam, medical decision making and then discussed any differences between the notes and made revisions as necessary to create one note. Kahlil Tello , 03/01/21 , 13:15 SHAUN EDMONDS MED STUDENT Mar 01, 2021 07:32 KAHLIL TELLO DO Mar 01, 2021 13:15
--- NOTE | 2021-03-01 09:37 | Tele-ICU Progress Note ---
Subjective Date Seen by a Provider: Mar 01, 2021 Time Seen by a Provider: 09:37 Sepsis Event Evaluation Height, Weight, BMI Height: '" Weight: lbs. oz. kg; 30.17 BMI Method: Focused Exam Lactate Level 02/27/21 21:52: Lactic Acid Level 1.92 Time of Focused Exam: 19:50 Exam Exam Patient acknowledged, consented, and participated in this virtual visit which was conducted using real time audio/video Vital Signs Date Time Temp Pulse Resp B/P (MAP) Pulse Ox O2 Delivery O2 Flow Rate FiO2 03/01/21 09:00 58 8 123/74 95 Room Air 03/01/21 08:17 36.9 03/01/21 08:17 96 Room Air 03/01/21 08:00 64 21 125/68 94 Room Air 03/01/21 07:00 71 03/01/21 07:00 55 17 122/73 95 Room Air 03/01/21 06:00 80 20 108/61 95 Room Air 03/01/21 05:00 53 18 104/55 93 Room Air 03/01/21 04:00 36.7 03/01/21 04:00 97 Nasal Cannula 3.00 03/01/21 04:00 60 18 127/60 95 Room Air 03/01/21 03:00 61 15 81/45 93 Room Air 03/01/21 02:00 58 14 111/57 96 Room Air 03/01/21 01:00 65 03/01/21 01:00 57 15 129/71 96 Room Air 03/01/21 00:00 48 21 102/74 96 Room Air 03/01/21 00:00 36.8 03/01/21 00:00 97 Nasal Cannula 3.00 02/28/21 23:00 47 20 118/59 97 Room Air 02/28/21 22:00 66 20 106/59 96 Room Air 02/28/21 21:00 60 20 110/62 98 Room Air 02/28/21 20:21 97 Nasal Cannula 3.00 02/28/21 20:00 97 Nasal Cannula 3.00 02/28/21 20:00 36.4 02/28/21 20:00 61 17 113/63 97 Room Air 02/28/21 19:00 68 22 105/65 99 Room Air 02/28/21 19:00 68 02/28/21 18:00 67 23 115/71 99 Room Air 02/28/21 17:00 84 26 91/55 99 Room Air 02/28/21 16:00 89 19 115/63 96 Room Air 02/28/21 16:00 37.2 02/28/21 16:00 97 Nasal Cannula 3.00 02/28/21 15:00 77 24 102/66 93 Room Air 02/28/21 14:30 37.3 20 115/63 (80) 93 Nasal Cannula 3 02/28/21 14:30 77 02/28/21 14:30 Nasal Cannula 3 02/28/21 14:20 20 120/63 (82) 93 OxyMask 3 02/28/21 14:15 OxyMask 4 02/28/21 14:10 20 113/65 (81) 93 OxyMask 4 02/28/21 14:00 OxyMask 4 02/28/21 14:00 110/69 02/28/21 14:00 20 116/70 (85) 94 OxyMask 4 02/28/21 13:50 20 115/68 (84) 94 OxyMask 6 02/28/21 13:45 OxyMask 6 02/28/21 13:40 20 116/67 (83) 94 OxyMask 6 02/28/21 13:30 20 105/58 (74) 95 OxyMask 6 02/28/21 13:30 OxyMask 6 02/28/21 13:27 OxyMask 6 02/28/21 13:27 37.6 20 107/58 (74) 96 OxyMask 6 02/28/21 11:00 69 28 95 Room Air 02/28/21 10:00 83 29 118/75 94 Room Air I & O 03/01/21 07:00 Intake Total 2570 ml Output Total 1995 ml Balance 575 ml Height & Weight Height: '" Weight: lbs. oz. kg; 30.17 BMI Method: General Appearance: No Apparent Distress, WD/WN HEENT: Pharynx Normal, Moist Mucous Membranes; No Scleral Icterus (L), No Scleral Icterus (R) Neck: Normal Inspection Respiratory: Chest Non Tender, No Accessory Muscle Use, No Respiratory Distress Cardiovascular: Irregularly Irregular Capillary Refill: Less Than 3 Seconds Peripheral Pulses: 1+ Radial Pulses (R), 1+ Radial Pulses (L) Gastrointestinal: soft, no organomegaly, no pulsatile mass, tenderness (appropriate tenderness around incision, strikethrough through midline dressing, sersanguinous, Left sided incision dressing is clean and dry) Extremity: No Calf Tenderness, Pedal Edema Neurologic/Psychiatric: Alert, Oriented x3, Normal Mood/Affect Skin: Normal Color, Warm/Dry Results Lab Laboratory Tests 02/27/21 20:32 02/28/21 03:30 03/01/21 04:00 Assessment/Plan Assessment/Plan (Tele-ICU Physician , Progress Note ) Available chart/ vitals / labs / Images reviewed Video assessment done using teleICU camera, rest of exam as per RN Discussed with RN , EXAM PER RN Events overnight : RA Afebrile I/O = pos >2L Drips: LR 30 Pressors: , hemodynamically stable Consultants: sx Hospital course: 02/28- s/p Ex Lap with colonic resection and primary anastomosis A/P Ex Lap with colonic resection and primary anastomosis 02/28 ( for Pneumoperitoneum with suspected sealed perforation of previous anastomosis site after sigmoid volvulus s/p colon resection - abx as per Sx - on Zosyn 02/28 A fib - rate controlled - XARELTO ON HOLD - to resume when ok with sx BALBIR - improved with hydration Anemia - post op - follow ID - Urine cx with GNB 02/27 - o Zosyn - wound on scrotal, left buttock, left gluteal cleft - wound team following- s/p recent diarrhea ? h/o c diff - 10/23 - ? CONSIDER PROPH MEDS if was a bad case , will start on probiotic OSMANY Leukocytosis - with infection , one dose of decadrone 10 given on 02/28 Lines : right IJ (Central Line Necessity Reviewed) Herman: + OG: Nutrition: NPO Analgesia: controlled Anxiety/ delirium VTE Prophylaxis: lovenox to start with ok with SX - will need to go on xarelto for afib Stress Ulcer Prophylaxis: TO START IF NPO > 24 H Plans in collaboration with bedside consultants and IM MDs. Discussed with RN to reach out if any questions or concerns A total of 31 minutes of critical care time was devoted to this patient today, required to treat and/or prevent further deterioration of critical care condition ( as above) . CARLOS WINSTON MD Mar 01, 2021 09:37
[2021-03-01] MEDS: LACTOBACILLUS ACIDOPHILUS (PROBIOTIC) CAPSULE PO SCH ×2 (13:46→17:29)
--- NOTE | 2021-03-01 13:48 | Anesthesia-Regional Post-Op ---
Regional Patient Condition Mental Status: Alert, Oriented x3 Circulation: Same as Pre-Op Headache: Absent Sensation: Full Recovery Motor Block: Absent Post Op Complications Complications None Follow Up Care/Instructions Patient Instructions None needed. Anesthesia/Patient Condition Patient is doing well, no complaints, stable vital signs, no apparent adverse anesthesia problems. No complications reported per nursing. HEMA GARCIA CRNA Mar 01, 2021 13:48
--- NOTE | 2021-03-01 13:49 | Anesthesia-General Post-Op ---
General Patient Condition Mental Status/LOC: Same as Preop Cardiovascular: Satisfactory Nausea/Vomiting: Absent Respiratory: Satisfactory Pain: Controlled Complications: Absent Post Op Complications Complications None Follow Up Care/Instructions Patient Instructions None needed. Anesthesia/Patient Condition Patient Condition Patient is doing well, no complaints, stable vital signs, no apparent adverse anesthesia problems. No complications reported per nursing. HEMA GARCIA CRNA Mar 01, 2021 13:49
--- NOTE | 2021-03-01 14:39 | Consultation ---
HPI History of Present Illness: 71 yo M that presented with severe abdominal pain and was found to have pneumoparietoneium. Asked to see patient for medical consult. Patient denies any heart problems. States that he has been on medications for HTN and A fib. Denies DM. Patient states that his pain is significantly better and he wants to try and eat something. No other concerns this AM. Source: patient Exam Limitations: no limitations Date seen by provider: Mar 01, 2021 Time Seen by Provider: 10:45 Attending Physician Klaus Honeycutt DO PCP Ramin Wall MD Consult Date of Admission Feb 28, 2021 at 03:00 Home Medications Home Medications Reviewed patient Home Medication Reconciliation performed by pharmacy medication reconciliations transportation technician and/or nursing. Patients Allergies have been reviewed. Allergies Coded Allergies: No Known Drug Allergies (Unverified , 01/15/10) XLC-Jhpuut-Xmgngu Hx Patient Social History Smoking Status: Never a Smoker 2nd Hand Smoke Exposure: No Recent Hopitalizations: Yes Alcohol Use?: No Have you traveled recently?: No Past Medical History Atrial Fibrillation BPH Chronic Catheter ([place]) Partial colon resection HTN Family Medical History Significant Family History: Heart Disease (mother and father) Review of Systems ([facility]) Constitutional: no symptoms reported; No chills, No fever EENTM: no symptoms reported; No mouth pain, No nose congestion, No nose pain Respiratory: no symptoms reported; No cough, No dyspnea on exertion, No short of breath Cardiovascular: no symptoms reported; No chest pain, No edema, No palpitations Gastrointestinal: abdominal pain; No constipation, No diarrhea, No nausea, No vomiting Genitourinary: no symptoms reported; No dysuria, No frequency, No hematuria Musculoskeletal: no symptoms reported; No back pain, No joint pain, No muscle pain Skin: other (incisional pain) Psychiatric/Neurological: No Symptoms Reported Reviewed Test Results Reviewed Test Results Lab Laboratory Tests Test 03/01/21 04:00 Range/Units White Blood Count 17.4 H 4.3-11.0 10^3/uL Red Blood Count 4.21 L 4.30-5.52 10^6/uL Hemoglobin 12.2 L 13.3-17.7 g/dL Hematocrit 36 L 40-54 % Mean Corpuscular Volume 85 80-99 fL Mean Corpuscular Hemoglobin 29 25-34 pg Mean Corpuscular Hemoglobin Concent 34 32-36 g/dL Red Cell Distribution Width 15.0 H 10.0-14.5 % Platelet Count 209 130-400 10^3/uL Mean Platelet Volume 10.6 9.0-12.2 fL Immature Granulocyte % (Auto) 1 % Neutrophils (%) (Auto) 92 H 42-75 % Lymphocytes (%) (Auto) 4 L 12-44 % Monocytes (%) (Auto) 3 0-12 % Eosinophils (%) (Auto) 0 0-10 % Basophils (%) (Auto) 0 0-10 % Neutrophils # (Auto) 16.0 H 1.8-7.8 10^3/uL Lymphocytes # (Auto) 0.7 L 1.0-4.0 10^3/uL Monocytes # (Auto) 0.5 0.0-1.0 10^3/uL Eosinophils # (Auto) 0.0 0.0-0.3 10^3/uL Basophils # (Auto) 0.0 0.0-0.1 10^3/uL Immature Granulocyte # (Auto) 0.1 0.0-0.1 10^3/uL Sodium Level 135 135-145 MMOL/L Potassium Level 4.2 3.6-5.0 MMOL/L Chloride Level 107 98-107 MMOL/L Carbon Dioxide Level 18 L 21-32 MMOL/L Anion Gap 10 5-14 MMOL/L Blood Urea Nitrogen 25 H 7-18 MG/DL Creatinine 0.88 0.60-1.30 MG/DL Estimat Glomerular Filtration Rate 85 BUN/Creatinine Ratio 28 Glucose Level 134 H 70-105 MG/DL Calcium Level 8.8 8.5-10.1 MG/DL Corrected Calcium 9.8 8.5-10.1 MG/DL Phosphorus Level 2.5 2.3-4.7 MG/DL Magnesium Level 1.9 1.6-2.4 MG/DL Total Bilirubin 1.0 0.1-1.0 MG/DL Aspartate Amino Transf (AST/SGOT) 14 5-34 U/L Alanine Aminotransferase (ALT/SGPT) 10 0-55 U/L Alkaline Phosphatase 53 40-136 U/L Total Protein 6.0 L 6.4-8.2 GM/DL Albumin 2.7 L 3.2-4.5 GM/DL Radiology Physical Exam-([facility]) Physical Exam Vital Signs VS - Last 72 Hours, by Label 02/27/21 02/28/21 02/28/21 02/28/21 19:50 02:51 03:05 03:30 Temp 36.2 37.7 Pulse 90 85 Resp 20 16 20 B/P (MAP) 156/56 (89) 111/73 126/78 (94) Pulse Ox 94 97 93 94 O2 Delivery Room Air Room Air Room Air Room Air 02/28/21 02/28/21 02/28/21 02/28/21 03:42 04:00 05:00 05:00 Pulse 93 91 66 Resp 20 28 B/P (MAP) 135/76 (95) 115/63 (80) Pulse Ox 95 95 O2 Delivery Room Air Room Air Room Air 02/28/21 02/28/21 02/28/21 02/28/21 06:00 07:00 07:00 08:00 Pulse 96 71 99 Resp 27 B/P (MAP) 106/56 (73) 94/60 (71) Pulse Ox 95 95 95 O2 Delivery Room Air Room Air Room Air 02/28/21 02/28/21 02/28/21 02/28/21 08:00 09:00 10:00 11:00 Pulse 80 72 83 69 Resp 28 24 29 28 B/P (MAP) 125/70 (88) 118/65 (82) 118/75 Pulse Ox 94 95 94 95 O2 Delivery Room Air Room Air Room Air Room Air 02/28/21 02/28/21 02/28/21 02/28/21 13:27 13:27 13:30 13:30 Temp 37.6 Resp 20 20 B/P (MAP) 107/58 (74) 105/58 (74) Pulse Ox 96 95 O2 Delivery OxyMask OxyMask OxyMask OxyMask O2 Flow Rate 6 6 6 6 02/28/21 02/28/21 02/28/21 02/28/21 13:40 13:45 13:50 14:00 Resp 20 20 20 B/P (MAP) 116/67 (83) 115/68 (84) 116/70 (85) Pulse Ox 94 94 94 O2 Delivery OxyMask OxyMask OxyMask OxyMask O2 Flow Rate 6 6 6 4 02/28/21 02/28/21 02/28/21 02/28/21 14:00 14:00 14:10 14:15 Resp 20 B/P (MAP) 110/69 113/65 (81) Pulse Ox 93 O2 Delivery OxyMask OxyMask OxyMask O2 Flow Rate 4 4 4 02/28/21 02/28/21 02/28/21 02/28/21 14:20 14:30 14:30 14:30 Temp 37.3 Pulse 77 Resp 20 20 B/P (MAP) 120/63 (82) 115/63 (80) Pulse Ox 93 93 O2 Delivery OxyMask Nasal Cannula Nasal Cannula O2 Flow Rate 3 3 3 02/28/21 02/28/21 02/28/21 02/28/21 15:00 16:00 16:00 16:00 Temp 37.2 Pulse 77 89 Resp 24 19 B/P (MAP) 102/66 115/63 Pulse Ox 93 97 96 O2 Delivery Room Air Nasal Cannula Room Air O2 Flow Rate 3.00 02/28/21 02/28/21 02/28/21 02/28/21 17:00 18:00 19:00 19:00 Pulse 84 67 68 68 Resp 26 23 22 B/P (MAP) 91/55 115/71 105/65 Pulse Ox 99 99 99 O2 Delivery Room Air Room Air Room Air 02/28/21 02/28/21 02/28/21 02/28/21 20:00 20:00 20:00 20:21 Temp 36.4 Pulse 61 Resp 17 B/P (MAP) 113/63 Pulse Ox 97 97 97 O2 Delivery Room Air Nasal Cannula Nasal Cannula O2 Flow Rate 3.00 3.00 02/28/21 02/28/21 02/28/21 03/01/21 21:00 22:00 23:00 00:00 Pulse 60 66 47 Resp 20 20 20 B/P (MAP) 110/62 106/59 118/59 Pulse Ox 98 96 97 97 O2 Delivery Room Air Room Air Room Air Nasal Cannula O2 Flow Rate 3.00 03/01/21 03/01/21 03/01/21 03/01/21 00:00 00:00 01:00 01:00 Temp 36.8 Pulse 48 57 65 Resp 21 15 B/P (MAP) 102/74 129/71 Pulse Ox 96 96 O2 Delivery Room Air Room Air 03/01/21 03/01/21 03/01/21 03/01/21 02:00 03:00 04:00 04:00 Pulse 58 61 60 Resp 14 15 18 B/P (MAP) 111/57 81/45 127/60 Pulse Ox 96 93 95 97 O2 Delivery Room Air Room Air Room Air Nasal Cannula O2 Flow Rate 3.00 03/01/21 03/01/21 03/01/21 03/01/21 04:00 05:00 06:00 07:00 Temp 36.7 Pulse 53 80 55 Resp 18 20 17 B/P (MAP) 104/55 108/61 122/73 Pulse Ox 93 95 95 O2 Delivery Room Air Room Air Room Air 03/01/21 03/01/21 03/01/21 03/01/21 07:00 08:00 08:17 08:17 Temp 36.9 Pulse 71 64 Resp 21 B/P (MAP) 125/68 Pulse Ox 94 96 O2 Delivery Room Air Room Air 03/01/21 03/01/21 03/01/21 03/01/21 09:00 10:00 11:00 12:00 Pulse 58 71 54 75 Resp 8 18 18 16 B/P (MAP) 123/74 127/66 111/62 136/118 Pulse Ox 95 94 94 95 O2 Delivery Room Air Room Air Room Air Room Air 03/01/21 03/01/21 03/01/21 03/01/21 12:00 12:00 13:00 13:00 Temp 37.1 Pulse 72 72 Resp 18 B/P (MAP) 112/66 Pulse Ox 93 O2 Delivery Room Air Room Air 03/01/21 03/01/21 03/01/21 14:00 16:00 16:09 Temp 36.8 Pulse 73 Resp 21 B/P (MAP) 129/70 Pulse Ox 95 O2 Delivery Room Air Room Air Capillary Refill : Less Than 3 SecondsLess Than 3 Seconds General Appearance: WD/WN, no apparent distress, thin, other (elderly male) HEENT: PERRL/EOMI Neck: non-tender, full range of motion, supple Respiratory: chest non-tender, lungs clear, normal breath sounds, no respiratory distress, no accessory muscle use Cardiovascular: normal peripheral pulses, systolic murmur, irregularly irregular Gastrointestinal: soft, tenderness (mild ttp, no rebound or gaurding) Back: no CVA tenderness, no vertebral tenderness Extremities: normal range of motion, non-tender, no pedal edema, no calf tenderness, normal capillary refill Neurologic/Psychiatric: unattended ground sensor specialist II-XII nml as tested, no motor/sensory deficits, alert, normal mood/affect, oriented x 3 Skin: normal color, warm/dry Lymphatic: no adenopathy Assessment/Plan Assessment/Plan (1) Pneumoperitoneum of unknown etiology Status: Acute Assessment & Plan: - Managed by General surgery (2) Atrial fibrillation Status: Chronic Assessment & Plan: - Rate controlled Qualifiers: Qualified Codes: I48.11 - Longstanding persistent atrial fibrillation (3) Hypertension Status: Chronic Assessment & Plan: - Restart home meds Qualifiers: Qualified Codes: I10 - Essential (primary) hypertension (4) BPH (benign prostatic hyperplasia) Status: Chronic Qualifiers: (5) Physical debility Status: Chronic Assessment & Plan: - PT/OT Copy Copies To 1: RAMIN WALL MD, HOLLY R MD Mar 01, 2021 14:39
--- NOTE | 2021-03-01 15:34 | Physical Therapy Evaluation ---
PT Evaluation-General Medical Diagnosis Admission Date Feb 28, 2021 at 03:00 Medical Diagnosis: Abdominal pain, pneumoparietoneium Onset Date: Feb 27, 2021 Therapy Diagnosis Therapy Diagnosis: Gait deficit, strength deficit, Precautions Precautions/Isolations: Fall Prevention, Standard Precautions Referral Physician: Dr. Rossi Reason for Referral: Evaluation/Treatment, Gait Medical History Pertinent Medical History: Atrial Fib, CAD, HTN, VA Reviewed History: Yes Social History Home: Single Level Current Living Status: Spouse Entry Into Home: Ramp PT Steps Into Home: 2 Prior Prior Level of Function SCALE: Activities may be completed with or without assistive devices. 6-Lbhyjwpigl-fzomadf completes the activity by him/herself with no assistance from a helper. 5-Set-up or Clean-up Assistance-helper sets up or cleans up; patient completes activity. [place] assists only prior to or following the activity. 4-Supervision or Touching Assistance-helper provides verbal cues and/or malena nisha/steadying and/or contact guard assistance as patient completes activity. Assistance may be provided throughout the activity or intermittently. 3-Partial/Moderate Assistance-helper does LESS THAN HALF the effort. [place] lifts, holds or supports trunk or limbs, but provides less than half the effort. 2-Substantial/Maximal Assistance-helper does MORE THAN HALF the effort. [place] lifts or holds trunk or limbs and provides more than half the effort. 0-Bdfttltbv-fswutc does ALL the effort. Patient does none of the effort to complete the activity. Or, the assistance of 2 or more helpers is required for the patient to complete the activity. If activity was not attempted, code reason: 7-Patient Refused. 9-Not Applicable-not attempted and the patient did not perform the activity before the current illness, exacerbation or injury. 10-Not Attempted due to Environmental Limitations-(lack of equipment, weather restraints, etc.). 88-Not Attempted due to Medical Conditions or Safety Concerns. Bed Mobility: 6 Transfers (B,C,W/C): 6 Gait: 6 Stairs: 6 Indoor Mobility (Ambulation): Independent Prior Devices Use: Walker Prior Device Use: 4WW PT Evaluation-Current Subjective Patient reports he feels a little bit better having just eaten some food. Patient rates pain currently at 5/10 Objective Patient Orientation: Person, Place, Time, Situation Attachments: Herman Catheter, IV ROM/Strength ROM Lower Extremities Limited bilaterally in TKE in standing by ~ 15 degrees. All other ROMs WFLs bilaterally Strength Lower Extremities 3-/5 all planes bilaterally. Sensory Vision: Wears Glasses Hearing: Functional Sensation Right Lower Extremit: Intact Sensation Left Lower Extremity: Intact Transfers Roll Left to Right (QC): 3 Sit to Lying (QC): 3 Lying to Sitting/Side of Bed(Q: 3 Sit to Stand (QC): 2 Chair/Pia-hc-Crxxb Xfer(QC): 2 Toilet Transfer (QC): 2 Gait Does the Patient Walk?: Yes Mode of Locomotion: Walk Anticipated Mode of Locomotion: Walk Walk 10 feet (QC): 88 Distance: 4 feet Gait Assistive Device: FWW Wheelchair Training Does the Pt Use a Wheelchair?: No Balance Sitting Static: Fair Sitting Dynamic: Fair Standing Static: Poor Standing Dynamic: Poor Assessment/Needs Patient tolerated treatment fair. Fatigues quickly and demonstrate significant strength deficit in core and BLEs. Patient performs all bed mobility with mod A and transfers with max A. Patient sits at the edge of the bed with a significantly slouched posture. He requires max A for sit to stand and bed to chair. He is able to ambulate ~ 4 feet with FWW, with max A and verbal cues for safety, posture, progression of the FWW. Patient in chair post treatment with all needs met, nursing notified, call light in reach. Rehab Potential: Fair PT Short Term Goals Short Term Goals Time Frame: Mar 14, 2021 Roll Left & Right: 4 Sit to lyin Lying to sitting on side of be: 4 Sit to stand: 4 Chair/rcv-ic-fjgbp transfer: 4 Toilet transfer: 4 Walk 10 feet: 3 Walk 50 feet with two turns: 3 PT Savings Counselor Goals Nursing Home Goals PT Savings Counselor Goals Time Frame: Mar 28, 2021 Roll Left & Right (QC): 5 Sit to Lying (QC): 5 Lying-Sitting on Side/Bed(QC): 5 Sit to Stand (QC): 5 Chair/Wur-qz-Ngbxd Xfer(QC): 5 Toilet Transfer (QC): 5 Car Transfer (QC): 4 Does the Patient Walk: Yes Walk 10 feet (QC): 5 Walk 50ft with 2 Turns (QC): 5 Walk 150 ft (QC): 4 PT Plan Problem List Problem List: Activity Tolerance, Functional Strength, Safety, Balance, Gait, Transfer, Bed Mobility, ROM Treatment/Plan Treatment Plan: Continue Plan of Care Treatment Plan: Bed Mobility, Education, Functional Activity Norma, Functional Strength, Gait, Safety, Therapeutic Exercise, Transfers Treatment Duration: May 02, 2021 Frequency: 6 times per week Estimated Hrs Per Day: .25 hour per day Patient and/or Family Agrees t: Yes Safety Risks/Education Patient Education: Gait Training, Transfer Techniques, Reviewed Precautions Teaching Recipient: Patient Teaching Methods: Demonstration, Discussion Response to Teaching: Verbalize Understanding, Return Demonstration Time/GCodes Time In: 1450 Time Out: 1330 Total Billed Treatment Time: 40 Total Billed Treatment Visit, TOMAS Garrett JOHN A PT Mar 01, 2021 15:34
--- NOTE | 2021-03-01 16:43 | OPERATIVE REPORT ---
DATE OF SERVICE: 02/28/2021 PREOPERATIVE DIAGNOSIS: Pneumoperitoneum. POSTOPERATIVE DIAGNOSES: Pneumoperitoneum plus questionable perforation at anastomosis. PROCEDURE: Diagnostic laparoscopy changed to laparotomy with colon resection and primary colocolonic anastomosis. SURGEON: Jesse Leonardo DO DRAG SEINER: Klaus Honeycutt DO ANESTHESIA: General endotracheal tube. SPECIMEN: Portion of colon. BLOOD LOSS: Scant. FLUIDS: Per anesthesia. POSTOPERATIVE CONDITION: Stable. INDICATION FOR PROCEDURE: The patient is a 71-year-old male who had some abdominal pain and on CAT scan, had a large amount of pneumoperitoneum. The thought was possible gastric perforation. FINDINGS: The patient had some murky fluid, fibrinous tissue and what looked like sequala of perforation, but no real hole was found. Did find some more what looked like necrotic area near the previous anastomosis. PROCEDURE NOTE: After informed consent was obtained, the patient was brought to the operating room, placed on the table in supine position, sterilely prepped and draped in normal fashion. Local lidocaine was used to infiltrate the skin above the previous incision and made an incision with 11 blade, carried down through the skin into subcutaneous tissue, then deepened down to subcutaneous tissue with Bovie electrocautery down to fascia. Fascia was incised with Bovie electrocautery and bluntly entered the abdomen, swept a finger around, placed a limited trocar port under direct visualization, created pneumoperitoneum and then placed another 5 mm port in the left upper quadrant using local lidocaine, 11 blade for stab incision and VersaStep system, all done under direct visualization. Started looking in the stomach, looked fine, did not see any bilious leakage, did not see any openings on the stomach. There appeared to be some murky fluid above this, but near the gallbladder, but we looked here and did not see anything. Then, lifted up the transverse colon and found some more murky fluid as well as fibrinous material what looked like sequala of a possible perforation, did not really get a lot of air out when we opened and this made a small midline incision, looked around, did not really see anything obvious. No obvious feculent material. At this point, we elected to make an open incision to start looking around, increased the incision to midline superiorly and inferiorly with Bovie electrocautery. There was some small intestine stuck to the abdominal wall. Carefully took this down with Bovie electrocautery and sharp dissection with Metzenbaum scissors. Once this was taken down, we were able to go down a little bit further distally with the incision. Again, felt the stomach, did not feel any firm area that could be perforation. Gallbladder had a lot of liquid in it, but did not feel firm. Duodenum again did not feel firm and did not see any signs of perforation. We went through the short gastrics to get into the lesser sac to get underneath the stomach, looked in here again did not see any hole, did not feel any sequala of perforation, held up the transverse colon, could see here, there was some small intestine stuck here. Carefully took this off with Bovie electrocautery as well as sharp dissection with Metzenbaum scissors. Again, did not see any hole. Then, we were able to pull up the previous anastomosis and here again saw what looked like fibrinous material, kind of looked necrotic, but did not see an obvious hole. Again, no gross fecal contamination. Ran the small intestine, small intestine was fine. Ran the large intestine from the cecum all the way over to the anastomosis, he had a previous sigmoid volvulus and resection and again, this is the only area that looked bad. Because it looked necrotic, we elected to resect this portion and we did a PEDRO-75 one in the tinea of the descending colon and one in the distal rectum and sigmoid. We used an EEA, made a defect in the distal sigmoid colon and brought the anvil out and then placed the EEA stapler through the descending colon and brought out the trocar, then attached the trocar to the anvil, had clamped above these openings with [place] to close this off and then attached to the descending colon to the distal sigmoid. An end-to-end anastomosis with EEA, then cut off the distal portion of the descending colon with a PEDRO-75 and then one load was needed, then cut off the top of the previous anastomosis and this dilated sigmoid area that looked necrotic. 2 PEDRO-75 loads were needed to cut this off. Copiously irrigated with normal saline. There was no tension in this anastomosis, again ran all the intestine did not find anything else. Copiously irrigated with 2 to 3 liters of warm normal saline, suctioned this out and then at this point elected to close the midline incision with #1 double stranded suture running from superior portion to inferior portion tying to itself, copiously irrigated the incisions with normal saline and closing the skin with padmini. Area was cleaned and dried, dressings placed. The patient tolerated the procedure. Sponge, instrument and needle count correct at the end of the case. Dr. Honeycutt assisted in this case helping to make incisions, close the incision, identify anatomy, hold anatomy out of the way and helped with the resection. His help was viable help in this case to go smoother and quicker. Job ID: [id number] DocumentID: [id number] Dictated Date: 03/01/2021 15:54:51 Assistant Manager Retail Date: 03/01/2021 16:43:27 Dictated By: JESSE LEONARDO DO
[2021-03-01] MEDS: ENOXAPARIN 40 MG/0.4 ML (LOVENOX) SYR SQ SCH (17:29)
[2021-03-01] MEDS: ONDANSETRON 4 MG/2 ML (SDV) Z0FRAN IVP PRN (17:29)
[2021-03-01] MEDS: LACTATED RINGERS 1,000 ML IV PRN (20:47)
[2021-03-02] MEDS: fentaNYL INJ 100 MCG/2 ML AMP IVP PRN ×3 (00:40→13:38)
[2021-03-02] MEDS: ONDANSETRON 4 MG/2 ML (SDV) Z0FRAN IVP PRN ×2 (00:40→15:41)
[2021-03-02] MEDS: PIPERACILLIN/TAZO 4.5 GM/NS 100 ML IV SCH ×6 (05:39→20:37)
[2021-03-02 05:54] LABS: BASOPHILS % (AUTO) 0 % (0-10); EOSINOPHILS % (AUTO) 0 % (0-10); HEMATOCRIT 40 % (40-54); HEMOGLOBIN 13.5 g/dL (13.3-17.7); LYMPHOCYTES # (AUTO) 0.9 10^3/uL (1.0-4.0); LYMPHOCYTES % (AUTO) 5 % (12-44); MEAN CORPUSCULAR HEMOGLOBIN 29 pg (25-34); MEAN CORPUSCULAR HGB CONC 34 g/dL (32-36); MEAN CORPUSCULAR VOLUME 85 fL (80-99); MEAN PLATELET VOLUME 10.3 fL (9.0-12.2); MONOCYTES # (AUTO) 0.8 10^3/uL (0.0-1.0); MONOCYTES % (AUTO) 4 % (0-12); NEUTROPHILS # (AUTO) 15.8 10^3/uL (1.8-7.8); NEUTROPHILS % (AUTO) 90 % (42-75); PLATELET COUNT 285 10^3/uL (130-400); WHITE BLOOD COUNT 17.6 10^3/uL (4.3-11.0)
[2021-03-02 06:03] LABS: ALBUMIN 2.8 GM/DL (3.2-4.5); POTASSIUM 4.2 MMOL/L (3.6-5.0)
[2021-03-02 06:04] LABS: CALCIUM 8.8 MG/DL (8.5-10.1)
[2021-03-02 06:05] LABS: TOTAL PROTEIN 6.3 GM/DL (6.4-8.2)
[2021-03-02 06:07] LABS: BILIRUBIN,TOTAL 0.9 MG/DL (0.1-1.0)
[2021-03-02 06:09] LABS: CREATININE SERUM 0.77 MG/DL (0.60-1.30); PHOSPHORUS 2.3 MG/DL (2.3-4.7)
[2021-03-02 06:12] LABS: MAGNESIUM 1.9 MG/DL (1.6-2.4)
[2021-03-02] MEDS: KCL 20 MEQ TAB (K-DUR) PO SCH (06:20)
[2021-03-02] MEDS: POTASSIUM CL 10MEQ/50ML IVPB 50 ML IV SCH (06:20)
[2021-03-02] MEDS: MAGNESIUM 1 GM/100 ML IVPB 100 ML IV SCH (06:20)
--- NOTE | 2021-03-02 07:02 | Progress Note - Surgery ---
SHAUN EDMONDS MED STUDENT 03/02/21 0702: Subjective Date Seen by a Provider: Mar 02, 2021 Time Seen by a Provider: 06:15 Subjective/Events-last exam Patient is seen bedside in ICU. He had some nausea and vomited once overnight, it was "dark", per nurse he had some grape juice and had that appearance. His pain is less controlled this morning and he required more doses of narcotics overnight, he rates it a 5/10 this morning. He had done well with CLD until last night, but he is having decreased appetite, increased thirst, and mild nausea that is improved from last night. He has not passed gas or had a bowel movement, but he did notice a small brown "streak" getting up from the chair yesterday. Pt came and got him up in the chair yesterday. This morning his biggest complaint was hiccups and a new dry nonproductive cough. Review of Systems General: No Chills, No Night Sweats HEENT: No Visual Changes, No Dysphasia Pulmonary: No Dyspnea; Cough (dry) Cardiovascular: No: Chest Pain, Palpitations Gastrointestinal: Nausea, Vomiting (1x overnight) Genitourinary: No Hematuria Neurological: No: Change in speech, Confusion Focused Exam Lactate Level 02/27/21 21:52: Lactic Acid Level 1.92 Time of Focused Exam: 19:50 Objective Exam Vital Signs Date Time Temp Pulse Resp B/P (MAP) Pulse Ox O2 Delivery O2 Flow Rate FiO2 03/02/21 06:00 86 14 140/97 93 Room Air 03/02/21 05:00 82 18 130/84 94 Room Air 03/02/21 04:00 84 19 123/76 96 Room Air 03/02/21 04:00 Room Air 03/02/21 03:00 90 16 129/92 93 Room Air 03/02/21 02:00 85 19 112/73 94 Room Air 03/02/21 01:00 90 03/02/21 01:00 87 15 127/80 92 Room Air 03/02/21 00:00 89 23 120/89 93 Room Air 03/02/21 00:00 Room Air 03/01/21 23:00 93 19 139/74 92 Room Air 03/01/21 22:00 75 19 107/91 94 Room Air 03/01/21 21:00 77 17 143/87 95 Room Air 03/01/21 20:00 Room Air 03/01/21 20:00 36.4 03/01/21 20:00 82 17 127/78 94 Room Air 03/01/21 19:00 85 03/01/21 19:00 85 21 143/93 95 Room Air 03/01/21 18:00 74 19 146/72 96 Room Air 03/01/21 17:00 71 19 140/76 95 Room Air 03/01/21 16:09 Room Air 03/01/21 16:00 36.8 03/01/21 16:00 75 22 120/69 93 Room Air 03/01/21 15:00 79 21 137/102 95 Room Air 03/01/21 14:00 73 21 129/70 95 Room Air 03/01/21 13:00 72 03/01/21 13:00 72 18 112/66 93 Room Air 03/01/21 12:00 Room Air 03/01/21 12:00 37.1 03/01/21 12:00 75 16 136/118 95 Room Air 03/01/21 11:00 54 18 111/62 94 Room Air 03/01/21 10:00 71 18 127/66 94 Room Air 03/01/21 09:00 58 8 123/74 95 Room Air 03/01/21 08:17 36.9 03/01/21 08:17 96 Room Air 03/01/21 08:00 64 21 125/68 94 Room Air 03/01/21 07:00 71 03/01/21 07:00 55 17 122/73 95 Room Air I & O 03/02/21 06:59 Intake Total 970 ml Output Total 750 ml Balance 220 ml Capillary Refill : Less Than 3 SecondsLess Than 3 Seconds General Appearance: WD/WN, Mild Distress HEENT: Moist Mucous Membranes Neck: Normal Inspection Respiratory: Lungs Clear, No Accessory Muscle Use, No Respiratory Distress Cardiovascular: Irregularly Irregular Peripheral Pulses: 1+ Radial Pulses (R), 1+ Radial Pulses (L) Gastrointestinal: soft, tenderness (mild ttp, no rebound or gaurding), other (some fullness felt left of midline approx cm superior to the umbillicus, in cision appears clean, dry and intact.) Extremity: No Calf Tenderness, Pedal Edema Neurologic/Psychiatric: Alert, Oriented x3, Normal Mood/Affect Skin: Normal Color, Warm/Dry Results Lab Laboratory Tests 03/02/21 05:45: White Blood Count 17.6H, Red Blood Count 4.73, Hemoglobin 13.5, Hematocrit 40, Mean Corpuscular Volume 85, Mean Corpuscular Hemoglobin 29, Mean Corpuscular Hemoglobin Concent 34, Red Cell Distribution Width 14.8H, Platelet Count 285, Mean Platelet Volume 10.3, Immature Granulocyte % (Auto) 1, Neutrophils (%) (Auto) 90H, Lymphocytes (%) (Auto) 5L, Monocytes (%) (Auto) 4, Eosinophils (%) (Auto) 0, Basophils (%) (Auto) 0, Neutrophils # (Auto) 15.8H, Lymphocytes # (Auto) 0.9L, Monocytes # (Auto) 0.8, Eosinophils # (Auto) 0.0, Basophils # (Auto) 0.0, Immature Granulocyte # (Auto) 0.1, Sodium Level 134L, Potassium Level 4.2, Chloride Level 103, Carbon Dioxide Level 20L, Anion Gap 11, Blood Urea Nitrogen 30H, Creatinine 0.77, Estimat Glomerular Filtration Rate 99, BUN/Creatinine Ratio 39, Glucose Level 139H, Calcium Level 8.8, Corrected Calcium 9.8, Phosphorus Level 2.3, Magnesium Level 1.9, Total Bilirubin 0.9, Aspartate Amino Transf (AST/SGOT) 13, Alanine Aminotransferase (ALT/SGPT) 11, Alkaline Phosphatase 57, Total Protein 6.3L, Albumin 2.8L Microbiology 02/28/21 MRSA Screen - Final, Complete MRSA not isolated 02/27/21 Blood Culture - Preliminary, Resulted No growth 02/27/21 Urine Culture - Preliminary, Resulted Providencia stuartii Culture In Progress Assessment/Plan Assessment/Plan Assessment/Plan Pod#2 Colonic resection with primary anastomosis UTI scrotal, left buttock, left gluteal cleft - wound team following HTN A-Fib aortic aneurysms Osteoarthiritis Zosyn, continue pain - stop fentynl start yonis tylenol 650mg Q6, morphine PRN for breakthrough pain, continue clear liquid diet. Continue Lovenox, Lactate Ringer @30ml/hr. Pull central line, transfer to 4th floor, medicine is consulted KAHLIL LEONARDO DO 03/02/21 1509: Subjective Time Seen by a Provider: 12:59 Subjective/Events-last exam Pt seen and examined, his main complain is "hiccups"; he had them all night and couldn't sleep, plus they caused him abdominal pain. He states he is thirsty and "can't drink enough". Nurse states no flatus or BM. Review of Systems General: No Chills, No Night Sweats; Fatigue HEENT: No Visual Changes Pulmonary: No Dyspnea; Cough (dry) Cardiovascular: No: Chest Pain, Palpitations Gastrointestinal: Nausea, Vomiting (1x overnight) Genitourinary: No Hematuria Objective Exam General Appearance: Mild Distress HEENT: Moist Mucous Membranes Respiratory: Lungs Clear, No Accessory Muscle Use, No Respiratory Distress Cardiovascular: No Murmur, Irregularly Irregular Gastrointestinal: soft, tenderness (mild ttp, no rebound or gaurding), other (some fullness felt left of midline approx cm superior to the umbillicus, incision appears clean, dry and intact.) Assessment/Plan Assessment/Plan Assessment/Plan Pod#2 Colonic resection with primary anastomosis UTI scrotal, left buttock, left gluteal cleft - wound team following HTN A-Fib aortic aneurysms Osteoarthiritis Zosyn, continue pain - stop fentynl start yonis tylenol 650mg Q6, morphine PRN for breakthrough pain, continue clear liquid diet. Continue Lovenox, Increase Lactate Ringer to 150ml/hr. Will think about pulling central line once pt has good peripheral lines, transfer to 4th floor, medicine is consulted Supervisory-Addendum Brief Verification & Attestation Participated in pt care: history, MDM, physical Personally performed: exam, history, MDM, supervision of care Care discussed with: Medical Student Procedures: n/a Verification and Attestation of Medical Student E/M Service A medical student performed and documented this service. I then reviewed and verified all information documented by the medical student and made modifications to such information, when appropriate. I personally performed a physical exam, medical decision making and then discussed any differences between the notes and made revisions as necessary to create one note. Kahlil Leonardo , 03/02/21 , 15:08 SHAUN EDMONDS MED STUDENT Mar 02, 2021 07:02 KAHLIL LEONARDO DO Mar 02, 2021 15:09
[2021-03-02] MEDS: LACTOBACILLUS ACIDOPHILUS (PROBIOTIC) CAPSULE PO SCH ×3 (09:29→18:50)
--- NOTE | 2021-03-02 10:01 | Tele-ICU Progress Note ---
Subjective Date Seen by a Provider: Mar 02, 2021 Time Seen by a Provider: 10:01 Sepsis Event Evaluation Height, Weight, BMI Height: '" Weight: lbs. oz. kg; 30.17 BMI Method: Focused Exam Lactate Level 02/27/21 21:52: Lactic Acid Level 1.92 Time of Focused Exam: 19:50 Exam Exam Patient acknowledged, consented, and participated in this virtual visit which was conducted using real time audio/video Vital Signs Date Time Temp Pulse Resp B/P (MAP) Pulse Ox O2 Delivery O2 Flow Rate FiO2 03/02/21 09:00 85 15 141/93 94 Room Air 03/02/21 08:00 92 17 161/90 96 Room Air 03/02/21 07:43 36.5 03/02/21 07:00 76 16 95 Room Air 03/02/21 07:00 87 03/02/21 06:00 86 14 140/97 93 Room Air 03/02/21 05:00 82 18 130/84 94 Room Air 03/02/21 04:00 84 19 123/76 96 Room Air 03/02/21 04:00 Room Air 03/02/21 03:00 90 16 129/92 93 Room Air 03/02/21 02:00 85 19 112/73 94 Room Air 03/02/21 01:00 90 03/02/21 01:00 87 15 127/80 92 Room Air 03/02/21 00:00 89 23 120/89 93 Room Air 03/02/21 00:00 Room Air 03/01/21 23:00 93 19 139/74 92 Room Air 03/01/21 22:00 75 19 107/91 94 Room Air 03/01/21 21:00 77 17 143/87 95 Room Air 03/01/21 20:00 Room Air 03/01/21 20:00 36.4 03/01/21 20:00 82 17 127/78 94 Room Air 03/01/21 19:00 85 03/01/21 19:00 85 21 143/93 95 Room Air 03/01/21 18:00 74 19 146/72 96 Room Air 03/01/21 17:00 71 19 140/76 95 Room Air 03/01/21 16:09 Room Air 03/01/21 16:00 36.8 03/01/21 16:00 75 22 120/69 93 Room Air 03/01/21 15:00 79 21 137/102 95 Room Air 03/01/21 14:00 73 21 129/70 95 Room Air 03/01/21 13:00 72 03/01/21 13:00 72 18 112/66 93 Room Air 03/01/21 12:00 Room Air 03/01/21 12:00 37.1 03/01/21 12:00 75 16 136/118 95 Room Air 03/01/21 11:00 54 18 111/62 94 Room Air I & O 03/02/21 06:59 Intake Total 970 ml Output Total 750 ml Balance 220 ml Height & Weight Height: '" Weight: lbs. oz. kg; 30.17 BMI Method: General Appearance: WD/WN, Mild Distress HEENT: Moist Mucous Membranes Neck: Normal Inspection Respiratory: Lungs Clear, No Accessory Muscle Use, No Respiratory Distress Cardiovascular: Irregularly Irregular Capillary Refill: Less Than 3 Seconds Peripheral Pulses: 1+ Radial Pulses (R), 1+ Radial Pulses (L) Gastrointestinal: soft, tenderness (mild ttp, no rebound or gaurding), other (some fullness felt left of midline approx cm superior to the umbillicus, incision appears clean, dry and intact.) Extremity: No Calf Tenderness, Pedal Edema Neurologic/Psychiatric: Alert, Oriented x3, Normal Mood/Affect Skin: Normal Color, Warm/Dry Results Lab Laboratory Tests 03/01/21 04:00 03/02/21 05:45 Assessment/Plan Assessment/Plan (Tele-ICU Physician , Progress Note ) Available chart/ vitals / labs / Images reviewed Video assessment done using teleICU camera, rest of exam as per RN Discussed with RN , EXAM PER RN Events overnight : RA Afebrile I/O = even Drips: LR 30 Pressors: , hemodynamically stable RA Consultants: sx Hospital course: 02/28- s/p Ex Lap with colonic resection and primary anastomosis A/P Ex Lap with colonic resection and primary anastomosis 02/28 ( for Pneumoperitoneum with suspected sealed perforation of previous anastomosis site after sigmoid volvulus s/p colon resection - abx as per Sx - on Zosyn 02/28 A fib - rate controlled - XARELTO ON HOLD - to resume when ok with sx BALBIR - improved with hydration Anemia - post op - follow ID - Urine cx with Providencia 02/27 - on Zosyn - wound on scrotal, left buttock, left gluteal cleft - wound team following- s/p recent diarrhea ? h/o c diff - 10/23 - ? CONSIDER PROPH MEDS if was a bad case , will start on probiotic OSMANY Leukocytosis - with infection , one dose of decadrone 10 given on 02/28 Lines : right IJ (Central Line Necessity Reviewed) Herman: + OG: Nutrition: Analgesia: controlled Anxiety/ delirium VTE Prophylaxis: lovenox 40 bid , when ok with SX - will need to go on xarelto for afib Stress Ulcer Prophylaxis: TO START IF NPO > 24 H Plans in collaboration with bedside consultants and IM MDs. Discussed with RN to reach out if any questions or concerns A total of 20 minutes of critical care time was devoted to this patient today, required to treat and/or prevent further deterioration of critical care condition ( as above) . CARLOS WINSTON MD Mar 02, 2021 10:01
--- NOTE | 2021-03-02 11:49 | Physical Therapy Daily Note ---
PT Daily Note-Current Subjective Patient agrees to PT. Pain Numeric Pain Scale: 7 Location: Lower Location Body Site: Abdomen Pain Description: Acute Mental Status Patient Orientation: Normal For Age Attachments: Herman Catheter, IV Transfers SCALE: Activities may be completed with or without assistive devices. 8-Lnuvwxudkf-oqiohpr completes the activity by him/herself with no assistance from a helper. 5-Set-up or Clean-up Assistance-helper sets up or cleans up; patient completes activity. [place] assists only prior to or following the activity. 4-Supervision or Touching Assistance-helper provides verbal cues and/or touching/steadying and/or contact guard assistance as patient completes activity. Assistance may be provided throughout the activity or intermittently. 3-Partial/Moderate Assistance-helper does LESS THAN HALF the effort. [place] lifts, holds or supports trunk or limbs, but provides less than half the effort. 2-Substantial/Maximal Assistance-helper does MORE THAN HALF the effort. [place] lifts or holds trunk or limbs and provides more than half the effort. 1-Tiewgocmh-ejhogq does ALL the effort. Patient does none of the effort to complete the activity. Or, the assistance of 2 or more helpers is required for the patient to complete the activity. If activity was not attempted, code reason: 7-Patient Refused. 9-Not Applicable-not attempted and the patient did not perform the activity before the current illness, exacerbation or injury. 10-Not Attempted due to Environmental Limitations-(lack of equipment, weather restraints, etc.). 88-Not Attempted due to Medical Conditions or Safety Concerns. Lying to Sitting/Side of Bed(Q: 2 Sit to Stand (QC): 2 Chair/Ojj-vs-Ccmvh Xfer(QC): 2 Gait Training Distance: 4 steps Gait Assistive Device: FWW trunk and flexed knee (PLOF) posture/shuffle gait Exercises Seated Therapy Exercises: Ankle pumps, Long arc quads Standing: Sit to Stand (x 2 sets) Assessment Patient requires much time to complete all functional tasks. PT to increase activity as tolerated by patient. PT Short Term Goals Short Term Goals Time Frame: Mar 14, 2021 Roll Left & Right: 4 Sit to lyin Lying to sitting on side of be: 4 Sit to stand: 4 Chair/ddg-vb-grczn transfer: 4 Toilet transfer: 4 Walk 10 feet: 3 Walk 50 feet with two turns: 3 PT Snf Goals Snf Goals PT Site Leader Goals Time Frame: Mar 28, 2021 Roll Left & Right (QC): 5 Sit to Lying (QC): 5 Lying-Sitting on Side/Bed(QC): 5 Sit to Stand (QC): 5 Chair/Yfz-ez-Lmqev Xfer(QC): 5 Toilet Transfer (QC): 5 Car Transfer (QC): 4 Does the Patient Walk: Yes Walk 10 feet (QC): 5 Walk 50ft with 2 Turns (QC): 5 Walk 150 ft (QC): 4 PT Plan Treatment/Plan Treatment Plan: Continue Plan of Care Treatment Plan: Bed Mobility, Education, Functional Activity Norma, Functional Strength, Gait, Safety, Therapeutic Exercise, Transfers Treatment Duration: May 02, 2021 Frequency: 6 times per week Estimated Hrs Per Day: .25 hour per day Patient and/or Family Agrees t: Yes Time/GCodes Time In: 1020 Time Out: 1043 Total Billed Treatment Time: 23 Total Billed Treatment 1 visit FA x 2 23 min SVITLANA SANCHEZ PT Mar 02, 2021 11:49
--- NOTE | 2021-03-02 12:39 | Progress Note ---
Subjective Subjective/Events-last exam Patient states that he is doing well this AM. Tolerating CLD and would like to advance. Working with PT this AM getting to chair Review of Systems Pulmonary: No Dyspnea, No Cough Cardiovascular: Edema; No: Chest Pain, Palpitations Gastrointestinal: No: Nausea, Vomiting, Abdominal Pain, Diarrhea, Constipation Neurological: Weakness, Incoordination Focused Exam Lactate Level 02/27/21 21:52: Lactic Acid Level 1.92 Time of Focused Exam: 19:50 Objective Exam Last Set of Vital Signs Vital Signs Date Time Temp Pulse Resp B/P (MAP) Pulse Ox O2 Delivery O2 Flow Rate FiO2 03/02/21 12:00 91 25 137/96 94 Room Air 03/02/21 07:43 36.5 03/01/21 04:00 3.00 Capillary Refill : Less Than 3 SecondsLess Than 3 Seconds I&O Intake and Output 03/02/21 00:00 Intake Total 720 ml Output Total 1005 ml Balance -285 ml Intake Oral 720 ml Output Urine Total 1005 ml General: Alert, Cooperative, No Acute Distress Lungs: Clear to Auscultation, Normal Air Movement Heart: Regular Rate, No Murmurs Abdomen: Normal Bowel Sounds, Soft, No Tenderness, No Masses, Other (mild ttp over incision) Extremities: Other (1+ pitting edema) Results/Procedures Lab Laboratory Tests 03/02/21 05:45: White Blood Count 17.6H, Red Blood Count 4.73, Hemoglobin 13.5, Hematocrit 40, Mean Corpuscular Volume 85, Mean Corpuscular Hemoglobin 29, Mean Corpuscular Hemoglobin Concent 34, Red Cell Distribution Width 14.8H, Platelet Count 285, Mean Platelet Volume 10.3, Immature Granulocyte % (Auto) 1, Neutrophils (%) (Auto) 90H, Lymphocytes (%) (Auto) 5L, Monocytes (%) (Auto) 4, Eosinophils (%) (Auto) 0, Basophils (%) (Auto) 0, Neutrophils # (Auto) 15.8H, Lymphocytes # (Auto) 0.9L, Monocytes # (Auto) 0.8, Eosinophils # (Auto) 0.0, Basophils # (Auto) 0.0, Immature Granulocyte # (Auto) 0.1, Sodium Level 134L, Potassium Level 4.2, Chloride Level 103, Carbon Dioxide Level 20L, Anion Gap 11, Blood Urea Nitrogen 30H, Creatinine 0.77, Estimat Glomerular Filtration Rate 99, BUN/Creatinine Ratio 39, Glucose Level 139H, Calcium Level 8.8, Corrected Calcium 9.8, Phosphorus Level 2.3, Magnesium Level 1.9, Total Bilirubin 0.9, Aspartate Amino Transf (AST/SGOT) 13, Alanine Aminotransferase (ALT/SGPT) 11, Alkaline Phosphatase 57, Total Protein 6.3L, Albumin 2.8L Microbiology 02/28/21 MRSA Screen - Final, Complete MRSA not isolated 02/27/21 Blood Culture - Preliminary, Resulted No growth 02/27/21 Urine Culture - Preliminary, Resulted Providencia stuartii Radiology Assessment/Plan Assessment/Plan (1) Pneumoperitoneum of unknown etiology Status: Acute Assessment & Plan: - Managed by General surgery 03/02: POD #3, pain is well controlled (2) Atrial fibrillation Status: Chronic Assessment & Plan: - Rate controlled Qualifiers: Qualified Codes: I48.11 - Longstanding persistent atrial fibrillation (3) Hypertension Status: Chronic Assessment & Plan: - Restart home meds Qualifiers: Qualified Codes: I10 - Essential (primary) hypertension (4) BPH (benign prostatic hyperplasia) Status: Chronic Qualifiers: (5) Physical debility Status: Chronic Assessment & Plan: - PT/OT 03/02: Consider Rehab vs SNF KANA RODRIGUEZ MD Mar 02, 2021 12:39
[2021-03-02] MEDS: LACTATED RINGERS 1,000 ML IV SCH ×3 (15:00→19:02)
[2021-03-02] MEDS: KETOROLAC 30 MG/ML VIAL IVP SCH ×2 (15:41→20:37)
[2021-03-02] MEDS: ACETAMINOPHEN 500 MG TAB (TYLENOL) PO SCH ×2 (15:41→23:31)
[2021-03-02] MEDS: ENOXAPARIN 40 MG/0.4 ML (LOVENOX) SYR SQ SCH (16:14)
[2021-03-02] MEDS: BACLOFEN 10 MG (LIORESAL) TAB PO SCH ×3 (20:36→23:31)
[2021-03-03] MEDS: LACTATED RINGERS 1,000 ML IV SCH ×4 (01:51→19:35)
[2021-03-03] MEDS: KETOROLAC 30 MG/ML VIAL IVP SCH ×4 (01:51→20:21)
[2021-03-03] MEDS: BACLOFEN 10 MG (LIORESAL) TAB PO SCH ×6 (03:43→23:32)
[2021-03-03] MEDS: HYDROcodone/APAP 5 MG/325 MG (LORTAB) TAB PO PRN (03:45)
[2021-03-03] MEDS: PIPERACILLIN/TAZO 4.5 GM/NS 100 ML IV SCH ×6 (03:45→20:21)
[2021-03-03 04:38] LABS: BASOPHILS % (AUTO) 0 % (0-10); EOSINOPHILS % (AUTO) 0 % (0-10); HEMATOCRIT 38 % (40-54); HEMOGLOBIN 12.7 g/dL (13.3-17.7); LYMPHOCYTES # (AUTO) 1.5 10^3/uL (1.0-4.0); LYMPHOCYTES % (AUTO) 13 % (12-44); MEAN CORPUSCULAR HEMOGLOBIN 28 pg (25-34); MEAN CORPUSCULAR HGB CONC 34 g/dL (32-36); MEAN CORPUSCULAR VOLUME 85 fL (80-99); MEAN PLATELET VOLUME 10.2 fL (9.0-12.2); MONOCYTES # (AUTO) 0.8 10^3/uL (0.0-1.0); MONOCYTES % (AUTO) 7 % (0-12); NEUTROPHILS # (AUTO) 9.5 10^3/uL (1.8-7.8); NEUTROPHILS % (AUTO) 80 % (42-75); PLATELET COUNT 323 10^3/uL (130-400)
[2021-03-03 04:50] LABS: ALBUMIN 2.7 GM/DL (3.2-4.5); POTASSIUM 3.9 MMOL/L (3.6-5.0)
[2021-03-03 04:52] LABS: CALCIUM 8.6 MG/DL (8.5-10.1)
[2021-03-03 04:53] LABS: TOTAL PROTEIN 5.8 GM/DL (6.4-8.2)
[2021-03-03 04:56] LABS: CREATININE SERUM 0.83 MG/DL (0.60-1.30); PHOSPHORUS 1.8 MG/DL (2.3-4.7)
[2021-03-03 04:59] LABS: MAGNESIUM 1.8 MG/DL (1.6-2.4)
[2021-03-03] MEDS: POTASSIUM CL 10MEQ/50ML IVPB 50 ML IV SCH (05:09)
[2021-03-03] MEDS: KCL 20 MEQ TAB (K-DUR) PO SCH (05:09)
[2021-03-03] MEDS: MAGNESIUM 1 GM/100 ML IVPB 100 ML IV SCH (05:09)
[2021-03-03] MEDS: ONDANSETRON 4 MG/2 ML (SDV) Z0FRAN IVP PRN (08:40)
[2021-03-03] MEDS: fentaNYL INJ 100 MCG/2 ML AMP IVP PRN (08:40)
--- NOTE | 2021-03-03 09:28 | Progress Note - Surgery ---
KIERRA DOZIER 03/03/21 0928: Subjective Date Seen by a Provider: Mar 03, 2021 Time Seen by a Provider: 08:45 Subjective/Events-last exam Patient is seen bedside in ICU. He had nausea and vomiting once overnight. Still dark vomiting. Pt still has nausea. Abdominal pain currently at 6/10. He has not passed gas or had a bowel movement. Pt also says that he has not eaten any solid foods since Friday. Has a complaint of hiccups this morning Review of Systems General: No Chills, No Night Sweats, No Fatigue; Appetite (Pt said he is hungry and wants food. Has not had breakfast this morning. Was given soup yesterday but said it had a lot of salt which the patient does not usually use in his diet) Gastrointestinal: Nausea, Vomiting (6/10 abdominal pain), Abdominal Pain, Other (Has not had a bowel movement or gas yesterday.) Genitourinary: No Dysuria, No Frequency Neurological: No: Weakness Focused Exam Time of Focused Exam: 19:50 Objective Exam Vital Signs Date Time Temp Pulse Resp B/P (MAP) Pulse Ox O2 Delivery O2 Flow Rate FiO2 03/03/21 08:00 70 18 121/71 94 Room Air 03/03/21 07:00 89 03/03/21 03:40 37.4 92 21 125/92 91 Room Air 03/03/21 01:00 83 03/02/21 23:25 36.9 87 16 116/78 91 Room Air 03/02/21 20:15 94 Room Air 03/02/21 20:00 36.4 86 19 127/79 94 Room Air 03/02/21 19:00 90 03/02/21 18:00 91 15 126/79 94 Room Air 03/02/21 17:00 85 15 131/77 95 Room Air 03/02/21 16:22 35.8 03/02/21 16:00 Room Air 03/02/21 16:00 85 26 119/80 94 Room Air 03/02/21 12:49 93 03/02/21 12:00 Room Air 03/02/21 12:00 91 25 137/96 94 Room Air I & O 03/03/21 07:00 Intake Total 2310 ml Output Total 1320 ml Balance 990 ml Capillary Refill : Less Than 3 SecondsLess Than 3 Seconds General Appearance: No Apparent Distress HEENT: PERRL/EOMI, Moist Mucous Membranes Neck: Full Range of Motion, Normal Inspection, Non Tender, Supple Respiratory: Lungs Clear, No Accessory Muscle Use, No Respiratory Distress Cardiovascular: No Murmur, Irregularly Irregular Peripheral Pulses: 1+ Radial Pulses (R), 1+ Radial Pulses (L) Gastrointestinal: soft, tenderness (mild ttp, no rebound or gaurding), other (some fullness felt left of midline approx cm superior to the umbillicus, incision appears clean, dry and intact.) Extremity: No Calf Tenderness, Pedal Edema Neurologic/Psychiatric: Alert, Oriented x3, Normal Mood/Affect Skin: Normal Color, Warm/Dry Lymphatic: No Adenopathy (cervical) Results Lab Laboratory Tests 03/03/21 04:10: White Blood Count 12.0H, Red Blood Count 4.48, Hemoglobin 12.7L, Hematocrit 38L, Mean Corpuscular Volume 85, Mean Corpuscular Hemoglobin 28, Mean Corpuscular Hemoglobin Concent 34, Red Cell Distribution Width 14.7H, Platelet Count 323, Mean Platelet Volume 10.2, Immature Granulocyte % (Auto) 1, Neutrophils (%) (Auto) 80H, Lymphocytes (%) (Auto) 13, Monocytes (%) (Auto) 7, Eosinophils (%) (Auto) 0, Basophils (%) (Auto) 0, Neutrophils # (Auto) 9.5H, Lymphocytes # (Auto) 1.5, Monocytes # (Auto) 0.8, Eosinophils # (Auto) 0.0, Basophils # (Auto) 0.0, Immature Granulocyte # (Auto) 0.1, Sodium Level 131L, Potassium Level 3.9, Chloride Level 99, Carbon Dioxide Level 24, Anion Gap 8, Blood Urea Nitrogen 31H , Creatinine 0.83, Estimat Glomerular Filtration Rate 91, BUN/Creatinine Ratio 37, Glucose Level 103, Calcium Level 8.6, Corrected Calcium 9.6, Phosphorus Level 1.8L, Magnesium Level 1.8, Total Bilirubin 1.0, Aspartate Amino Transf (AST/SGOT) 16, Alanine Aminotransferase (ALT/SGPT) 8, Alkaline Phosphatase 48, Total Protein 5.8L, Albumin 2.7L Microbiology 02/28/21 MRSA Screen - Final, Complete MRSA not isolated 02/27/21 Blood Culture - Preliminary, Resulted No growth 02/27/21 Urine Culture - Preliminary, Resulted Providencia stuartii Assessment/Plan Assessment/Plan Assessment/Plan Pod#2 Colonic resection with primary anastomosis UTI scrotal, left buttock, left gluteal cleft - wound team following HTN A-Fib aortic aneurysms Osteoarthiritis Zosyn, continue pain - stop fentynl start yonis tylenol 650mg Q6, morphine PRN for breakthrough pain, continue clear liquid diet. Continue Lovenox, Increase Lactate Ringer to 150ml/hr. Will think about pulling central line once pt has good peripheral lines, transfer to 4th floor, medicine is consulted Encouraged patient to drink fluids KAHLIL LEONARDO DO 03/03/21 1221: Subjective Time Seen by a Provider: 10:24 Subjective/Events-last exam Pt seen and examined, states he feels "bad". He still has hiccups and is hungry, but he also had another episode of emesis. Review of Systems General: No Chills, No Night Sweats Pulmonary: No Dyspnea, No Cough Cardiovascular: No: Chest Pain Gastrointestinal: Nausea, Vomiting (6/10 abdominal pain), Abdominal Pain, Other (Has not had a bowel movement or gas yesterday.) Objective Exam General Appearance: No Apparent Distress, Anxious Respiratory: Lungs Clear, No Accessory Muscle Use Cardiovascular: No Murmur, Irregularly Irregular Gastrointestinal: soft, tenderness (mild ttp, no rebound or gaurding), other (some fullness felt left of midline approx cm superior to the umbillicus, incision appears clean, dry and intact.) Assessment/Plan Assessment/Plan Assessment/Plan Pod#2 Colonic resection with primary anastomosis UTI scrotal, left buttock, left gluteal cleft - wound team following HTN A-Fib aortic aneurysms Osteoarthiritis Will stop fentanyl, continue yonis tylenol and toradol, continue sips of clears; pt told he can't eat because he is vomiting. Supervisory-Addendum Brief Verification & Attestation Participated in pt care: history, MDM, physical Personally performed: exam, history, MDM, supervision of care Care discussed with: Medical Student Procedures: n/a Verification and Attestation of Medical Student E/M Service A medical student performed and documented this service. I then reviewed and verified all information documented by the medical student and made modifications to such information, when appropriate. I personally performed a physical exam, medical decision making and then discussed any differences between the notes and made revisions as necessary to create one note. Kahlil Leonardo , 03/03/21 , 12:21 KIERRA DOZIER Mar 03, 2021 09:28 KAHLIL LEONARDO DO Mar 03, 2021 12:21
--- NOTE | 2021-03-03 10:03 | Physical Therapy Progress Note ---
Therapy Progress Note Patient declined PT due to N & V. PT to resume next week. 1 ref SVITLANA SANCHEZ PT Mar 03, 2021 10:03
[2021-03-03] MEDS: ACETAMINOPHEN 500 MG TAB (TYLENOL) PO SCH ×3 (10:33→23:30)
[2021-03-03] MEDS: LACTOBACILLUS ACIDOPHILUS (PROBIOTIC) CAPSULE PO SCH ×3 (10:33→17:49)
--- NOTE | 2021-03-03 12:18 | Progress Note - Hospitalist ---
Subjective HPI/CC On Admission Date Seen by Provider: Mar 03, 2021 Time Seen by Provider: 11:30 Subjective/Events-last exam Patient doing well Patient sleeping RN has no concerns Transferred from ICU today Check meds and labs Review of Systems General: Fatigue, Malaise Gastrointestinal: Abdominal Pain Focused Exam Time of Focused Exam: 19:50 Objective Exam Vital Signs Vital Signs Date Time Temp Pulse Resp B/P (MAP) Pulse Ox O2 Delivery O2 Flow Rate FiO2 03/04/21 03:12 36.9 99 22 152/86 96 Room Air 03/01/21 04:00 3.00 Capillary Refill : Less Than 3 SecondsLess Than 3 Seconds General Appearance: No Apparent Distress, WD/WN, Chronically ill Respiratory: Lungs Clear, Normal Breath Sounds Cardiovascular: Regular Rate, Rhythm Neurologic/Psychiatric: Alert Results/Procedures Lab Patient resulted labs reviewed. Assessment/Plan Assessment and Plan Assess & Plan/Chief Complaint Assessment: Ruptured intestine Chronic atrial fibrillation Hypertension Severe debility BPH Plan: Supportive care Appreciate surgery Monitor labs Critical Care Critically Ill Patient AUTUMN RANDOLPH DO Mar 03, 2021 12:18
[2021-03-03] MEDS: ENOXAPARIN 40 MG/0.4 ML (LOVENOX) SYR SQ SCH (15:35)
[2021-03-04] MEDS: HYDROcodone/APAP 5 MG/325 MG (LORTAB) TAB PO PRN (02:18)
[2021-03-04] MEDS: KETOROLAC 30 MG/ML VIAL IVP SCH ×4 (03:15→20:24)
[2021-03-04] MEDS: BACLOFEN 10 MG (LIORESAL) TAB PO SCH ×6 (04:28→23:38)
[2021-03-04] MEDS: PIPERACILLIN/TAZO 4.5 GM/NS 100 ML IV SCH ×6 (05:45→20:24)
[2021-03-04 06:50] LABS: BASOPHILS % (AUTO) 0 % (0-10); EOSINOPHILS # (AUTO) 0.3 10^3/uL (0.0-0.3); EOSINOPHILS % (AUTO) 3 % (0-10); HEMATOCRIT 35 % (40-54); HEMOGLOBIN 11.9 g/dL (13.3-17.7); LYMPHOCYTES # (AUTO) 1.5 10^3/uL (1.0-4.0); LYMPHOCYTES % (AUTO) 12 % (12-44); MEAN CORPUSCULAR HEMOGLOBIN 29 pg (25-34); MEAN CORPUSCULAR HGB CONC 34 g/dL (32-36); MEAN CORPUSCULAR VOLUME 84 fL (80-99); MEAN PLATELET VOLUME 9.8 fL (9.0-12.2); MONOCYTES # (AUTO) 0.7 10^3/uL (0.0-1.0); MONOCYTES % (AUTO) 6 % (0-12); NEUTROPHILS # (AUTO) 9.6 10^3/uL (1.8-7.8); NEUTROPHILS % (AUTO) 79 % (42-75); PLATELET COUNT 332 10^3/uL (130-400); WHITE BLOOD COUNT 12.1 10^3/uL (4.3-11.0)
[2021-03-04 07:10] LABS: ALBUMIN 2.5 GM/DL (3.2-4.5); POTASSIUM 3.8 MMOL/L (3.6-5.0)
[2021-03-04 07:11] LABS: CALCIUM 8.2 MG/DL (8.5-10.1)
[2021-03-04 07:13] LABS: TOTAL PROTEIN 5.4 GM/DL (6.4-8.2)
[2021-03-04 07:14] LABS: BILIRUBIN,TOTAL 0.9 MG/DL (0.1-1.0)
--- NOTE | 2021-03-04 07:15 | Progress Note - Hospitalist ---
Subjective HPI/CC On Admission Date Seen by Provider: Mar 04, 2021 Time Seen by Provider: 12:30 Subjective/Events-last exam Patient feels much better Less abdominal pain Has been up to a chair Very weak Check meds and labs Hemoglobin stable Advancing diet Review of Systems General: Fatigue, Malaise Gastrointestinal: Abdominal Pain Focused Exam Time of Focused Exam: 19:50 Objective Exam Vital Signs Vital Signs Date Time Temp Pulse Resp B/P (MAP) Pulse Ox O2 Delivery O2 Flow Rate FiO2 03/05/21 00:05 36.6 82 16 128/83 95 Room Air 03/01/21 04:00 3.00 Capillary Refill : Less Than 3 SecondsLess Than 3 Seconds General Appearance: No Apparent Distress, WD/WN, Chronically ill Respiratory: Lungs Clear, Normal Breath Sounds Cardiovascular: Irregularly Irregular Neurologic/Psychiatric: Alert, Oriented x3, No Motor/Sensory Deficits, Normal Mood/Affect Results/Procedures Lab Laboratory Tests 03/04/21 06:30 03/05/21 04:56 Patient resulted labs reviewed. Assessment/Plan Assessment and Plan Assess & Plan/Chief Complaint Assessment: Ruptured intestine Chronic atrial fibrillation Hypertension Severe debility BPH Plan: Supportive care Appreciate surgery Monitor labs 03/04/2021: Pain control PT and OT Critical Care Critically Ill Patient AUTUMN RANDOLPH DO Mar 04, 2021 07:15
[2021-03-04 07:16] LABS: CREATININE SERUM 0.74 MG/DL (0.60-1.30); PHOSPHORUS 2.7 MG/DL (2.3-4.7)
[2021-03-04 07:19] LABS: MAGNESIUM 1.7 MG/DL (1.6-2.4)
[2021-03-04] MEDS: KCL 20 MEQ TAB (K-DUR) PO SCH (08:46)
[2021-03-04] MEDS: MAGNESIUM 1 GM/100 ML IVPB 100 ML IV SCH (08:46)
[2021-03-04] MEDS: POTASSIUM CL 10MEQ/50ML IVPB 50 ML IV SCH (08:46)
[2021-03-04] MEDS: PANTOPRAZOLE 40 MG (PROTONIX) VIAL IV SCH (08:52)
[2021-03-04] MEDS: LACTATED RINGERS 1,000 ML IV SCH ×2 (08:52→12:43)
[2021-03-04] MEDS: ACETAMINOPHEN 500 MG TAB (TYLENOL) PO SCH ×3 (08:52→20:24)
[2021-03-04] MEDS: LACTOBACILLUS ACIDOPHILUS (PROBIOTIC) CAPSULE PO SCH ×3 (08:52→17:50)
--- NOTE | 2021-03-04 15:35 | Progress Note - Surgery ---
Subjective Time Seen by a Provider: 11:26 Subjective/Events-last exam Pt seen and examined, states he still has hiccups...but they are better. His biggest complaint is that he is starving. Denied any emesis, but he only had sips of clears yesterday. Review of Systems General: No Chills; Fatigue Pulmonary: No Dyspnea, No Cough Cardiovascular: No: Chest Pain, Palpitations Gastrointestinal: Abdominal Pain, Other (hiccups); No: Nausea, Vomiting Focused Exam Time of Focused Exam: 19:50 Objective Exam Vital Signs Date Time Temp Pulse Resp B/P (MAP) Pulse Ox O2 Delivery O2 Flow Rate FiO2 03/04/21 12:00 36.6 85 20 143/78 94 Room Air 03/04/21 08:00 36.8 83 20 125/75 94 Room Air 03/04/21 03:12 36.9 99 22 152/86 96 Room Air 03/04/21 02:48 36.9 03/04/21 00:00 36.6 03/03/21 23:49 36.6 96 20 142/83 95 Room Air 03/03/21 21:00 94 Room Air 03/03/21 20:27 36.2 80 20 133/76 96 Room Air 03/03/21 16:37 36.8 84 18 124/82 95 Room Air I & O 03/04/21 07:00 Intake Total 840 ml Output Total 875 ml Balance -35 ml Capillary Refill : Less Than 3 SecondsLess Than 3 Seconds General Appearance: No Apparent Distress, WD/WN HEENT: Moist Mucous Membranes Neck: Supple Respiratory: Lungs Clear, Normal Breath Sounds Cardiovascular: Regular Rate, Rhythm, No Murmur Peripheral Pulses: 1+ Radial Pulses (R), 1+ Radial Pulses (L) Gastrointestinal: soft, tenderness (mild ttp, no rebound or gaurding), other (incision appears clean, dry and intact.) Extremity: No Calf Tenderness, Pedal Edema Neurologic/Psychiatric: Alert Results Lab Laboratory Tests 03/04/21 06:30: White Blood Count 12.1H, Red Blood Count 4.17L, Hemoglobin 11.9L, Hematocrit 35L , Mean Corpuscular Volume 84, Mean Corpuscular Hemoglobin 29, Mean Corpuscular Hemoglobin Concent 34, Red Cell Distribution Width 14.6H, Platelet Count 332, Mean Platelet Volume 9.8, Immature Granulocyte % (Auto) 1, Neutrophils (%) (Auto) 79H, Lymphocytes (%) (Auto) 12, Monocytes (%) (Auto) 6, Eosinophils (%) (Auto) 3, Basophils (%) (Auto) 0, Neutrophils # (Auto) 9.6H, Lymphocytes # (Auto) 1.5, Monocytes # (Auto) 0.7, Eosinophils # (Auto) 0.3, Basophils # (Auto) 0.0, Immature Granulocyte # (Auto) 0.1, Sodium Level 131L, Potassium Level 3.8, Chloride Level 99, Carbon Dioxide Level 23, Anion Gap 9, Blood Urea Nitrogen 25H , Creatinine 0.74, Estimat Glomerular Filtration Rate 104, BUN/Creatinine Ratio 34, Glucose Level 97, Calcium Level 8.2L, Corrected Calcium 9.4, Phosphorus Level 2.7, Magnesium Level 1.7, Total Bilirubin 0.9, Aspartate Amino Transf (AST/SGOT) 14, Alanine Aminotransferase (ALT/SGPT) 7, Alkaline Phosphatase 46, Total Protein 5.4L, Albumin 2.5L Microbiology 02/28/21 MRSA Screen - Final, Complete MRSA not isolated 02/27/21 Blood Culture - Preliminary, Resulted No growth 02/27/21 Urine Culture - Final, Complete Providencia stuartii Assessment/Plan Assessment/Plan Assessment/Plan Pod#4 Colonic resection with primary anastomosis UTI scrotal, left buttock, left gluteal cleft - wound team following HTN A-Fib aortic aneurysms Osteoarthiritis Will retry clears and see if pt vomits, he was told he must move and use IS. JESSE TELLO DO Mar 04, 2021 15:35
[2021-03-04] MEDS: ENOXAPARIN 40 MG/0.4 ML (LOVENOX) SYR SQ SCH (15:38)
[2021-03-05] MEDS: LACTATED RINGERS 1,000 ML IV SCH ×3 (00:19→07:32)
[2021-03-05] MEDS: HYDROcodone/APAP 5 MG/325 MG (LORTAB) TAB PO PRN (00:19)
[2021-03-05] MEDS: KETOROLAC 30 MG/ML VIAL IVP SCH ×4 (02:44→22:44)
[2021-03-05] MEDS: BACLOFEN 10 MG (LIORESAL) TAB PO SCH ×6 (02:45→23:22)
[2021-03-05 05:20] LABS: BASOPHILS % (AUTO) 0 % (0-10); EOSINOPHILS # (AUTO) 0.6 10^3/uL (0.0-0.3); EOSINOPHILS % (AUTO) 5 % (0-10); HEMATOCRIT 34 % (40-54); HEMOGLOBIN 11.4 g/dL (13.3-17.7); LYMPHOCYTES # (AUTO) 1.5 10^3/uL (1.0-4.0); LYMPHOCYTES % (AUTO) 11 % (12-44); MEAN CORPUSCULAR HEMOGLOBIN 28 pg (25-34); MEAN CORPUSCULAR HGB CONC 33 g/dL (32-36); MEAN CORPUSCULAR VOLUME 85 fL (80-99); MEAN PLATELET VOLUME 9.9 fL (9.0-12.2); MONOCYTES # (AUTO) 0.6 10^3/uL (0.0-1.0); MONOCYTES % (AUTO) 4 % (0-12); NEUTROPHILS # (AUTO) 10.4 10^3/uL (1.8-7.8); NEUTROPHILS % (AUTO) 78 % (42-75); PLATELET COUNT 319 10^3/uL (130-400); WHITE BLOOD COUNT 13.3 10^3/uL (4.3-11.0)
[2021-03-05 05:36] LABS: ALBUMIN 2.3 GM/DL (3.2-4.5); POTASSIUM 3.9 MMOL/L (3.6-5.0)
[2021-03-05 05:38] LABS: TOTAL PROTEIN 4.9 GM/DL (6.4-8.2)
[2021-03-05 05:40] LABS: BILIRUBIN,TOTAL 0.8 MG/DL (0.1-1.0)
[2021-03-05 05:41] LABS: PHOSPHORUS 2.6 MG/DL (2.3-4.7)
[2021-03-05 05:42] LABS: CREATININE SERUM 0.8 MG/DL (0.60-1.30)
[2021-03-05 05:45] LABS: MAGNESIUM 1.8 MG/DL (1.6-2.4)
[2021-03-05] MEDS: POTASSIUM CL 10MEQ/50ML IVPB 50 ML IV SCH (05:47)
[2021-03-05] MEDS: ACETAMINOPHEN 500 MG TAB (TYLENOL) PO SCH ×3 (05:47→23:22)
[2021-03-05] MEDS: KCL 20 MEQ TAB (K-DUR) PO SCH (05:47)
[2021-03-05] MEDS: MAGNESIUM 1 GM/100 ML IVPB 100 ML IV SCH (05:49)
--- NOTE | 2021-03-05 07:38 | Progress Note - Surgery ---
SHAUN EDMONDS MED STUDENT 03/05/21 0738: Subjective Date Seen by a Provider: Mar 05, 2021 Time Seen by a Provider: 06:00 Subjective/Events-last exam Patient is seen at bedside. His only complaint today is that he is very hungry and wants "eggs, pancakes, and maybe some sausage". He reports very minimal abdominal pain, he did require a norco overnight. He is tolerating clear liquids with out difficulty, his hiccups are gone, he has not be nauseous or vomited. He is passing gas, but has not had a bowel movement. He has the indwelling catherter, there is light yellow urine in the bag, he reports he normal wears an external catheter due to incontinence problems s/p surgery on his prostate. He was able to to get up and into chair yesterday. He is still not using his IS. Review of Systems General: No Chills, No Night Sweats HEENT: No Visual Changes, No Dysphasia Pulmonary: No Cough Cardiovascular: Palpitations; No: Chest Pain Gastrointestinal: Abdominal Pain; No: Nausea, Vomiting Neurological: No: Change in speech, Confusion Focused Exam Time of Focused Exam: 19:50 Objective Exam Vital Signs Date Time Temp Pulse Resp B/P (MAP) Pulse Ox O2 Delivery O2 Flow Rate FiO2 03/05/21 00:05 36.6 82 16 128/83 95 Room Air 03/04/21 20:00 Room Air 03/04/21 19:45 36.1 75 20 139/74 96 Room Air 03/04/21 15:54 35.9 78 18 122/83 95 Room Air 03/04/21 12:00 36.6 85 20 143/78 94 Room Air 03/04/21 09:00 Room Air 03/04/21 08:00 36.8 83 20 125/75 94 Room Air I & O 03/05/21 07:00 Intake Total 3528 ml Output Total 4650 ml Balance -1122 ml Capillary Refill : Less Than 3 SecondsLess Than 3 Seconds General Appearance: No Apparent Distress, WD/WN HEENT: Moist Mucous Membranes; No Scleral Icterus (L), No Scleral Icterus (R) Neck: Supple Respiratory: No Respiratory Distress Cardiovascular: Irregularly Irregular Peripheral Pulses: 1+ Radial Pulses (R), 1+ Radial Pulses (L) Gastrointestinal: soft, tenderness (mild ttp, no rebound or gaurding), other (incision appears clean, dry and intact.) Extremity: No Calf Tenderness Neurologic/Psychiatric: Alert, Oriented x3 Skin: Normal Color, Warm/Dry Results Lab Laboratory Tests 03/05/21 04:56: White Blood Count 13.3H, Red Blood Count 4.03L, Hemoglobin 11.4L, Hematocrit 34L , Mean Corpuscular Volume 85, Mean Corpuscular Hemoglobin 28, Mean Corpuscular Hemoglobin Concent 33, Red Cell Distribution Width 14.9H, Platelet Count 319, Mean Platelet Volume 9.9, Immature Granulocyte % (Auto) 1, Neutrophils (%) (Auto) 78H, Lymphocytes (%) (Auto) 11L, Monocytes (%) (Auto) 4, Eosinophils (%) (Auto) 5, Basophils (%) (Auto) 0, Neutrophils # (Auto) 10.4H, Lymphocytes # (Auto) 1.5, Monocytes # (Auto) 0.6, Eosinophils # (Auto) 0.6H, Basophils # (Auto) 0.0, Immature Granulocyte # (Auto) 0.2H, Sodium Level 136, Potassium Level 3.9, Chloride Level 105, Carbon Dioxide Level 23, Anion Gap 8, Blood Urea Nitrogen 15, Creatinine 0.80, Estimat Glomerular Filtration Rate 95, BUN/Creatinine Ratio 19, Glucose Level 99, Calcium Level 8.0L, Corrected Calcium 9.4, Phosphorus Level 2.6, Magnesium Level 1.8, Total Bilirubin 0.8, Aspartate Amino Transf (AST/SGOT) 14, Alanine Aminotransferase (ALT/SGPT) 8, Alkaline Phosphatase 43, Total Protein 4.9L, Albumin 2.3L Microbiology 02/28/21 MRSA Screen - Final, Complete MRSA not isolated 02/27/21 Blood Culture - Preliminary, Resulted No growth 02/27/21 Urine Culture - Final, Complete Providencia stuartii Assessment/Plan Assessment/Plan Assessment/Plan Pod#5 Colonic resection with primary anastomosis UTI scrotal, left buttock, left gluteal cleft - wound team following HTN A-Fib aortic aneurysms Osteoarthiritis chronic urinary incontinence Advance diets as tolerated, start soft surgical this morning, stop IVF, continue PT/OT, continue pain control, continue zosyn. Encourage patient to use his IS. KAHLIL LEONARDO DO 03/05/21 1346: Subjective Time Seen by a Provider: 12:46 Subjective/Events-last exam Pt seen and examined, denies emesis and states he is very hungry. Pain is minimal. Review of Systems General: No Chills, No Night Sweats Pulmonary: No Cough Cardiovascular: Palpitations; No: Chest Pain Gastrointestinal: No: Nausea, Vomiting, Abdominal Pain (minimal) Objective Exam General Appearance: No Apparent Distress, WD/WN HEENT: Moist Mucous Membranes Respiratory: Lungs Clear, Normal Breath Sounds, No Accessory Muscle Use Cardiovascular: No Murmur, Irregularly Irregular Gastrointestinal: soft, tenderness (mild ttp, no rebound or gaurding), other (incision appears clean, dry and intact.) Assessment/Plan Assessment/Plan Assessment/Plan Pod#5 Colonic resection with primary anastomosis UTI scrotal, left buttock, left gluteal cleft - wound team following HTN A-Fib aortic aneurysms Osteoarthiritis chronic urinary incontinence Advance to soft diet, continue IVF TKO at least, continue PT/OT, continue pain control, continue zosyn. Encourage patient to use his IS. Supervisory-Addendum Brief Verification & Attestation Participated in pt care: history, MDM, physical Personally performed: exam, history, MDM, supervision of care Care discussed with: Medical Student Procedures: n/a Verification and Attestation of Medical Student E/M Service A medical student performed and documented this service. I then reviewed and verified all information documented by the medical student and made modifications to such information, when appropriate. I personally performed a physical exam, medical decision making and then discussed any differences between the notes and made revisions as necessary to create one note. Kahlil Leonardo , 03/05/21 , 13:46 SHAUN EDMONDS MED STUDENT Mar 05, 2021 07:38 KAHLIL LEONARDO DO Mar 05, 2021 13:46
[2021-03-05] MEDS: LACTOBACILLUS ACIDOPHILUS (PROBIOTIC) CAPSULE PO SCH ×3 (09:33→18:37)
[2021-03-05] MEDS: PANTOPRAZOLE 40 MG (PROTONIX) VIAL IV SCH (09:33)
--- NOTE | 2021-03-05 09:53 | Physical Therapy Daily Note ---
PT Daily Note-Current Subjective Patient feeling much better on this date. Agrees to PT. Mental Status Patient Orientation: Normal For Age Attachments: Herman Catheter, IV Transfers SCALE: Activities may be completed with or without assistive devices. 9-Xiorhvfocc-wxoxfej completes the activity by him/herself with no assistance from a helper. 5-Set-up or Clean-up Assistance-helper sets up or cleans up; patient completes activity. [place] assists only prior to or following the activity. 4-Supervision or Touching Assistance-helper provides verbal cues and/or touching/steadying and/or contact guard assistance as patient completes activ ity. Assistance may be provided throughout the activity or intermittently. 3-Partial/Moderate Assistance-helper does LESS THAN HALF the effort. [place] lifts, holds or supports trunk or limbs, but provides less than half the effort. 2-Substantial/Maximal Assistance-helper does MORE THAN HALF the effort. [place] lifts or holds trunk or limbs and provides more than half the effort. 1-Sjgufzqih-xqtuqt does ALL the effort. Patient does none of the effort to complete the activity. Or, the assistance of 2 or more helpers is required for the patient to complete the activity. If activity was not attempted, code reason: 7-Patient Refused. 9-Not Applicable-not attempted and the patient did not perform the activity before the current illness, exacerbation or injury. 10-Not Attempted due to Environmental Limitations-(lack of equipment, weather restraints, etc.). 88-Not Attempted due to Medical Conditions or Safety Concerns. Lying to Sitting/Side of Bed(Q: 2 Sit to Stand (QC): 2 Chair/Izc-eo-Ssiss Xfer(QC): 2 Gait Training Distance: 5 steps Gait Assistive Device: FWW max assist to maintain standing in FWW to advance LE's (shuffle gait) Exercises Seated Therapy Exercises: Long arc quads Seated Reps: 15 Standing: Sit to Stand (x 4 sets) diplomatic officer notified of abdominal incision site "leaking". Patient up in recliner with needs met. Increase activity as tolerated by patient. PT Short Term Goals Short Term Goals Time Frame: Mar 14, 2021 Roll Left & Right: 4 Sit to lyin Lying to sitting on side of be: 4 Sit to stand: 4 Chair/gki-lf-vvsgx transfer: 4 Toilet transfer: 4 Walk 10 feet: 3 Walk 50 feet with two turns: 3 PT Photogeologist Goals Photogeologist Goals PT Custodial Goals Time Frame: Mar 28, 2021 Roll Left & Right (QC): 5 Sit to Lying (QC): 5 Lying-Sitting on Side/Bed(QC): 5 Sit to Stand (QC): 5 Chair/Mmt-ov-Unxyq Xfer(QC): 5 Toilet Transfer (QC): 5 Car Transfer (QC): 4 Does the Patient Walk: Yes Walk 10 feet (QC): 5 Walk 50ft with 2 Turns (QC): 5 Walk 150 ft (QC): 4 PT Plan Treatment/Plan Treatment Plan: Continue Plan of Care Treatment Plan: Bed Mobility, Education, Functional Activity Norma, Functional Strength, Gait, Safety, Therapeutic Exercise, Transfers Treatment Duration: May 02, 2021 Frequency: 6 times per week Estimated Hrs Per Day: .25 hour per day Patient and/or Family Agrees t: Yes Time/GCodes Time In: 911 Time Out: 934 Total Billed Treatment Time: 23 Total Billed Treatment 1 visit FA x 2 23 min SVITLANA SANCHEZ PT Mar 05, 2021 09:53
--- NOTE | 2021-03-05 11:03 | Progress Note - Hospitalist ---
TONEYCOTY 03/05/21 1103: Subjective HPI/CC On Admission Date Seen by Provider: Mar 05, 2021 Time Seen by Provider: 07:26 Subjective/Events-last exam Pt is 4 days S/P hemicolectomy and states that he continues to feel better. Resting comfortably in bed and notes mild RLQ pain with palpation and mild incisional pain PT is requesting advance to soft foods diet. Review of Systems General: No Chills, No Night Sweats, No Malaise; Appetite HEENT: No Head Aches, No Visual Changes, No Dysphasia, No Sore Throat Pulmonary: No Dyspnea, No Cough, No Pleuritic Chest Pain Cardiovascular: No: Chest Pain, Palpitations, Lt Headedness Gastrointestinal: Abdominal Pain; No: Nausea, Vomiting, Diarrhea, Constipation, Melena Genitourinary: No Dysuria, No Frequency, No Incontinence, No Hematuria Musculoskeletal: No: neck pain, shoulder pain, arm pain, back pain, leg pain Neurological: No: Numbness, Incoordination, Change in speech, Confusion Focused Exam Time of Focused Exam: 19:50 Objective Exam Vital Signs Vital Signs Date Time Temp Pulse Resp B/P (MAP) Pulse Ox O2 Delivery O2 Flow Rate FiO2 03/06/21 08:00 Room Air 03/06/21 08:00 35.9 83 19 127/79 93 03/01/21 04:00 3.00 Capillary Refill : Less Than 3 SecondsLess Than 3 Seconds General Appearance: No Apparent Distress, WD/WN HEENT: PERRL/EOMI, Pharynx Normal, Moist Mucous Membranes Neck: Full Range of Motion, Non Tender, Supple Respiratory: Chest Non Tender, Lungs Clear, Normal Breath Sounds, No Accessory Muscle Use, No Respiratory Distress Cardiovascular: Regular Rate, Rhythm, Normal Peripheral Pulses Gastrointestinal: Normal Bowel Sounds, No Pulsatile Mass, Soft, Other (midline inscision - free of erythema, some serous sanguinus discharge) Rectal: Deferred Back: No CVA Tenderness, No Vertebral Tenderness Extremity: Normal Capillary Refill, Normal Range of Motion, No Calf Tenderness, Pedal Edema (2+) Neurologic/Psychiatric: Alert, Oriented x3, Normal Mood/Affect, 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 Assessment/Plan Assessment and Plan Assess & Plan/Chief Complaint Assessment: Ruptured intestine Chronic atrial fibrillation Hypertension Severe debility BPH Plan: Supportive care Appreciate surgery Monitor labs 03/04/2021: Pain control PT and OT 03/05/21: Continue Pain control, PT and OT Advance diet to soft foods as tolerated MONSERRAT RANDOLPH DO 03/07/21 0512: Subjective Subjective/Events-last exam Patient doing much better Denies any new issues PT and OT will be ordered Needs [facility] Review of Systems General: Fatigue, Malaise Gastrointestinal: Abdominal Pain Objective Exam General Appearance: No Apparent Distress, WD/WN, Chronically ill Respiratory: Lungs Clear, Normal Breath Sounds Cardiovascular: Regular Rate, Rhythm Neurologic/Psychiatric: Alert, Oriented x3 Assessment/Plan Assessment and Plan Assess & Plan/Chief Complaint 03/06/21: Advance diet Monitor closely PT OT NHP Supervisory-Addendum Brief Verification & Attestation Participated in pt care: history, MDM, physical Personally performed: exam, history, MDM, supervision of care Care discussed with: Medical Student Procedures: n/a Results interpretation: Verified all documentation Verification and Attestation of Medical Student E/M Service A medical student performed and documented this service in my presence. I reviewed and verified all information documented by the medical student and made modifications to such information, when appropriate. I personally performed the physical exam and medical decision making. Monserrat Ranodlph, Mar 07, 2021,05:11 COTY ZIEGLER Mar 05, 2021 11:03 MONSERRAT RANDOLPH DO Mar 07, 2021 05:12
--- NOTE | 2021-03-05 11:52 | Occupational Therapy Eval ---
OT Evaluation-General/PLF Medical Diagnosis Admission Date Feb 28, 2021 at 03:00 Medical Diagnosis: Abdominal pain, pneumoparietoneium Onset Date: Feb 27, 2021 Therapy Diagnosis Therapy Diagnosis: decreased ADL status Precautions Precautions/Isolations: Fall Prevention, Standard Precautions Referral Physician: Jovana Landeros Reason: Evaluation/Treatment Medical History Pertinent Medical History: Atrial Fib, CAD, HTN, MT Additional Medical History ED due to abdominal pain. 02/28/21 Diagnostic laparoscopy changed to laparotomy with colon resection and primary colocolonic anastomosis. Current History sigmoid volvulus s/p colon resection, afib, CAD, HTN, MT Social History Home: Single Level Current Living Status: Spouse Entry Into Home: Ramp Steps Into Home: 2 ADL-Prior Level of Function SCALE: Activities may be completed with or without assistive devices. 9-Yexqzalkaz-thzhhho completes the activity by him/herself with no assistance from a helper. 5-Set-up or Clean-up Assistance-helper sets up or cleans up; patient completes activity. [place] assists only prior to or following the activity. 4-Supervision or Touching Assistance-helper provides verbal cues and/or touching/steadying and/or contact guard assistance as patient completes activity. Assistance may be provided throughout the activity or intermittently. 3-Partial/Moderate Assistance-helper does LESS THAN HALF the effort. [place] lifts, holds or supports trunk or limbs, but provides less than half the effort. 2-Substantial/Maximal Assistance-helper does MORE THAN HALF the effort. [place] lifts or holds trunk or limbs and provides more than half the effort. 3-Iilcghslh-kjcrzz does ALL the effort. Patient does none of the effort to complete the activity. Or, the assistance of 2 or more helpers is required for the patient to complete the activity. If activity was not attempted, code reason: 7-Patient Refused. 9-Not Applicable-not attempted and the patient did not perform the activity before the current illness, exacerbation or injury. 10-Not Attempted due to Environmental Limitations-(lack of equipment, weather restraints, etc.). 88-Not Attempted due to Medical Conditions or Safety Concerns. ADL PLOF Comments Pt reports being IND with ADLs and functional mobility at PLOF, using 4WW. Pt has a tub/shower with an extended cut out bath bench. Pt able to wash/dry all pa rts seated on bath bench. He typically wears a condom catheter, able to manage independently. Self Care: Independent Functional Cognition: Independent DME/Equipment: Bath Bench, Grab Bars, Tub/Shower DME/Equipment Comments 4WW OT Current Status Subjective Pt up in recliner, agreeable to OT evaluation/tx. Pt telling stories throughout tx, requiring redirection to task. Mental Status/Objective Patient Orientation: Person, Place, Situation Attachments: Herman Catheter, IV Current Dentures/Partials: Yes Hand Dominance: Right Upper Extremity ROM WFL, BUE shoulder flexion to approx 150 degrees Upper Extremity Coordination WFL Upper Extremity Strength grossly 3+/5 ADL-Treatment Eating (QC): 6 (IND with clear liquid diet) Oral Hygiene (QC): 5 (set up with dentures) Toileting Hygiene (QC): 1 (catheter) Other Treatments Pt up in recliner, OT educated pt on purpose and benefit of OT. Pt provided information about PLOF and home set up, and participated in UE Screen. Pt distracted with stories, requiring redirection to task/questions throughout tx. Pt combed hair and washed face with set up assistance. He opened denture tablet and placed into container with set up. OT provided pt with toothbrush, he proceeds to say that he needs a denture brush to get into the grooves. OT informed pt that a denture brush was not available but his could bring him one. Pt's then calls, post tx pt on phone with , call light in reach and all needs met. Per PT note, pt currently requires max A with lying<- >sitting, sit <-> stand and bed <-> chair transfers. Education OT Patient Education: Correct positioning, Energy conservation, Modified ADL techniques, Progress toward Goal/Update tx plan, Purpose of tx/functional activities Teaching Recipient: Patient Teaching Methods: Discussion Response to Teaching: Verbalize Understanding OT Information Systems Auditor Goals Information Systems Auditor Goals Time Frame: Mar 16, 2021 Eating (QC): 6 Oral Hygiene (QC): 5 Toileting Hygiene (QC): 4 Shower/Bathe Self (QC): 4 Upper Body Dressing (QC): 5 Lower Body Dressing (QC): 4 On/Off Footwear (QC): 4 Additional Goals: 1-Demonstrate ADL Tasks, 2-Verbalize Understanding, 3- ImproveStrength/Norma 1=Demonstrate adherence to instructed precautions during ADL tasks. 2=Patient will verbalize/demonstrate understanding of assistive devices/modifications for ADL. 3=Patient will improve strength/tolerance for activity to enable patient to perform ADL's. OT Education/Plan Problem List/Assessment Assessment: Decreased Activ Tolerance, Decreased UE Strength, Impaired Funct Balance, Impaired I ADL's, Impaired Self-Care Skills Discharge Recommendations Plan/Recommendations: Continue POC Treatment Plan/Plan of Care Patient would benefit from OT for education, treatment and training to promote independence in ADL's, mobility, safety and/or upper extremity function for ADL's. Plan of Care: ADL Retraining, Functional Mobility, UE Funct Exercise/Act Treatment Duration: Mar 16, 2021 Frequency: 5 times per week Estimated Hrs Per Day: .25 hour per day Rehab Potential: Fair Time/GCodes Start Time: 10:48 Stop Time: 11:07 Total Time Billed (hr/min): 19 Billed Treatment Time 1, SUZY MELENDEZ OT Mar 05, 2021 11:52
[2021-03-05] MEDS: ENOXAPARIN 40 MG/0.4 ML (LOVENOX) SYR SQ SCH (18:37)
[2021-03-06] MEDS: KETOROLAC 30 MG/ML VIAL IVP SCH ×4 (03:29→20:18)
[2021-03-06] MEDS: BACLOFEN 10 MG (LIORESAL) TAB PO SCH ×6 (03:31→23:36)
[2021-03-06 05:49] LABS: BASOPHILS # (AUTO) 0.1 10^3/uL (0.0-0.1); BASOPHILS % (AUTO) 0 % (0-10); EOSINOPHILS # (AUTO) 0.6 10^3/uL (0.0-0.3); EOSINOPHILS % (AUTO) 4 % (0-10); HEMATOCRIT 32 % (40-54); HEMOGLOBIN 10.9 g/dL (13.3-17.7); LYMPHOCYTES # (AUTO) 1.5 10^3/uL (1.0-4.0); LYMPHOCYTES % (AUTO) 10 % (12-44); MEAN CORPUSCULAR HEMOGLOBIN 29 pg (25-34); MEAN CORPUSCULAR HGB CONC 34 g/dL (32-36); MEAN CORPUSCULAR VOLUME 85 fL (80-99); MEAN PLATELET VOLUME 9.6 fL (9.0-12.2); MONOCYTES # (AUTO) 0.6 10^3/uL (0.0-1.0); MONOCYTES % (AUTO) 4 % (0-12); NEUTROPHILS # (AUTO) 11.5 10^3/uL (1.8-7.8); NEUTROPHILS % (AUTO) 80 % (42-75); PLATELET COUNT 342 10^3/uL (130-400); WHITE BLOOD COUNT 14.4 10^3/uL (4.3-11.0)
[2021-03-06] MEDS: ACETAMINOPHEN 500 MG TAB (TYLENOL) PO SCH ×3 (06:00→23:34)
[2021-03-06 06:13] LABS: ALANINE AMINOTRANSFERASE < 6 U/L (0-55); ALBUMIN 2.3 GM/DL (3.2-4.5); ALKALINE PHOSPHATASE 46 U/L (40-136); BILIRUBIN,TOTAL 0.5 MG/DL (0.1-1.0); BUN/CREATININE RATIO 19; CALCIUM 7.9 MG/DL (8.5-10.1); CARBON DIOXIDE 20 MMOL/L (21-32); CHLORIDE 105 MMOL/L (98-107); CREATININE SERUM 0.69 MG/DL (0.60-1.30); GFR ESTIMATED 113; GLUCOSE 119 MG/DL (70-105); MAGNESIUM 1.7 MG/DL (1.6-2.4); PHOSPHORUS 2.3 MG/DL (2.3-4.7); POTASSIUM 3.8 MMOL/L (3.6-5.0); SODIUM 133 MMOL/L (135-145); TOTAL PROTEIN 5.1 GM/DL (6.4-8.2)
[2021-03-06] MEDS: POTASSIUM CL 10MEQ/50ML IVPB 50 ML IV SCH (06:19)
[2021-03-06] MEDS: KCL 20 MEQ TAB (K-DUR) PO SCH (06:19)
[2021-03-06] MEDS: MAGNESIUM 1 GM/100 ML IVPB 100 ML IV SCH ×3 (06:21→07:45)
--- NOTE | 2021-03-06 07:53 | Progress Note - Hospitalist ---
COTY ZIEGLER 03/06/21 0753: Subjective HPI/CC On Admission Date Seen by Provider: Mar 06, 2021 Time Seen by Provider: 08:26 Subjective/Events-last exam Pt resting comfortably in bed and was just finishing breakfast. He is tolerating his soft foods diet well and reports a bowel movement last night. He does not report any abdominal pain, however his midline incision continues to drain serous sanguineous fluid. Pt is in good spirits, participates in PT and is looking forward to discharge. Review of Systems General: No Chills, No Night Sweats, No Fatigue, No Malaise; Appetite HEENT: No Head Aches, No Visual Changes, No Ear Pain, No Dysphasia Pulmonary: No Dyspnea, No Cough, No Pleuritic Chest Pain Cardiovascular: No: Chest Pain, Palpitations, Orthopnea, Lt Headedness Gastrointestinal: No: Nausea, Vomiting, Abdominal Pain, Diarrhea, Constipation, Melena Genitourinary: No Dysuria, No Frequency, No Incontinence, No Hematuria Musculoskeletal: No: neck pain, shoulder pain, arm pain, back pain, leg pain Neurological: No: Weakness, Numbness, Change in speech, Confusion Focused Exam Time of Focused Exam: 19:50 Objective Exam Vital Signs Vital Signs Date Time Temp Pulse Resp B/P (MAP) Pulse Ox O2 Delivery O2 Flow Rate FiO2 03/06/21 08:00 Room Air 03/06/21 08:00 35.9 83 19 127/79 93 03/01/21 04:00 3.00 Capillary Refill : Less Than 3 SecondsLess Than 3 Seconds General Appearance: No Apparent Distress, WD/WN HEENT: PERRL/EOMI, Pharynx Normal Neck: Full Range of Motion, Non Tender, Supple Respiratory: Chest Non Tender, Lungs Clear, Normal Breath Sounds, No Respiratory Distress Cardiovascular: Regular Rate, Rhythm, Normal Peripheral Pulses Gastrointestinal: Normal Bowel Sounds, No Organomegaly, No Pulsatile Mass, Non Tender, Soft Rectal: Deferred Back: No CVA Tenderness, No Vertebral Tenderness Extremity: Normal Capillary Refill, Normal Range of Motion, Non Tender, No Calf Tenderness Neurologic/Psychiatric: Alert, Oriented x3, No Motor/Sensory Deficits, Normal 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 Assessment/Plan Assessment and Plan Assess & Plan/Chief Complaint Assessment: Ruptured intestine Chronic atrial fibrillation Hypertension Severe debility BPH Plan: Supportive care Appreciate surgery Monitor labs 03/04/2021: Pain control PT and OT 03/05/2021: Continue Pain control, PT and OT Advance diet to soft foods as tolerated 03/06/2021: Continue Pain control, TP and OT Continue soft diet and monitor for bowel changes Monitor incisional drainage MONSERRAT RANDOLPH DO 03/07/21 0521: Subjective Subjective/Events-last exam Patient in a good mood Labs reviewed Check meds and labs Review of Systems General: Fatigue, Malaise Objective Exam General Appearance: No Apparent Distress, WD/WN, Chronically ill Respiratory: Lungs Clear, Normal Breath Sounds Cardiovascular: Regular Rate, Rhythm Neurologic/Psychiatric: Alert, Oriented x3, No Motor/Sensory Deficits, Normal Mood/Affect Assessment/Plan Assessment and Plan Assess & Plan/Chief Complaint PT and OT FDC discharge Supervisory-Addendum Brief Verification & Attestation Participated in pt care: history, MDM, physical Personally performed: exam, history, MDM, supervision of care Care discussed with: Medical Student Procedures: n/a Results interpretation: Verified all documentation Verification and Attestation of Medical Student E/M Service A medical student performed and documented this service in my presence. I reviewed and verified all information documented by the medical student and made modifications to such information, when appropriate. I personally performed the physical exam and medical decision making. Monserrat Randolph Mar 07, 2021,05:20 COTY ZIEGLER Mar 06, 2021 07:53 MONSERRAT RANDOLPH DO Mar 07, 2021 05:21
--- NOTE | 2021-03-06 08:54 | Progress Note - Surgery ---
SHAUN EDMONDS MED STUDENT 03/06/21 0854: Subjective Date Seen by a Provider: Mar 06, 2021 Time Seen by a Provider: 07:00 Subjective/Events-last exam Patient is seen at beside. He has minimal abdominal pain around the incision. He is tolerating his diet with no n/v. He is passing gas, and reports a bowel movement when they got him up yesterday to the chair, he does report there was some blood in the initial stool, but when he got up from the chair there was just brown markings. He did stand up with PT yesterday, but reports he only pivoted with there help. He feels well overall and is producing urine appropriately, but would like the indwelling catheter to remain until going back to [facility]. Review of Systems General: No Chills, No Night Sweats HEENT: No Dysphasia, No Sinus Congestion Pulmonary: No Dyspnea, No Cough Cardiovascular: Palpitations; No: Chest Pain Gastrointestinal: Abdominal Pain; No: Nausea, Vomiting Genitourinary: No Hematuria; Other (Cather in place) Neurological: Weakness; No: Numbness, Change in speech Focused Exam Time of Focused Exam: 19:50 Objective Exam Vital Signs Date Time Temp Pulse Resp B/P (MAP) Pulse Ox O2 Delivery O2 Flow Rate FiO2 03/06/21 08:00 35.9 83 19 127/79 93 Room Air 03/05/21 23:35 36.9 69 20 122/63 93 Room Air 03/05/21 19:30 Room Air 03/05/21 16:00 36.7 89 20 139/70 95 Room Air I & O 03/06/21 07:00 Intake Total 5910 ml Output Total 1675 ml Balance 4235 ml Capillary Refill : Less Than 3 SecondsLess Than 3 Seconds General Appearance: No Apparent Distress, WD/WN HEENT: Moist Mucous Membranes Neck: Full Range of Motion, Non Tender, Supple Respiratory: Chest Non Tender, Lungs Clear, Normal Breath Sounds, No Accessory Muscle Use, No Respiratory Distress Cardiovascular: No Murmur, Irregularly Irregular Peripheral Pulses: 1+ Radial Pulses (R), 1+ Radial Pulses (L) Gastrointestinal: soft, tenderness (mild ttp, no rebound or gaurding), other (incision appears clean, dry and intact.) Extremity: Normal Capillary Refill, Normal Range of Motion, No Calf Tenderness Neurologic/Psychiatric: Alert, Oriented x3, Normal Mood/Affect Skin: Normal Color, Warm/Dry Lymphatic: No Adenopathy Results Lab Laboratory Tests 03/06/21 05:36: White Blood Count 14.4H, Red Blood Count 3.79L, Hemoglobin 10.9L, Hematocrit 32L , Mean Corpuscular Volume 85, Mean Corpuscular Hemoglobin 29, Mean Corpuscular Hemoglobin Concent 34, Red Cell Distribution Width 15.4H, Platelet Count 342, Mean Platelet Volume 9.6, Immature Granulocyte % (Auto) 1, Neutrophils (%) (Auto) 80H, Lymphocytes (%) (Auto) 10L, Monocytes (%) (Auto) 4, Eosinophils (%) (Auto) 4, Basophils (%) (Auto) 0, Neutrophils # (Auto) 11.5H, Lymphocytes # (Auto) 1.5, Monocytes # (Auto) 0.6, Eosinophils # (Auto) 0.6H, Basophils # (Auto) 0.1, Immature Granulocyte # (Auto) 0.2H, Sodium Level 133L, Potassium Level 3.8, Chloride Level 105, Carbon Dioxide Level 20L, Anion Gap 8, Blood Urea Nitrogen 13, Creatinine 0.69, Estimat Glomerular Filtration Rate 113, BUN/Creatinine Ratio 19, Glucose Level 119H, Calcium Level 7.9L, Corrected Calcium 9.3, Phosphorus Level 2.3, Magnesium Level 1.7, Total Bilirubin 0.5, Aspartate Amino Transf (AST/SGOT) 12, Alanine Aminotransferase (ALT/SGPT) < 6, Alkaline Phosphatase 46, Total Protein 5.1L, Albumin 2.3L Microbiology 02/28/21 MRSA Screen - Final, Complete MRSA not isolated 02/27/21 Blood Culture - Final, Complete No growth 02/27/21 Urine Culture - Final, Complete Providencia stuartii Assessment/Plan Assessment/Plan Assessment/Plan Pod#6 Colonic resection with primary anastomosis UTI scrotal, left buttock, left gluteal cleft - wound team following HTN A-Fib aortic aneurysms Osteoarthiritis chronic urinary incontinence Continue soft diet, discontinue, continue PT/OT, continue pain control, . Enco urage patient to use his IS. Patient is tolerating his diet and is having return of his bowel function. He has significant weakness. 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 JESSE LEONARDO DO 03/06/21 1329: Subjective Time Seen by a Provider: 11:42 Subjective/Events-last exam Pt seen and examined, states he is eating more and denied N/V. He is asking for solid food. Pain is minimal. Nurse and pt report some drainage from incision, "every time I get up or move around". Review of Systems General: No Chills, No Night Sweats; Fatigue Pulmonary: No Dyspnea, No Cough Cardiovascular: Palpitations; No: Chest Pain Gastrointestinal: Abdominal Pain; No: Nausea, Vomiting Objective Exam General Appearance: No Apparent Distress, WD/WN HEENT: Moist Mucous Membranes Respiratory: Lungs Clear, Normal Breath Sounds, No Accessory Muscle Use, No Respiratory Distress Cardiovascular: No Murmur, Irregularly Irregular Gastrointestinal: soft, tenderness (mild ttp, no rebound or gaurding), other (incision appears clean, dry and intact. no erythema, able to express some fluid but do not feel fluctuance or collection) Assessment/Plan Assessment/Plan Assessment/Plan Pod#6 Colonic resection with primary anastomosis chronic urinary incontinence Increase to regular diet, continue PT/OT, continue pain control, . Encourage patient to use his IS. Patient is tolerating his diet and is having return of his bowel function. He has significant weakness. From a surgical standpoint he is okay to get back to [facility] [place]. Will try and get Prevena VAC to suction up fluid drainage, will not remove any padmini. Supervisory-Addendum Brief Verification & Attestation Participated in pt care: history, MDM, physical Personally performed: exam, history, MDM, supervision of care Care discussed with: Medical Student Procedures: n/a Verification and Attestation of Medical Student E/M Service A medical student performed and documented this service. I then reviewed and verified all information documented by the medical student and made modifications to such information, when appropriate. I personally performed a physical exam, medical decision making and then discussed any differences between the notes and made revisions as necessary to create one note. Jesse Leonardo , 03/06/21 , 13:29 SHAUN EDMONDS MED STUDENT Mar 06, 2021 08:54 JESSE LEONARDO DO Mar 06, 2021 13:29
[2021-03-06] MEDS: LACTOBACILLUS ACIDOPHILUS (PROBIOTIC) CAPSULE PO SCH ×3 (09:40→18:08)
[2021-03-06] MEDS: PANTOPRAZOLE 40 MG (PROTONIX) VIAL IV SCH (09:40)
--- NOTE | 2021-03-06 10:06 | Physical Therapy Daily Note ---
PT Daily Note-Current Subjective Patient agrees to PT. Physician in room upon entry stating he had pushed abdomen/incision area and drained fluid. Mental Status Patient Orientation: Normal For Age Attachments: Herman Catheter Transfers SCALE: Activities may be completed with or without assistive devices. 2-Heugldmfrg-qfvtsqx completes the activity by him/herself with no assistance from a helper. 5-Set-up or Clean-up Assistance-helper sets up or cleans up; patient completes activity. [place] assists only prior to or following the activity. 4-Supervision or Touching Assistance-helper provides verbal cues and/or touching/steadying and/or contact guard assistance as patient completes activity. Assistance may be provided throughout the activity or intermittently. 3-Partial/Moderate Assistance-helper does LESS THAN HALF the effort. [place] lifts, holds or supports trunk or limbs, but provides less than half the effort. 2-Substantial/Maximal Assistance-helper does MORE THAN HALF the effort. [place] lifts or holds trunk or limbs and provides more than half the effort. 5-Kzopgrskh-gcgkgn does ALL the effort. Patient does none of the effort to complete the activity. Or, the assistance of 2 or more helpers is required for the patient to complete the activity. If activity was not attempted, code reason: 7-Patient Refused. 9-Not Applicable-not attempted and the patient did not perform the activity before the current illness, exacerbation or injury. 10-Not Attempted due to Environmental Limitations-(lack of equipment, weather restraints, etc.). 88-Not Attempted due to Medical Conditions or Safety Concerns. Lying to Sitting/Side of Bed(Q: 2 Sit to Stand (QC): 2 Chair/Oro-yi-Rbuma Xfer(QC): 2 Gait Training Distance: 5' Gait Persons Needed: 2 (for safety) Gait Assistive Device: FWW flexed knee and trunk posture/very very slow mobility with not foot clearance Treatments Patient incision drained profusely requiring dependent assist to cleanse and change. RN notified of drainage. PT placed abd pad on patient's incision to absorb drainage. Assessment Patient up in recliner with needs met. Increase activity as tolerated by patient. PT Short Term Goals Short Term Goals Time Frame: Mar 14, 2021 Roll Left & Right: 4 Sit to lyin Lying to sitting on side of be: 4 Sit to stand: 4 Chair/sar-re-ixduy transfer: 4 Toilet transfer: 4 Walk 10 feet: 3 Walk 50 feet with two turns: 3 PT Longterm Goals Longterm Goals PT Longterm Goals Time Frame: Mar 28, 2021 Roll Left & Right (QC): 5 Sit to Lying (QC): 5 Lying-Sitting on Side/Bed(QC): 5 Sit to Stand (QC): 5 Chair/Mic-fk-Eaqpg Xfer(QC): 5 Toilet Transfer (QC): 5 Car Transfer (QC): 4 Does the Patient Walk: Yes Walk 10 feet (QC): 5 Walk 50ft with 2 Turns (QC): 5 Walk 150 ft (QC): 4 PT Plan Treatment/Plan Treatment Plan: Continue Plan of Care Treatment Plan: Bed Mobility, Education, Functional Activity Norma, Functional Strength, Gait, Safety, Therapeutic Exercise, Transfers Treatment Duration: May 02, 2021 Frequency: 6 times per week Estimated Hrs Per Day: .25 hour per day Patient and/or Family Agrees t: Yes Time/GCodes Time In: 834 Time Out: 857 Total Billed Treatment Time: 23 Total Billed Treatment 1 visit FA x 2 23 min SVITLANA SANCHEZ PT Mar 06, 2021 10:06
--- NOTE | 2021-03-06 11:55 | Occupational Ther Daily Note ---
OT Current Status-Daily Note Subjective Pt was seated in chair w/ legs elevated upon OT arrival. Pt stated he would participate while seated in chair for tx session on this date. Mental Status/Objective Patient Orientation: Person, Place, Situation Attachments: Herman Catheter, IV, Oxygen ADL-Treatment Therapy Code Descriptions/Definitions Functional [place] Measure: 0=Not Assessed/NA 4=Minimal Assistance 1=Total Assistance 5=Supervision or Setup 2=Maximal Assistance 6=Modified [place] 3=Moderate Assistance 7=Complete IndependenceSCALE: Activities may be completed with or without assistive devices. 7-Amqeawmnqe-fdcbypk completes the activity by him/herself with no assistance fr om a helper. 5-Set-up or Clean-up Assistance-helper sets up or cleans up; patient completes activity. [place] assists only prior to or following the activity. 4-Supervision or Touching Assistance-helper provides verbal cues and/or touching/steadying and/or contact guard assistance as patient completes activity. Assistance may be provided throughout the activity or intermittently. 3-Partial/Moderate Assistance-helper does LESS THAN HALF the effort. [place] lifts, holds or supports trunk or limbs, but provides less than half the effort. 2-Substantial/Maximal Assistance-helper does MORE THAN HALF the effort. [place] lifts or holds trunk or limbs and provides more than half the effort. 7-Xoaqtwofo-syvzpo does ALL the effort. Patient does none of the effort to complete the activity. Or, the assistance of 2 or more helpers is required for the patient to complete the activity. If activity was not attempted, code reason: 7-Patient Refused. 9-Not Applicable-not attempted and the patient did not perform the activity before the current illness, exacerbation or injury. 10-Not Attempted due to Environmental Limitations-(lack of equipment, weather restraints, etc.). 88-Not Attempted due to Medical Conditions or Safety Concerns. Other Treatment Pt was seated in chair w/ legs elevated upon OT arrival. Pt stated he would participate while seated in chair for tx session on this date. Pt performed theraband BUE exercises, medium resistance, x 15 reps, rest breaks between each rep, to support ROM, strength, and endurance for ADL's in the following: shoulder abduction, shoulder external rotation, shoulder horizontal abduction, elbow flexion, and elbow extension. Post tx session, pt seated in chair, legs elevated, call light within reach, and all needs met. Education OT Patient Education: Correct positioning, Exercise program, Home exercise program, Progress toward Goal/Update tx plan, Purpose of tx/functional activities Teaching Recipient: Patient Teaching Methods: Demonstration Response to Teaching: Return Demonstration OT Sanitation Truck Driver Goals Senior Care Goals Time Frame: Mar 16, 2021 Eating (QC): 6 Oral Hygiene (QC): 5 Toileting Hygiene (QC): 4 Shower/Bathe Self (QC): 4 Upper Body Dressing (QC): 5 Lower Body Dressing (QC): 4 On/Off Footwear (QC): 4 Additional Goals: 1-Demonstrate ADL Tasks, 2-Verbalize Understanding, 3- ImproveStrength/Norma 1=Demonstrate adherence to instructed precautions during ADL tasks. 2=Patient will verbalize/demonstrate understanding of assistive devices/modifications for ADL. 3=Patient will improve strength/tolerance for activity to enable patient to perform ADL's. OT Education/Plan Problem List/Assessment Assessment: Decreased Activ Tolerance, Decreased Safety Aware, Decreased UE Strength, Impaired I ADL's, Impaired Self-Care Skills Discharge Recommendations Plan/Recommendations: Continue POC Treatment Plan/Plan of Care Patient would benefit from OT for education, treatment and training to promote independence in ADL's, mobility, safety and/or upper extremity function for ADL's. Plan of Care: ADL Retraining, Functional Mobility, UE Funct Exercise/Act Treatment Duration: Mar 16, 2021 Frequency: 5 times per week Estimated Hrs Per Day: .25 hour per day Rehab Potential: Fair Time/GCodes Start Time: 11:15 Stop Time: 11:26 Total Time Billed (hr/min): 11 Billed Treatment Time 1 Visit, EX SUZY BYRNE OT Mar 06, 2021 11:55
[2021-03-06] MEDS: ENOXAPARIN 40 MG/0.4 ML (LOVENOX) SYR SQ SCH (15:57)
[2021-03-07] MEDS: KETOROLAC 30 MG/ML VIAL IVP SCH ×2 (03:26→09:17)
[2021-03-07] MEDS: BACLOFEN 10 MG (LIORESAL) TAB PO SCH ×6 (04:29→23:03)
[2021-03-07 05:56] LABS: BASOPHILS % (AUTO) 0 % (0-10); EOSINOPHILS # (AUTO) 0.5 10^3/uL (0.0-0.3); EOSINOPHILS % (AUTO) 4 % (0-10); HEMATOCRIT 32 % (40-54); HEMOGLOBIN 10.8 g/dL (13.3-17.7); LYMPHOCYTES # (AUTO) 1.9 10^3/uL (1.0-4.0); LYMPHOCYTES % (AUTO) 13 % (12-44); MEAN CORPUSCULAR HEMOGLOBIN 29 pg (25-34); MEAN CORPUSCULAR HGB CONC 34 g/dL (32-36); MEAN CORPUSCULAR VOLUME 86 fL (80-99); MEAN PLATELET VOLUME 9.5 fL (9.0-12.2); MONOCYTES # (AUTO) 0.6 10^3/uL (0.0-1.0); MONOCYTES % (AUTO) 4 % (0-12); NEUTROPHILS # (AUTO) 11.2 10^3/uL (1.8-7.8); NEUTROPHILS % (AUTO) 78 % (42-75); PLATELET COUNT 353 10^3/uL (130-400); WHITE BLOOD COUNT 14.4 10^3/uL (4.3-11.0)
[2021-03-07 06:15] LABS: ANISOCYTOSIS SLIGHT; EOSINOPHILS % (MANUAL) 4 %; HYPOCHROMASIA SLIGHT; LYMPHOCYTES % (MANUAL) 10 %; MONOCYTES % (MANUAL) 3 %; NEUTROPHILS % (MANUAL) 83 %; POIKILOCYTOSIS SLIGHT; POLYCHROMASIA SLIGHT
[2021-03-07 06:19] LABS: ALBUMIN 2.3 GM/DL (3.2-4.5); BILIRUBIN,TOTAL 0.6 MG/DL (0.1-1.0); CALCIUM 8.1 MG/DL (8.5-10.1); CREATININE SERUM 0.8 MG/DL (0.60-1.30); PHOSPHORUS 2.5 MG/DL (2.3-4.7); POTASSIUM 3.9 MMOL/L (3.6-5.0); TOTAL PROTEIN 5.6 GM/DL (6.4-8.2)
[2021-03-07] MEDS: MAGNESIUM 1 GM/100 ML IVPB 100 ML IV SCH (06:24)
[2021-03-07] MEDS: KCL 20 MEQ TAB (K-DUR) PO SCH (06:24)
[2021-03-07] MEDS: POTASSIUM CL 10MEQ/50ML IVPB 50 ML IV SCH (06:24)
[2021-03-07] MEDS: ACETAMINOPHEN 500 MG TAB (TYLENOL) PO SCH ×3 (06:27→23:03)
--- NOTE | 2021-03-07 07:58 | Progress Note - Surgery ---
JACOBYKIERRA 03/07/21 0757: Subjective Date Seen by a Provider: Mar 07, 2021 Time Seen by a Provider: 07:20 Subjective/Events-last exam pod #7 Pt reports no pain, nausea, vomiting, or diarrhea. Pt ate chicken parmesean, sweet potato, and also had chaloula sauce with no issues. Describes having a good bowel movement last night and gas this morning. There is drainage from midline incision, enough to fill 1x 4x4 gauze. Erythema was 2mm surrounding the midline incision (erythema did not exceed the border of the staple lines. The 2 pieces of gauze were replaced with 2 fresh 4x4 gauze. Pt states drainage occurs when he ambulates. No pain or tenderness upon palpation around incision line. No drainage around incision line. Pt states that he ambulates without assistance at home but is fatigued from liquid only diet. Pt wishes to continue eating solid food to get stronger and ambulate on own. Physical therapy also going well according to pt. Review of Systems General: No Chills, No Night Sweats; Fatigue HEENT: No Head Aches, No Visual Changes Pulmonary: No Dyspnea, No Cough Cardiovascular: No: Chest Pain, Palpitations Gastrointestinal: No: Nausea, Vomiting, Abdominal Pain, Diarrhea, Constipation Genitourinary: No Dysuria, No Frequency Neurological: Weakness (Pt reports some weakness because he has been on the liquid only diet.); No: Numbness, Change in speech, Confusion Focused Exam Time of Focused Exam: 19:50 Objective Exam Vital Signs Date Time Temp Pulse Resp B/P (MAP) Pulse Ox O2 Delivery O2 Flow Rate FiO2 03/06/21 23:23 37.0 85 19 155/81 89 Room Air 03/06/21 19:24 Room Air 03/06/21 15:39 36.8 77 20 120/73 96 Room Air 03/06/21 08:00 Room Air 03/06/21 08:00 35.9 83 19 127/79 93 Room Air I & O 03/07/21 07:00 Intake Total 8176 ml Output Total 1575 ml Balance 6601 ml Capillary Refill : Less Than 3 SecondsLess Than 3 Seconds General Appearance: No Apparent Distress, WD/WN, Chronically ill HEENT: Moist Mucous Membranes Neck: Full Range of Motion, Non Tender, Supple Respiratory: Lungs Clear, Normal Breath Sounds, No Accessory Muscle Use, No Respiratory Distress; No Rales, No Rhonci, No Wheezing Cardiovascular: Regular Rate, Rhythm, No Edema, No Murmur Peripheral Pulses: 1+ Radial Pulses (R), 1+ Radial Pulses (L) Gastrointestinal: normal bowel sounds (normoactive bowel sounds), soft; No tenderness (Pt said he no longer has tenderness in his abdomen. No tenderness even when I palpated the incision line.); other (incision appears clean, dry and intact. Some erythema, about 2mm surrounding the incision line. Does not exceed the borders of the padmini. No fluid came out from palpation. Did have fluid absorbed into the gauze, enough to fill 1x 4x4 piece of gauxe. Replaced the gauze.) Extremity: Normal Capillary Refill, Normal Range of Motion, Non Tender, No Calf Tenderness, Other (some pedal edema) Neurologic/Psychiatric: Alert, Oriented x3, No Motor/Sensory Deficits, Normal Mood/Affect Skin: Normal Color, Warm/Dry Lymphatic: No Adenopathy Results Lab Laboratory Tests 03/07/21 05:42: White Blood Count 14.4H, Red Blood Count 3.75L, Hemoglobin 10.8L, Hematocrit 32L , Mean Corpuscular Volume 86, Mean Corpuscular Hemoglobin 29, Mean Corpuscular Hemoglobin Concent 34, Red Cell Distribution Width 15.8H, Platelet Count 353, Mean Platelet Volume 9.5, Immature Granulocyte % (Auto) 1, Neutrophils (%) (Auto) 78H, Lymphocytes (%) (Auto) 13, Monocytes (%) (Auto) 4, Eosinophils (%) (Auto) 4, Basophils (%) (Auto) 0, Neutrophils # (Auto) 11.2H, Lymphocytes # (Auto) 1.9, Monocytes # (Auto) 0.6, Eosinophils # (Auto) 0.5H, Basophils # (Auto) 0.0, Immature Granulocyte # (Auto) 0.2H, Neutrophils % (Manual) 83, Lymphocytes % (Manual) 10, Monocytes % (Manual) 3, Eosinophils % (Manual) 4, Polychromasia SLIGHT, Hypochromasia SLIGHT, Poikilocytosis SLIGHT, Anisocytosis SLIGHT, Sodium Level 136, Potassium Level 3.9, Chloride Level 105, Carbon Dioxide Level 21, Anion Gap 10, Blood Urea Nitrogen 17, Creatinine 0.80, Estimat Glomerular Filtration Rate 95, BUN/Creatinine Ratio 21, Glucose Level 110H, Calcium Level 8.1L, Corrected Calcium 9.5, Phosphorus Level 2.5, Magnesium Level 2.0, Total Bilirubin 0.6, Aspartate Amino Transf (AST/SGOT) 19, Alanine Aminotransferase (ALT/SGPT) 10, Alkaline Phosphatase 53, Total Protein 5.6L, Albumin 2.3L Microbiology 02/28/21 MRSA Screen - Final, Complete MRSA not isolated 02/27/21 Blood Culture - Final, Complete No growth 02/27/21 Urine Culture - Final, Complete Providencia stuartii Assessment/Plan Assessment/Plan Assessment/Plan Pod#7 Colonic resection with primary anastomosis chronic urinary incontinence- pt reports that he has not had issues with urinating through his catheter. Pt eating regular diet. No pain in abdomen with palpation also. Increase to regular diet, continue PT/OT, continue pain control, . Encourage patient to use his IS. Patient is tolerating his diet and is having return of his bowel function. He has significant weakness. From a surgical standpoint he is okay to get back [facility] [place]. Will try and get Prevena VAC to suction up fluid drainage, will not remove any padmini. JESSE LEONARDO DO 03/07/21 1641: Subjective Time Seen by a Provider: 15:46 Subjective/Events-last exam Pt seen and examined, tolerating diet and pain controlled. Had Prevena wound VAC placed. No new complaints. Review of Systems General: Fatigue Pulmonary: No Dyspnea, No Cough Cardiovascular: No: Chest Pain, Palpitations Gastrointestinal: No: Nausea, Vomiting, Abdominal Pain Objective Exam General Appearance: No Apparent Distress, Chronically ill HEENT: Moist Mucous Membranes Respiratory: Lungs Clear, Normal Breath Sounds, No Accessory Muscle Use, No Respiratory Distress Cardiovascular: Regular Rate, Rhythm, No Murmur Gastrointestinal: non tender, soft, other (incision appears clean, dry and intact; now with wound VAC in place) Assessment/Plan Assessment/Plan Assessment/Plan Pod#7 Colonic resection with primary anastomosis chronic urinary incontinence- pt reports that he has not had issues with urinating through his catheter. Pt eating regular diet. No pain in abdomen with palpation also. From a surgical standpoint he is okay to get back to [facility] [place]. Hopefully Prevena VAC will suction up fluid drainage, will not remove any padmini. Supervisory-Addendum Brief Verification & Attestation Participated in pt care: history, MDM, physical Personally performed: exam, history, MDM, supervision of care Care discussed with: Medical Student Procedures: n/a Verification and Attestation of Medical Student E/M Service A medical student performed and documented this service. I then reviewed and verified all information documented by the medical student and made modifications to such information, when appropriate. I personally performed a physical exam, medical decision making and then discussed any differences between the notes and made revisions as necessary to create one note. Jesse Leonardo , 03/07/21 , 16:41 KIERRA DOZIER Mar 07, 2021 07:57 JESSE LEONARDO DO Mar 07, 2021 16:41
[2021-03-07] MEDS: PANTOPRAZOLE 40 MG (PROTONIX) VIAL IV SCH (09:16)
[2021-03-07] MEDS: LACTOBACILLUS ACIDOPHILUS (PROBIOTIC) CAPSULE PO SCH ×3 (09:16→17:55)
--- NOTE | 2021-03-07 10:20 | Occupational Ther Daily Note ---
OT Current Status-Daily Note Subjective Pt was lying supine in bed upon OT arrival. Pt stated he would participated in tx session on this date. Mental Status/Objective Patient Orientation: Person, Place, Time, Situation Attachments: Herman Catheter ADL-Treatment Therapy Code Descriptions/Definitions Functional [place] Measure: 0=Not Assessed/NA 4=Minimal Assistance 1=Total Assistance 5=Supervision or Setup 2=Maximal Assistance 6=Modified [place] 3=Moderate Assistance 7=Complete IndependenceSCALE: Activities may be completed with or without assistive devices. 9-Sgxafzibhj-uajemnr completes the activity by him/herself with no assistance from a helper. 5-Set-up or Clean-up Assistance-helper sets up or cleans up; patient completes activity. [place] assists only prior to or following the activity. 4-Supervision or Touching Assistance-helper provides verbal cues and/or touching/steadying and/or contact guard assistance as patient completes activity. Assistance may be provided throughout the activity or intermittently. 3-Partial/Moderate Assistance-helper does LESS THAN HALF the effort. [place] lifts, holds or supports trunk or limbs, but provides less than half the effort. 2-Substantial/Maximal Assistance-helper does MORE THAN HALF the effort. [place] lifts or holds trunk or limbs and provides more than half the effort. 1-Tzjslhqlq-khpeqx does ALL the effort. Patient does none of the effort to complete the activity. Or, the assistance of 2 or more helpers is required for the patient to complete the activity. If activity was not attempted, code reason: 7-Patient Refused. 9-Not Applicable-not attempted and the patient did not perform the activity before the current illness, exacerbation or injury. 10-Not Attempted due to Environmental Limitations-(lack of equipment, weather restraints, etc.). 88-Not Attempted due to Medical Conditions or Safety Concerns. Toileting Hygiene (QC): 1 (Assist x2 to clean up BM at bed level.) Other Treatment Pt was lying supine in bed upon OT arrival. Pt stated he would participate in tx session. Pt performed bed mobility from supine to EOB, Max assist. Pt stated he had possibly had a BM, but unsure. Pt attempted x3 to stand EOB w/ FWW, Max assist, x2. Pt unable to attain stand even from elevated bed. Pt performed bed mobility from EOB to supine, Max assist, x2 assist, and assist x2 to boost towards HOB. Pt performed bed mobility of rolling side to side for OT to clean backside, max A. Pt was instructed in hand placements during entire tx session w/ VC's for initiation and reinforcement. Post tx session, pt was lying supine in bed w/ HOB elevated, call light within reach, and all needs met. Education OT Patient Education: Correct positioning, Energy conservation, Modified ADL techniques, Progress toward Goal/Update tx plan, Purpose of tx/functional activities, Transfer techniques Teaching Recipient: Patient Teaching Methods: Discussion Response to Teaching: Verbalize Understanding, Reinforcement Needed OT Direct Mail Coordinator Goals Halfway Goals Time Frame: Mar 16, 2021 Eating (QC): 6 Oral Hygiene (QC): 5 Toileting Hygiene (QC): 4 Shower/Bathe Self (QC): 4 Upper Body Dressing (QC): 5 Lower Body Dressing (QC): 4 On/Off Footwear (QC): 4 Additional Goals: 1-Demonstrate ADL Tasks, 2-Verbalize Understanding, 3- ImproveStrength/Norma 1=Demonstrate adherence to instructed precautions during ADL tasks. 2=Patient will verbalize/demonstrate understanding of assistive devices/modifications for ADL. 3=Patient will improve strength/tolerance for activity to enable patient to perform ADL's. OT Education/Plan Problem List/Assessment Assessment: Decreased Activ Tolerance, Decreased UE Strength, Dependent Transfers, Impaired Bed Mobility, Impaired Coordination, Impaired Funct Balance, Impaired I ADL's, Impaired Self-Care Skills Discharge Recommendations Plan/Recommendations: Continue POC Treatment Plan/Plan of Care Patient would benefit from OT for education, treatment and training to promote independence in ADL's, mobility, safety and/or upper extremity function for ADL's. Plan of Care: ADL Retraining, Functional Mobility, UE Funct Exercise/Act Treatment Duration: Mar 16, 2021 Frequency: 5 times per week Estimated Hrs Per Day: .25 hour per day Rehab Potential: Fair Time/GCodes Start Time: 09:48 Stop Time: 10:07 Total Time Billed (hr/min): 19 Billed Treatment Time 1, ADL SUZY BYRNE OT Mar 07, 2021 10:20
--- NOTE | 2021-03-07 10:20 | Physical Therapy Daily Note ---
PT Daily Note-Current Subjective Patient in bed pre tx, agrees to PT, has no complaints of pain. Appearance Patient in bed post tx with nurse call, phone, tray, all needs met. Mental Status Patient Orientation: Person, Place, Situation Attachments: Herman Catheter Transfers SCALE: Activities may be completed with or without assistive devices. 2-Fekadkljlp-mtxkmwu completes the activity by him/herself with no assistance from a helper. 5-Set-up or Clean-up Assistance-helper sets up or cleans up; patient completes activity. [place] assists only prior to or following the activity. 4-Supervision or Touching Assistance-helper provides verbal cues and/or touching/steadying and/or contact guard assistance as patient completes activity. Assistance may be provided throughout the activity or intermittently. 3-Partial/Moderate Assistance-helper does LESS THAN HALF the effort. [place] lifts, holds or supports trunk or limbs, but provides less than half the effort. 2-Substantial/Maximal Assistance-helper does MORE THAN HALF the effort. [place] lifts or holds trunk or limbs and provides more than half the effort. 0-Fzbkryliy-jesihe does ALL the effort. Patient does none of the effort to complete the activity. Or, the assistance of 2 or more helpers is required for the patient to complete the activity. If activity was not attempted, code reason: 7-Patient Refused. 9-Not Applicable-not attempted and the patient did not perform the activity before the current illness, exacerbation or injury. 10-Not Attempted due to Environmental Limitations-(lack of equipment, weather restraints, etc.). 88-Not Attempted due to Medical Conditions or Safety Concerns. Roll Left & Right (QC): 2 Sit to Lying (QC): 1 Lying to Sitting/Side of Bed(Q: 2 Sit to Stand (QC): 1 Patient sits to the side of the bed with max assist, 2 person assist to try to stand from the side of the bed and he couldn't do it even from a raised bed, 3 attempts made. Patient is dependent for laying down, scooted up, and has to roll from side to side (max assist) to clean a BM. Treatments bed mobility, attempted standing, cleaning BM, rolling Assessment Current Status: Poor Progress increasing weakness PT Short Term Goals Short Term Goals Time Frame: Mar 14, 2021 Roll Left & Right: 4 Sit to lyin Lying to sitting on side of be: 4 Sit to stand: 4 Chair/qeq-dn-qbkke transfer: 4 Toilet transfer: 4 Walk 10 feet: 3 Walk 50 feet with two turns: 3 PT Shelter Goals Shelter Goals PT Shelter Goals Time Frame: Mar 28, 2021 Roll Left & Right (QC): 5 Sit to Lying (QC): 5 Lying-Sitting on Side/Bed(QC): 5 Sit to Stand (QC): 5 Chair/Cvy-gp-Etgtm Xfer(QC): 5 Toilet Transfer (QC): 5 Car Transfer (QC): 4 Does the Patient Walk: Yes Walk 10 feet (QC): 5 Walk 50ft with 2 Turns (QC): 5 Walk 150 ft (QC): 4 PT Plan Problem List Problem List: Activity Tolerance, Functional Strength, Safety, Balance, Gait, Transfer, Bed Mobility, ROM Treatment/Plan Treatment Plan: Continue Plan of Care Treatment Plan: Bed Mobility, Education, Functional Activity Norma, Functional Strength, Gait, Safety, Therapeutic Exercise, Transfers Treatment Duration: May 02, 2021 Frequency: 6 times per week Estimated Hrs Per Day: .25 hour per day Patient and/or Family Agrees t: Yes Safety Risks/Education Patient Education: Correct Positioning, Safety Issues Teaching Recipient: Patient Teaching Methods: Demonstration, Discussion Response to Teaching: Reinforcement Needed Time/GCodes Time In: 0949 Time Out: 1006 Total Billed Treatment Time: 17 Total Billed Treatment 1 visit FA 17LYLE DAMON PT Mar 07, 2021 10:20
--- NOTE | 2021-03-07 12:41 | Progress Note - Hospitalist ---
COTY ZIEGLER 03/07/21 1241: Subjective HPI/CC On Admission Date Seen by Provider: Mar 07, 2021 Time Seen by Provider: 08:12 Subjective/Events-last exam Pt resting comfortably in bed and tolerating normal diet well. Pt reports another BM last night without signs of blood. He is in good spirits and feels like he is getting stronger but still has difficulty standing or walking. Otherwise has no concerns aside from continued drainage from his midline incision which is only productive when he moves. Review of Systems General: No Chills, No Night Sweats, No Fatigue, No Malaise; Appetite HEENT: No Head Aches, No Visual Changes, No Dysphasia, No Sore Throat Pulmonary: No Dyspnea, No Cough, No Pleuritic Chest Pain Cardiovascular: No: Chest Pain, Palpitations, Lt Headedness Gastrointestinal: No: Nausea, Vomiting, Abdominal Pain, Diarrhea, Constipation, Melena, Hematochezia Genitourinary: No Dysuria, No Frequency, No Incontinence, No Hematuria, No Ret ention Musculoskeletal: No: neck pain, shoulder pain, arm pain, back pain, hand pain, leg pain Neurological: Weakness; No: Numbness, Incoordination, Change in speech, Confusion, Seizures Focused Exam Time of Focused Exam: 19:50 Objective Exam Vital Signs Vital Signs Date Time Temp Pulse Resp B/P (MAP) Pulse Ox O2 Delivery O2 Flow Rate FiO2 03/07/21 08:00 Room Air 03/07/21 07:50 37.4 88 28 140/76 95 03/01/21 04:00 3.00 Capillary Refill : Less Than 3 SecondsLess Than 3 Seconds General Appearance: No Apparent Distress, WD/WN HEENT: PERRL/EOMI, Pharynx Normal Neck: Full Range of Motion, Non Tender, Supple Respiratory: Chest Non Tender, Lungs Clear, Normal Breath Sounds, No Accessory Muscle Use, No Respiratory Distress Cardiovascular: Regular Rate, Rhythm, No Gallop, No Murmur, Normal Peripheral Pulses Gastrointestinal: Normal Bowel Sounds, No Organomegaly, No Pulsatile Mass, Non Tender, Soft Rectal: Deferred Back: No CVA Tenderness, No Vertebral Tenderness Extremity: Normal Capillary Refill, Normal Range of Motion, Non Tender, No Calf Tenderness Neurologic/Psychiatric: Alert, Oriented x3, No Motor/Sensory Deficits, Normal Mood/Affect, strip picker II-XII Norm as Tested Skin: Normal Color, Warm/Dry Lymphatic: No Adenopathy Results/Procedures Lab Laboratory Tests 03/07/21 05:42 Patient resulted labs reviewed. Assessment/Plan Assessment and Plan Assess & Plan/Chief Complaint Assessment: Ruptured intestine Chronic atrial fibrillation Hypertension Severe debility BPH Plan: Supportive care Appreciate surgery Monitor labs 03/04/2021: Pain control PT and OT 03/05/2021: Continue Pain control, PT and OT Advance diet to soft foods as tolerated 03/06/2021: Continue Pain control, TP and OT Continue soft diet and monitor for bowel changes Monitor incisional drainage 03/07/2021: Continue Pain control, TP and OT Continue normal diet and monitor for bowel changes Monitor incisional drainage Make plans for DC to assisted MONSERRAT RANDOLPH DO 03/08/21 0545: Subjective Subjective/Events-last exam Pt doing well Bowels moved yesterday Labs okay Regular diet will be started Going to assisted tomorrow Review of Systems General: Fatigue, Malaise Objective Exam General Appearance: No Apparent Distress, WD/WN, Chronically ill Respiratory: Lungs Clear, Normal Breath Sounds Cardiovascular: Regular Rate, Rhythm Neurologic/Psychiatric: Alert, Oriented x3 Assessment/Plan Assessment and Plan Assess & Plan/Chief Complaint 03/08/2021: [facility] tomorrow Supervisory-Addendum Brief Verification & Attestation Participated in pt care: history, MDM, physical Personally performed: exam, history, MDM, supervision of care Care discussed with: Medical Student Procedures: n/a Results interpretation: Verified all documentation Verification and Attestation of Medical Student E/M Service A medical student performed and documented this service in my presence. I reviewed and verified all information documented by the medical student and made modifications to such information, when appropriate. I personally performed the physical exam and medical decision making. Monserrat Randolph Mar 08, 2021,05:44 COTY ZIEGLER Mar 07, 2021 12:41 MONSERRAT RANDOLPH DO Mar 08, 2021 05:45
[2021-03-07] MEDS: ENOXAPARIN 40 MG/0.4 ML (LOVENOX) SYR SQ SCH (17:55)
[2021-03-08] MEDS: BACLOFEN 10 MG (LIORESAL) TAB PO SCH ×3 (03:39→12:21)
[2021-03-08 05:50] LABS: BASOPHILS # (AUTO) 0.1 10^3/uL (0.0-0.1); BASOPHILS % (AUTO) 1 % (0-10); EOSINOPHILS # (AUTO) 0.5 10^3/uL (0.0-0.3); EOSINOPHILS % (AUTO) 4 % (0-10); HEMATOCRIT 31 % (40-54); HEMOGLOBIN 10.4 g/dL (13.3-17.7); LYMPHOCYTES # (AUTO) 1.5 10^3/uL (1.0-4.0); LYMPHOCYTES % (AUTO) 13 % (12-44); MEAN CORPUSCULAR HEMOGLOBIN 29 pg (25-34); MEAN CORPUSCULAR HGB CONC 34 g/dL (32-36); MEAN CORPUSCULAR VOLUME 85 fL (80-99); MEAN PLATELET VOLUME 9.4 fL (9.0-12.2); MONOCYTES # (AUTO) 0.6 10^3/uL (0.0-1.0); MONOCYTES % (AUTO) 5 % (0-12); NEUTROPHILS # (AUTO) 9.1 10^3/uL (1.8-7.8); NEUTROPHILS % (AUTO) 77 % (42-75); PLATELET COUNT 368 10^3/uL (130-400); WHITE BLOOD COUNT 11.9 10^3/uL (4.3-11.0)
[2021-03-08] MEDS ORDERED: ACHD5005 PO (06:04)
[2021-03-08] MEDS ORDERED: BACL10TA PO (06:04)
[2021-03-08] MEDS ORDERED: PANT40TA2 PO (06:04)
--- NOTE | 2021-03-08 06:05 | Discharge Inst-Skilled Nursing ---
Discharge Inst-Skilled NF Reconcile Patient Problems Problems Reviewed?: Yes Patient Instructions Patient Problems: Intestinal perforation requiring emergent surgery Goal: Return to independence Consult/Follow Up/Orders Follow Up Appt.: PCP for [facility] rounds Skilled NF Admit to: Certification (SNF) I certify that SNF services are required to be given on an inpatient basis because of the above named patient's need for fpc care on a continuing basis for the conditions(s) for which he/she was receiving inpatient hospital services prior to his/her transfer to the SNF. Senior Living Facility Order: Nursing Services, Physical Therapy-Evaluate & Treat Oxygen Delivery Method: Room Air Discharge Diet: No Restrictions Resuscitation Status: Full Code New & Resume Previous Orders New Medications: Pantoprazole Sodium (Protonix) 40 Mg Tablet.dr 40 MG PO DAILY for 30 Days, TAB Baclofen (Baclofen) 10 Mg Tablet 5 MG PO Q4HR for 30 Days, TAB Hydrocodone Bit/Acetaminophen (HYDROcodone/APAP 5 MG/325 MG TAB) 1 Tab Tab 1 EA PO Q4H PRN for PAIN-MODERATE (5-7), #15 TAB Continued Medications: Flecainide Acetate (Flecainide Acetate) 100 Mg Tablet 100 MG PO BID, TAB L.acidoph & Paracasei,B.lactis (Probiotic) 1 Each Capsule 2 EACH PO BID, CAP Lisinopril (Lisinopril) 20 Mg Tablet 20 MG PO DAILY, TAB Rivaroxaban (Xarelto) 20 Mg Tablet 20 MG PO 1900, TAB LAST FILLED 10-18-2020 #90/90 DAY SUPPLY Discontinued Medications: Amlodipine Besylate (Amlodipine Besylate) 10 Mg Tablet 10 MG PO DAILY, TAB Meloxicam (Meloxicam) 15 Mg Tablet 15 MG PO DAILY, TAB Tramadol HCl (Tramadol HCl) 50 Mg Tablet 100 MG PO BID, TAB TAKES 2 (50MG) TABLETS Monserrat Whaley Mar 08, 2021 06:04 MONSERRAT WHALEY DO Mar 08, 2021 06:05
--- NOTE | 2021-03-08 06:05 | Discharge Summary ---
Discharge Summary Hospital Course Was the Problem List Reviewed?: Yes Problems/Dx: (1) Perforated abdominal viscus (2) Atrial fibrillation Status: Chronic Qualifiers: Qualified Codes: I48.11 - Longstanding persistent atrial fibrillation (3) Pneumoperitoneum of unknown etiology Status: Acute (4) Acute renal insufficiency Status: Acute (5) Urinary tract infection Status: Acute Hospital Course Date of Admission: Feb 28, 2021 at 03:00 Admission Diagnosis : Family Physician/Provider: Ramin Marcos MD Date of Discharge: 03/08/21 Discharge Diagnosis: Intestinal perforation, atrial fibrillation, anticoagulation for stroke prophylaxis Hospital Course: On 02/27/2021 - Mr. Casillas a 71-year-old male with history of volvulus and colon resection presented to the ED with watery diarrhea starting 4 days prior. Patient reported decreased appetite, generalized weakness, fatigue body aches with watery diarrhea. No fever chills or sweats. Patient was unable to get out of the vehicle and did require 3 person assist. He has been incontinent of urine and stool. Reported vague intermittent a bdominal pain. Denied chest pain palpitations shortness of breath. No urinary frequency or urgency. Additional history obtained from the patient the patient spouse. Surgery was consulted 02/28/2021 and an open colon resection was completed on 03/01/2021 due to abdominal pain and pneumoperitoneum found on CAT scan, thought to be possible gastric perforation. Wound care was also consulted 02/28/2021 due to skin breakdown in scrotal region as well as a small pressure injury to left buttock and moisture related injury to sacrum/gluteal cleft. These where all treated by wound care during his stay. Patient continued post-op recovery through 03/08/2021 which included pain control, abx, regular dressing change, gradual advancing of diet, PT and OT. Pt was also visited daily and labs as well a physical status was closely monitored each day to ensure progression towards recovery. Serious sanguineous fluid was noted from the midline abdominal incision site, for which a portable wound vac was fitted on 03/07/2021. Pt was DC to nursing facility 03/08/2021. Labs and Pending Lab Test: Laboratory Tests 03/08/21 05:35: White Blood Count 11.9H, Red Blood Count 3.60L, Hemoglobin 10.4L, Hematocrit 31L , Mean Corpuscular Volume 85, Mean Corpuscular Hemoglobin 29, Mean Corpuscular Hemoglobin Concent 34, Red Cell Distribution Width 15.7H, Platelet Count 368, Mean Platelet Volume 9.4, Immature Granulocyte % (Auto) 1, Neutrophils (%) (Auto) 77H, Lymphocytes (%) (Auto) 13, Monocytes (%) (Auto) 5, Eosinophils (%) (Auto) 4, Basophils (%) (Auto) 1, Neutrophils # (Auto) 9.1H, Lymphocytes # (Auto) 1.5, Monocytes # (Auto) 0.6, Eosinophils # (Auto) 0.5H, Basophils # (Auto) 0.1, Immature Granulocyte # (Auto) 0.1, Sodium Level [Pending], Potassium Level [Pending], Chloride Level [Pending], Carbon Dioxide Level [Pending], Anion Gap [Pending], Blood Urea Nitrogen [Pending], Creatinine [Pending], BUN/Creatinine Ratio [Pending], Glucose Level [Pending], Calcium Level [Pending ], Corrected Calcium [Pending], Phosphorus Level [Pending], Magnesium Level [Pending], Total Bilirubin [Pending], Aspartate Amino Transf (AST/SGOT) [Pending], Alanine Aminotransferase (ALT/SGPT) [Pending], Alkaline Phosphatase [Pending], Total Protein [Pending], Albumin [Pending] Microbiology 02/28/21 MRSA Screen - Final, Complete MRSA not isolated 02/27/21 Blood Culture - Final, Complete No growth 02/27/21 Urine Culture - Final, Complete Providencia stuartii Home Meds Active Protonix (Pantoprazole Sodium) 40 Mg Tablet.dr 40 Mg PO DAILY 30 Days HYDROcodone/APAP 5 MG/325 MG TAB (Acetaminophen/Hydrocodone Bitart) 1 Tab Tab 1 Ea PO Q4H PRN Baclofen 10 Mg Tablet 5 Mg PO Q4HR 30 Days Reported Meloxicam 15 Mg Tablet 15 Mg PO DAILY Probiotic (L.acidoph & Paracasei,B.lactis) 1 Each Capsule 2 Each PO BID Xarelto (Rivaroxaban) 20 Mg Tablet 20 Mg PO 1900 LAST FILLED 10-18-2020 #90/90 DAY SUPPLY Tramadol HCl 50 Mg Tablet 100 Mg PO BID TAKES 2 (50MG) TABLETS Flecainide Acetate 100 Mg Tablet 100 Mg PO BID Amlodipine Besylate 10 Mg Tablet 10 Mg PO DAILY Lisinopril 20 Mg Tablet 20 Mg PO DAILY Assessment/Pt Instructions PCP on shelter rounds Discharge Planning: <30 minutes discharge planning Discharge Instructions Discharge Diet: No Restrictions Discharge Physical Examination Vital Signs Vital Signs Date Time Temp Pulse Resp B/P (MAP) Pulse Ox O2 Delivery O2 Flow Rate FiO2 03/07/21 23:07 36.8 82 18 138/88 94 Room Air General Appearance: No Apparent Distress, WD/WN, Chronically ill Allergies: Coded Allergies: No Known Drug Allergies (Unverified , 01/15/10) Discharge Summary Date of Admission Feb 28, 2021 at 03:00 Date of Discharge Discharge Date: Mar 08, 2021 Discharge Diagnosis 03/08/2021: long term tomorrow AUTUMN RANDOLPH DO Mar 08, 2021 06:05
[2021-03-08 06:08] LABS: ALBUMIN 2.4 GM/DL (3.2-4.5); BILIRUBIN,TOTAL 0.5 MG/DL (0.1-1.0); CALCIUM 7.9 MG/DL (8.5-10.1); CREATININE SERUM 0.78 MG/DL (0.60-1.30); MAGNESIUM 2.1 MG/DL (1.6-2.4); PHOSPHORUS 2.6 MG/DL (2.3-4.7); POTASSIUM 4.3 MMOL/L (3.6-5.0); TOTAL PROTEIN 5.4 GM/DL (6.4-8.2)
[2021-03-08] MEDS: POTASSIUM CL 10MEQ/50ML IVPB 50 ML IV SCH (06:16)
[2021-03-08] MEDS: MAGNESIUM 1 GM/100 ML IVPB 100 ML IV SCH (06:18)
[2021-03-08] MEDS: ACETAMINOPHEN 500 MG TAB (TYLENOL) PO SCH (06:18)
[2021-03-08] MEDS: KCL 20 MEQ TAB (K-DUR) PO SCH (06:18)
--- NOTE | 2021-03-08 06:35 | Progress Note - Surgery ---
SHAUN EDMONDS MED STUDENT 03/08/21 0634: Subjective Date Seen by a Provider: Mar 08, 2021 Time Seen by a Provider: 06:00 Subjective/Events-last exam Patient reports is doing well. Pain is well tolerated. Is having bowel function. Is urinating with ritchie without difficulty. Tolerating regular diet without difficulty. He denies fevers, sweats, chills, chest pain, shortness of breath. He does report weakness, was struggling with PT yesterday, but reports he will have resources back at [facility]. Review of Systems General: No Chills, No Night Sweats HEENT: No Visual Changes, No Dysphasia Pulmonary: No Dyspnea, No Cough Cardiovascular: Palpitations; No: Chest Pain Gastrointestinal: Abdominal Pain (minimal); No: Nausea, Vomiting Genitourinary: No Hematuria, No Retention Neurological: Weakness; No: Numbness Focused Exam Time of Focused Exam: 19:50 Objective Exam Vital Signs Date Time Temp Pulse Resp B/P (MAP) Pulse Ox O2 Delivery O2 Flow Rate FiO2 03/07/21 23:07 36.8 82 18 138/88 94 Room Air 03/07/21 19:28 Room Air 03/07/21 16:00 37.1 91 20 137/83 94 Room Air 03/07/21 08:00 Room Air 03/07/21 07:50 37.4 88 28 140/76 95 Room Air I & O 03/08/21 07:00 Intake Total 5820 ml Output Total 3325 ml Balance 2495 ml Capillary Refill : Less Than 3 SecondsLess Than 3 Seconds General Appearance: No Apparent Distress, WD/WN HEENT: Moist Mucous Membranes Neck: Non Tender, Supple Respiratory: Lungs Clear, Normal Breath Sounds, No Accessory Muscle Use, No Respiratory Distress Cardiovascular: No Murmur, Irregularly Irregular Peripheral Pulses: 1+ Radial Pulses (R), 1+ Radial Pulses (L) Gastrointestinal: non tender, soft, other (appropriately ttp, prevena dressing/seal intact minimal drainage) Extremity: Normal Capillary Refill Neurologic/Psychiatric: Alert, Oriented x3 Skin: Normal Color, Warm/Dry Lymphatic: No Adenopathy Results Lab Laboratory Tests 03/08/21 05:35: White Blood Count 11.9H, Red Blood Count 3.60L, Hemoglobin 10.4L, Hematocrit 31L , Mean Corpuscular Volume 85, Mean Corpuscular Hemoglobin 29, Mean Corpuscular Hemoglobin Concent 34, Red Cell Distribution Width 15.7H, Platelet Count 368, Mean Platelet Volume 9.4, Immature Granulocyte % (Auto) 1, Neutrophils (%) (Auto) 77H, Lymphocytes (%) (Auto) 13, Monocytes (%) (Auto) 5, Eosinophils (%) (Auto) 4, Basophils (%) (Auto) 1, Neutrophils # (Auto) 9.1H, Lymphocytes # (Auto) 1.5, Monocytes # (Auto) 0.6, Eosinophils # (Auto) 0.5H, Basophils # (Auto) 0.1, Immature Granulocyte # (Auto) 0.1, Sodium Level 135, Potassium Level 4.3, Chloride Level 107, Carbon Dioxide Level 20L, Anion Gap 8, Blood Urea Nitrogen 18, Creatinine 0.78, Estimat Glomerular Filtration Rate 98, BUN/Creatinine Ratio 23, Glucose Level 105, Calcium Level 7.9L, Corrected Calcium 9.2, Phosphorus Level 2.6, Magnesium Level 2.1, Total Bilirubin 0.5, Aspartate Amino Transf (AST/SGOT) 21, Alanine Aminotransferase (ALT/SGPT) 14, Alkaline Phosphatase 53, Total Protein 5.4L, Albumin 2.4L Microbiology 02/28/21 MRSA Screen - Final, Complete MRSA not isolated 02/27/21 Blood Culture - Final, Complete No growth 02/27/21 Urine Culture - Final, Complete Providencia stuartii Assessment/Plan Assessment/Plan Assessment/Plan Pod#8 Colonic resection with primary anastomosis chronic urinary incontinence- pt reports that he has not had issues with urinating through his catheter. Patient is continuing to do okay from surgical standpoint, weakness is significant, but will have resources at [facility], he is set for pickle pumper and d/c around 12pm today. KAHLIL TELLO DO 03/08/21 1229: Subjective Time Seen by a Provider: 12:23 Subjective/Events-last exam Pt seen and examined, just ate lunch. Pt has no complaints and is waiting to go back to [facility] today. Review of Systems General: No Chills, No Night Sweats; Fatigue Pulmonary: No Dyspnea, No Cough Cardiovascular: Palpitations; No: Chest Pain Gastrointestinal: No: Nausea, Vomiting, Abdominal Pain (minimal) Objective Exam General Appearance: No Apparent Distress, Chronically ill Respiratory: Lungs Clear, Normal Breath Sounds, No Accessory Muscle Use, No Respiratory Distress Cardiovascular: No Murmur, Irregularly Irregular Gastrointestinal: non tender, soft, other (appropriately ttp, prevena dressing/seal intact minimal drainage) Assessment/Plan Assessment/Plan Assessment/Plan Pod#8 Colonic resection with primary anastomosis chronic urinary incontinence- pt reports that he has not had issues with urinating through his catheter. Patient is continuing to do okay from surgical standpoint, weakness is significant, but will have resources at [facility], he is set for pickle pumper and d/c around 12pm today. Supervisory-Addendum Brief Verification & Attestation Participated in pt care: history, MDM, physical Personally performed: exam, history, MDM, supervision of care Care discussed with: Medical Student Procedures: n/a Verification and Attestation of Medical Student E/M Service A medical student performed and documented this service. I then reviewed and verified all information documented by the medical student and made modifications to such information, when appropriate. I personally performed a physical exam, medical decision making and then discussed any differences between the notes and made revisions as necessary to create one note. Kahlil Tello , 03/08/21 , 12:29 SHAUN EDMONDS MED STUDENT Mar 08, 2021 06:34 KAHLIL TELLO DO Mar 08, 2021 12:29
[2021-03-08] MEDS: PANTOPRAZOLE 40 MG (PROTONIX) VIAL IV SCH (09:21)
[2021-03-08] MEDS: LACTOBACILLUS ACIDOPHILUS (PROBIOTIC) CAPSULE PO SCH ×2 (09:21→12:21)
--- NOTE | 2021-03-08 11:43 | Occupational Ther Daily Note ---
OT Current Status-Daily Note Subjective Pt was lying supine in bed w/ HOB elevated, nursing staff was exiting after had removed his catheter upon OT arrival. Pt stated he would participate in tx session this date. Mental Status/Objective Patient Orientation: Person, Place, Time, Situation Attachments: Drains ADL-Treatment Therapy Code Descriptions/Definitions Functional [place] Measure: 0=Not Assessed/NA 4=Minimal Assistance 1=Total Assistance 5=Supervision or Setup 2=Maximal Assistance 6=Modified [place] 3=Moderate Assistance 7=Complete IndependenceSCALE: Activities may be completed with or without assistive devices. 0-Yabxbaoahd-rbhhhks completes the activity by him/herself with no assistance from a helper. 5-Set-up or Clean-up Assistance-helper sets up or cleans up; patient completes activity. Dorothy assists only prior to or following the activity. 4-Supervision or Touching Assistance-helper provides verbal cues and/or touching/steadying and/or contact guard assistance as patient completes activity. Assistance may be provided throughout the activity or intermittently. 3-Partial/Moderate Assistance-helper does LESS THAN HALF the effort. Dorothy lifts, holds or supports trunk or limbs, but provides less than half the effort. 2-Substantial/Maximal Assistance-helper does MORE THAN HALF the effort. Dorothy lifts or holds trunk or limbs and provides more than half the effort. 6-Pzqeueeao-svvtbc does ALL the effort. Patient does none of the effort to complete the activity. Or, the assistance of 2 or more helpers is required for the patient to complete the activity. If activity was not attempted, code reason: 7-Patient Refused. 9-Not Applicable-not attempted and the patient did not perform the activity before the current illness, exacerbation or injury. 10-Not Attempted due to Environmental Limitations-(lack of equipment, weather restraints, etc.). 88-Not Attempted due to Medical Conditions or Safety Concerns. Eating (QC): 6 ( Pt was IND when drinking various beverages from bedside tray. ) Other Treatment Pt was lying supine in bed w/ HOB elevated, nursing staff was exiting after had removed his catheter upon OT arrival. Pt participated while seated in [employer] theraband medium resistance exercises, x15 reps, one round, rest breaks after each set, to support ROM, strength, and endurance for ADL function and skill: elbow flexion, elbow extension, shoulder flexion, shoulder external rotation, and shoulder horizontal abduction. Min verbal cues for correct technique. Post tx session, pt was lying supine in bed w/ HOB elevated, call light within reach, and all needs met. Education OT Patient Education: Correct positioning, Energy conservation, Exercise program, Home exercise program, Progress toward Goal/Update tx plan, Purpose of tx/functional activities Teaching Recipient: Patient Teaching Methods: Demonstration, Handout Response to Teaching: Verbalize Understanding, Return Demonstration OT Community Education Specialist Goals Community Education Specialist Goals Time Frame: Mar 16, 2021 Eating (QC): 6 Oral Hygiene (QC): 5 Toileting Hygiene (QC): 4 Shower/Bathe Self (QC): 4 Upper Body Dressing (QC): 5 Lower Body Dressing (QC): 4 On/Off Footwear (QC): 4 Additional Goals: 1-Demonstrate ADL Tasks, 2-Verbalize Understanding, 3-ImproveStrength/Norma 1=Demonstrate adherence to instructed precautions during ADL tasks. 2=Patient will verbalize/demonstrate understanding of assistive devices/modifications for ADL. 3=Patient will improve strength/tolerance for activity to enable patient to perform ADL's. OT Education/Plan Problem List/Assessment Assessment: Decreased Activ Tolerance, Decreased Safety Aware, Decreased UE Strength, Impaired I ADL's, Impaired Self-Care Skills Discharge Recommendations Plan/Recommendations: Continue POC Treatment Plan/Plan of Care Patient would benefit from OT for education, treatment and training to promote independence in ADL's, mobility, safety and/or upper extremity function for ADL's. Plan of Care: ADL Retraining, Functional Mobility, UE Funct Exercise/Act Treatment Duration: Mar 16, 2021 Frequency: 5 times per week Estimated Hrs Per Day: .25 hour per day Rehab Potential: Fair Time/GCodes Start Time: 10:59 Stop Time: 11:14 Total Time Billed (hr/min): 15 Billed Treatment Time 1 Visit, EX SUZY BYRNE OT Mar 08, 2021 11:43
--- NOTE | 2021-03-08 12:27 | Discharge Inst-Surgical ---
Discharge Inst-Surgical Depart Medication/Instructions Patient Instructions Follow up Appt: Make appointment for 1 week. [phone] Instructions: No lifting greater than 20 pounds. No strenuous activity. May shower in 24 hours, no tub bath or soaking. Use incentive spirometer at home as directed. No Smoking Skin/Wound Care: Leave wound VAC in place for at least 7 days, will need to come to office for staple removal. Symptoms to Report: Appetite Changes, Extremity Discoloration, Numbness/Tingling, Swelling Increased, Bleeding Excessive, Eyesight Changes, Pain Increased, Urine Color Change, Constipation(Persistent), Fever over 101 degree F, Pain/Pressure in chest, Urinating Difficulty, Cough Up/Vomit Blood, Heart Beat Irreg/Pounding, Pain/Pressure in jaw, Cramps in feet or legs, Lightheadedness, Pain/Pressure in shoulder, Diarrhea(Persistent), Memory Changes Suddenly, Questions/Concerns, Weight gain consecutive days, Dizziness/Fainting, Nausea/Vomiting, Shortness of Breath, Weight gain over 2 pounds If questions or concerns contact your physician Or seek help at emergency department. Activity Activity as Tolerated: Yes Activity Instructions: Avoid Stress to Incision Driving Instructions: No Driving/Refer to Dr. Strickland Discharge Diet: No Restrictions Diet After 24 Hours: Clear Liquid if Nauseous If Any Problems/Questions/Issu: Contact Your Physician, Go to Emergency Room Skin/Wound Care Infection Signs and Symptoms: Increased Redness, Foul Odor of Wound, Increased Drainage, Skin Itchy or Has a Rash, Increased Swelling, Temperature Above 101 F Stitches/[place]/Dermabond Dis: Care of JESSE Oviedo DO Mar 08, 2021 12:27
--- NOTE | 2021-03-08 14:35 | Progress Note ---
COTY ZIEGLER 03/08/21 1435: Progress Note On 02/27/2021 - Mr. Casillas a 71-year-old male with history of volvulus and colon resection presented to the ED with watery diarrhea starting 4 days prior. Patient reported decreased appetite, generalized weakness, fatigue body aches with watery diarrhea. No fever chills or sweats. Patient was unable to get out of the vehicle and did require 3 person assist. He has been incontinent of urine and stool. Reported vague intermittent abdominal pain. Denied chest pain palpitations shortness of breath. No urinary frequency or urgency. Additional history obtained from the patient the patient spouse. Surgery was consulted 02/28/2021 and an open colon resection was completed on due to abdominal pain and pneumoperitoneum found on CAT scan, thought to be possible gastric perforation. Wound care was also consulted 02/28/2021 due to skin breakdown in scrotal region as well as a small pressure injury to left buttock and moisture related injury to sacrum/gluteal cleft. These where all treated by wound care during his stay. Patient continued post-op recovery through 03/08/2021 which included pain control, abx, regular dressing change, gradual advancing of diet, PT and OT. Pt was also visited daily and labs as well a physical status was closely monitored each day to ensure progression towards recovery. Serious sanguineous fluid was noted from the midline abdominal incision site, for which a portable wound vac was fitted on 03/07/2021. Pt was DC to nursing facility 03/08/2021. MONSERRAT RANDOLPH DO 03/08/214: Supervisory-Addendum Brief Verification & Attestation Participated in pt care: history, MDM, physical Personally performed: exam, history, MDM, supervision of care Care discussed with: Medical Student Procedures: n/a Results interpretation: Verified all documentation Verification and Attestation of Medical Student E/M Service A medical student performed and documented this service in my presence. I reviewed and verified all information documented by the medical student and made modifications to such information, when appropriate. I personally performed the physical exam and medical decision making. Monserrat Randolph Mar 08, 2021,21:14 COTY ZIEGLER Mar 08, 2021 14:35 MONSERRAT RANDOLPH DO Mar 08, 2021 21:14
[2021-03-09] MEDS ORDERED: CEPH500T PO (19:10)
== END 2021-03-08 13:55 | DRG 330 ==
LOC: EDUNIT# 19:47 → ER FS 19:48 → ICU 02-28 03:00 → 4TH 03-03 09:37
PROVIDERS: ADMIT Surgery; ATTEND Surgery
PROC: 0DBN0ZZ Excision of Sigmoid Colon, Open Approach (ICD-10-PCS; 2021-02-28)
PROC: 0DBM0ZZ Excision of Descending Colon, Open Approach (ICD-10-PCS; principal; 2021-02-28 11:22)
DX: K63.1 Perforation of intestine (nontraumatic) (principal); N39.0 Urinary tract infection, site not specified; N17.9 Acute kidney failure, unspecified; I48.20 Chronic atrial fibrillation, unspecified; Z79.899 Other long term (current) drug therapy; Z20.822 Contact with and (suspected) exposure to COVID-19; I25.2 Old myocardial infarction; N31.9 Neuromuscular dysfunction of bladder, unspecified; N28.9 Disorder of kidney and ureter, unspecified; N40.0 Benign prostatic hyperplasia without lower urinary tract symptoms; Z90.49 Acquired absence of other specified parts of digestive tract; M19.90 Unspecified osteoarthritis, unspecified site; I71.9 Aortic aneurysm of unspecified site, without rupture; L89.322 Pressure ulcer of left buttock, stage 2; D64.9 Anemia, unspecified; D72.829 Elevated white blood cell count, unspecified; R53.81 Other malaise; Z53.31 Laparoscopic surgical procedure converted to open procedure
CPT/HCPCS: 36415; 51702; 71045; 74018; 74177; 80053; 81000; 82947; 83605; 83735; 84100; 85007; 85025; 85027; 85610; 85730; 87040; 87077; 87081; 87088; 87186; 87636; 96361; 96365

== ENCOUNTER 2021-03-09 16:29 | Emergency (ER) | payer MEDICARE ==
[~2021-03-09] VITALS: Ht 180.3 cm; Wt 99.8 kg
[~2021-03-09 16:29] MED LIST changes: +ACHD5005 PO; +BACL10TA PO; +L.AC1CAP6 PO; +MELO15TA39 PO; +PANT40TA2 PO; +RIVA20TA PO
--- NOTE | 2021-03-09 16:37 | ED Abdominal Pain ---
General Stated Complaint: POST SURGERY ABD PAIN,FEVER History of Present Illness Date Seen by Provider: Mar 09, 2021 Time Seen by Provider: 16:36 Initial Comments 71-year-old male brought in due to abdominal pain and reports of a fever. Patient was admitted to [facility] and had a colon resection on 02/28/21. Patient was discharged back to the halfway on 03/08/2021. Patient reports that lunch he ate and had significant lower abdominal pain afterwards. Patient reports that the pain is been the worst has been in a few days. Patient reports he had multiple loose stools today. Patient surgery was performed by Dr. Leonardo. Patient reports he had a 101 fever at the halfway. Patient is afebrile upon presentation to the ER. Patient denies any cough, shortness of breath, chest pain. He did receive a hydrocodone at the halfway prior to transfer to the ER. Patient feels like his abdomen is mildly distended compared to what it has been. Patient does have a wound VAC in place over the abdominal incision. Allergies and Home Medications Allergies Coded Allergies: No Known Drug Allergies (Unverified , 01/15/10) Patient Home Medication List Home Medication List Reviewed: Yes Baclofen (Baclofen) 10 Mg Tablet, 5 MG PO Q4HR Prescribed by: AUTUMN RANDOLPH on 03/08/21 0604 Flecainide Acetate (Flecainide Acetate) 100 Mg Tablet, 100 MG PO BID, (Reported) Entered as Reported by: NELIA LLOYD on 02/19/19 0907 Hydrocodone Bit/Acetaminophen (HYDROcodone/APAP 5 MG/325 MG TAB) 1 Tab Tab, 1 EA PO Q4H PRN for PAIN-MODERATE (5-7) Prescribed by: AUTUMN RANDOLPH on 03/08/21 0604 L.acidoph & Paracasei,B.lactis (Probiotic) 1 Each Capsule, 2 EACH PO BID, (Reported) Entered as Reported by: MARIA ISABEL DONOHUE on 02/28/21 0953 Lisinopril (Lisinopril) 20 Mg Tablet, 20 MG PO DAILY, (Reported) Entered as Reported by: NELIA LLOYD on 02/19/19 0907 Pantoprazole Sodium (Protonix) 40 Mg Tablet., 40 MG PO DAILY Prescribed by: AUTUMN RANDOLPH on 03/08/21 0604 Rivaroxaban (Xarelto) 20 Mg Tablet, 20 MG PO 1900, (Reported) Entered as Reported by: MARIA ISABEL DONOHUE on 02/28/21 0953 Discontinued Medications Amlodipine Besylate (Amlodipine Besylate) 10 Mg Tablet, 10 MG PO DAILY, (Reported) Entered as Reported by: NELIA LLOYD on 02/19/19 0907 Meloxicam (Meloxicam) 15 Mg Tablet, 15 MG PO DAILY, (Reported) Entered as Reported by: MARIA ISABEL DONOHUE on 02/28/21 1002 Tramadol HCl (Tramadol HCl) 50 Mg Tablet, 100 MG PO BID, (Reported) Entered as Reported by: JOSE CHOPRA on 09/23/20 1648 Review of Systems Review of Systems Constitutional: No chills; fever; No malaise Cardiovascular: No Symptoms Reported Gastrointestinal: See HPI, Abdomen Distended, Abdominal Pain; Denies Nausea, D enies Vomiting Genitourinary: No Symptoms Reported Musculoskeletal: no symptoms reported Skin: no symptoms reported Psychiatric/Neurological: No Symptoms Reported Endocrine: No Symptoms Reported Hematologic/Lymphatic: No Symptoms Reported Past Yemxxhh-Dofxhv-Oycphm Hx Immunizations Up To Date Second COVID19 Vaccination Piter: 08/2020 Seasonal Allergies Seasonal Allergies: No Past Medical History Surgeries: Yes (previous bladder stimulator, not currently working) Abdominal, Orthopedic Respiratory: No COPD Currently Using CPAP: No Currently Using BIPAP: No Cardiac: Yes Aneurysm, Atrial Fibrillation, Heart Attack Neurological: No Reproductive Disorders: No Genitourinary: Yes (Incontinence, Wears external catheter) Benign Prostatic Hyperpl Gastrointestinal: No Obstructive Bowel Musculoskeletal: Yes Arthritis Endocrine: No HEENT: No Loss of Vision: Denies Cancer: No Psychosocial: Yes Integumentary: No Blood Disorders: No Family Medical History Heart Disease Physical Exam Vital Signs Vital Signs - First Documented 03/09/21 16:35 Temp 37.0 Pulse 95 Resp 18 B/P (MAP) 116/81 (93) Pulse Ox 95 O2 Delivery Room Air Capillary Refill : Height/Weight/BMI Height: '" Weight: lbs. oz. kg; 30.17 BMI Method: General Appearance: no apparent distress, other (Talkative, does not appear to be in any acute distress) Respiratory: lungs clear, normal breath sounds Cardiovascular: normal peripheral pulses, regular rate, rhythm Gastrointestinal: soft, tenderness (Tenderness in the lower left abdomen) Extremities: non-tender, normal inspection Back: normal inspection Neurologic/Psychiatric: alert, normal mood/affect, oriented x 3 Skin: other (Wound VAC over midline surgical incision) Focused Exam Lactate Level 03/09/21 16:40: Lactic Acid Level 1.89 Lactic Acid Level Laboratory Tests Test 03/09/21 16:40 Lactic Acid Level 1.89 MMOL/L (0.50-2.00) Progress/Results/Core Measures Results/Orders Lab Results Laboratory Tests Test 03/09/21 16:40 03/09/21 17:30 Range/Units White Blood Count 14.2 H 4.3-11.0 10^3/uL Red Blood Count 3.99 L 4.30-5.52 10^6/uL Hemoglobin 11.5 L 13.3-17.7 g/dL Hematocrit 34 L 40-54 % Mean Corpuscular Volume 85 80-99 fL Mean Corpuscular Hemoglobin 29 25-34 pg Mean Corpuscular Hemoglobin Concent 34 32-36 g/dL Red Cell Distribution Width 15.9 H 10.0-14.5 % Platelet Count 459 H 130-400 10^3/uL Mean Platelet Volume 9.3 9.0-12.2 fL Immature Granulocyte % (Auto) 1 % Neutrophils (%) (Auto) 80 H 42-75 % Lymphocytes (%) (Auto) 11 L 12-44 % Monocytes (%) (Auto) 5 0-12 % Eosinophils (%) (Auto) 3 0-10 % Basophils (%) (Auto) 1 0-10 % Neutrophils # (Auto) 11.3 H 1.8-7.8 X 10^3 Lymphocytes # (Auto) 1.6 1.0-4.0 X 10^3 Monocytes # (Auto) 0.7 0.0-1.0 X 10^3 Eosinophils # (Auto) 0.4 H 0.0-0.3 10^3/uL Basophils # (Auto) 0.1 0.0-0.1 10^3/uL Immature Granulocyte # (Auto) 0.1 0.0-0.1 10^3/uL Neutrophils % (Manual) 88 % Lymphocytes % (Manual) 6 % Monocytes % (Manual) 5 % Eosinophils % (Manual) 1 % Sodium Level 132 L 135-145 MMOL/L Potassium Level 4.5 3.6-5.0 MMOL/L Chloride Level 101 98-107 MMOL/L Carbon Dioxide Level 22 21-32 MMOL/L Anion Gap 9 5-14 MMOL/L Blood Urea Nitrogen 18 7-18 MG/DL Creatinine 0.79 0.60-1.30 MG/DL Estimat Glomerular Filtration Rate 96 BUN/Creatinine Ratio 23 Glucose Level 132 H 70-105 MG/DL Lactic Acid Level 1.89 0.50-2.00 MMOL/L Calcium Level 8.4 L 8.5-10.1 MG/DL Corrected Calcium 9.4 8.5-10.1 MG/DL Total Bilirubin 0.5 0.1-1.0 MG/DL Aspartate Amino Transf (AST/SGOT) 26 5-34 U/L Alanine Aminotransferase (ALT/SGPT) 21 0-55 U/L Alkaline Phosphatase 80 40-136 U/L Total Protein 6.6 6.4-8.2 GM/DL Albumin 2.8 L 3.2-4.5 GM/DL Smear Scan PLTS INCREASED Urine Color YELLOW Urine Clarity CLOUDY Urine pH 6.5 5-9 Urine Specific [place] 1.015 L 1.016-1.022 Urine Protein NEGATIVE NEGATIVE Urine Glucose (UA) NEGATIVE NEGATIVE Urine Ketones NEGATIVE NEGATIVE Urine Nitrite POSITIVE H NEGATIVE Urine Bilirubin NEGATIVE NEGATIVE Urine Urobilinogen 0.2 < = 1.0 MG/DL Urine Leukocyte Esterase 3+ H NEGATIVE Urine RBC (Auto) 1+ H NEGATIVE Urine RBC /HPF Urine WBC TNTC H /HPF Urine Crystals /LPF Urine Bacteria /HPF Urine Casts /LPF Urine Mucus /LPF Urine Culture Indicated YES My Orders Orders - MARTINEZ,GILLIAN L DO Cbc With Automated Diff (03/09/21 16:39) Comprehensive Metabolic Panel (03/09/21 16:39) Lactic Acid Analyzer (03/09/21 16:39) Ua Culture If Indicated (03/09/21 16:39) Abdomen Flat & Upright/Decub (03/09/21 16:39) Fentanyl Inj (Sublimaze Injection) (03/09/21 16:40) Manual Differential (03/09/21 16:40) Urine Culture (03/09/21 17:30) Ct Abdomen/Pelvis Wo (03/09/21 17:53) Ceftriaxone (Rocephin) (03/09/21 18:00) Medications Given in ED Current Medications Medications Dose Ordered Sig/Benigno Route Start Time Stop Time Status Last Admin Dose Admin Ceftriaxone Sodium 1000 mg/ Sterile Water 10 ml @ 200 mls/hr ONCE ONCE IV 03/09/21 18:00 03/09/21 18:02 DC 03/09/21 18:13 200 MLS/HR Vital Signs/I&O 03/09/21 16:35 Temp 37.0 Pulse 95 Resp 18 B/P (MAP) 116/81 (93) Pulse Ox 95 O2 Delivery Room Air Progress Progress Note : Progress Note Patient CT does not show any significant acute changes. Fluid collection in the abdominal wall is likely where the wound VAC is. He does have what appears to be a urinary tract infection and some severe constipation. We will start him on MiraLAX and Keflex. I did recommend he increase fiber and his activity. If symptoms worsen throughout the weekend he should return to the ER for further evaluation. He does have some mild free air that was there prior to surgery and is has been mildly persistent. Patient does not have significant rebound or pain on physical examination. I also recommended he drink plenty of fluids. Patient was stable and discharged back to nursing Diagnostic Imaging Diagonstic Imaging: CT Plain Films/CT/US/NM/MRI: abdomen Comments CT ABDOMEN/PELVIS WO PROCEDURE: CT abdomen and pelvis without contrast. TECHNIQUE: Multiple contiguous axial images were obtained through the abdomen and pelvis without the use of intravenous contrast. Auto Exposure Controls were utilized during the CT exam to meet ALARA standards for radiation dose reduction. INDICATION: Abdominal pain. Postsurgical. COMPARISON: Abdominal radiographs 03/09/2021. CT abdomen and pelvis with IV contrast 02/27/2021. FINDINGS: Examination is limited by respiratory motion. There is a small amount of residual free intraperitoneal air overlying the anterior liver. There is new anterior abdominal wall midline incision which contains an air-fluid level, measuring approximately 3.6 x 3.3 cm axially and runs nearly the entire length of the skin padmini in the superior-inferior dimension. Consolidation in the right lung base is partially visualized. Large amount of stool within the rectum. Sigmoid colon anastomosis. There is a small fluid collection in the left pelvis measuring 2.0 x 2.4 cm. No evidence of bowel obstruction. The liver, gallbladder, pancreas, spleen, adrenals, kidneys, collecting systems and bladder are negative on this noncontrast exam. No acute osseous findings. Sacral spinal stimulator. IMPRESSION: 1. Small amount of free intraperitoneal air persists along the anterior liver. 2. No evidence of bowel obstruction. The sigmoid anastomosis is widely patent. 3. There is a small fluid collection in the left pelvis measuring up to 2.4 cm. 4. Air-fluid level within the midline abdominal wall incision measuring up to 3.6 x 3.3 cm axially and running nearly the entire length of the skin padmini. 5. Large amount of stool within the rectum suspicious for rectal fecal impaction. Reviewed: Reviewed/Discussed Departure Impression Primary Impression: Constipation Qualified Codes: K59.00 - Constipation, unspecified Additional Impression: Urinary tract infection Qualified Codes: N30.01 - Acute cystitis with hematuria Disposition: HOME, SELF-CARE Condition: Stable Departure-Patient Inst. Referrals: MANI WALL MD (PCP/Family) Primary Care Physician Patient Instructions: Constipation in Adults, Urinary Tract Infection, Adult ED Add. Discharge Instructions: Encourage fluids and ambulation Increase fiber in your diet MiraLAX, 1 capful 3-4 times daily until soft daily stool then daily as needed for soft daily bowel movement If symptoms worsen throughout the weekend return to the ER for reevaluation Scripts Cephalexin (Cephalexin) 500 Mg Tablet 500 MG PO QID, #20 TAB 0 Refills Prov: GILLIAN MARTINEZ DO 03/09/21 GILLIAN MARTINEZ DO Mar 09, 2021 16:37
[2021-03-09] MEDS ORDERED: fentaNYL INJ 100 MCG/2 ML AMP IVP STA (16:40)
[2021-03-09 16:55] LABS: BASOPHILS # (AUTO) 0.1 10^3/uL (0.0-0.1); BASOPHILS % (AUTO) 1 % (0-10); EOSINOPHILS # (AUTO) 0.4 10^3/uL (0.0-0.3); EOSINOPHILS % (AUTO) 3 % (0-10); HEMATOCRIT 34 % (40-54); HEMOGLOBIN 11.5 g/dL (13.3-17.7); LYMPHOCYTES # (AUTO) 1.6 X 10^3 (1.0-4.0); LYMPHOCYTES % (AUTO) 11 % (12-44); MEAN CORPUSCULAR HEMOGLOBIN 29 pg (25-34); MEAN CORPUSCULAR HGB CONC 34 g/dL (32-36); MEAN CORPUSCULAR VOLUME 85 fL (80-99); MEAN PLATELET VOLUME 9.3 fL (9.0-12.2); MONOCYTES # (AUTO) 0.7 X 10^3 (0.0-1.0); MONOCYTES % (AUTO) 5 % (0-12); NEUTROPHILS # (AUTO) 11.3 X 10^3 (1.8-7.8); NEUTROPHILS % (AUTO) 80 % (42-75); PLATELET COUNT 459 10^3/uL (130-400); WHITE BLOOD COUNT 14.2 10^3/uL (4.3-11.0)
[2021-03-09 17:18] LABS: ALBUMIN 2.8 GM/DL (3.2-4.5); BILIRUBIN,TOTAL 0.5 MG/DL (0.1-1.0); CALCIUM 8.4 MG/DL (8.5-10.1); CREATININE SERUM 0.79 MG/DL (0.60-1.30); POTASSIUM 4.5 MMOL/L (3.6-5.0); TOTAL PROTEIN 6.6 GM/DL (6.4-8.2)
--- NOTE | 2021-03-09 17:34 | Diagnostic Imaging Report ---
EXAM: ABDOMEN FLAT UPRIGHT/DECUB INDICATION: Abdominal pain. Post surgery. COMPARISON: CT abdomen and pelvis from 02/27/2021. FINDINGS: There is small amount of free air under the diaphragm on the semiupright positioning. Anterior skin padmini. Several dilated loops of small bowel throughout the abdomen. Large amount of stool is seen in the distal colon and rectum. Sacral spinal stimulator. Mild atelectasis or infiltrate in the right lung base. IMPRESSION: 1. There remains free intraperitoneal air under the diaphragm. 2. Several dilated loops of small bowel could represent ileus or obstruction. 3. Large amount of stool in the distal colon and rectum suggesting constipation. Dictated by: Dictated on workstation # [id number]
[2021-03-09 17:40] LABS: BILIRUBIN,URINE NEGATIVE (NEGATIVE); CLARITY,URINE CLOUDY; COLOR,URINE YELLOW; GLUCOSE, URINE (UA) NEGATIVE (NEGATIVE); KETONES,URINE NEGATIVE (NEGATIVE); LEUKOCYTE ESTERASE ,URINE 3+ (NEGATIVE); NITRITE,URINE POSITIVE (NEGATIVE); PH,URINE 6.5 (5-9); PROTEIN,URINE NEGATIVE (NEGATIVE); WBC,URINE TNTC /HPF
[2021-03-09 17:44] LABS: EOSINOPHILS % (MANUAL) 1 %; LYMPHOCYTES % (MANUAL) 6 %; MONOCYTES % (MANUAL) 5 %; NEUTROPHILS % (MANUAL) 88 %; SMEAR SCAN COMMENT PLTS INCREASED
[2021-03-09] MEDS ORDERED: cefTRIAXone 1,000 MG in WATER (STERILE) FOR INJECTION 10 ML IV ONE (18:00)
--- NOTE | 2021-03-09 18:42 | Diagnostic Imaging Report ---
PROCEDURE: CT abdomen and pelvis without contrast. TECHNIQUE: Multiple contiguous axial images were obtained through the abdomen and pelvis without the use of intravenous contrast. Auto Exposure Controls were utilized during the CT exam to meet ALARA standards for radiation dose reduction. INDICATION: Abdominal pain. Postsurgical. COMPARISON: Abdominal radiographs 03/09/2021. CT abdomen and pelvis with IV contrast 02/27/2021. FINDINGS: Examination is limited by respiratory motion. There is a small amount of residual free intraperitoneal air overlying the anterior liver. There is new anterior abdominal wall midline incision which contains an air-fluid level, measuring approximately 3.6 x 3.3 cm axially and runs nearly the entire length of the skin padmini in the superior-inferior dimension. Consolidation in the right lung base is partially visualized. Large amount of stool within the rectum. Sigmoid colon anastomosis. There is a small fluid collection in the left pelvis measuring 2.0 x 2.4 cm. No evidence of bowel obstruction. The liver, gallbladder, pancreas, spleen, adrenals, kidneys, collecting systems and bladder are negative on this noncontrast exam. No acute osseous findings. Sacral spinal stimulator. IMPRESSION: 1. Small amount of free intraperitoneal air persists along the anterior liver. 2. No evidence of bowel obstruction. The sigmoid anastomosis is widely patent. 3. There is a small fluid collection in the left pelvis measuring up to 2.4 cm. 4. Air-fluid level within the midline abdominal wall incision measuring up to 3.6 x 3.3 cm axially and running nearly the entire length of the skin padmini. 5. Large amount of stool within the rectum suspicious for rectal fecal impaction. Dictated by: Dictated on workstation # [id number]
[2021-03-09 19:10] VITALS: BP 116/81
[2021-03-09] MEDS ORDERED: CEPH500T PO (19:10)
== END 2021-03-09 20:15 | disposition home or self-care (01) ==
LOC: EDUNIT# 16:29 → ER FS 16:30
DX: K59.00 Constipation, unspecified (principal); N39.0 Urinary tract infection, site not specified; J44.9 Chronic obstructive pulmonary disease, unspecified; I25.2 Old myocardial infarction; I48.91 Unspecified atrial fibrillation; Z79.01 Long term (current) use of anticoagulants
CPT/HCPCS: 36415; 74019; 74176; 80053; 81000; 83605; 85007; 85027; 87077; 87088; 87186

== ENCOUNTER 2021-05-22 11:23 | Emergency (ER) | payer MEDICARE ==
[2021-05-22] MEDS ORDERED: NS IV 1000 ML 1,000 ML IV STA (11:27)
--- NOTE | 2021-05-22 11:27 | ED Cough/URI ---
General Stated Complaint: COVID+ History of Present Illness Date Seen by Provider: May 22, 2021 Time Seen by Provider: 11:24 Initial Comments 71-year-old male sent in by half-way. Patient is known COVID-positive tested positive yesterday. Patient had some increased respirations and some worsening mild confusion this morning at the half-way. No reports of fever, chills. Patient was sent out for evaluation Allergies and Home Medications Allergies Coded Allergies: No Known Drug Allergies (Unverified , 01/15/10) Patient Home Medication List Home Medication List Reviewed: Yes Baclofen (Baclofen) 10 Mg Tablet, 5 MG PO Q4HR Prescribed by: AUTUMN RANDOLPH on 03/08/21603 Cephalexin (Cephalexin) 500 Mg Tablet, 500 MG PO QID Prescribed by: GILLIAN MARTINEZ on 03/09/211909 Flecainide Acetate (Flecainide Acetate) 100 Mg Tablet, 100 MG PO BID, (Reported) Entered as Reported by: NELIA LLOYD on 02/19/19 09 Hydrocodone Bit/Acetaminophen (HYDROcodone/APAP 5 MG/325 MG TAB) 1 Tab Tab, 1 EA PO Q4H PRN for PAIN-MODERATE (5-7) Prescribed by: AUTUMN RANDOLPH on 03/08/21603 L.acidoph & Paracasei,B.lactis (Probiotic) 1 Each Capsule, 2 EACH PO BID, (Reported) Entered as Reported by: MARIA ISABEL DONOHUE on 02/28/21 09 Lisinopril (Lisinopril) 20 Mg Tablet, 20 MG PO DAILY, (Reported) Entered as Reported by: NELIA LLOYD on 02/19/19906 Pantoprazole Sodium (Protonix) 40 Mg Tablet.dr, 40 MG PO DAILY Prescribed by: AUTUMN RANDOLPH on 03/08/21603 Rivaroxaban (Xarelto) 20 Mg Tablet, 20 MG PO 1900, (Reported) Entered as Reported by: MARIA ISABEL DONOHUE on 02/28/21 09 Review of Systems Review of Systems Constitutional: see HPI; No chills, No fever Respiratory: cough Cardiovascular: no symptoms reported Gastrointestinal: no symptoms reported Genitourinary: no symptoms reported Musculoskeletal: no symptoms reported Skin: no symptoms reported Psychiatric/Neurological: See HPI Hematologic/Lymphatic: No Symptoms Reported Physical Exam Vital Signs - First Documented 1/18/22 11:34 Resp 22 Capillary Refill : Height: '" Weight: lbs. oz. kg; BMI Method: General Appearance: other (Chronically ill) Respiratory: lungs clear, normal breath sounds, no respiratory distress, no accessory muscle use Cardiovascular: normal peripheral pulses, regular rate, rhythm Gastrointestinal: non tender, soft Neurologic/Psychiatric: other (Patient groans a lot and asked what is wrong. Patient is alert but does not communicate much other than that. Sounds like he is normally AO x3 and has some mild confusion compared to his baseline) Skin: normal color, warm/dry Progress/Results/Core Measures Suspected Sepsis SIRS Temperature: Pulse: Respiratory Rate: Laboratory Tests 05/22/21 11:29: White Blood Count 15.2H Blood Pressure / Mean: Laboratory Tests 05/22/21 11:29: Creatinine 3.05H, Platelet Count 200, Total Bilirubin 0.4 Results/Orders Lab Results Laboratory Tests Test 05/22/21 11:29 05/22/21 11:40 Range/Units White Blood Count 15.2 H 4.3-11.0 10^3/uL Red Blood Count 4.65 4.30-5.52 10^6/uL Hemoglobin 13.1 L 13.3-17.7 g/dL Hematocrit 39 L 40-54 % Mean Corpuscular Volume 86 80-99 fL Mean Corpuscular Hemoglobin 28 25-34 pg Mean Corpuscular Hemoglobin Concent 33 32-36 g/dL Red Cell Distribution Width 16.2 H 10.0-14.5 % Platelet Count 200 130-400 10^3/uL Mean Platelet Volume 10.4 9.0-12.2 fL Immature Granulocyte % (Auto) 1 % Neutrophils (%) (Auto) 92 H 42-75 % Lymphocytes (%) (Auto) 6 L 12-44 % Monocytes (%) (Auto) 1 0-12 % Eosinophils (%) (Auto) 0 0-10 % Basophils (%) (Auto) 0 0-10 % Neutrophils # (Auto) 14.0 H 1.8-7.8 X 10^3 Lymphocytes # (Auto) 0.9 L 1.0-4.0 X 10^3 Monocytes # (Auto) 0.1 0.0-1.0 X 10^3 Eosinophils # (Auto) 0.0 0.0-0.3 10^3/uL Basophils # (Auto) 0.0 0.0-0.1 10^3/uL Immature Granulocyte # (Auto) 0.1 0.0-0.1 10^3/uL Sodium Level 137 135-145 MMOL/L Potassium Level 4.6 3.6-5.0 MMOL/L Chloride Level 99 98-107 MMOL/L Carbon Dioxide Level 18 L 21-32 MMOL/L Anion Gap 20 H 5-14 MMOL/L Blood Urea Nitrogen 39 H 7-18 MG/DL Creatinine 3.05 H 0.60-1.30 MG/DL Estimat Glomerular Filtration Rate 21 BUN/Creatinine Ratio 13 Glucose Level 114 H 70-105 MG/DL Calcium Level 8.8 8.5-10.1 MG/DL Corrected Calcium 9.4 8.5-10.1 MG/DL Total Bilirubin 0.4 0.1-1.0 MG/DL Aspartate Amino Transf (AST/SGOT) 51 H 5-34 U/L Alanine Aminotransferase (ALT/SGPT) 16 0-55 U/L Alkaline Phosphatase 76 40-136 U/L Total Protein 7.3 6.4-8.2 GM/DL Albumin 3.3 3.2-4.5 GM/DL Urine Color YELLOW Urine Clarity CLOUDY Urine pH 8.0 5-9 Urine Specific [place] 1.020 1.016-1.022 Urine Protein 1+ H NEGATIVE Urine Glucose (UA) NEGATIVE NEGATIVE Urine Ketones NEGATIVE NEGATIVE Urine Nitrite NEGATIVE NEGATIVE Urine Bilirubin NEGATIVE NEGATIVE Urine Urobilinogen 0.2 < = 1.0 MG/DL Urine Leukocyte Esterase 3+ H NEGATIVE Urine RBC (Auto) 3+ H NEGATIVE Urine RBC 2-5 H /HPF Urine WBC >100 H /HPF Urine Squamous Epithelial Cells NONE /HPF Urine Crystals NONE /LPF Urine Bacteria LARGE H /HPF Urine Casts NONE /LPF Urine Mucus NEGATIVE /LPF Urine Culture Indicated YES My Orders Orders - MARTINEZ,GILLIAN L DO Chest 1 View Ap/Pa Only (05/22/21 11:27) Cbc With Automated Diff (05/22/21 11:27) Comprehensive Metabolic Panel (05/22/21 11:27) Ua Culture If Indicated (05/22/21 11:27) Ns Iv 1000 Ml (Sodium Chloride 0.9%) (05/22/21 11:27) Diphenhydramine Injection (Benadryl Inje (05/22/21 11:31) Ketorolac Injection (Toradol Injection) (05/22/21 11:31) Manual Differential (05/22/21 11:29) Urine Culture (05/22/21 11:40) Ceftriaxone 1 Gm Pre-Mix (Rocephin 1 Gm (05/22/21 12:20) Vital Signs/I&O 05/22/21 11:34 Resp 22 B/P (MAP) Capillary Refill : Progress Note : Progress Note During exam, patient seem to be in pain and uncomfortable. While nurses were obtaining blood and urine from his indwelling Herman it was noted that his Herman catheter was actually clogged. Herman was changed and patient had appropriate urine drainage and he was no longer in pain. Urinalysis shows a urinary tract infection, he will be treated with Rocephin in the ER and sent home with Keflex. Patient is also positive for COVID and will need to follow COVID policies at the half-way. Patient was much improved following changing of the Herman and is doing much better at this time. Patient stable and discharged back to the half-way Departure Impression Primary Impression: Urinary tract infection Qualified Codes: T83.511A - Infection and inflammatory reaction due to indwelling urethral catheter, initial encounter; N39.0 - Urinary tract infection, site not specified Additional Impressions: Obstructed Herman catheter Qualified Codes: T83.091A - Other mechanical complication of indwelling urethral catheter, initial encounter COVID-19 Disposition: 01 HOME, SELF-CARE Condition: Stable Departure-Patient Inst. Patient Instructions: Urinary Tract Infection, Adult ED, How to Care for Your Herman Catheter, Male, COVID-19 (DC) Add. Discharge Instructions: Follow-up with his primary care provider as needed Scripts Cephalexin (Cephalexin) 500 Mg Tablet 500 MG PO QID, #20 TAB 0 Refills Prov: GILLIAN MARTINEZ DO 05/22/21 GILLIAN MARTINEZ DO May 22, 2021 11:27
[2021-05-22] MEDS ORDERED: diphenhydrAMINE 50 MG/ML INJ (BENADRYL) IV STA (11:31)
[2021-05-22] MEDS ORDERED: KETOROLAC 30 MG/ML VIAL IVP STA (11:31)
[2021-05-22 11:53] LABS: WHITE BLOOD COUNT 15.2 10^3/uL (4.3-11.0)
[2021-05-22 11:54] LABS: BASOPHILS % (AUTO) 0 % (0-10); EOSINOPHILS % (AUTO) 0 % (0-10); HEMATOCRIT 39 % (40-54); HEMOGLOBIN 13.1 g/dL (13.3-17.7); LYMPHOCYTES # (AUTO) 0.9 X 10^3 (1.0-4.0); LYMPHOCYTES % (AUTO) 6 % (12-44); MEAN CORPUSCULAR HEMOGLOBIN 28 pg (25-34); MEAN CORPUSCULAR HGB CONC 33 g/dL (32-36); MEAN CORPUSCULAR VOLUME 86 fL (80-99); MEAN PLATELET VOLUME 10.4 fL (9.0-12.2); MONOCYTES # (AUTO) 0.1 X 10^3 (0.0-1.0); MONOCYTES % (AUTO) 1 % (0-12); NEUTROPHILS % (AUTO) 92 % (42-75); PLATELET COUNT 200 10^3/uL (130-400)
[2021-05-22 11:58] LABS: BILIRUBIN,URINE NEGATIVE (NEGATIVE); CLARITY,URINE CLOUDY; COLOR,URINE YELLOW; GLUCOSE, URINE (UA) NEGATIVE (NEGATIVE); KETONES,URINE NEGATIVE (NEGATIVE); LEUKOCYTE ESTERASE ,URINE 3+ (NEGATIVE); NITRITE,URINE NEGATIVE (NEGATIVE); PROTEIN,URINE 1+ (NEGATIVE)
--- NOTE | 2021-05-22 12:01 | Diagnostic Imaging Report ---
INDICATION: Cough. TECHNIQUE: Portable AP view of the chest is obtained with comparison made to study of 02/27/2021. FINDINGS: There is suboptimal inspiration. There is evidence of background emphysema. Coarse interstitial markings are seen in both lungs. Prominence of mediastinal width is likely due to portable technique and poor inspiratory result. IMPRESSION: Coarse interstitial markings in both lungs may reflect mild edema and/or pneumonitis. There is suboptimal inspiration which limits evaluation of the lungs and mediastinum. Follow-up PA and lateral views of the chest would be of use. Dictated by: Dictated on workstation # [id number]
[2021-05-22 12:08] LABS: BACTERIA,URINE LARGE /HPF; WBC,URINE >100 /HPF
[2021-05-22 12:10] LABS: BILIRUBIN,TOTAL 0.4 MG/DL (0.1-1.0); CALCIUM 8.8 MG/DL (8.5-10.1); CREATININE SERUM 3.05 MG/DL (0.60-1.30); TOTAL PROTEIN 7.3 GM/DL (6.4-8.2)
[2021-05-22 12:11] LABS: ALBUMIN 3.3 GM/DL (3.2-4.5)
[2021-05-22 12:18] LABS: POTASSIUM 4.6 MMOL/L (3.6-5.0)
[2021-05-22] MEDS ORDERED: cefTRIAXone 1 GM PRE-MIX 50 ML IV STA (12:20)
[2021-05-22] MEDS ORDERED: CEPH500T PO (12:25)
[2021-05-22 12:39] LABS: BAND NEUTROPHILS 50 %; BASOPHILS % (MANUAL) 0 %; ELLIPT/OVALOCYTES SLIGHT; EOSINOPHILS % (MANUAL) 0 %; LYMPHOCYTES % (MANUAL) 8 %; METAMYELOCYTES % 11 %; MONOCYTES % (MANUAL) 1 %; NEUTROPHILS % (MANUAL) 30 %
[2021-05-22 12:40] LABS: CRENATED RBC SLIGHT; TOXIC GRANULATION/VACUOLAZATIO 2+
[2021-05-22 13:04] VITALS: BP 124/68
[2021-05-23] MEDS ORDERED: BACL10TA PO (09:26)
[2021-05-23] MEDS ORDERED: CALC625T PO (09:26)
[2021-05-23] MEDS ORDERED: POLY17PO6 PO (09:26)
[2021-05-23] MEDS ORDERED: MENT71OI TP (09:26)
[2021-05-23] MEDS ORDERED: OMEP-440 PO (09:26)
[2021-05-23] MEDS ORDERED: NA P133E2 RC (09:26)
[2021-05-23] MEDS ORDERED: L.AC1CAP6 PO (09:26)
[2021-05-23] MEDS ORDERED: ACHD5005 PO (09:26)
[2021-05-23] MEDS ORDERED: CEPH500C PO (09:26)
== END 2021-05-22 13:05 | disposition home or self-care (01) ==
LOC: EDUNIT# 11:23 → ER FS 11:24
DX: N39.0 Urinary tract infection, site not specified (principal); U07.1 COVID-19; T83.091A Other mechanical complication of indwelling urethral catheter, initial encounter; Z79.01 Long term (current) use of anticoagulants
CPT/HCPCS: 36415; 51702; 71045; 80053; 81000; 85007; 85027; 87077; 87088; 87184; 87186

== ENCOUNTER 2021-05-23 00:41 | Inpatient (IN) | payer MEDICARE ==
[~2021-05-23] VITALS: Ht 177.8 cm; Wt 101.3 kg
[2021-05-23] MEDS ORDERED: LACTATED RINGERS 1,000 ML IV STA (00:53)
--- NOTE | 2021-05-23 00:54 | ED General ---
General Stated Complaint: BP;COVID+ History of Present Illness Date Seen by Provider: May 23, 2021 Time Seen by Provider: 12:50 Initial Comments 71-year-old male [facility] were concerned about low oxygen. Patient is COVID-positive and they are having difficulty picking up his oxygen. Patient also has concerns about a little bit low blood pressure [facility] the [facility] however EMS got a reading of systolics around 115 and 117. Patient was seen by me earlier today with COVID positive but also had a clogged Herman catheter. He had significant urine output following a Herman catheter. He had some acute kidney injury at that time however was felt likely related to his catheter issue. Patient was given Rocephin at the time due to a urinary tract i nfection likely related to a clogged catheter. Patient was also given a Vicodin approximately 1 hour prior to being brought to the ER. Allergies and Home Medications Allergies Coded Allergies: No Known Drug Allergies (Unverified , 01/15/10) Patient Home Medication List Home Medication List Reviewed: Yes Baclofen (Baclofen) 10 Mg Tablet, 5 MG PO Q4HR Prescribed by: AUTUMN RANDOLPH on 03/08/21 06 Cephalexin (Cephalexin) 500 Mg Tablet, 500 MG PO QID Prescribed by: GILLIAN MARTINEZ on 03/09/21 191 Cephalexin (Cephalexin) 500 Mg Tablet, 500 MG PO QID Prescribed by: GILLIAN MARTINEZ on 05/22/21 1225 Flecainide Acetate (Flecainide Acetate) 100 Mg Tablet, 100 MG PO BID, (Reported) Entered as Reported by: NELIA LLOYD on 02/19/19 0907 Hydrocodone Bit/Acetaminophen (HYDROcodone/APAP 5 MG/325 MG TAB) 1 Tab Tab, 1 EA PO Q4H PRN for PAIN-MODERATE (5-7) Prescribed by: AUTUMN RANDOLPH on 03/08/21 0604 L.acidoph & Paracasei,B.lactis (Probiotic) 1 Each Capsule, 2 EACH PO BID, (Reported) Entered as Reported by: MARIA ISABEL DONOHUE on 02/28/21 0953 Lisinopril (Lisinopril) 20 Mg Tablet, 20 MG PO DAILY, (Reported) Entered as Reported by: NELIA LLOYD on 02/19/19 0907 Pantoprazole Sodium (Protonix) 40 Mg Tablet.dr, 40 MG PO DAILY Prescribed by: AUTUMN RANDOLPH on 03/08/21 0604 Rivaroxaban (Xarelto) 20 Mg Tablet, 20 MG PO 1900, (Reported) Entered as Reported by: MARIA ISABEL DONOHUE on 02/28/21 0953 Review of Systems Review of Systems Constitutional: chills, malaise Respiratory: see HPI Cardiovascular: no symptoms reported Gastrointestinal: no symptoms reported Genitourinary: see HPI Musculoskeletal: no symptoms reported Skin: no symptoms reported Psychiatric/Neurological: No Symptoms Reported Past Yjvaxcd-Yokksn-Qfyfuo Hx Immunizations Up To Date First/Initial COVID19 Vaccinat: September 2020 Second COVID19 Vaccination Piter: October 2020 Seasonal Allergies Seasonal Allergies: No Past Medical History Surgeries: Yes (previous bladder stimulator, not currently working) Abdominal, Orthopedic Respiratory: No COPD Currently Using CPAP: No Currently Using BIPAP: No Cardiac: Yes Aneurysm, Atrial Fibrillation, Heart Attack Neurological: No Reproductive Disorders: No Genitourinary: Yes (Incontinence, Wears external catheter) Benign Prostatic Hyperpl Gastrointestinal: No Obstructive Bowel Musculoskeletal: Yes Arthritis Endocrine: No HEENT: No Loss of Vision: Denies Cancer: No Psychosocial: Yes Integumentary: No Blood Disorders: No Family Medical History Heart Disease Physical Exam Vital Signs Vital Signs - First Documented 05/23/21 00:42 Temp 37.0 Pulse 51 Resp 18 B/P (MAP) 78/48 (58) Pulse Ox 100 O2 Delivery Room Air Capillary Refill : Height, Weight, BMI Height: '" Weight: lbs. oz. kg; 30.00 BMI Method: General Appearance: Chronically ill, Other (Mildly lethargic) Neck: Non Tender, Supple Respiratory: Lungs Clear, Normal Breath Sounds Cardiovascular: Bradycardia Gastrointestinal: Non Tender, Soft Extremity: Normal Capillary Refill Neurologic/Psychiatric: Other (Mildly lethargic) Focused Exam Lactate Level 05/23/21 01:01: Lactic Acid Level 3.66*H 05/23/21 02:37: Lactic Acid Level 5.56*H 05/23/21 05:15: Lactic Acid Level 3.75*H Lactic Acid Level Laboratory Tests Test 05/23/21 01:01 05/23/21 02:37 05/23/21 05:15 Lactic Acid Level 3.66 MMOL/L (0.50-2.00) *H 5.56 MMOL/L (0.50-2.00) *H 3.75 MMOL/L (0.50-2.00) *H Progress/Results/Core Measures Suspected Sepsis SIRS Temperature: Pulse: Respiratory Rate: Laboratory Tests 05/23/21 01:01: White Blood Count 32.1*H 05/23/21 02:37: White Blood Count 31.4*H Blood Pressure / Mean: 05/23/21 01:01: Lactic Acid Level 3.66*H 05/23/21 02:37: Lactic Acid Level 5.56*H 05/23/21 05:15: Lactic Acid Level 3.75*H Laboratory Tests 05/23/21 01:01: Creatinine 2.83H, Platelet Count 144, Total Bilirubin 0.7 05/23/21 02:37: Creatinine 2.49H, Platelet Count 126L Results/Orders Lab Results Laboratory Tests Test 05/23/21 01:01 05/23/21 01:38 05/23/21 02:02 05/23/21 02:37 Range/Units White Blood Count 32.1 *H 31.4 *H 4.3-11.0 10^3/uL Red Blood Count 4.42 4.03 L 4.30-5.52 10^6/uL Hemoglobin 12.4 L 11.3 L 13.3-17.7 g/dL Hematocrit 37 L 34 L 40-54 % Mean Corpuscular Volume 85 85 80-99 fL Mean Corpuscular Hemoglobin 28 28 25-34 pg Mean Corpuscular Hemoglobin Concent 33 33 32-36 g/dL Red Cell Distribution Width 16.2 H 16.3 H 10.0-14.5 % Platelet Count 144 126 L 130-400 10^3/uL Mean Platelet Volume 10.7 10.9 9.0-12.2 fL Immature Granulocyte % (Auto) 7 8 % Neutrophils (%) (Auto) 89 H 87 H 42-75 % Lymphocytes (%) (Auto) 3 L 3 L 12-44 % Monocytes (%) (Auto) 1 2 0-12 % Eosinophils (%) (Auto) 0 0 0-10 % Basophils (%) (Auto) 0 0 0-10 % Neutrophils # (Auto) 28.6 H 27.4 H 1.8-7.8 X 10^3 Lymphocytes # (Auto) 0.8 L 0.9 L 1.0-4.0 X 10^3 Monocytes # (Auto) 0.4 0.6 0.0-1.0 X 10^3 Eosinophils # (Auto) 0.0 0.0 0.0-0.3 10^3/uL Basophils # (Auto) 0.1 0.1 0.0-0.1 10^3/uL Immature Granulocyte # (Auto) 2.1 H 2.4 H 0.0-0.1 10^3/uL Neutrophils % (Manual) 59 53 % Lymphocytes % (Manual) 2 5 % Monocytes % (Manual) 2 1 % Metamyelocytes % 9 15 % Myelocytes % 8 6 % Band Neutrophils 20 20 % Toxic Granulation 3+ 3+ Platelet Estimate NORMAL DECREASED Poikilocytosis MODERATE MODERATE Target Cells SLIGHT Crenated Cell SLIGHT SLIGHT Elliptocytes SLIGHT SLIGHT Blood Morphology Comment ABNORMAL ABNORMAL Sodium Level 136 137 135-145 MMOL/L Potassium Level 4.1 4.7 3.6-5.0 MMOL/L Chloride Level 99 102 98-107 MMOL/L Carbon Dioxide Level 18 L 19 L 21-32 MMOL/L Anion Gap 19 H 16 H 5-14 MMOL/L Blood Urea Nitrogen 44 H 43 H 7-18 MG/DL Creatinine 2.83 H 2.49 H 0.60-1.30 MG/DL Estimat Glomerular Filtration Rate 23 27 BUN/Creatinine Ratio 16 17 Glucose Level 58 *L 88 70-105 MG/DL Lactic Acid Level 3.66 *H 5.56 *H 0.50-2.00 MMOL/L Calcium Level 8.2 L 7.9 L 8.5-10.1 MG/DL Corrected Calcium 8.9 8.5-10.1 MG/DL Total Bilirubin 0.7 0.1-1.0 MG/DL Aspartate Amino Transf (AST/SGOT) 95 H 5-34 U/L Alanine Aminotransferase (ALT/SGPT) 28 0-55 U/L Alkaline Phosphatase 64 40-136 U/L Total Protein 7.3 6.4-8.2 GM/DL Albumin 3.1 L 3.2-4.5 GM/DL Glucometer 66 L 124 H 70-110 MG/DL Percent Immature Platelet Fraction 6.6 0.0-7.6 % Schistocytes SLIGHT Test 05/23/21 05:15 Range/Units Blood Gas Puncture Site LEFT RADIAL Blood Gas Patient Temperature 36.1 Arterial Blood pH 7.37 7.37-7.43 Arterial Blood Partial Pressure CO2 31 L 35-45 MMHG Arterial Blood Partial Pressure O2 66 L 79-93 MMHG Arterial Blood HCO3 18 L 23-27 MMOL/L Arterial Blood Total CO2 18.9 L 21.0-31.0 MMOL/L Arterial Blood Oxygen Saturation 92 L 94-100 % Arterial Blood Base Excess -6.3 L -2.5-2.5 MMOL/L Ruben Test YES-POS Blood Gas Ventilator Setting NO Blood Gas Inspired Oxygen ROOM AIR Lactic Acid Level 3.75 *H 0.50-2.00 MMOL/L My Orders Orders - MARTINEZ,GILLIAN L DO Cbc With Automated Diff (05/23/21 00:53) Comprehensive Metabolic Panel (05/23/21 00:53) Lactic Acid Analyzer (05/23/21 00:53) Lactated Ringers (Lr 1000 Ml Iv Solution (05/23/21 00:53) Manual Differential (05/23/21 01:01) Ed Iv/Invasive Line Start (05/23/21 01:24) Accucheck Stat ONCE (05/23/21 01:41) D50w (Emergency) Syringe (Dextrose 50% 5 (05/23/21 02:00) D50w (Emergency) Syringe (Dextrose 50% 5 (05/23/21 01:45) Lactated Ringers (Lr 1000 Ml Iv Solution (05/23/21 02:00) Lactated Ringers (Lr 1000 Ml Iv Solution (05/23/21 01:55) Basic Metabolic Panel (05/23/21 02:35) Cbc With Automated Diff (05/23/21 02:35) Ed Iv/Invasive Line Start (05/23/21 03:26) Ns Iv 1000 Ml (Sodium Chloride 0.9%) (05/23/21 03:30) Manual Differential (05/23/21 02:37) Ct Chest/Abdomen/Pelvis Wo (05/23/21 03:35) Piperacillin Sodium/Tazobactam (Zosyn Vi (05/23/21 04:00) Ed Iv/Invasive Line Start (05/23/21 04:01) Ns Iv 500 Ml (Sodium Chloride 0.9%) (05/23/21 04:15) Arterial Blood Gas (05/23/21 04:41) Dexamethasone Injection (Decadron Inje (05/23/21 05:15) Medications Given in ED Current Medications Medications Dose Ordered Sig/Benigno Route Start Time Stop Time Status Last Admin Dose Admin Dexamethasone Sodium Phosphate 10 mg ONCE ONCE IV 05/23/21 05:15 05/23/21 05:16 DC 05/23/21 05:12 10 MG Dextrose 25 ml ONCE ONCE IV 05/23/21 02:00 05/23/21 02:01 DC 05/23/21 01:47 25 ML Lactated Ringer's 1,000 ml @ 999 mls/hr Q1H1M ONCE IV 05/23/21 02:00 05/23/21 03:00 DC 05/23/21 02:04 999 MLS/HR Piperacillin Sod/ Tazobactam Sod 4.5 gm/Sodium Chloride 100 ml @ 200 mls/hr ONCE ONCE IV 05/23/21 04:00 05/23/21 04:29 DC 05/23/21 04:22 200 MLS/HR Sodium Chloride 500 ml @ 0 mls/hr Q0M ONCE IV 05/23/21 04:15 05/23/21 04:16 DC 05/23/21 04:13 999 MLS/HR Vital Signs/I&O 05/23/21 05/23/21 00:42 05:29 Temp 37.0 Pulse 51 55 Resp 18 22 B/P (MAP) 78/48 (58) 91/57 Pulse Ox 100 96 O2 Delivery Room Air Room Air Capillary Refill : Progress Note : Progress Note Patient with severe sepsis with endorgan failure. He has a combination of COVID with a left upper lobe pneumonia, enteritis, UTI.. Patient had significant worsening of his lactic despite couple liters of IV fluid. Patient is given Rocephin earlier today and given Zosyn with concern of abdominal infection. Discussed with Dr. Randolph and the eICU. We will admit to ICU. We will attempt to contact family due to poor prognosis. I would highly recommend patient be placed on comfort cares. Patient was guarded at transfer. Critical Care Note Critical Care Total Time (minutes) 2hrs Progress Patient continues to deteriorate despite IV fluids, Zosyn. Departure Impression Primary Impression: COVID-19 Additional Impressions: Severe sepsis with acute organ dysfunction Urinary tract infection Qualified Codes: T83.511D - Infection and inflammatory reaction due to indwelling urethral catheter, subsequent encounter; N39.0 - Urinary tract infection, site not specified Pneumonia Qualified Codes: J18.9 - Pneumonia, unspecified organism Disposition: 30 STILL A PATIENT Condition: Critical Admissions Decision to Admit Reason: Admit from ER (General) Decision to Admit/Date: May 23, 2021 Time/Decision to Admit Time: 04:40 Departure-Patient Inst. Referrals: MANI WALL MD (PCP/Family) Primary Care Physician GILLIAN MARTINEZ DO May 23, 2021 00:54
[2021-05-23 01:21] LABS: WHITE BLOOD COUNT 32.1 10^3/uL (4.3-11.0)
[2021-05-23 01:22] LABS: BASOPHILS % (AUTO) 0 % (0-10); EOSINOPHILS % (AUTO) 0 % (0-10); HEMATOCRIT 37 % (40-54); HEMOGLOBIN 12.4 g/dL (13.3-17.7); LYMPHOCYTES # (AUTO) 0.8 X 10^3 (1.0-4.0); LYMPHOCYTES % (AUTO) 3 % (12-44); MEAN CORPUSCULAR HEMOGLOBIN 28 pg (25-34); MEAN CORPUSCULAR HGB CONC 33 g/dL (32-36); MEAN CORPUSCULAR VOLUME 85 fL (80-99); MEAN PLATELET VOLUME 10.7 fL (9.0-12.2); MONOCYTES % (AUTO) 1 % (0-12); NEUTROPHILS # (AUTO) 28.6 X 10^3 (1.8-7.8); NEUTROPHILS % (AUTO) 89 % (42-75); PLATELET COUNT 144 10^3/uL (130-400)
[2021-05-23 01:23] LABS: BASOPHILS # (AUTO) 0.1 10^3/uL (0.0-0.1); MONOCYTES # (AUTO) 0.4 X 10^3 (0.0-1.0)
[2021-05-23 01:33] LABS: CREATININE SERUM 2.83 MG/DL (0.60-1.30); POTASSIUM 4.1 MMOL/L (3.6-5.0)
[2021-05-23 01:36] LABS: ALBUMIN 3.1 GM/DL (3.2-4.5); BILIRUBIN,TOTAL 0.7 MG/DL (0.1-1.0); CALCIUM 8.2 MG/DL (8.5-10.1); TOTAL PROTEIN 7.3 GM/DL (6.4-8.2)
[2021-05-23] MEDS ORDERED: DEXTROSE 50% 50 ML (IMS) SYR ONE (01:45)
[2021-05-23 01:48] LABS: BAND NEUTROPHILS 20 %; LYMPHOCYTES % (MANUAL) 2 %; METAMYELOCYTES % 9 %; MONOCYTES % (MANUAL) 2 %; MYELOCYTES % 8 %; NEUTROPHILS % (MANUAL) 59 %
[2021-05-23 01:49] LABS: CRENATED RBC SLIGHT; ELLIPT/OVALOCYTES SLIGHT; PLATELET ESTIMATE NORMAL; POIKILOCYTOSIS MODERATE; RBC MORPH ABNORMAL; TARGET CELLS SLIGHT; TOXIC GRANULATION/VACUOLAZATIO 3+
[2021-05-23] MEDS ORDERED: LACTATED RINGERS 1,000 ML IV ONE ×2 (01:55→02:00)
[2021-05-23] MEDS ORDERED: DEXTROSE 50% 50 ML (IMS) SYR IV ONE (02:00)
[2021-05-23 03:23] LABS: HEMATOCRIT 34 % (40-54); HEMOGLOBIN 11.3 g/dL (13.3-17.7); MEAN CORPUSCULAR HEMOGLOBIN 28 pg (25-34); MEAN CORPUSCULAR HGB CONC 33 g/dL (32-36); MEAN CORPUSCULAR VOLUME 85 fL (80-99); WHITE BLOOD COUNT 31.4 10^3/uL (4.3-11.0)
[2021-05-23 03:24] LABS: BASOPHILS # (AUTO) 0.1 10^3/uL (0.0-0.1); BASOPHILS % (AUTO) 0 % (0-10); EOSINOPHILS % (AUTO) 0 % (0-10); LYMPHOCYTES # (AUTO) 0.9 X 10^3 (1.0-4.0); LYMPHOCYTES % (AUTO) 3 % (12-44); MEAN PLATELET VOLUME 10.9 fL (9.0-12.2); MONOCYTES # (AUTO) 0.6 X 10^3 (0.0-1.0); MONOCYTES % (AUTO) 2 % (0-12); NEUTROPHILS # (AUTO) 27.4 X 10^3 (1.8-7.8); NEUTROPHILS % (AUTO) 87 % (42-75); PLATELET COUNT 126 10^3/uL (130-400)
[2021-05-23] MEDS ORDERED: NS IV 1000 ML 1,000 ML IV SCH ×2 (03:30→09:15)
[2021-05-23 03:31] LABS: POTASSIUM 4.7 MMOL/L (3.6-5.0)
[2021-05-23 03:32] LABS: CALCIUM 7.9 MG/DL (8.5-10.1); CREATININE SERUM 2.49 MG/DL (0.60-1.30)
[2021-05-23 03:33] LABS: BAND NEUTROPHILS 20 %; LYMPHOCYTES % (MANUAL) 5 %; MONOCYTES % (MANUAL) 1 %
[2021-05-23 03:34] LABS: ELLIPT/OVALOCYTES SLIGHT; METAMYELOCYTES % 15 %; MYELOCYTES % 6 %; PLATELET ESTIMATE DECREASED; POIKILOCYTOSIS MODERATE; RBC MORPH ABNORMAL
[2021-05-23 03:35] LABS: CRENATED RBC SLIGHT; SCHISTOCYTES SLIGHT; TOXIC GRANULATION/VACUOLAZATIO 3+
[2021-05-23 03:36] LABS: NEUTROPHILS % (MANUAL) 53 %
[2021-05-23] MEDS ORDERED: PIPERACILLIN SODIUM/TAZOBACTAM 4.5 GM in NS (IVPB) 100 ML IV ONE (04:00)
[2021-05-23] MEDS ORDERED: NS IV 500 ML 500 ML IV ONE (04:15)
[2021-05-23 05:43] LABS: ABG BASE EXCESS -6.3 MMOL/L (-2.5-2.5); ABG OXYGEN SATURATION 92 % (94-100); ABG PCO2 31 MMHG (35-45); ABG PH 7.37 (7.37-7.43); ABG PO2 66 MMHG (79-93); ABG TCO2 18.9 MMOL/L (21.0-31.0); ALLENS TEST YES-POS; INSPIRED O2 ROOM AIR; PATIENT TEMP 36.1; VENTILATOR NO
--- NOTE | 2021-05-23 06:40 | Tele-ICU Consult ---
History of Present Illness History of Present Illness Date Seen by Provider: May 23, 2021 Time Seen by Provider: 06:17 Date of Admission This virtual visit was conducted using real time audio/video. Thank you for asking us to see this patient for respiratory insufficiency due to Covid SANDRA pna. Also UTI and enteritis Recent events: Se en in [place] 05/22 w obstructed Herman and Covid pos.. Returned 05/23 w [facility] 33K, elev lacyaye an SANDRA pna. PMH: SBO/ex lap 03/2021, CKD, afib. SH: smoking history unknown FH: Non-contributory ROS: as in HPI PE: VSS. Appears chronically ill. HEENT: No obvious masses, adenopathy or JVD. Chest: clear to auscultation. CV: RRR S1 S2 No murmur or added sounds. Abd: Non-tender. Bowel sounds Y. : Unremarkable. Herman Y. PROMOTIONAL REPRESENTATIVE/psychiatric: Grossly intact. No obvious focal findings. Extremities: No edema. Capillary refill < 3 seconds. Skin: unremarkable. Results: Elevated WCC 32.1, BUN 44, Creat 2.83, Lact 5.56. Decreased Hb 12.4. B.37/31/66 on RA. CXR: not done. Available chart/ vitals / labs / images reviewed. Video assessment done using teleICU camera, rest of exam as per RN. A/P: Respiratory insufficiency: Continue present management with O2 PRN Monitor for increasing oxygenation needs and/or need for intubation. Critical Care: critically ill patient. Cont. Dex., Zosyn, cardiac meds. Discussed with RN. Asked RN to reach out to eICU if any questions or concerns later. Time spent with patient/coordination of care with other health professio nals (mins):22 Allergies and Home Medications Allergies Coded Allergies: No Known Drug Allergies (Unverified , 01/15/10) Home Medications Baclofen 10 Mg Tablet, 5 MG PO Q4HR Prescribed by: AUTUMN RANDOLPH on 03/08/21 0604 Cephalexin 500 Mg Tablet, 500 MG PO QID Prescribed by: GILLIAN MARTINEZ on 03/09/21 1910 Cephalexin 500 Mg Tablet, 500 MG PO QID Prescribed by: GILLIAN MARTINEZ on 05/22/21 1225 Flecainide Acetate 100 Mg Tablet, 100 MG PO BID, (Reported) Hydrocodone Bit/Acetaminophen 1 Tab Tab, 1 EA PO Q4H PRN for PAIN-MODERATE (5-7) Prescribed by: AUTUMN RANDOLPH on 03/08/21 06 LLondonacidoph & Jameson Rangel.lactis 1 Each Capsule, 2 EACH PO BID, (Reported) Lisinopril 20 Mg Tablet, 20 MG PO DAILY, (Reported) Pantoprazole Sodium 40 Mg Tablet.dr, 40 MG PO DAILY Prescribed by: AUTUMN RANDOLPH on 03/08/21603 Rivaroxaban 20 Mg Tablet, 20 MG PO 1900, (Reported) LAST FILLED 10-18-2020 #90/90 DAY SUPPLY Past Medical/Social/Family Hx Patient Social History Tobacco Use?: No Substance use?: No Alcohol Use?: No Pt stated abuse/neglect: No Immunizations Up To Date First/Initial COVID19 Vaccinat: September 2020 Second COVID19 Vaccination Piter: October 2020 Tetanus Booster (TDap): Unknown Current Status Advance Directives: No Communicates: Verbally Primary Language: Uzbek Preferred Spoken Language: Uzbek Past Medical History Atrial Fibrillation BPH Chronic Catheter (Condom) Partial colon resection HTN Review of Systems Constitutional: see HPI EENTM: see HPI Respiratory: see HPI Cardiovascular: see HPI Gastrointestinal: see HPI Musculoskeletal: see HPI Skin: see HPI Psychiatric/Neurological: See HPI (See free text) Focused Exam Lactate Level 05/23/21 01:01: Lactic Acid Level 3.66*H 05/23/21 02:37: Lactic Acid Level 5.56*H 05/23/21 05:15: Lactic Acid Level 3.75*H Height, Weight, BMI Height: '" Weight: lbs. oz. kg; 32.00 BMI Method: Lactic Acid Level Laboratory Tests Test 05/23/21 02:37 05/23/21 05:15 Lactic Acid Level 5.56 MMOL/L (0.50-2.00) *H 3.75 MMOL/L (0.50-2.00) *H Exam Exam Patient acknowledged, consented, and participated in this virtual visit which was conducted using real time audio/video Vital Signs Date Time Temp Pulse Resp B/P (MAP) Pulse Ox O2 Delivery O2 Flow Rate FiO2 05/23/21 05:29 55 22 91/57 96 Room Air 05/23/21 00:42 37.0 51 18 78/48 (58) 100 Room Air I & O 05/23/21 07:00 Intake Total 1000 ml Balance 1000 ml Height & Weight Height: '" Weight: lbs. oz. kg; 32.00 BMI Method: General Appearance: Chronically ill, Other (Mildly lethargic) Neck: Non Tender, Supple Respiratory: Lungs Clear, Normal Breath Sounds Cardiovascular: Bradycardia Capillary Refill: Less Than 3 Seconds Extremity: Normal Capillary Refill Neurologic/Psychiatric: Other (Mildly lethargic) Results Lab Laboratory Tests 05/23/21 01:01 05/23/21 02:37 Assessment/Plan Assessment/Plan See free text Critical Care: Critically Ill Patient (See free text) JE ADAM MD May 23, 2021 06:40
[2021-05-23] MEDS ORDERED: ACETAMINOPHEN 325 MG TABLET PO PRN (06:45)
[2021-05-23] MEDS ORDERED: diphenhydrAMINE 50 MG/ML INJ (BENADRYL) IVP PRN (06:45)
[2021-05-23] MEDS ORDERED: diphenhydrAMINE 25 MG TAB (BENADRYL) PO PRN (06:45)
[2021-05-23] MEDS ORDERED: ONDANSETRON 4 MG/2 ML (SDV) Z0FRAN IV PRN (06:45)
[2021-05-23] MEDS ORDERED: ONDANSETRON 4 MG (ZOFRAN) ORAL DISSOLVE TAB PO PRN (06:45)
[2021-05-23] MEDS ORDERED: ANTACID SUSP 30 ML UDC (MYLANTA) PO PRN (06:45)
[2021-05-23] MEDS ORDERED: NS IV 1000 ML 2,400 ML IV ONE (06:45)
[2021-05-23] MEDS ORDERED: polyethylene glycoL POWDER 17 GM (MIRALAX) PACK PO PRN (06:45)
[2021-05-23] MEDS ORDERED: MELATONIN 3 MG TABLET PO PRN (06:45)
[2021-05-23] MEDS ORDERED: BISACODYL 10 MG SUPP (DULCOLAX) PR PRN (06:45)
--- NOTE | 2021-05-23 07:00 | History & Physical-Hospitalist ---
History of Present Illness HPI/Chief Complaint CC: Severe sepsis with Covid-19 pneumonia with UTI HPI: 71 yr old WM, clinic pt of [facility] well known to me from prior bowel obstructions who resides at a care home and presented to [facility] was found to have UTI after a clogged ritchie catheter. He returned back to the care home only to return shortly thereafter with evidence of severe sepsis from UTI and Covid-19 pneumonia. He was placed on protocol medication and placed in the ICU. Overall prognosis very poor. Placed on Meropenem and Zyvox. Source: RN/MD, old records Exam Limitations: clinical condition (lethargy) Date Seen 05/23/21 Time Seen by a Provider: 11:30 Attending Physician Monserrat Randolph DO PCP Self,Ramin VALENZUELA Referring Physician Date of Admission May 23, 2021 at 06:17 Home Medications & Allergies Home Medications Reviewed patient Home Medication Reconciliation performed by pharmacy medication reconciliations ammonia refrigeration technician and/or nursing. Patients Allergies have been reviewed. Allergies Allergies Coded Allergies No Known Drug Allergies (Unverified01/15/10) Past Limxhgg-Gykbro-Pwhydm Hx Patient Social History Marrital Status: Employed/Student: retired Tobacco Use?: No Smoking Status: Former Smoker Use of E-Cig and/or Vaping dev: No Substance use?: No Alcohol Use?: No Pt feels they are or have been: No Immunizations Up To Date First/Initial COVID19 Vaccinat: September 2020 Second COVID19 Vaccination Piter: October 2020 Tetanus Booster (TDap): Unknown Seasonal Allergies Seasonal Allergies: No Current Status Advance Directives: Unable to obtain Communicates: Unable To Communicate Primary Language: Kittitian Preferred Spoken Language: Kittitian Is interpretation needed?: No Implanted or Applied Medical D: None Past Medical History Surgeries: Abdominal, Orthopedic COPD Currently Using CPAP: No Currently Using BIPAP: No Aneurysm, Atrial Fibrillation, Heart Attack Benign Prostatic Hyperpl Obstructive Bowel Arthritis Loss of Vision: Denies Blood Disorders: No Atrial Fibrillation BPH Chronic Catheter (Condom) Partial colon resection HTN Family Medical History Heart Disease Review of Systems ROS-Unable to Obtain: critical status Constitutional: see HPI, dizziness, fever, malaise, weakness Physical Exam Physical Exam Vital Signs Vital Signs - First Documented 05/23/21 05/23/21 05/23/21 00:42 06:25 08:18 Temp 37.0 Pulse 51 Resp 18 B/P (MAP) 78/48 (58) Pulse Ox 100 O2 Delivery Room Air O2 Flow Rate 1.00 FiO2 24 Capillary Refill : Less Than 3 Seconds Height, Weight, BMI Height: '" Weight: lbs. oz. kg; 31.94 BMI Method: General Appearance: Anxious, Chronically ill, Mild Distress, Other (patel, ashen) Eyes: Right Eye Normal Inspection, Right Eye PERRL HEENT: PERRL/EOMI, Normal ENT Inspection, Pharynx Normal, Moist Mucous Membranes Neck: Full Range of Motion, Normal Inspection, Non Tender Respiratory: Chest Non Tender, Lungs Clear, Normal Breath Sounds, No Accessory Muscle Use, No Respiratory Distress Cardiovascular: Regular Rate, Rhythm, No Edema, No Gallop, No JVD, No Murmur, Normal Peripheral Pulses Gastrointestinal: Normal Bowel Sounds, No Organomegaly, No Pulsatile Mass, Non Tender, Soft Back: Normal Inspection, No CVA Tenderness, No Vertebral Tenderness Extremity: Normal Capillary Refill, Normal Inspection, Normal Range of Motion, No Calf Tenderness, No Pedal Edema Neurologic/Psychiatric: Depressed Affect, Disoriented Skin: Normal Color, Warm/Dry Lymphatic: No Adenopathy Results Results/Procedures Labs Laboratory Tests 05/23/21 01:01 05/23/21 02:37 Patient resulted labs reviewed. Assessment/Plan Admission Diagnosis Assessment: Severe sepsis UTI COVID-19 infection Severe chronic debility resides in a care home Neurogenic bladder Indwelling catheter History of bowel obstructions Atrial fibrillation CAD Plan: IV antibiotics broad-spectrum Isolation COVID-19 protocol IV fluids Poor prognosis Family insists on full code Admission Status: Inpatient Order (span 2 midnights) Reason for Inpatient Admission: Severe sepsis Diagnosis/Problems Diagnosis/Problems (1) Severe sepsis with acute organ dysfunction Status: Acute (2) COVID-19 Status: Acute (3) Atrial fibrillation Status: Chronic (4) UTI (urinary tract infection) Status: Acute Resolution Date/Time: 09/29/20 @ 12:34 (5) BPH (benign prostatic hyperplasia) Status: Chronic (6) Hypertension Status: Chronic MONSERRAT RANDOLPH DO May 23, 2021 07:00
--- NOTE | 2021-05-23 07:16 | Diagnostic Imaging Report ---
PROCEDURE: CT chest, abdomen, and pelvis without contrast. TECHNIQUE: Multiple contiguous axial images were obtained through the chest, abdomen, and pelvis without the use of intravenous contrast. Auto Exposure Controls were utilized during the CT exam to meet ALARA standards for radiation dose reduction. INDICATION: Abdominal pain. Elevated lactic acid level. FINDINGS: CT CHEST: There is a patchy alveolar infiltrate in the right upper and right lower lobe. Left lung shows mild basilar atelectasis. The aortic root and ascending aorta is dilated. The measurement of Sinus of Valsalva level measures 5.5 cm. The ascending aorta measures 4.5 cm. There is no pleural effusion or pericardial effusion. No mediastinal or hilar adenopathy of pathologic size. Sagittal reformatted images show good alignment of the thoracic spine. No evidence of rib fracture. IMPRESSION:. 1. Findings of right upper and lower lobe pneumonia. 2. Aneurysmal dilatation of the ascending aorta measuring 6 cm at the level of the aortic valve. CT abdomen and pelvis: Liver appears normal. Gallbladder is mildly distended. Could not exclude some thickening in the gallbladder wall. Bile ducts are not dilated. Pancreas and spleen are normal. The adrenal glands are not enlarged. Kidneys show no evidence of obstruction. Stomach is not distended. Small bowel is not dilated. There is fluid within the colon with no solid stool demonstrated. Herman catheter in the bladder which is decompressed. There is no free air or free fluid. Aorta is atherosclerotic without aneurysm. No evidence of intra-abdominal adenopathy. The lumbosacral spine shows good alignment with moderate degenerative change. There is spinal stenosis at L3-L4. IMPRESSION: 1. The liquid stool within the colon. This would be consistent with a enteritis or inflammatory changes. 2. Mildly dilated gallbladder with question gallbladder wall thickening. Clinical correlation. Would consider gallbladder ultrasound. 3. Bladder is decompressed. These findings are in agreement with the preliminary report. Dictated by: Dictated on workstation # [id number]
[2021-05-23] MEDS ORDERED: NOREPINEPHRINE 8 MG/250 ML 250 ML IV ONE (07:25)
[2021-05-23] MEDS ORDERED: MEROPENEM 500 MG/NS 100 ML IVPB IV ONE ×2 (07:30)
[2021-05-23] MEDS: NS IV 1000 ML 1,000 ML IV SCH ×3 (07:41→23:11)
[2021-05-23] MEDS: NOREPINEPHRINE 8 MG/250 ML 250 ML IV SCH ×2 (07:42→23:33)
[2021-05-23 08:18] VITALS: BP 76/51
[2021-05-23] MEDS ORDERED: RT-ALBUTEROL HFA 8.5 GM INHALER IH PRN (08:30)
[2021-05-23] MEDS ORDERED: OMEP-440 PO (09:26)
[2021-05-23] MEDS ORDERED: CEPH500C PO (09:26)
[2021-05-23] MEDS ORDERED: L.AC1CAP6 PO (09:26)
[2021-05-23] MEDS ORDERED: CALC625T PO (09:26)
[2021-05-23] MEDS ORDERED: NA P133E2 RC (09:26)
[2021-05-23] MEDS ORDERED: POLY17PO6 PO (09:26)
[2021-05-23] MEDS ORDERED: MENT71OI TP (09:26)
[2021-05-23] MEDS ORDERED: ACHD5005 PO (09:26)
[2021-05-23] MEDS ORDERED: BACL10TA PO (09:26)
[2021-05-23] MEDS ORDERED: PIPERACILLIN SODIUM/TAZOBACTAM 4.5 GM in NS (IVPB) 100 ML IV SCH (10:00)
[2021-05-23] MEDS: DOCUSATE SODIUM 100 MG (COLACE) CAP PO SCH ×2 (10:05→20:19)
[2021-05-23] MEDS: HYDROmorphone 2 MG/ML VIAL (DILAUDID) IVP PRN ×3 (10:07→23:28)
[2021-05-23] MEDS: PANTOPRAZOLE 40 MG (PROTONIX) VIAL IV SCH (10:54)
[2021-05-23] MEDS: inSUlin ASPART (NovoLOG) 1 UNIT/0.01 ML (CHARGE PER UNIT) SC SCH ×3 (11:10→20:22)
[2021-05-23] MEDS: MEROPENEM 500 MG in NS (IVPB) 100 ML IV SCH ×2 (13:01→23:11)
--- NOTE | 2021-05-23 13:19 | Diagnostic Imaging Report ---
INDICATION: PICC line placement. TIME OF EXAM: 12:53 p.m. COMPARISON: Correlation is made with prior chest from one day earlier. FINDINGS: Heart size is stable. There is a left upper extremity PICC line which has the tip in good position overlying the SVC. There is mild central congestion. There may be some minimal infiltrate in the right midlung field and the right base. Left lung is clear. There is no effusion or pneumothorax. IMPRESSION: 1. Satisfactory PICC line placement. 2. Minimal right lung infiltrate. Dictated by: Dictated on workstation # [id number]
[2021-05-23] MEDS: RIVAROXABAN 20 MG TABLET (XARELTO) PO SCH (16:33)
[2021-05-23] MEDS: RT-ALBUTEROL HFA 8.5 GM INHALER IH SCH (21:35)
[2021-05-24 05:30] LABS: BASOPHILS % (AUTO) 0 % (0-10); EOSINOPHILS % (AUTO) 0 % (0-10); HEMATOCRIT 38 % (40-54); MEAN CORPUSCULAR VOLUME 86 fL (80-99)
[2021-05-24 05:31] LABS: HEMOGLOBIN 12.4 g/dL (13.3-17.7); LYMPHOCYTES # (AUTO) 0.7 10^3/uL (1.0-4.0); LYMPHOCYTES % (AUTO) 2 % (12-44); MEAN CORPUSCULAR HEMOGLOBIN 28 pg (25-34); MEAN CORPUSCULAR HGB CONC 32 g/dL (32-36); MONOCYTES # (AUTO) 1.3 10^3/uL (0.0-1.0); MONOCYTES % (AUTO) 3 % (0-12); NEUTROPHILS # (AUTO) 35.6 10^3/uL (1.8-7.8); NEUTROPHILS % (AUTO) 87 % (42-75); PLATELET COUNT 100 10^3/uL (130-400)
[2021-05-24] MEDS: HYDROmorphone 2 MG/ML VIAL (DILAUDID) IVP PRN ×3 (05:39→17:34)
[2021-05-24] MEDS: MEROPENEM 500 MG in NS (IVPB) 100 ML IV SCH ×3 (05:48→20:58)
[2021-05-24 05:57] LABS: WHITE BLOOD COUNT 40.8 10^3/uL (4.3-11.0)
--- NOTE | 2021-05-24 05:59 | Progress Note - Hospitalist ---
Subjective HPI/CC On Admission Date Seen by Provider: May 24, 2021 Time Seen by Provider: 11:00 CC: Severe sepsis with Covid-19 pneumonia with UTI HPI: 71 yr old WM, clinic pt of [facility] well known to me from prior bowel obstr uctions who resides at a [facility] and presented to [place] [facility] was found to have UTI after a clogged ritchie catheter. He returned back to the [facility] only to return shortly thereafter with evidence of severe sepsis from UTI and Covid-19 pneumonia. He was placed on protocol medication and placed in the ICU. Overall prognosis very poor. Placed on Meropenem and Zyvox. Subjective/Events-last exam Patient becoming more complicated Speech therapy evaluated him did not be safe to swallow due to aspiration risk Moaning all the time Word jade noted Elevated white count of 40,000 Patient remains a full code per family request Overall severe decline do not expect meaningful recovery I would recommend DNR status and supportive care Chronic debility in [facility] male status prior to admission Continue IV medication and antibiotics Review of Systems Neurological: Confusion Focused Exam Lactate Level 05/23/21 11:50: Lactic Acid Level 2.37*H 05/23/21 14:09: Lactic Acid Level 2.45*H 05/24/21 08:00: Lactic Acid Level 1.72 Objective Exam Vital Signs Vital Signs Date Time Temp Pulse Resp B/P (MAP) Pulse Ox O2 Delivery O2 Flow Rate FiO2 05/25/21 04:00 98 Room Air 05/25/21 01:00 110 05/25/21 00:00 36.3 05/25/21 00:00 26 145/91 05/23/21 08:18 24 05/23/21 06:25 1.00 Capillary Refill : Less Than 3 Seconds General Appearance: Anxious, Chronically ill, Mild Distress Respiratory: No Accessory Muscle Use, No Respiratory Distress, Decreased Breath Sounds Cardiovascular: Regular Rate, Rhythm, Tachycardia Neurologic/Psychiatric: Alert, Disoriented Results/Procedures Lab Laboratory Tests 05/25/21 03:30 Patient resulted labs reviewed. Assessment/Plan Assessment and Plan Assess & Plan/Chief Complaint Assessment: Severe sepsis UTI COVID-19 infection Severe chronic debility resides in a [facility] Neurogenic bladder Indwelling catheter History of bowel obstructions Atrial fibrillation CAD Plan: IV antibiotics broad-spectrum Isolation COVID-19 protocol IV fluids Poor prognosis Family insists on full code 05/24/2021: Broad-spectrum antibiotics Poor prognosis N.p.o. due to dysphagia and aspiration risk per speech therapy Critical Care Critically Ill Patient (See free text) Diagnosis/Problems Diagnosis/Problems (1) Severe sepsis with acute organ dysfunction Status: Acute (2) COVID-19 Status: Acute (3) Atrial fibrillation Status: Chronic (4) UTI (urinary tract infection) Status: Acute Resolution Date/Time: 09/29/20 @ 12:34 (5) BPH (benign prostatic hyperplasia) Status: Chronic (6) Hypertension Status: Chronic AUTUMN RANDOLPH DO May 24, 2021 05:59
[2021-05-24 06:11] LABS: ALBUMIN 2.8 GM/DL (3.2-4.5); POTASSIUM 4.4 MMOL/L (3.6-5.0)
[2021-05-24 06:13] LABS: TOTAL PROTEIN 6.5 GM/DL (6.4-8.2)
[2021-05-24] MEDS: POTASSIUM CL 10MEQ/50ML IVPB 50 ML IV SCH ×2 (06:13→06:14)
[2021-05-24] MEDS: MAGNESIUM 1 GM/100 ML IVPB 100 ML IV SCH ×2 (06:14)
[2021-05-24] MEDS: KCL 20 MEQ TAB (K-DUR) PO SCH ×2 (06:14)
[2021-05-24 06:15] LABS: BILIRUBIN,TOTAL 0.6 MG/DL (0.1-1.0)
[2021-05-24 06:17] LABS: CREATININE SERUM 1.52 MG/DL (0.60-1.30); PHOSPHORUS 3.4 MG/DL (2.3-4.7)
[2021-05-24] MEDS: inSUlin ASPART (NovoLOG) 1 UNIT/0.01 ML (CHARGE PER UNIT) SC SCH ×4 (06:17→21:08)
[2021-05-24 06:25] LABS: ANISOCYTOSIS SLIGHT; BAND NEUTROPHILS 17 %; ELLIPT/OVALOCYTES SLIGHT; LYMPHOCYTES % (MANUAL) 1 %; MONOCYTES % (MANUAL) 6 %; POIKILOCYTOSIS SLIGHT; REACTIVE LYMPHOCYTES 1 %
[2021-05-24 06:26] LABS: ACANTHOCYTES MODERATE; BURR CELLS MODERATE; CRENATED RBC SLIGHT
[2021-05-24 06:27] LABS: METAMYELOCYTES % 2 %; NEUTROPHILS % (MANUAL) 73 %
[2021-05-24] MEDS: NS IV 1000 ML 1,000 ML IV SCH ×3 (06:55→17:33)
[2021-05-24] MEDS: RT-ALBUTEROL HFA 8.5 GM INHALER IH SCH ×2 (07:32→18:57)
[2021-05-24] MEDS: DOCUSATE SODIUM 100 MG (COLACE) CAP PO SCH ×2 (08:18→21:08)
[2021-05-24] MEDS: PANTOPRAZOLE 40 MG (PROTONIX) VIAL IV SCH (08:18)
--- NOTE | 2021-05-24 08:20 | Tele-ICU Progress Note ---
Subjective Date Seen by a Provider: May 24, 2021 Time Seen by a Provider: 08:20 Subjective/Events-last exam transferred from [place] for uti and enteritis. wbc count increasing.. on R/A today. Lethargic. Review of Systems ROS per rn Sepsis Event Evaluation Height, Weight, BMI Height: '" Weight: lbs. oz. kg; 31.94 BMI Method: Focused Exam Lactate Level 05/23/21 09:35: Lactic Acid Level 2.36*H 05/23/21 11:50: Lactic Acid Level 2.37*H 05/23/21 14:09: Lactic Acid Level 2.45*H Exam Exam Patient acknowledged, consented, and participated in this virtual visit which was conducted using real time audio/video Vital Signs Date Time Temp Pulse Resp B/P (MAP) Pulse Ox O2 Delivery O2 Flow Rate FiO2 05/24/21 07:33 96 Room Air 05/24/21 06:00 58 20 126/69 97 Room Air 05/24/21 05:00 59 18 154/92 96 Room Air 05/24/21 04:00 97 Room Air 05/24/21 04:00 46 18 166/67 96 Room Air 05/24/21 03:00 46 18 125/60 96 Room Air 05/24/21 02:00 58 20 156/56 95 Room Air 05/24/21 01:00 43 22 95/40 95 Room Air 05/24/21 01:00 43 05/24/21 00:00 58 17 128/92 96 Room Air 05/23/21 23:59 96 Room Air 05/23/21 23:33 50 103/48 05/23/21 23:00 43 12 134/79 96 Room Air 05/23/21 22:00 44 12 112/50 96 Room Air 05/23/21 21:35 95 Room Air 05/23/21 21:00 51 12 121/53 95 Room Air 05/23/21 20:00 95 Room Air 05/23/21 20:00 44 12 107/48 96 Room Air 05/23/21 20:00 36.2 05/23/21 19:00 45 12 104/49 96 Room Air 05/23/21 19:00 50 05/23/21 18:00 44 12 103/48 94 Room Air 05/23/21 17:27 37.0 05/23/21 17:00 48 12 106/50 96 Room Air 05/23/21 16:00 50 13 97/69 95 Room Air 05/23/21 15:12 95 Room Air 05/23/21 15:00 52 13 119/70 95 Room Air 05/23/21 14:00 51 13 116/70 95 Room Air 05/23/21 13:00 56 15 116/71 96 Room Air 05/23/21 13:00 47 05/23/21 12:45 94 Room Air 05/23/21 12:00 46 14 108/55 96 Room Air 05/23/21 11:00 47 11 106/58 95 Room Air 05/23/21 10:52 35.8 Room Air 05/23/21 10:00 58 87/54 96 Room Air 05/23/21 09:00 51 14 112/62 96 Room Air I & O 05/24/21 07:00 Intake Total 0 ml Output Total 2325 ml Balance -2325 ml Height & Weight Height: '" Weight: lbs. oz. kg; 31.94 BMI Method: General Appearance: Anxious, Chronically ill, Mild Distress, Other (patel, ashen) HEENT: PERRL/EOMI, Normal ENT Inspection, Pharynx Normal, Moist Mucous Membranes Neck: Full Range of Motion, Normal Inspection, Non Tender Respiratory: Chest Non Tender, Lungs Clear, Normal Breath Sounds, No Accessory Muscle Use, No Respiratory Distress Cardiovascular: Regular Rate, Rhythm, No Edema, No Gallop, No JVD, No Murmur, Normal Peripheral Pulses Capillary Refill: Less Than 3 Seconds Extremity: Normal Capillary Refill, Normal Inspection, Normal Range of Motion, No Calf Tenderness, No Pedal Edema Neurologic/Psychiatric: Depressed Affect, Disoriented Skin: Normal Color, Warm/Dry Lymphatic: No Adenopathy Other comments PE PER RN. Results Lab Laboratory Tests 05/23/21 01:01 05/23/21 02:37 05/24/21 04:35 Assessment/Plan Assessment/Plan 1. POSSIBLE UTI WITH SEPSIS. 2. POSSIBLE ENTERITIS. 3. METABOLIC ENCEPHALOPATHY. 4. POSSIBLE PNEUMONIA. 5..POSSIBLE CYSTITIS RECOMMENDATIONS. 1. WILL REPEAT UA AND C/S. 2. BLOOD C/S 3.CONTINUE ABX'S PER PRIMARY. 5. SUGGEST UROLOGY AND GEN. SURGERY CONSULTS Critical Care: Critically Ill Patient Time spent with patient (mins): 25 DAMEON RODAS MD May 24, 2021 08:20
--- NOTE | 2021-05-24 12:39 | Speech Therapy Progress Note ---
Therapy Progress Note 1234: Speech language pathology has completed the clinical bedside swallowing evaluation at this time. Full documentation of the assessment to follow. Recommendations: - The patient should remain NPO at this time. - Frequent, excellent, and thorough oral care to prevent the transfer of oral bacteria to the lungs should aspiration of secretions occur. - Crush necessary medication and place in puree for administration. - Speech pathology to re-assess the oropharyngeal swallowing function three to four times per week or as appropriate. At this time, the patient does not appear to be handling his own secretions. The patient presents with overtly wet and gurgly phonation and respirations. Overt s/s of suspected aspiration were demonstrated with half teaspoon attempts of thin liquid (water) and continued, repetitive half teaspoons of puree. The patient is deemed inappropriate for PO intake at this time. ZACARIAS NAVARRO May 24, 2021 12:39
[2021-05-24] MEDS: LORazepam INJ 2 MG/ML (ATIVAN) VIAL IVP PRN (13:24)
--- NOTE | 2021-05-24 16:17 | ST Dysphagia Evaluation ---
Speech Evaluation-General Medical Diagnosis Severe Sepsis, COVID Pneumonia Onset Date: May 23, 2021 Therapy Diagnosis Therapy Diagnosis: Suspected Severe Oropharyngeal Dysphagia Precautions Precautions: Fall, Aspiration Precautions/Isolations: Airborne Isolation, Aspiration Referral Referring Physician: Dr. Monserrat Whaley Reason for Referral: Evaluation/Treatment Medical History Pertinent Medical History: Atrial Fib, CAD, HTN, NE Current History The patient is a 71 year-old male with a past medical history of atrial fibrillation, NE, obstructive bowel, arthritis, HTN, and heart disease, who presented to [facility] with severe sepsis and COVID 19 pneumonia. CXR: 05/23/21: There is mild central congestion. There may be some minimal infiltrate in the right midlung field and the right base. Left lung is clear. There is no effusion or pneumothorax. Reviewed History: No Speech PLF/Current-Dysphagia Prior Level of Function Per chart review and following a discussion with the RN, the patient's prior diet consistency at his facility is unknown at this time. Subjective The patient is lying in bed, eyes closed, verbalizing unintelligible speech and prolonged phonation. The patient's vocal quality is significantly "wet" at baseline, in the absence of PO trials. Per RN, the patient received his medicat ion crushed and in puree without difficulty prior on this date. The patient is re-positioned upright in bed for safe swallowing. As the patient's head of bed is elevated, his verbalizations increase in volume. The patient does make eye contact with the clinician when his name is spoken. Frequent and consistent verbal redirection to task is required for continued appropriate alertness levels and participation in the evaluation. The patient is on room air at this time. Cognitive Status Patient Orientation: Unable to Assess The patient does not respond to orientation questions asked by the clinician. The patient does make eye contact when his name is spoken. Oral Motor Skills Dentition: Edentalous Ability to Follow Directions: Unable Oral Expression Ability: Severe Impairment Observation: Excessive Excretion Hypopharynx Voice Voice Phonatory-Based Quality: Normal Voice Pitch: Normal Voice Loudness: Moderately Loud Face Facial Symmetry: Symmetrical The patient does not follow verbal commands or direct modeling for completion of an oral mechanism. The patient does not display an overt facial droop at rest. Oral-Facial Assessment Oral-Facial Dentition: Normal Labial Seal Description: Poor Coordination (The patient presents with an open oral cavity at rest, mouth open rested position.) Smile: Poor Coordination Productive Cough: Yes Productive Throat Clear: Yes Dysphagia Evaluation Consistencies Presented: Thin Liquid, Pureed Oral Phase: Anterior Spillage, Reduced Oral Transit Funct. Velo/Pharyngeal Symptom: Clears Throat, Cough After Swallow, Wet Voice Dietary Recommendations: NPO Liquid Recommendations: NPO Recommendations: - The patient should remain NPO at this time. - Frequent, excellent, and thorough oral care to prevent the transfer of oral bacteria to the lungs should aspiration of secretions occur. - Crush necessary medication and place in puree for administration. - Speech pathology to re-assess the oropharyngeal swallowing function three to four times per week or as appropriate. At this time, the patient does not appear to be handling his own secretions. The patient presents with overtly wet and gurgly phonation and respirations. Overt s/s of suspected aspiration were demonstrated with half teaspoon attempts of thin liquid (water) and continued, repetitive half teaspoons of puree. The patient is deemed inappropriate for PO intake at this time. Dysphagia Evaluation Summary The patient presents with suspected severe oropharyngeal dysphagia at this time. The patient was presented with ice chips, half teaspoons of thin liquid (water), and half teaspoons of puree. The patient demonstrated the inability to remove ice chips or thin liquid from the teaspoon. The ice chip was placed in the patient's oral cavity manually by the clinician. The patient does not attempt to masticate the ice cube and swallows the chip in one piece. As the clinician refused to "dump" the teaspoon of water into the oral cavity and the patient does not round lips to remove the bolus, the teaspoon was being removed from the patient's lips. Upon removal, the patient appeared agitated, increasing the loudness of his phonation. Due to this, verbal instructions were provided to remove the material from the spoon and the spoon was placed back by the patient's lips. The patient lifted his chin to push the material from the spoon into the open oral cavity. The patient displayed an immediate rigorous cough, wet vocal quality and red face. Once the patient was able to return to baseline respirations (coughing had ceased), puree half teaspoons were provided. The patient removed the puree from the teaspoon and transferred the material posterior in the oral cavity. Following the pharyngeal swallow, the patient appeared to gargle secretions or puree pharyngeal residue. With presentation of the second bolus, the patient ceased the gargling behavior. Overt s/s of suspected aspiration were not displayed with the initial four boluses of puree. On the fifth attempt, the patient displayed an immediate rigorous cough and increasingly wet vocal quality. Due to the patient's overt s/s of suspected aspiration, the suspicion that the patient is not handling his own secretions, and the patient's overall decreased ability to appropriately participate in the oropharyngeal swallow evaluation, PO boluses ceased at this time. Barriers to Learning Impaired Cognition. Speech Short Term Goals Short Term Goals Short Term Goals 1. The patient will participate in continued trials of the least restrictive diet without s/s of suspected aspiration with 90% accuracy. Speech Clearing Tub Worker Goals [facility] Goals 1. The patient will tolerate the least restrictive diet without s/s of suspected aspiration to meet daily nutritional needs. Speech-Plan Treatment Plan Speech Therapy Treatment Plan: Continue Plan of Care Treatment Duration: Jun 07, 2021 Frequency: 3 times per week (Three to four times per week.) Estimated Hrs Per Day: .25 hour per day Rehab Potential: Poor Pt/Family Agrees to Plan: Yes Safety Risks/Education Teaching Recipient: Patient Teaching Methods: Discussion Response to Teaching: Unable to Comprehend, Reinforcement Needed Education Topics Provided: Results of Oropharyngeal Swallow Assessment, Plan of Care Time Speech Therapy Time In: 12:05 Speech Therapy Time Out: 12:30 Total Billed Time: 25 Billed Treatment Time BRITT Bullard Leslee NAVARRONADEEMZACARIAS ST May 24, 2021 16:17
[2021-05-24] MEDS: RIVAROXABAN 20 MG TABLET (XARELTO) PO SCH (17:34)
[2021-05-24] MEDS: NOREPINEPHRINE 8 MG/250 ML 250 ML IV SCH (17:46)
[2021-05-25] MEDS: NS IV 1000 ML 1,000 ML IV SCH ×3 (03:29→21:45)
[2021-05-25 03:41] LABS: BASOPHILS % (AUTO) 0 % (0-10); EOSINOPHILS % (AUTO) 0 % (0-10); LYMPHOCYTES % (AUTO) 3 % (12-44)
[2021-05-25 03:43] LABS: BASOPHILS # (AUTO) 0.1 10^3/uL (0.0-0.1); HEMATOCRIT 36 % (40-54); HEMOGLOBIN 11.7 g/dL (13.3-17.7); LYMPHOCYTES # (AUTO) 0.8 10^3/uL (1.0-4.0); MEAN CORPUSCULAR HEMOGLOBIN 28 pg (25-34); MEAN CORPUSCULAR HGB CONC 33 g/dL (32-36); MEAN CORPUSCULAR VOLUME 84 fL (80-99); MEAN PLATELET VOLUME 12.3 fL (9.0-12.2); MONOCYTES # (AUTO) 0.4 10^3/uL (0.0-1.0); MONOCYTES % (AUTO) 2 % (0-12); NEUTROPHILS # (AUTO) 23.9 10^3/uL (1.8-7.8); NEUTROPHILS % (AUTO) 94 % (42-75); PLATELET COUNT 82 10^3/uL (130-400); WHITE BLOOD COUNT 25.4 10^3/uL (4.3-11.0)
[2021-05-25 03:52] LABS: ALBUMIN 2.7 GM/DL (3.2-4.5); POTASSIUM 3.9 MMOL/L (3.6-5.0)
[2021-05-25 03:54] LABS: CALCIUM 8.5 MG/DL (8.5-10.1)
[2021-05-25 03:55] LABS: TOTAL PROTEIN 6.3 GM/DL (6.4-8.2)
[2021-05-25 03:57] LABS: BILIRUBIN,TOTAL 0.6 MG/DL (0.1-1.0)
[2021-05-25 03:58] LABS: PHOSPHORUS 1.6 MG/DL (2.3-4.7)
[2021-05-25 03:59] LABS: CREATININE SERUM 0.88 MG/DL (0.60-1.30)
[2021-05-25] MEDS: POTASSIUM CL 10MEQ/50ML IVPB 50 ML IV SCH ×2 (04:16)
[2021-05-25] MEDS: MAGNESIUM 1 GM/100 ML IVPB 100 ML IV SCH ×2 (04:16→04:17)
[2021-05-25] MEDS: inSUlin ASPART (NovoLOG) 1 UNIT/0.01 ML (CHARGE PER UNIT) SC SCH ×4 (04:17→20:25)
[2021-05-25] MEDS: KCL 20 MEQ TAB (K-DUR) PO SCH ×2 (04:17)
[2021-05-25] MEDS: MEROPENEM 500 MG in NS (IVPB) 100 ML IV SCH ×3 (05:09→21:19)
--- NOTE | 2021-05-25 06:49 | Progress Note - Hospitalist ---
Subjective HPI/CC On Admission Date Seen by Provider: May 25, 2021 Time Seen by Provider: 10:00 CC: Severe sepsis with Covid-19 pneumonia with UTI HPI: 71 yr old WM, clinic pt of [facility] well known to me from prior bowel obstr uctions who resides at a [facility] and presented to [place] ER was found to have UTI after a clogged ritchie catheter. He returned back to the [facility] only to return shortly thereafter with evidence of severe sepsis from UTI and Covid-19 pneumonia. He was placed on protocol medication and placed in the ICU. Overall prognosis very poor. Placed on Meropenem and Zyvox. Subjective/Events-last exam Pt about the same A little more alert Checked meds and labs No falls Still moaning a lot Will transfer down to 4th floor Still a DNR really needs to be a Do not Recussitate Review of Systems General: Fatigue, Malaise Focused Exam Lactate Level 05/23/21 11:50: Lactic Acid Level 2.37*H 05/23/21 14:09: Lactic Acid Level 2.45*H 05/24/21 08:00: Lactic Acid Level 1.72 Objective Exam Vital Signs Vital Signs Date Time Temp Pulse Resp B/P (MAP) Pulse Ox O2 Delivery O2 Flow Rate FiO2 05/26/21 04:00 81 28 153/102 99 Room Air 05/25/21 20:39 36.7 05/23/21 08:18 24 05/23/21 06:25 1.00 Capillary Refill : Less Than 3 Seconds General Appearance: No Apparent Distress, WD/WN, Chronically ill Respiratory: Lungs Clear, Normal Breath Sounds Cardiovascular: Regular Rate, Rhythm Neurologic/Psychiatric: Alert, Disoriented Results/Procedures Lab Laboratory Tests 05/26/21 05:30 Patient resulted labs reviewed. Assessment/Plan Assessment and Plan Assess & Plan/Chief Complaint Assessment: Severe sepsis UTI COVID-19 infection Severe chronic debility resides in a correction Neurogenic bladder Indwelling catheter History of bowel obstructions Atrial fibrillation CAD Plan: IV antibiotics broad-spectrum Isolation COVID-19 protocol IV fluids Poor prognosis Family insists on full code 05/24/2021: Broad-spectrum antibiotics Poor prognosis N.p.o. due to dysphagia and aspiration risk per speech therapy 05/25/2021: Pured diet with nectar thickened liquids Transfer to fourth floor in the morning Critical Care Critically Ill Patient Diagnosis/Problems Diagnosis/Problems (1) Severe sepsis with acute organ dysfunction Status: Acute (2) COVID-19 Status: Acute (3) Atrial fibrillation Status: Chronic (4) UTI (urinary tract infection) Status: Acute Resolution Date/Time: 09/29/20 @ 12:34 (5) BPH (benign prostatic hyperplasia) Status: Chronic (6) Hypertension Status: Chronic AUTUMN RANDOLPH DO May 25, 2021 06:49
[2021-05-25] MEDS: RT-ALBUTEROL HFA 8.5 GM INHALER IH SCH ×2 (07:48→22:19)
[2021-05-25] MEDS: NOREPINEPHRINE 8 MG/250 ML 250 ML IV SCH (09:04)
[2021-05-25] MEDS: DOCUSATE SODIUM 100 MG (COLACE) CAP PO SCH ×2 (09:04→21:19)
[2021-05-25] MEDS: FLECAINIDE 100 MG (TAMBOCOR) TAB PO SCH ×2 (09:04→21:19)
[2021-05-25] MEDS: PANTOPRAZOLE 40 MG (PROTONIX) VIAL IV SCH (09:05)
--- NOTE | 2021-05-25 09:23 | Consultation-Cardiology ---
HPI-Cardiology Cardiology Consultation: Date of Consultation 05/25/2021 Date of Admission 05/23/2021 Attending Physician Monserrat Randolph DO Admitting Physician Ramin Marcos MD Consulting Physician COTY SIMPSON JR, MD HPI: Time Seen by a Provider: 09:19 Chief Complaint: Reason for consultation: Atrial fibrillation. I have been asked to see Kalia due to atrial fibrillation. I did not speak with the patient due to his COVID status. I did briefly see him from the doorway to his room. I did speak with his nurse of today and reviewed the current and previous medical records. He is currently in the intensive care unit at [facility] in [place], [place]. He is being treated for urinary tract infection with sepsis along with superimposed COVID infection. This is on top of underlying dementia. According to previous notes, he normally follows with a social services technician at [facility] in [place], [place] for his atrial fibrillation. Review of his outpatient medications shows that he was taking flecainide and Xarelto. I did not see any record of him being on any AV ritchie blocking agents. Nonetheless, last evening he went into atrial fibrillation and a cardiology consultation was requested. He is presently comfortably resting in bed but is confused. Due to his altered mental status, a swallow study was performed on 05/24 and he was found to be at high risk for aspiration and he is currently NPO. He did have some intermittent episodes of shock and required norepi nephrine infusion but this morning he is on no vasopressors and his blood pressure is rendering around 130 mmHg systolic. Heart rates have been 90-110 bpm on no AV ritchie blocking agents. I am not able to obtain any other history from the patient since I did not enter his room due to his COVID status. Certain portions of this document may have been dictated utilizing voice recogn ition technology. Inherent to this technology, typographical and grammatical errors may exist. As much as I am diligent to identify and correct these mistakes, some errors may remain in the document. Review of Systems-Cardiology Review of Systems Other comments Not obtainable due to patient's COVID status and dementia with superimposed altered mental status. SWA-Avauzc-Ijupee Hx Patient Social History Marrital Status: Employed/Student: retired Smoking Status: Former Smoker 2nd Hand Smoke Exposure: No Have you traveled recently?: No Alcohol Use?: No Pt feels they are or have been: No Past Medical History PMH As described under Assessment. Family Medical History Family Medical History: Not obtainable due to current clinical status. Allergies and Home Medications Allergies Coded Allergies: No Known Drug Allergies (Unverified , 01/15/10) Patient Home Medication List Home Medication List Reviewed: Yes Baclofen (Baclofen) 10 Mg Tablet, 10 MG PO Q4H PRN for MUSCLE SPASMS, (Reported) Entered as Reported by: MARIA ISABEL DONOHUE on 05/23/21925 Last Action: Reviewed Calcium Polycarbophil (Fibercon) 625 Mg Tablet, 625 MG PO DAILY, (Reported) Entered as Reported by: MARIA ISABEL DONOHUE on 05/23/21925 Last Action: Reviewed Cephalexin (Cephalexin) 500 Mg Capsule, 500 MG PO QID, (Reported) Entered as Reported by: MARIA ISABEL DONOHUE on 05/23/21925 Last Action: Reviewed Flecainide Acetate (Flecainide Acetate) 100 Mg Tablet, 100 MG PO BID, (Reported) Entered as Reported by: NELIA LLOYD on 02/19/19906 Last Action: Reviewed Hydrocodone/Acetaminophen (Hydrocodone-Acetamin 5-325 mg) 1 Each Tablet, 1 EA PO Q4H PRN for PAIN-MODERATE (5-7), (Reported) Entered as Reported by: MARIA ISABEL DONOHUE on 05/23/21925 Last Action: Reviewed L.acidoph & Paracasei,B.lactis (Probiotic) 1 Each Capsule, 1 EACH PO BID, (Reported) Entered as Reported by: MARIA ISABEL DONOHUE on 05/23/21925 Last Action: Reviewed Lisinopril (Lisinopril) 20 Mg Tablet, 20 MG PO DAILY, (Reported) Entered as Reported by: NELIA LLOYD on 02/19/19906 Last Action: Reviewed Menthol/Lanolin/Calamine/Znox (Calmoseptine Ointment) 71 Gm Oint, 1 APPLIC TP BID, (Reported) Entered as Reported by: MARIA ISABEL DONOHUE on 05/23/21925 Last Action: Reviewed Na Phos,M-B/Na Phos,Di-Ba (Enema) 133 Ml Enema, 133 ML RC DAILY PRN for CONSTIPATION, (Reported) Entered as Reported by: MARIA ISABEL DONOHUE on 05/23/21925 Last Action: Reviewed Omeprazole Magnesium (Omeprazole Magnesium) 20 Mg Tablet.dr, 20 MG PO DAILY, (Reported) Entered as Reported by: MARIA ISABEL DONOHUE on 05/23/21925 Last Action: Reviewed Polyethylene Glycol 3350 (Miralax) 17 Gm Powd.pack, 17 GM PO DAILY PRN for CONSTIPATION-2ND LINE, (Reported) Entered as Reported by: MARIA ISABEL DONOHUE on 05/23/21925 Last Action: Reviewed Rivaroxaban (Xarelto) 20 Mg Tablet, 20 MG PO 1700 W/MEAL, (Reported) Entered as Reported by: MARIA ISABEL DONOHUE on 02/28/21952 Last Action: Reviewed Discontinued Medications Baclofen (Baclofen) 10 Mg Tablet, 5 MG PO Q4HR Discontinued Reason: Duplicate Order Prescribed by: MONSERRAT RANDOLPH on 03/08/21603 Last Action: Discontinued Cephalexin (Cephalexin) 500 Mg Tablet, 500 MG PO QID Discontinued Reason: No Longer Taking Prescribed by: GILLIAN MARTINEZ on 03/09/211909 Last Action: Discontinued Cephalexin (Cephalexin) 500 Mg Tablet, 500 MG PO QID Discontinued Reason: No Longer Taking Prescribed by: GILLIAN MARTINEZ on 05/22/21 1225 Last Action: Discontinued Hydrocodone Bit/Acetaminophen (HYDROcodone/APAP 5 MG/325 MG TAB) 1 Tab Tab, 1 EA PO Q4H PRN for PAIN-MODERATE (5-7) Discontinued Reason: Duplicate Order Prescribed by: MNOSERRAT RANDOLPH on 03/08/21603 Last Action: Discontinued L.acidoph & Paracasei,B.lactis (Probiotic) 1 Each Capsule, 2 EACH PO BID, (Reported) Discontinued Reason: Duplicate Order Entered as Reported by: MARIA ISABEL DONOHUE on 02/28/21952 Last Action: Discontinued Pantoprazole Sodium (Protonix) 40 Mg Tablet., 40 MG PO DAILY Discontinued Reason: No Longer Taking Prescribed by: MONSERRAT RANDOLPH on 03/08/21603 Last Action: Discontinued Exam Vital Signs Vital Signs Date Time Temp Pulse Resp B/P (MAP) Pulse Ox O2 Delivery O2 Flow Rate FiO2 05/25/21 15:00 73 25 132/81 99 Room Air 05/25/21 12:00 37.6 05/23/21 08:18 24 05/23/21 06:25 1.00 Physical Exam I did not examine the patient due to his COVID status. From the doorway, he appeared to be resting comfortably in bed. I did review his vital signs as well. Labs Laboratory Tests Test 05/24/21 17:32 05/25/21 03:30 05/25/21 10:42 Range/Units Glucometer 108 101 70-110 MG/DL White Blood Count 25.4 H 4.3-11.0 10^3/uL Red Blood Count 4.22 L 4.30-5.52 10^6/uL Hemoglobin 11.7 L 13.3-17.7 g/dL Hematocrit 36 L 40-54 % Mean Corpuscular Volume 84 80-99 fL Mean Corpuscular Hemoglobin 28 25-34 pg Mean Corpuscular Hemoglobin Concent 33 32-36 g/dL Red Cell Distribution Width 16.9 H 10.0-14.5 % Platelet Count 82 L 130-400 10^3/uL Mean Platelet Volume 12.3 H 9.0-12.2 fL Immature Granulocyte % (Auto) 1 % Neutrophils (%) (Auto) 94 H 42-75 % Lymphocytes (%) (Auto) 3 L 12-44 % Monocytes (%) (Auto) 2 0-12 % Eosinophils (%) (Auto) 0 0-10 % Basophils (%) (Auto) 0 0-10 % Neutrophils # (Auto) 23.9 H 1.8-7.8 10^3/uL Lymphocytes # (Auto) 0.8 L 1.0-4.0 10^3/uL Monocytes # (Auto) 0.4 0.0-1.0 10^3/uL Eosinophils # (Auto) 0.0 0.0-0.3 10^3/uL Basophils # (Auto) 0.1 0.0-0.1 10^3/uL Immature Granulocyte # (Auto) 0.2 H 0.0-0.1 10^3/uL Percent Immature Platelet Fraction 9.9 H 0.0-7.6 % Sodium Level 144 135-145 MMOL/L Potassium Level 3.9 3.6-5.0 MMOL/L Chloride Level 116 H 98-107 MMOL/L Carbon Dioxide Level 17 L 21-32 MMOL/L Anion Gap 11 5-14 MMOL/L Blood Urea Nitrogen 32 H 7-18 MG/DL Creatinine 0.88 0.60-1.30 MG/DL Estimat Glomerular Filtration Rate 91 BUN/Creatinine Ratio 36 Glucose Level 107 H 70-105 MG/DL Calcium Level 8.5 8.5-10.1 MG/DL Corrected Calcium 9.5 8.5-10.1 MG/DL Phosphorus Level 1.6 L 2.3-4.7 MG/DL Magnesium Level 2.0 1.6-2.4 MG/DL Total Bilirubin 0.6 0.1-1.0 MG/DL Aspartate Amino Transf (AST/SGOT) 36 H 5-34 U/L Alanine Aminotransferase (ALT/SGPT) 24 0-55 U/L Alkaline Phosphatase 52 40-136 U/L Total Protein 6.3 L 6.4-8.2 GM/DL Albumin 2.7 L 3.2-4.5 GM/DL ECG Impression ECG Comment Electrocardiogram from 05/24 shows atrial fibrillation with a ventricular rate of 100 bpm with nonspecific intraventricular conduction delay and nonspecific ST-T wave changes. Diagnosis/Problems Diagnosis/Problems (1) Paroxysmal atrial fibrillation Assessment & Plan: He has a history of paroxysmal atrial fibrillation and has been taking flecainide at home. He was in sinus rhythm when he presented to the hospital but now has recurrent atrial fibrillation. Unfortunately, he failed the swallow study and cannot presently take oral medications. There is no intravenous form of flecainide. He was on rivaroxaban for stroke prophylaxis. I think we can watch him for another 24 hours to see if his mental status improves enough for him to safely swallow medication before deciding whether or not he will need parenteral anticoagulation. His heart rates have been reasonably controlled on no AV ritchie blocking agents. Since he was previously in shock requiring norepinephrine infusion, I would be Hesitant to give him any intravenous beta-neela. (2) Primary hypertension Assessment & Plan: He is presently normotensive on no antihypertensive medication. As above, during the initial phase of his hospitalization he was in shock and intermittently required norepinephrine infusion. (3) Acute kidney injury Status: Resolved Assessment & Plan: He did have an elevated creatinine at the time of admission but with intravenous fluids given for his sepsis, his renal function has improved. Resolution Date/Time: 10/22/20 @ 16:29 (4) Septic shock Assessment & Plan: This appears to be improving with treatment of his sepsis and COVID infection. COTY SIMPSON JR, MD May 25, 2021 09:23
--- NOTE | 2021-05-25 11:37 | Tele-ICU Progress Note ---
Subjective Date Seen by a Provider: May 25, 2021 Time Seen by a Provider: 10:10 Sepsis Event Evaluation Height, Weight, BMI Height: '" Weight: lbs. oz. kg; 31.94 BMI Method: Focused Exam Lactate Level 05/23/21 11:50: Lactic Acid Level 2.37*H 05/23/21 14:09: Lactic Acid Level 2.45*H 05/24/21 08:00: Lactic Acid Level 1.72 Exam Exam Patient acknowledged, consented, and participated in this virtual visit which was conducted using real time audio/video Vital Signs Date Time Temp Pulse Resp B/P (MAP) Pulse Ox O2 Delivery O2 Flow Rate FiO2 05/25/21 11:00 116 25 160/80 100 Room Air 05/25/21 10:00 106 34 146/113 97 Room Air 05/25/21 09:00 106 33 139/85 100 Room Air 05/25/21 08:00 134 34 138/85 100 Room Air 05/25/21 08:00 37.8 05/25/21 07:48 100 Room Air 05/25/21 07:00 98 05/25/21 07:00 89 30 141/80 98 Room Air 05/25/21 06:00 105 20 133/68 99 Room Air 05/25/21 05:00 110 16 137/77 100 Room Air 05/25/21 04:00 98 Room Air 05/25/21 04:00 98 15 150/90 100 Room Air 05/25/21 03:00 101 20 158/82 98 Room Air 05/25/21 02:00 89 30 151/82 98 Room Air 05/25/21 01:00 104 29 147/97 95 Room Air 05/25/21 01:00 110 05/25/21 00:00 36.3 05/25/21 00:00 71 26 145/91 100 Room Air 05/24/21 23:59 98 Room Air 05/24/21 23:00 91 28 153/93 98 Room Air 05/24/21 22:00 106 27 144/95 97 Room Air 05/24/21 21:00 101 27 137/81 100 Room Air 05/24/21 20:00 95 23 147/105 98 Room Air 05/24/21 20:00 36.5 05/24/21 20:00 98 Room Air 05/24/21 19:00 114 05/24/21 19:00 114 16 139/100 100 Room Air 05/24/21 18:57 100 Room Air 05/24/21 18:00 97 21 129/88 100 Room Air 05/24/21 17:00 103 147/99 98 Room Air 05/24/21 16:00 96 Room Air 05/24/21 16:00 65 16 144/62 100 Room Air 05/24/21 15:00 57 14 126/73 100 Room Air 05/24/21 14:00 66 18 157/84 99 Room Air 05/24/21 13:00 60 17 134/75 95 Room Air 05/24/21 13:00 58 05/24/21 12:04 98 Room Air 05/24/21 12:00 66 16 149/88 95 Room Air 05/24/21 12:00 36.3 I & O 05/25/21 07:00 Intake Total 1100 ml Output Total 1570 ml Balance -470 ml Height & Weight Height: '" Weight: lbs. oz. kg; 31.94 BMI Method: General Appearance: Anxious, Chronically ill, Mild Distress HEENT: PERRL/EOMI, Normal ENT Inspection, Pharynx Normal, Moist Mucous Membranes Neck: Full Range of Motion, Normal Inspection, Non Tender Respiratory: No Accessory Muscle Use, No Respiratory Distress, Decreased Breath Sounds Cardiovascular: Regular Rate, Rhythm, Tachycardia Capillary Refill: Less Than 3 Seconds Extremity: Normal Capillary Refill, Normal Inspection, Normal Range of Motion, No Calf Tenderness, No Pedal Edema Neurologic/Psychiatric: Alert, Disoriented Skin: Normal Color, Warm/Dry Lymphatic: No Adenopathy Results Lab Laboratory Tests 05/24/21 04:35 05/25/21 03:30 Assessment/Plan Assessment/Plan (Tele-ICU Physician , Progress Note ) Available chart/ vitals / labs / Images reviewed Video assessment done using teleICU camera, rest of exam as per RN Discussed with RN , EXAM PER RN Events overnight : Afebrile FiO2 - ra I/O = Drips: Pressors: , hemodynamically stable A/P SEPSIS resolved POSSIBLE ENTERITIS POSSIBLE CYSTITIS., , Indwelling catheter COVID-19 infection Thrombocytopenia - ? due to merrem ( not on heparin A fib - rate controled RECOMMENDATIONS -CONTINUE ABX'S PER PRIMARY. -on RA - failed swallow - not taking Xarelto - as per cardiology Plans in collaboration with bedside consultants and IM MDs. Discussed with RN to reach out if any questions or concerns A total of 20 minutes of critical care time was devoted to this patient today, required to treat and/or prevent further deterioration of critical care condition ( as above) . CARLOS WINSTON MD May 25, 2021 11:37
--- NOTE | 2021-05-25 13:46 | Speech Therapy Daily Note ---
Speech Daily Progress Note Subjective Date Seen by Provider: May 25, 2021 Time Seen by Provider: 12:05 The patient was lying in bed, sleeping upon entrance. The patient woke with a verbal greeting from the clinician. The patient's vocal quality appears more clear on this date, with less wet-sounding secretions. The patient is seated in an upright position for appropriate completion of the oropharyngeal swallowing evaluation. Objective The patient was provided ice chips, thin liquid via teaspoon, nectar-thick liquid via teaspoon, nectar-thick liquid via straw, and puree. The patient displayed improved ability to remove the ice chip and thin liquid from the spoon on this date, rounding his lips appropriately. The patient displayed a rigorous cough and red face immediately following the swallow with thin liquids. Overt s/s of suspected aspiration were not demonstrated with teaspoon of straw drink trials of nectar-thick liquid. The patient displayed one delayed throat clearing following one of twelve teaspoon trials of puree. Oral residue was not present following the swallow with any consistency tested. To note, the patient does display an intermittent grimace following the swallow. When asked if he was experiencing odynophagia, he stated, "yes," however continued to accept multiple PO trials. Due to the absence of s/s of suspected aspiration with nectar-thick liquids and puree, the following PO diet consistency is recommended: - Dysphagia one (pureed) consistency diet with mildly thick (nectar-thick) liquid, as tolerated. - Fully upright and alert for PO intake. - 1:1 supervision and feeding. - Small bites and small sips, only. - Crush medication and place in puree for administration. - Frequent and thorough oral care to reduce the transfer of oral bacteria to the lungs should aspiration of secretions occur. - Monitor for s/s of suspected aspiration with PO intake. If demonstrated, place the patient NPO and contact speech pathology. - Speech pathology to re-assess diet tolerance three to four times per week (or as appropriate). The recommendations were discussed with the RN following completion of the treatment. Assessment Assessment Current Status: Fair Progress Treatment Plan Continue Plan of Care Speech Short Term Goals Short Term Goals Short Term Goals 1. The patient will participate in continued trials of the least restrictive diet without s/s of suspected aspiration with 90% accuracy. Speech Nursing Home Goals Nursing Home Goals 1. The patient will tolerate the least restrictive diet without s/s of suspected aspiration to meet daily nutritional needs. Speech-Plan Treatment Plan Speech Therapy Treatment Plan: Continue Plan of Care Treatment Duration: Jun 07, 2021 Frequency: 3 times per week (Three to four times per week.) Estimated Hrs Per Day: .25 hour per day Rehab Potential: Poor Safety Risks/Education Teaching Recipient: Patient Teaching Methods: Discussion Response to Teaching: Reinforcement Needed Education Topics Provided: Results of the Assessment, Risk of Aspiration, Recommendations Time Speech Therapy Time In: 12:05 Speech Therapy Time Out: 12:25 Total Billed Time: 20 Billed Treatment Time 1, ZACARIAS Hicks May 25, 2021 13:46
[2021-05-25] MEDS: RIVAROXABAN 20 MG TABLET (XARELTO) PO SCH (17:40)
[2021-05-26] MEDS: NOREPINEPHRINE 8 MG/250 ML 250 ML IV SCH (03:01)
[2021-05-26] MEDS: MEROPENEM 500 MG in NS (IVPB) 100 ML IV SCH ×3 (05:31→21:02)
[2021-05-26] MEDS: NS IV 1000 ML 1,000 ML IV SCH (05:31)
[2021-05-26] MEDS: MAGNESIUM 1 GM/100 ML IVPB 100 ML IV SCH ×2 (05:53)
[2021-05-26] MEDS: POTASSIUM CL 10MEQ/50ML IVPB 50 ML IV SCH ×2 (05:53)
[2021-05-26] MEDS: inSUlin ASPART (NovoLOG) 1 UNIT/0.01 ML (CHARGE PER UNIT) SC SCH ×4 (05:54→21:00)
[2021-05-26] MEDS: KCL 20 MEQ TAB (K-DUR) PO SCH ×2 (05:54)
[2021-05-26 05:57] LABS: EOSINOPHILS % (AUTO) 0 % (0-10)
[2021-05-26 05:59] LABS: BASOPHILS % (AUTO) 0 % (0-10); HEMATOCRIT 33 % (40-54); HEMOGLOBIN 10.9 g/dL (13.3-17.7); LYMPHOCYTES # (AUTO) 1.1 10^3/uL (1.0-4.0); LYMPHOCYTES % (AUTO) 8 % (12-44); MEAN CORPUSCULAR HEMOGLOBIN 28 pg (25-34); MEAN CORPUSCULAR HGB CONC 33 g/dL (32-36); MEAN CORPUSCULAR VOLUME 84 fL (80-99); MEAN PLATELET VOLUME 11.4 fL (9.0-12.2); MONOCYTES # (AUTO) 0.6 10^3/uL (0.0-1.0); MONOCYTES % (AUTO) 4 % (0-12); NEUTROPHILS # (AUTO) 11.9 10^3/uL (1.8-7.8); NEUTROPHILS % (AUTO) 85 % (42-75); PLATELET COUNT 73 10^3/uL (130-400); WHITE BLOOD COUNT 13.9 10^3/uL (4.3-11.0)
[2021-05-26] MEDS ORDERED: FLEET ENEMA ADULT 1 EA BTL RC PRN (06:15)
[2021-05-26] MEDS ORDERED: BACLOFEN 10 MG (LIORESAL) TAB PO PRN (06:15)
[2021-05-26] MEDS ORDERED: HYDROcodone/APAP 5 MG/325 MG (LORTAB) TAB PO PRN (06:15)
[2021-05-26] MEDS ORDERED: polyethylene glycoL POWDER 17 GM (MIRALAX) PACK PO PRN (06:15)
[2021-05-26 06:23] LABS: ALBUMIN 2.5 GM/DL (3.2-4.5); POTASSIUM 3.3 MMOL/L (3.6-5.0)
[2021-05-26 06:24] LABS: CALCIUM 8.2 MG/DL (8.5-10.1)
[2021-05-26 06:26] LABS: TOTAL PROTEIN 5.7 GM/DL (6.4-8.2)
[2021-05-26 06:27] LABS: BILIRUBIN,TOTAL 0.8 MG/DL (0.1-1.0)
[2021-05-26 06:29] LABS: CREATININE SERUM 0.79 MG/DL (0.60-1.30); PHOSPHORUS 1.2 MG/DL (2.3-4.7)
[2021-05-26 06:32] LABS: MAGNESIUM 1.9 MG/DL (1.6-2.4)
[2021-05-26 06:39] VITALS: BP 162/94
--- NOTE | 2021-05-26 06:53 | Progress Note - Hospitalist ---
Subjective HPI/CC On Admission Date Seen by Provider: May 26, 2021 Time Seen by Provider: 12:45 CC: Severe sepsis with Covid-19 pneumonia with UTI HPI: 71 yr old WM, clinic pt of [facility] well known to me from prior bowel obstructions who resides at a fdc and presented to [facility] was found to have UTI after a clogged ritchie catheter. He returned back to the fdc only to return shortly thereafter with evidence of severe sepsis from UTI and Covid-19 pneumonia. He was placed on protocol medication and placed in the ICU. Overall prognosis very poor. Placed on Meropenem and Zyvox. Subjective/Events-last exam Patient very debilitated Moved down from ICU Appears to be volume overloaded so we'll give Lasix Very declined Review of Systems General: Fatigue, Malaise Focused Exam Lactate Level 05/24/21 08:00: Lactic Acid Level 1.72 Objective Exam Vital Signs Vital Signs Date Time Temp Pulse Resp B/P (MAP) Pulse Ox O2 Delivery O2 Flow Rate FiO2 05/27/21 04:04 36.4 81 20 144/76 93 Room Air 05/26/21 06:39 21 05/23/21 06:25 1.00 Capillary Refill : Less Than 3 Seconds General Appearance: Anxious, Chronically ill, Obese Respiratory: No Respiratory Distress, Accessory Muscle Use, Decreased Breath Sounds Cardiovascular: Regular Rate, Rhythm Neurologic/Psychiatric: Alert, Disoriented Results/Procedures Lab Patient resulted labs reviewed. Assessment/Plan Assessment and Plan Assess & Plan/Chief Complaint Assessment: Severe sepsis UTI COVID-19 infection Severe chronic debility resides in a fdc Neurogenic bladder Indwelling catheter History of bowel obstructions Atrial fibrillation CAD Plan: IV antibiotics broad-spectrum Isolation COVID-19 protocol IV fluids Poor prognosis Family insists on full code 05/24/2021: Broad-spectrum antibiotics Poor prognosis N.p.o. due to dysphagia and aspiration risk per speech therapy 05/25/2021: Pured diet with nectar thickened liquids Transfer to fourth floor in the morning 05/26/2021: Supportive care Lasix Very declined Critical Care Critically Ill Patient Diagnosis/Problems Diagnosis/Problems (1) Severe sepsis with acute organ dysfunction Status: Acute (2) COVID-19 Status: Acute (3) Atrial fibrillation Status: Chronic (4) UTI (urinary tract infection) Status: Acute Resolution Date/Time: 09/29/20 @ 12:34 (5) BPH (benign prostatic hyperplasia) Status: Chronic (6) Hypertension Status: Chronic AUTUMN RANDOLPH DO May 26, 2021 06:53
[2021-05-26] MEDS: PANTOPRAZOLE 40 MG (PROTONIX) TAB PO SCH (08:15)
[2021-05-26] MEDS: LACTOBACILLUS ACIDOPHILUS (PROBIOTIC) CAPSULE PO SCH ×2 (08:15→21:02)
[2021-05-26] MEDS: FLECAINIDE 100 MG (TAMBOCOR) TAB PO SCH ×2 (08:15→21:02)
[2021-05-26] MEDS: CAL. POLYCARBOPHIL 625 MG (FIBERCON) TAB PO SCH (08:15)
[2021-05-26] MEDS: DOCUSATE SODIUM 100 MG (COLACE) CAP PO SCH ×2 (08:15→21:02)
[2021-05-26] MEDS: D5 1/2 NS 1000 ML IV SOLUTION 1,000 ML IV SCH ×2 (08:28→21:02)
[2021-05-26] MEDS ORDERED: FLECAINIDE 100 MG (TAMBOCOR) TAB PO SCH (09:00)
[2021-05-26] MEDS ORDERED: lisINopril 20 MG (PRINIVIL) TABLET PO SCH (09:00)
[2021-05-26] MEDS ORDERED: meTOprolol TARTRATE 25 MG (LOPRESSOR) TABLET PO ONE (09:30)
--- NOTE | 2021-05-26 09:34 | Cardiology Progress Note ---
Progress Note-Cardiology Events since last exam Date Seen by Provider: May 26, 2021 Time Seen by Provider: 09:29 Events since last exam I am following him due to atrial fibrillation. He remains in the intensive care unit but has transfer orders to the medical floor. He remains in atrial fibrillation. His mental status has improved and he is now taking a pured diet and is swallowing crushed medications. I did not speak with the patient due to his COVID status but I did review the patient from the doorway. He has been telling the nurse he is thirsty but has not reported chest pain, dyspnea, palpitations or syncope. Certain portions of this document may have been dictated utilizing voice recognition technology. Inherent to this technology, typographical and grammatical errors may exist. As much as I am diligent to identify and correct these mistakes, some errors may remain in the document. Vitals Last set of Vitals Signs Vital Signs 05/23/21 05/26/21 05/26/21 06:25 06:39 09:00 Pulse 81 Resp 25 B/P (MAP) 135/78 Pulse Ox 99 O2 Delivery Room Air O2 Flow Rate 1.00 FiO2 21 Labs Labs Laboratory Tests 05/26/21 05:30 Exam Vital Signs Vital Signs Date Time Temp Pulse Resp B/P (MAP) Pulse Ox O2 Delivery O2 Flow Rate FiO2 05/26/21 09:00 81 25 135/78 99 Room Air 05/26/21 08:00 36.6 05/26/21 06:39 21 05/23/21 06:25 1.00 Physical Exam Due to the patient's COVID status, I viewed the patient from the doorway. General: The patient is not on a ventilator. He was sitting up in bed and a ppeared to be breathing comfortably. HENT: Normocephalic. Skin: There is no pallor. Psychiatric: Appears cooperative. Labs Laboratory Tests Test 05/25/21 10:42 05/25/21 15:50 05/25/21 20:22 05/26/21 05:30 Range/Units Glucometer 101 94 145 H 70-110 MG/DL White Blood Count 13.9 H 4.3-11.0 10^3/uL Red Blood Count 3.89 L 4.30-5.52 10^6/uL Hemoglobin 10.9 L 13.3-17.7 g/dL Hematocrit 33 L 40-54 % Mean Corpuscular Volume 84 80-99 fL Mean Corpuscular Hemoglobin 28 25-34 pg Mean Corpuscular Hemoglobin Concent 33 32-36 g/dL Red Cell Distribution Width 16.8 H 10.0-14.5 % Platelet Count 73 L 130-400 10^3/uL Mean Platelet Volume 11.4 9.0-12.2 fL Immature Granulocyte % (Auto) 2 % Neutrophils (%) (Auto) 85 H 42-75 % Lymphocytes (%) (Auto) 8 L 12-44 % Monocytes (%) (Auto) 4 0-12 % Eosinophils (%) (Auto) 0 0-10 % Basophils (%) (Auto) 0 0-10 % Neutrophils # (Auto) 11.9 H 1.8-7.8 10^3/uL Lymphocytes # (Auto) 1.1 1.0-4.0 10^3/uL Monocytes # (Auto) 0.6 0.0-1.0 10^3/uL Eosinophils # (Auto) 0.0 0.0-0.3 10^3/uL Basophils # (Auto) 0.0 0.0-0.1 10^3/uL Immature Granulocyte # (Auto) 0.3 H 0.0-0.1 10^3/uL Percent Immature Platelet Fraction 7.9 H 0.0-7.6 % Sodium Level 149 H 135-145 MMOL/L Potassium Level 3.3 L 3.6-5.0 MMOL/L Chloride Level 120 H 98-107 MMOL/L Carbon Dioxide Level 19 L 21-32 MMOL/L Anion Gap 10 5-14 MMOL/L Blood Urea Nitrogen 35 H 7-18 MG/DL Creatinine 0.79 0.60-1.30 MG/DL Estimat Glomerular Filtration Rate 94 BUN/Creatinine Ratio 44 Glucose Level 122 H 70-105 MG/DL Calcium Level 8.2 L 8.5-10.1 MG/DL Corrected Calcium 9.4 8.5-10.1 MG/DL Phosphorus Level 1.2 L 2.3-4.7 MG/DL Magnesium Level 1.9 1.6-2.4 MG/DL Total Bilirubin 0.8 0.1-1.0 MG/DL Aspartate Amino Transf (AST/SGOT) 17 5-34 U/L Alanine Aminotransferase (ALT/SGPT) 14 0-55 U/L Alkaline Phosphatase 56 40-136 U/L Total Protein 5.7 L 6.4-8.2 GM/DL Albumin 2.5 L 3.2-4.5 GM/DL Diagnosis/Problems Diagnosis/Problems (1) Paroxysmal atrial fibrillation Assessment & Plan: He has a history of paroxysmal atrial fibrillation and has been taking flecainide at home. He was in sinus rhythm when he presented to the hospital but now has recurrent atrial fibrillation. He is now taking oral medication and has received flecainide. He had a normal ejection fraction by e chocardiogram at our facility on 10/23/2020. I recommend we also start low-dose metoprolol. Rivaroxaban was held last evening due to thrombocytopenia. This is not an absolute contraindication to rivaroxaban. I recommend he continue on the rivaroxaban and we can follow his platelet count daily. (2) Primary hypertension Assessment & Plan: His lisinopril was resumed at his home dose. I would like to start him on metoprolol since he is taking flecainide for atrial fibrillation. I have ordered low-dose metoprolol. I will decrease the dose of lisinopril so we do not inadvertently because iatrogenic hypotension. (3) Thoracic aortic aneurysm without rupture Assessment & Plan: He had a chest CT at the time of admission that showed significant dilatation of the aortic root and ascending aorta without any mention of dissection although this was a noncontrast study. This will need to be followed longitudinally by his regular it risk and assurance manager at the outside facility following discharge. (4) Thrombocytopenia Assessment & Plan: Etiology unclear. This may be related to his sepsis. As above, this is not an absolute contraindication to administering oral anticoa gulation. (5) Acute kidney injury Status: Resolved Assessment & Plan: He did have an elevated creatinine at the time of admission but with intravenous fluids given for his sepsis, his renal function has improved. Resolution Date/Time: 10/22/20 @ 16:29 (6) Septic shock Assessment & Plan: This appears to have resolved with treatment of his sepsis and COVID infection. COTY SIMPSON JR, MD May 26, 2021 09:34
[2021-05-26] MEDS: MENTHOL/ZINC OXIDE (CALMOSEPTINE) 113 GM TUBE TP SCH ×2 (09:57→21:03)
--- NOTE | 2021-05-26 11:04 | Physical Therapy Evaluation ---
PT Evaluation-General Medical Diagnosis Admission Date May 23, 2021 at 06:17 Medical Diagnosis: Severe Sepsis, COVID Pneumonia Onset Date: May 23, 2021 Therapy Diagnosis Therapy Diagnosis: limited mobility Precautions Precautions/Isolations: Airborne Isolation, Contact Isolation, Fall Prevention Referral Physician: Monserrat Whaley DO Reason for Referral: Evaluation/Treatment Medical History Pertinent Medical History: Atrial Fib, CAD, HTN, [place] Current History Admit on 05/23/21 with covid pneumonia. Reviewed History: No Social History Home: Alf Prior Prior Level of Function SCALE: Activities may be completed with or without assistive devices. 4-Bahnjwprst-onwpqec completes the activity by him/herself with no assistance from a helper. 5-Set-up or Clean-up Assistance-helper sets up or cleans up; patient completes activity. Lucinda assists only prior to or following the activity. 4-Supervision or Touching Assistance-helper provides verbal cues and/or touching/steadying and/or contact guard assistance as patient completes activity. Assistance may be provided throughout the activity or intermittently. 3-Partial/Moderate Assistance-helper does LESS THAN HALF the effort. Lucinda lifts, holds or supports trunk or limbs, but provides less than half the effort. 2-Substantial/Maximal Assistance-helper does MORE THAN HALF the effort. Lucinda lifts or holds trunk or limbs and provides more than half the effort. 0-Gyguouifs-vozrjh does ALL the effort. Patient does none of the effort to complete the activity. Or, the assistance of 2 or more helpers is required for the patient to complete the activity. If activity was not attempted, code reason: 7-Patient Refused. 9-Not Applicable-not attempted and the patient did not perform the activity before the current illness, exacerbation or injury. 10-Not Attempted due to Environmental Limitations-(lack of equipment, weather restraints, etc.). 88-Not Attempted due to Medical Conditions or Safety Concerns. Pt is unable to provide a history, and the limited history provided in the chart does not include his prior level of function. PT Evaluation-Current Subjective Pt is unable to communicate. He was able to squeeze my fingers with each hand, but no other communication was observed. Objective Patient Orientation: Unable to Assess Attachments: Oxygen, Herman Catheter ROM/Strength ROM Upper Extremities Limited ROM due to increased UE tone. ROM Lower Extremities Limited ROM due to increased LE tone. Strength Upper Extremities Pt is able to squeeze my fingers. No other UE AROM observed. Strength Lower Extremities Pt is unable to move any aspect of his LEs, on either side. Integumentary/Posture Bowel Incontinence: No Bladder Incontinence: Herman Cath Neuromuscular (Tone, Coordination, Reflexes) Increased tone/stiffness in all extremities. No physical response to reflex testing. Transfers Roll Left to Right (QC): 1 Pt is a total assist for any movement of the UE or LE. Gait Does the Patient Walk?: No and Walking Goal NOT indicated Assessment/Needs At this time, pt is not able to participate with therapy. He would benefit from intermittent position change to avoid pressure ulcers. We will reassess his condition on Friday to see if he is able to participate. If he is not able to participate, then he can be discharged as seen fit by the therapist. Rehab Potential: Poor PT Space Planner Goals Retirement Goals PT Retirement Goals Time Frame: Jun 23, 2021 Roll Left & Right (QC): 3 Sit to Lying (QC): 3 Lying-Sitting on Side/Bed(QC): 3 Sit to Stand (QC): 3 Chair/Zun-uv-Kpgdw Xfer(QC): 3 PT Plan Problem List Problem List: Activity Tolerance, Functional Strength, Bed Mobility, ROM Pt is not currently actively participating due to illness. Treatment/Plan Treatment Plan: Continue Plan of Care, Discontinue PT Treatment Plan: Bed Mobility, Functional Activity Norma, Therapeutic Exercise, Transfers Treatment Duration: May 26, 2021 Frequency: 5 times per week Estimated Hrs Per Day: .25 hour per day Patient and/or Family Agrees t: Yes Time/GCodes Time In: 939 Time Out: 952 Total Billed Treatment Time: 13 Total Billed Treatment 1, ney 13 MARLENE LINARES PT May 26, 2021 11:04
[2021-05-26] MEDS ORDERED: FUROSEMIDE 40 MG/4 ML INJ (LASIX) IVP ONE (13:00)
[2021-05-26] MEDS: RIVAROXABAN 20 MG TABLET (XARELTO) PO SCH (17:51)
[2021-05-26] MEDS: meTOprolol TARTRATE 25 MG (LOPRESSOR) TABLET PO SCH (21:03)
[2021-05-27] MEDS: PANTOPRAZOLE 40 MG (PROTONIX) TAB PO SCH (06:29)
[2021-05-27] MEDS: inSUlin ASPART (NovoLOG) 1 UNIT/0.01 ML (CHARGE PER UNIT) SC SCH ×4 (06:29→22:45)
[2021-05-27] MEDS: MEROPENEM 500 MG in NS (IVPB) 100 ML IV SCH ×3 (06:29→22:45)
[2021-05-27 06:42] LABS: BASOPHILS % (AUTO) 0 % (0-10); EOSINOPHILS # (AUTO) 0.1 10^3/uL (0.0-0.3); EOSINOPHILS % (AUTO) 1 % (0-10); HEMATOCRIT 32 % (40-54); HEMOGLOBIN 10.4 g/dL (13.3-17.7); LYMPHOCYTES # (AUTO) 1.1 10^3/uL (1.0-4.0); LYMPHOCYTES % (AUTO) 12 % (12-44); MEAN CORPUSCULAR HEMOGLOBIN 27 pg (25-34); MEAN CORPUSCULAR HGB CONC 32 g/dL (32-36); MEAN CORPUSCULAR VOLUME 84 fL (80-99); MEAN PLATELET VOLUME 13.2 fL (9.0-12.2); MONOCYTES # (AUTO) 0.5 10^3/uL (0.0-1.0); MONOCYTES % (AUTO) 5 % (0-12); NEUTROPHILS # (AUTO) 7.2 10^3/uL (1.8-7.8); NEUTROPHILS % (AUTO) 76 % (42-75); PLATELET COUNT 95 10^3/uL (130-400); WHITE BLOOD COUNT 9.5 10^3/uL (4.3-11.0)
[2021-05-27 07:01] LABS: ALBUMIN 2.2 GM/DL (3.2-4.5); POTASSIUM 2.7 MMOL/L (3.6-5.0)
[2021-05-27 07:03] LABS: CALCIUM 7.4 MG/DL (8.5-10.1)
[2021-05-27 07:04] LABS: TOTAL PROTEIN 5.2 GM/DL (6.4-8.2)
--- NOTE | 2021-05-27 07:04 | Progress Note - Hospitalist ---
Subjective HPI/CC On Admission Date Seen by Provider: May 27, 2021 Time Seen by Provider: 12:30 CC: Severe sepsis with Covid-19 pneumonia with UTI HPI: 71 yr old WM, clinic pt of [facility] well known to me from prior bowel obstr uctions who resides at a snf and presented to [place] [facility] was found to have UTI after a clogged ritchie catheter. He returned back to the snf only to return shortly thereafter with evidence of severe sepsis from UTI and Covid-19 pneumonia. He was placed on protocol medication and placed in the ICU. Overall prognosis very poor. Placed on Meropenem and Zyvox. Subjective/Events-last exam Patient about the same Chronic baseline shortness of breath Patient appears to be very end-stage Recovery potential is minimal Checked meds and labs Review of Systems Pulmonary: Dyspnea Focused Exam Lactate Level Objective Exam Vital Signs Vital Signs Date Time Temp Pulse Resp B/P (MAP) Pulse Ox O2 Delivery O2 Flow Rate FiO2 05/28/21 03:30 36.8 89 20 166/95 95 Room Air 05/26/21 06:39 21 05/23/21 06:25 1.00 Capillary Refill : Less Than 3 Seconds General Appearance: No Apparent Distress, WD/WN, Chronically ill Respiratory: No Accessory Muscle Use, No Respiratory Distress, Decreased Breath Sounds Cardiovascular: Regular Rate, Rhythm Neurologic/Psychiatric: Alert, Oriented x3 Results/Procedures Lab Laboratory Tests 05/27/21 06:15 05/27/21 09:00 Patient resulted labs reviewed. Assessment/Plan Assessment and Plan Assess & Plan/Chief Complaint Assessment: Severe sepsis UTI COVID-19 infection Severe chronic debility resides in a snf Neurogenic bladder Indwelling catheter History of bowel obstructions Atrial fibrillation CAD Plan: IV antibiotics broad-spectrum Isolation COVID-19 protocol IV fluids Poor prognosis Family insists on full code 05/24/2021: Broad-spectrum antibiotics Poor prognosis N.p.o. due to dysphagia and aspiration risk per speech therapy 05/25/2021: Pured diet with nectar thickened liquids Transfer to fourth floor in the morning 05/26/2021: Supportive care Lasix Very declined 05/27/21: End stage Full code remains Critical Care Critically Ill Patient Diagnosis/Problems Diagnosis/Problems (1) Severe sepsis with acute organ dysfunction Status: Acute (2) COVID-19 Status: Acute (3) Atrial fibrillation Status: Chronic (4) UTI (urinary tract infection) Status: Acute Resolution Date/Time: 09/29/20 @ 12:34 (5) BPH (benign prostatic hyperplasia) Status: Chronic (6) Hypertension Status: Chronic AUTUMN RANDOLPH DO May 27, 2021 07:04
[2021-05-27 07:08] LABS: CREATININE SERUM 0.82 MG/DL (0.60-1.30)
[2021-05-27] MEDS: FLECAINIDE 100 MG (TAMBOCOR) TAB PO SCH ×2 (07:59→22:46)
[2021-05-27] MEDS: lisINopril 10 MG (PRINIVIL) TABLET PO SCH (07:59)
[2021-05-27] MEDS: LACTOBACILLUS ACIDOPHILUS (PROBIOTIC) CAPSULE PO SCH ×2 (07:59→22:45)
[2021-05-27] MEDS: meTOprolol TARTRATE 25 MG (LOPRESSOR) TABLET PO SCH ×2 (07:59→22:46)
[2021-05-27] MEDS: DOCUSATE SODIUM 100 MG (COLACE) CAP PO SCH ×2 (07:59→22:46)
[2021-05-27] MEDS: MENTHOL/ZINC OXIDE (CALMOSEPTINE) 113 GM TUBE TP SCH ×3 (08:00→22:48)
[2021-05-27] MEDS: CAL. POLYCARBOPHIL 625 MG (FIBERCON) TAB PO SCH (08:00)
[2021-05-27 09:22] LABS: ALBUMIN 2.7 GM/DL (3.2-4.5); POTASSIUM 3.3 MMOL/L (3.6-5.0)
[2021-05-27 09:23] LABS: CALCIUM 8.5 MG/DL (8.5-10.1)
[2021-05-27 09:24] LABS: TOTAL PROTEIN 6.6 GM/DL (6.4-8.2)
[2021-05-27 09:26] LABS: BILIRUBIN,TOTAL 1.2 MG/DL (0.1-1.0)
[2021-05-27 09:28] LABS: CREATININE SERUM 0.8 MG/DL (0.60-1.30)
[2021-05-27 09:31] LABS: BASOPHILS % (AUTO) 0 % (0-10); EOSINOPHILS # (AUTO) 0.2 10^3/uL (0.0-0.3); EOSINOPHILS % (AUTO) 1 % (0-10); HEMATOCRIT 39 % (40-54); HEMOGLOBIN 12.7 g/dL (13.3-17.7); LYMPHOCYTES # (AUTO) 1.2 10^3/uL (1.0-4.0); LYMPHOCYTES % (AUTO) 11 % (12-44); MEAN CORPUSCULAR HEMOGLOBIN 27 pg (25-34); MEAN CORPUSCULAR HGB CONC 33 g/dL (32-36); MEAN CORPUSCULAR VOLUME 85 fL (80-99); MONOCYTES # (AUTO) 0.6 10^3/uL (0.0-1.0); MONOCYTES % (AUTO) 5 % (0-12); NEUTROPHILS # (AUTO) 8.7 10^3/uL (1.8-7.8); NEUTROPHILS % (AUTO) 78 % (42-75); PLATELET COUNT 120 10^3/uL (130-400); WHITE BLOOD COUNT 11.2 10^3/uL (4.3-11.0)
[2021-05-27] MEDS ORDERED: KCL 20 MEQ TAB (K-DUR) PO ONE (11:45)
--- NOTE | 2021-05-27 12:03 | Cardiology Progress Note ---
Progress Note-Cardiology Events since last exam Date Seen by Provider: May 27, 2021 Time Seen by Provider: 11:58 Events since last exam I am following him due to atrial fibrillation. He was transferred to the wi dical floor on 05/26. He remains confused and disoriented which is his baseline due to dementia. He was able to tell me that the [employer] game will start at 5 PM tonight. In regards to his symptoms, he was answering yes to most of the questions I asked. I did not enter his room but I did speak with him from the doorway due to his COVID status. I also spoke with his nurse who tells me he has been receiving his oral medications. Certain portions of this document may have been dictated utilizing voice recognition technology. Inherent to this technology, typographical and grammatical errors may exist. As much as I am diligent to identify and correct these mistakes, some errors may remain in the document. Vitals Last set of Vitals Signs Vital Signs 05/23/21 05/26/21 05/27/21 06:25 06:39 11:37 Temp 37.1 Pulse 79 Resp 20 B/P (MAP) 141/75 Pulse Ox 95 O2 Delivery Room Air O2 Flow Rate 1.00 FiO2 21 Labs Labs Laboratory Tests 05/27/21 06:15 05/27/21 09:00 Exam Vital Signs Vital Signs Date Time Temp Pulse Resp B/P (MAP) Pulse Ox O2 Delivery O2 Flow Rate FiO2 05/27/21 11:37 37.1 79 20 141/75 95 Room Air 05/26/21 06:39 21 05/23/21 06:25 1.00 Physical Exam Due to the patient's COVID status, I viewed the patient from the doorway. General: The patient is not on a ventilator. He was resting comfortably in a chair. HENT: Normocephalic. Skin: There is no pallor. Neurologic: Oriented to person only. Moving all 4 extremities. Cranial nerves III through XII grossly intact. Psychiatric: Appears cooperative. Labs Laboratory Tests Test 05/27/21 06:15 05/27/21 09:00 05/27/21 11:42 Range/Units White Blood Count 9.5 11.2 H 4.3-11.0 10^3/uL Red Blood Count 3.82 L 4.62 4.30-5.52 10^6/uL Hemoglobin 10.4 L 12.7 #L 13.3-17.7 g/dL Hematocrit 32 L 39 L 40-54 % Mean Corpuscular Volume 84 85 80-99 fL Mean Corpuscular Hemoglobin 27 27 25-34 pg Mean Corpuscular Hemoglobin Concent 32 33 32-36 g/dL Red Cell Distribution Width 16.7 H 16.5 H 10.0-14.5 % Platelet Count 95 L 120 L 130-400 10^3/uL Mean Platelet Volume 13.2 H 9.0-12.2 fL Immature Granulocyte % (Auto) 5 5 % Neutrophils (%) (Auto) 76 H 78 H 42-75 % Lymphocytes (%) (Auto) 12 11 L 12-44 % Monocytes (%) (Auto) 5 5 0-12 % Eosinophils (%) (Auto) 1 1 0-10 % Basophils (%) (Auto) 0 0 0-10 % Neutrophils # (Auto) 7.2 8.7 H 1.8-7.8 10^3/uL Lymphocytes # (Auto) 1.1 1.2 1.0-4.0 10^3/uL Monocytes # (Auto) 0.5 0.6 0.0-1.0 10^3/uL Eosinophils # (Auto) 0.1 0.2 0.0-0.3 10^3/uL Basophils # (Auto) 0.0 0.0 0.0-0.1 10^3/uL Immature Granulocyte # (Auto) 0.5 H 0.5 H 0.0-0.1 10^3/uL Sodium Level 143 148 H 135-145 MMOL/L Potassium Level 2.7 L 3.3 L 3.6-5.0 MMOL/L Chloride Level 114 H 117 H 98-107 MMOL/L Carbon Dioxide Level 21 22 21-32 MMOL/L Anion Gap 8 9 5-14 MMOL/L Blood Urea Nitrogen 25 H 26 H 7-18 MG/DL Creatinine 0.82 0.80 0.60-1.30 MG/DL Estimat Glomerular Filtration Rate 93 94 BUN/Creatinine Ratio 30 33 Glucose Level 509 *H 112 H 70-105 MG/DL Calcium Level 7.4 L 8.5 8.5-10.1 MG/DL Corrected Calcium 8.8 9.5 8.5-10.1 MG/DL Total Bilirubin 1.0 1.2 H 0.1-1.0 MG/DL Aspartate Amino Transf (AST/SGOT) 33 47 H 5-34 U/L Alanine Aminotransferase (ALT/SGPT) 17 24 0-55 U/L Alkaline Phosphatase 52 70 40-136 U/L Total Protein 5.2 L 6.6 6.4-8.2 GM/DL Albumin 2.2 L 2.7 L 3.2-4.5 GM/DL Glucometer 125 H 70-110 MG/DL Diagnosis/Problems Diagnosis/Problems (1) Paroxysmal atrial fibrillation Assessment & Plan: He has a history of paroxysmal atrial fibrillation and has been taking flecainide at home. He was in sinus rhythm when he presented to the hospital but then developed recurrent atrial fibrillation. I restarted his flecainide. He had a normal ejection fraction by echocardiogram at our facility on 10/23/2020. I also started him on metoprolol. He should continue on rivaroxaban. This was held 1 evening due to thrombocytopenia. I will obtain a follow-up electrocardiogram today and again tomorrow. (2) Primary hypertension Assessment & Plan: I lowered his dose of lisinopril so that I could start him on metoprolol. Blood pressures are reasonably controlled. (3) Thoracic aortic aneurysm without rupture Assessment & Plan: He had a chest CT at the time of admission that showed significant dilatation of the aortic root and ascending aorta without any mention of dissection although this was a noncontrast study. This will need to be followed longitudinally by his regular american studies professor at the outside facility following discharge. (4) Thrombocytopenia Assessment & Plan: Etiology unclear. This have been related to his sepsis. This is improving. This is not absolute contraindication to taking oral anticoagulants. (5) Acute kidney injury Status: Resolved Assessment & Plan: He did have an elevated creatinine at the time of admission but with intravenous fluids given for his sepsis, his renal function has improved. There is no renal indication to reduce the dose of rivaroxaban. Resolution Date/Time: 10/22/20 @ 16:29 (6) Septic shock Assessment & Plan: This appears to have resolved with treatment of his sepsis and COVID infection. COTY SIMPSON JR, MD May 27, 2021 12:03
[2021-05-27] MEDS: D5 1/2 NS 1000 ML IV SOLUTION 1,000 ML IV SCH (14:07)
[2021-05-27] MEDS: RIVAROXABAN 20 MG TABLET (XARELTO) PO SCH (17:40)
[2021-05-28 05:15] LABS: BASOPHILS % (AUTO) 0 % (0-10); EOSINOPHILS # (AUTO) 0.2 10^3/uL (0.0-0.3); EOSINOPHILS % (AUTO) 2 % (0-10); HEMATOCRIT 38 % (40-54); HEMOGLOBIN 12.4 g/dL (13.3-17.7); LYMPHOCYTES # (AUTO) 1.7 10^3/uL (1.0-4.0); LYMPHOCYTES % (AUTO) 15 % (12-44); MEAN CORPUSCULAR HEMOGLOBIN 28 pg (25-34); MEAN CORPUSCULAR HGB CONC 33 g/dL (32-36); MEAN CORPUSCULAR VOLUME 86 fL (80-99); MEAN PLATELET VOLUME 12.8 fL (9.0-12.2); MONOCYTES # (AUTO) 0.7 10^3/uL (0.0-1.0); MONOCYTES % (AUTO) 6 % (0-12); NEUTROPHILS # (AUTO) 8.7 10^3/uL (1.8-7.8); NEUTROPHILS % (AUTO) 74 % (42-75); PLATELET COUNT 166 10^3/uL (130-400); WHITE BLOOD COUNT 11.8 10^3/uL (4.3-11.0)
[2021-05-28 05:35] LABS: ALBUMIN 2.5 GM/DL (3.2-4.5); BILIRUBIN,TOTAL 1.2 MG/DL (0.1-1.0); CALCIUM 8.4 MG/DL (8.5-10.1); CREATININE SERUM 0.8 MG/DL (0.60-1.30); POTASSIUM 3.5 MMOL/L (3.6-5.0); TOTAL PROTEIN 6.2 GM/DL (6.4-8.2)
[2021-05-28] MEDS: inSUlin ASPART (NovoLOG) 1 UNIT/0.01 ML (CHARGE PER UNIT) SC SCH ×4 (06:30→20:46)
[2021-05-28] MEDS ORDERED: MEROPENEM 500 MG VIAL (MERREM) IV ONE (06:48)
[2021-05-28] MEDS ORDERED: NS (IVPB) 100 ML ONE (06:49)
[2021-05-28] MEDS: PANTOPRAZOLE 40 MG (PROTONIX) TAB PO SCH (06:54)
[2021-05-28] MEDS: MEROPENEM 500 MG in NS (IVPB) 100 ML IV SCH (06:54)
[2021-05-28] MEDS: D5 1/2 NS 1000 ML IV SOLUTION 1,000 ML IV SCH (06:55)
[2021-05-28] MEDS: CAL. POLYCARBOPHIL 625 MG (FIBERCON) TAB PO SCH (08:54)
[2021-05-28] MEDS: FLECAINIDE 100 MG (TAMBOCOR) TAB PO SCH ×2 (08:54→20:15)
[2021-05-28] MEDS: lisINopril 10 MG (PRINIVIL) TABLET PO SCH (08:54)
[2021-05-28] MEDS: DOCUSATE SODIUM 100 MG (COLACE) CAP PO SCH ×2 (08:54→20:15)
[2021-05-28] MEDS: LACTOBACILLUS ACIDOPHILUS (PROBIOTIC) CAPSULE PO SCH ×2 (08:54→20:15)
[2021-05-28] MEDS: MENTHOL/ZINC OXIDE (CALMOSEPTINE) 113 GM TUBE TP SCH ×2 (08:55→20:25)
[2021-05-28] MEDS: meTOprolol TARTRATE 25 MG (LOPRESSOR) TABLET PO SCH ×2 (08:55→20:15)
--- NOTE | 2021-05-28 10:49 | Occupational Therapy Eval ---
OT Evaluation-General/PLF Medical Diagnosis Admission Date May 23, 2021 at 06:17 Medical Diagnosis: Severe Sepsis, COVID Pneumonia Onset Date: May 23, 2021 Therapy Diagnosis Therapy Diagnosis: decreased ADL status Precautions Precautions/Isolations: Airborne Isolation Referral Physician: Monserrat Whaley DO Referral Reason: Evaluation/Treatment Medical History Pertinent Medical History: Atrial Fib, CAD, HTN, [place] Additional Medical History COPD, aneurysm, afib, heart attack, BPH, obstructive bowel, arthritis, chronic condom catheter, partial colon resection Current History ED from [place] due to covid PNA, lethargy Social History Home: Longterm ADL-Prior Level of Function SCALE: Activities may be completed with or without assistive devices. 6-Pdryjbgpix-osnpkty completes the activity by him/herself with no assistance from a helper. 5-Set-up or Clean-up Assistance-helper sets up or cleans up; patient completes activity. Mcpherson assists only prior to or following the activity. 4-Supervision or Touching Assistance-helper provides verbal cues and/or touching/steadying and/or contact guard assistance as patient completes activity. Assistance may be provided throughout the activity or intermittently. 3-Partial/Moderate Assistance-helper does LESS THAN HALF the effort. Mcpherson lifts, holds or supports trunk or limbs, but provides less than half the effort. 2-Substantial/Maximal Assistance-helper does MORE THAN HALF the effort. Mcpherson lifts or holds trunk or limbs and provides more than half the effort. 2-Hyzewnauh-vmbvqa does ALL the effort. Patient does none of the effort to complete the activity. Or, the assistance of 2 or more helpers is required for the patient to complete the activity. If activity was not attempted, code reason: 7-Patient Refused. 9-Not Applicable-not attempted and the patient did not perform the activity before the current illness, exacerbation or injury. 10-Not Attempted due to Environmental Limitations-(lack of equipment, weather restraints, etc.). 88-Not Attempted due to Medical Conditions or Safety Concerns. ADL PLOF Comments Per pt report, he resides at a longterm and has assistance with all ADLs, including bathing, dressing and toileting. He is unable to use a walker, and is primarily w/c bound. Pt indicates he has help with w/c mobility. Self Care: Dependent Functional Cognition: Unknown OT Current Status Subjective Pt in bed, agreeable to OT Tx. Mental Status/Objective Attachments: Herman Catheter, IV, Oxygen Current Upper Extremity ROM Decreased ROM, increased tone BUEs. Upper Extremity Coordination decreased ADL-Treatment Eating (QC): 2 (Per nursing report, pt requires feeding assistance) Upper Body Dressing (QC): 1 (Per clincial judgment) Lower Body Dressing (QC): 1 (Per clincial judgment) On/Off Footwear (QC): 1 (Per clincial judgment) Toileting Hygiene (QC): 1 (catheter) Other Treatments Pt in bed, transferred supine to sit EOB, dependent assist x2. Pt required assistance to maintain EOB sitting balance, pt leaned back and towards L severely, did not attempt to lean forward with cues. Pt only sits for a few minutes with total assistance from healthcare providers. Pt transferred supine, assist x2, scooted up towards HOB assist x2, then positioned in L side lying. Pt's O2 saturation remained above 90% throughout session. Post tx, pt in bed, call light in reach and all needs met. Education OT Patient Education: Correct positioning, Modified ADL techniques, Progress toward Goal/Update tx plan, Purpose of tx/functional activities, Rehab process Teaching Recipient: Patient Teaching Methods: Discussion Response to Teaching: Verbalize Understanding OT Skilled Nursing Goals Skilled Nursing Goals 1=Demonstrate adherence to instructed precautions during ADL tasks. 2=Patient will verbalize/demonstrate understanding of assistive devices/modifications for ADL. 3=Patient will improve strength/tolerance for activity to enable patient to perform ADL's. OT Education/Plan Problem List/Assessment Assessment: No Skilled OT Needs ID'd No skilled OT services indicated at this time, as pt is currently at his PLOF, requiring assistance with all ADLs. D/C from OT at this time. Discharge Recommendations Plan/Recommendations: Discharge/Goals Met Treatment Plan/Plan of Care Patient would benefit from OT for education, treatment and training to promote independence in ADL's, mobility, safety and/or upper extremity function for ADL's. Plan of Care: ADL Retraining, Functional Mobility, UE Funct Exercise/Act Treatment Duration: May 28, 2021 Frequency: 1 time per week (eval only) Rehab Potential: Poor Time/GCodes Start Time: 10:30 Stop Time: 10:40 Total Time Billed (hr/min): 10 Billed Treatment Time 1, EVSUZY VIRK OT May 28, 2021 10:49
--- NOTE | 2021-05-28 10:50 | Physical Therapy Daily Note ---
PT Daily Note-Current Subjective Patient in bed pre tx, seems to agree to PT but it is hard to tell, he has poor speaking, has unrated back pain. Appearance Patient in bed post tx with nurse call, phone, tray, all needs met. Laying on left side with pillow support for pressure relief. Mental Status Patient Orientation: Person, Confused, Mumbles Attachments: Herman Catheter, IV Transfers SCALE: Activities may be completed with or without assistive devices. 4-Rbztzyocvs-uicvhkz completes the activity by him/herself with no assistance from a helper. 5-Set-up or Clean-up Assistance-helper sets up or cleans up; patient completes activity. [place] assists only prior to or following the activity. 4-Supervision or Touching Assistance-helper provides verbal cues and/or touching/steadying and/or contact guard assistance as patient completes activity. Assistance may be provided throughout the activity or intermittently. 3-Partial/Moderate Assistance-helper does LESS THAN HALF the effort. [place] lifts, holds or supports trunk or limbs, but provides less than half the effort. 2-Substantial/Maximal Assistance-helper does MORE THAN HALF the effort. [place] lifts or holds trunk or limbs and provides more than half the effort. 3-Mrekpmkwe-efgoeg does ALL the effort. Patient does none of the effort to complete the activity. Or, the assistance of 2 or more helpers is required for the patient to complete the activity. If activity was not attempted, code reason: 7-Patient Refused. 9-Not Applicable-not attempted and the patient did not perform the activity before the current illness, exacerbation or injury. 10-Not Attempted due to Environmental Limitations-(lack of equipment, weather restraints, etc.). 88-Not Attempted due to Medical Conditions or Safety Concerns. Roll Left & Right (QC): 1 Sit to Lying (QC): 1 Lying to Sitting/Side of Bed(Q: 1 Patient dependent sit to the side of the bed with assist of 2 people. He only sits there for a few minutes, total assist from healthcare workers, patient doesn't appear to assist even with encouragement. Patient encouraged to perform some LE exercises but he doesn't. Lay patient back down with assist of 2. Patient is scooted up in bed with assist of 2. Treatments bed mobility, sitting Assessment Current Status: Poor Progress Patient's O2 does stay in mid 90's during tx. PT Mcfp Goals Mcfp Goals PT Mcfp Goals Time Frame: Jun 23, 2021 Roll Left & Right (QC): 3 Sit to Lying (QC): 3 Lying-Sitting on Side/Bed(QC): 3 Sit to Stand (QC): 3 Chair/Qkj-ty-Gseij Xfer(QC): 3 PT Plan Problem List Problem List: Activity Tolerance, Functional Strength, Safety, Balance, Gait, Transfer, Bed Mobility, ROM Treatment/Plan Treatment Plan: Continue Plan of Care Treatment Plan: Bed Mobility, Functional Activity Norma, Therapeutic Exercise, Transfers Treatment Duration: May 26, 2021 Frequency: 5 times per week Estimated Hrs Per Day: .25 hour per day Patient and/or Family Agrees t: Yes Safety Risks/Education Patient Education: Correct Positioning, Safety Issues Teaching Recipient: Patient Teaching Methods: Demonstration, Discussion Response to Teaching: Reinforcement Needed Time/GCodes Time In: 1027 Time Out: 1040 Total Billed Treatment Time: 13 Total Billed Treatment 1 visit FA LYLE TELLEZ PT May 28, 2021 10:50
--- NOTE | 2021-05-28 12:23 | Speech Therapy Daily Note ---
Speech Daily Progress Note Subjective Date Seen by Provider: May 28, 2021 Time Seen by Provider: 08:56 The patient was seated upright in bed, awake and alert upon entrance by the clinician. The patient's RN and PCT were present at bedside. Objective The RN and the PCT stated the patient has not displayed overt s/s of suspected aspiration with the PO intake they had recently administered. The patient's breakfast tray is present and the RN is administering medication crushed in puree. The patient consumed bites of pureed eggs, pureed cranberries, nectar- thick orange juice, and medication crushed in puree. Overt s/s of suspected aspiration were not demonstrated throughout the treatment session and the patient's vocal quality remained clear. Assessment Assessment Current Status: Good Progress Treatment Plan Continue Plan of Care Speech Short Term Goals Short Term Goals Short Term Goals 1. The patient will participate in continued trials of the least restrictive diet without s/s of suspected aspiration with 90% accuracy. Speech Crm Dynamics Developer Goals Crm Dynamics Developer Goals 1. The patient will tolerate the least restrictive diet without s/s of suspected aspiration to meet daily nutritional needs. Speech-Plan Treatment Plan Speech Therapy Treatment Plan: Continue Plan of Care Treatment Duration: Jun 07, 2021 Frequency: 3 times per week (Three to four times per week.) Estimated Hrs Per Day: .25 hour per day Rehab Potential: Poor Pt/Family Agrees to Plan: Yes Safety Risks/Education Teaching Recipient: Patient Teaching Methods: Discussion Response to Teaching: Reinforcement Needed Education Topics Provided: Plan of Care, Swallowin Strategies Time Speech Therapy Time In: 08:56 Speech Therapy Time Out: 09:05 Total Billed Time: 9 Billed Treatment Time 1, DYST ZACARIAS Ortiz May 28, 2021 12:23
[2021-05-28] MEDS: LORazepam INJ 2 MG/ML (ATIVAN) VIAL IVP PRN (13:23)
--- NOTE | 2021-05-28 13:52 | Progress Note - Hospitalist ---
DAWN VELA 05/28/21 1352: Subjective HPI/CC On Admission Date Seen by Provider: May 28, 2021 Time Seen by Provider: 08:45 CC: Severe sepsis with Covid-19 pneumonia with UTI HPI: 71 yr old , clinic pt of [facility] well known to me from prior bowel obstructions who resides at a [facility] and presented to [facility] was found to have UTI after a clogged ritchie catheter. He returned back to the [facility] only to return shortly thereafter with evidence of severe sepsis from UTI and Covid-19 pneumonia. He was placed on protocol medication and placed in the ICU. Overall prognosis very poor. Placed on Meropenem and Zyvox. Subjective/Events-last exam This is a 71 y/o male [facility] resident on hospital day #6 for COVID pneumonia and severe sepsis 2/2 UTI from a clogged ritchie. Pt is confused at baseline due to dementia and this complicates the interview. He reports no pain, fever, chills, or nausea. He states his appetite is good, but he had not touched his breakfast. Per nursing, pt had a period of "shallow breathing" last night and required O2 via NC, but he is no longer requiring this and is satting well at 96% on RA. Review of Systems General: No Chills HEENT: No Head Aches, No Visual Changes, No Dysphasia, No Sore Throat Pulmonary: No Dyspnea; Cough Cardiovascular: No: Chest Pain Gastrointestinal: No: Nausea, Vomiting, Abdominal Pain, Diarrhea, Constipation Genitourinary: No Dysuria Neurological: Confusion Objective Exam Vital Signs Vital Signs Date Time Temp Pulse Resp B/P (MAP) Pulse Ox O2 Delivery O2 Flow Rate FiO2 05/28/21 11:44 36.8 86 22 131/79 94 Room Air 05/28/21 08:28 0.00 05/26/21 06:39 21 Capillary Refill : Less Than 3 Seconds General Appearance: No Apparent Distress, WD/WN HEENT: PERRL/EOMI Neck: Non Tender Respiratory: Chest Non Tender, No Accessory Muscle Use Cardiovascular: Regular Rate, Rhythm Gastrointestinal: Non Tender, Soft Rectal: Deferred Extremity: Normal Inspection Neurologic/Psychiatric: Disoriented Skin: Normal Color, Warm/Dry Results/Procedures Lab Laboratory Tests 05/28/21 04:30 Patient resulted labs reviewed. Assessment/Plan Assessment and Plan Assess & Plan/Chief Complaint This is a 71 y/o male on hospital day #6 for COVID pneumonia and severe sepsis 2/2 UTI due to a clogged ritchie. Diagnosis/Problems Diagnosis/Problems (1) COVID-19 Status: Acute Assessment & Plan: - Patient remains afebrile - satting well at 96% on RA - c/w isolation - c/w COVID-19 protocol (2) Urinary tract infection Status: Acute Assessment & Plan: - WBC 11.8 today (up from 11.4 05/27/21) - c/w meropenem - c/w IV fluids Qualifiers: Qualified Codes: T83.511D - Infection and inflammatory reaction due to ind welling urethral catheter, subsequent encounter; N39.0 - Urinary tract infection, site not specified (3) Primary hypertension Status: Chronic Assessment & Plan: - Continue lisinopril MONSERRAT WHALEY DO 05/29/21 0540: Subjective Subjective/Events-last exam Pt is about the same Overall very declined Really can't move much Needs oxygen prn Will be ready for discharge in next 2 days, but recommend DNR and hospice, but family doesn't wish that Objective Exam General Appearance: Other (obtunded) Assessment/Plan Assessment and Plan Assess & Plan/Chief Complaint DNR Comfort care rec Supervisory-Addendum Brief Verification & Attestation Participated in pt care: history, MDM, physical Personally performed: exam, history, MDM, supervision of care Care discussed with: Medical Student Procedures: n/a Results interpretation: Verified all documentation Verification and Attestation of Medical Student E/M Service A medical student performed and documented this service in my presence. I reviewed and verified all information documented by the medical student and made modifications to such information, when appropriate. I personally performed the physical exam and medical decision making. Monserrat Whaley, May 29, 2021,05:40 DAWN VELA May 28, 2021 13:52 MONSERRAT WHALEY DO May 29, 2021 05:40
[2021-05-28] MEDS: HYDROmorphone 2 MG/ML VIAL (DILAUDID) IVP PRN (15:03)
[2021-05-28] MEDS: RIVAROXABAN 20 MG TABLET (XARELTO) PO SCH (17:04)
[2021-05-29] MEDS: LORazepam INJ 2 MG/ML (ATIVAN) VIAL IVP PRN ×3 (08:55→23:41)
--- NOTE | 2021-05-29 10:10 | Progress Note - Hospitalist ---
Subjective HPI/CC On Admission Date Seen by Provider: May 29, 2021 Time Seen by Provider: 10:30 CC: Severe sepsis with Covid-19 pneumonia with UTI HPI: 71 yr old WM, clinic pt of [facility] well known to me from prior bowel obstructions who resides at a long term and presented to [place] [facility] was found to have UTI after a clogged ritchie catheter. He returned back to the long term only to return shortly thereafter with evidence of severe sepsis from UTI and Covid-19 pneumonia. He was placed on protocol medication and placed in the ICU. Overall prognosis very poor. Placed on Meropenem and Zyvox. Subjective/Events-last exam Pt on comfort care Unresponsive Confused Moves around spontaneously Objective Exam Vital Signs Vital Signs Date Time Temp Pulse Resp B/P (MAP) Pulse Ox O2 Delivery O2 Flow Rate FiO2 05/29/21 20:00 Room Air 05/29/21 09:47 94 05/28/21 19:56 36.9 105 32 154/81 05/28/21 15:15 1.00 05/26/21 06:39 21 Capillary Refill : Less Than 3 Seconds General Appearance: Chronically ill, Other (lethargic) Results/Procedures Lab Patient resulted labs reviewed. Assessment/Plan Assessment and Plan Assess & Plan/Chief Complaint DNR Comfort care rec Critical Care Critically Ill Patient Diagnosis/Problems Diagnosis/Problems (1) Severe sepsis with acute organ dysfunction Status: Acute (2) COVID-19 Status: Acute (3) Atrial fibrillation Status: Chronic (4) UTI (urinary tract infection) Status: Acute Resolution Date/Time: 09/29/20 @ 12:34 (5) BPH (benign prostatic hyperplasia) Status: Chronic (6) Hypertension Status: Chronic AUTUMN RANDOLPH DO May 29, 2021 10:10
[2021-05-29] MEDS: morphine INJ 4 MG/ML 1 ML (VIAL/SYRINGE) IVP PRN (20:22)
[2021-05-30] MEDS: morphine INJ 4 MG/ML 1 ML (VIAL/SYRINGE) IVP PRN ×5 (09:21→17:06)
--- NOTE | 2021-05-30 10:26 | Progress Note - Hospitalist ---
Subjective HPI/CC On Admission Date Seen by Provider: May 30, 2021 Time Seen by Provider: 09:00 CC: Severe sepsis with Covid-19 pneumonia with UTI HPI: 71 yr old WM, clinic pt of [facility] well known to me from prior bowel obstructions who resides at a group home and presented to [facility] ER was found to have UTI after a clogged ritchie catheter. He returned back to the group home only to return shortly thereafter with evidence of severe sepsis from UTI and Covid-19 pneumonia. He was placed on protocol medication and placed in the ICU. Overall prognosis very poor. Placed on Meropenem and Zyvox. Subjective/Events-last exam Pt remains on comfort care Pt is talking, so we will try to give him something to eat or drink even if it is thickened Pt continues to be an aspiration risk Review of Systems Neurological: Confusion Objective Exam Vital Signs Vital Signs Date Time Temp Pulse Resp B/P (MAP) Pulse Ox O2 Delivery O2 Flow Rate FiO2 05/30/21 21:11 Room Air 05/29/21 09:47 94 05/28/21 19:56 36.9 105 32 154/81 05/28/21 15:15 1.00 05/26/21 06:39 21 Capillary Refill : Less Than 3 Seconds General Appearance: Anxious, Chronically ill Respiratory: Accessory Muscle Use, Decreased Breath Sounds Cardiovascular: Regular Rate, Rhythm Neurologic/Psychiatric: Alert, Disoriented Results/Procedures Lab Patient resulted labs reviewed. Assessment/Plan Assessment and Plan Assess & Plan/Chief Complaint DNR Comfort care Critical Care Critically Ill Patient Diagnosis/Problems Diagnosis/Problems (1) Severe sepsis with acute organ dysfunction Status: Acute (2) COVID-19 Status: Acute (3) Atrial fibrillation Status: Chronic (4) UTI (urinary tract infection) Status: Acute Resolution Date/Time: 09/29/20 @ 12:34 (5) BPH (benign prostatic hyperplasia) Status: Chronic (6) Hypertension Status: Chronic AUTUMN RANDOLPH DO May 30, 2021 10:26
--- NOTE | 2021-05-31 10:57 | Progress Note - Hospitalist ---
Subjective HPI/CC On Admission Date Seen by Provider: May 31, 2021 Time Seen by Provider: 11:00 CC: Severe sepsis with Covid-19 pneumonia with UTI HPI: 71 yr old WM, clinic pt of [facility] well known to me from prior bowel obstructions who resides at a half-way and presented to [place] ER was found to have UTI after a clogged ritchie catheter. He returned back to the half-way only to return shortly thereafter with evidence of severe sepsis from UTI and Covid-19 pneumonia. He was placed on protocol medication and placed in the ICU. Overall prognosis very poor. Placed on Meropenem and Zyvox. Subjective/Events-last exam No major changes Able to eat and drink a bit Needs half-way on hospice Objective Exam Vital Signs Vital Signs Date Time Temp Pulse Resp B/P (MAP) Pulse Ox O2 Delivery O2 Flow Rate FiO2 05/31/21 20:00 Room Air 05/29/21 09:47 94 05/28/21 19:56 36.9 105 32 154/81 05/28/21 15:15 1.00 05/26/21 06:39 21 Capillary Refill : Less Than 3 Seconds General Appearance: No Apparent Distress, WD/WN, Chronically ill Respiratory: Lungs Clear Cardiovascular: Regular Rate, Rhythm Results/Procedures Lab Patient resulted labs reviewed. Assessment/Plan Assessment and Plan Assess & Plan/Chief Complaint DNR Comfort care Critical Care Critically Ill Patient Diagnosis/Problems Diagnosis/Problems (1) Severe sepsis with acute organ dysfunction Status: Acute (2) COVID-19 Status: Acute (3) Atrial fibrillation Status: Chronic (4) UTI (urinary tract infection) Status: Acute Resolution Date/Time: 09/29/20 @ 12:34 (5) BPH (benign prostatic hyperplasia) Status: Chronic (6) Hypertension Status: Chronic AUTUMN RANDOLPH DO May 31, 2021 10:57
--- NOTE | 2021-06-01 12:41 | Discharge Summary ---
Discharge Summary Hospital Course Was the Problem List Reviewed?: Yes Problems/Dx: (1) COVID-19 Status: Acute (2) Urinary tract infection Status: Acute Qualifiers: Qualified Codes: T83.511D - Infection and inflammatory reaction due to indwelling urethral catheter, subsequent encounter; N39.0 - Urinary tract infection, site not specified (3) Primary hypertension Status: Chronic Hospital Course Date of Admission: May 23, 2021 at 06:17 Admission Diagnosis : Family Physician/Provider: Ramin Marcos MD Date of Discharge: 06/01/21 Discharge Diagnosis: septic shock, UTI, Severe debility Hospital Course: Pt had an uneventful but lengthy hospital course when he was admitted for Covid- 19 infection with severe sepsis and septic shock with multi system organ failure. Pt has had multiple hospital stays, all of them requiring aggressive care and ultimately returned to a status that was of end of life care. Family agreed after multiple attempts to DNR and he is now on comfort care. He will be [facility] on hospice to the [facility]. Labs and Pending Lab Test: Microbiology 05/24/21 Blood Culture - Final, Complete Escherichia coli 05/23/21 MRSA Screen - Final, Complete MRSA not isolated Home Meds Active No Active Prescriptions or Reported Medications Assessment/Pt Instructions NHP Discharge Planning: <30 minutes discharge planning Discharge Instructions Discharge Diet: No Restrictions Activity as Tolerated: Yes Discharge Physical Examination Vital Signs Vital Signs Date Time Temp Pulse Resp B/P (MAP) Pulse Ox O2 Delivery O2 Flow Rate FiO2 05/31/21 20:00 Room Air 05/29/21 09:47 94 05/28/21 19:56 36.9 105 32 154/81 05/28/21 15:15 1.00 05/26/21 06:39 21 General Appearance: No Apparent Distress, WD/WN Allergies: Coded Allergies: No Known Drug Allergies (Unverified , 01/15/10) Discharge Summary Date of Admission May 23, 2021 at 06:17 Date of Discharge Discharge Date: Jun 01, 2021 Admission Diagnosis Assessment: Severe sepsis UTI COVID-19 infection Severe chronic debility resides in a [facility] Neurogenic bladder Indwelling catheter History of bowel obstructions Atrial fibrillation CAD Plan: IV antibiotics broad-spectrum Isolation COVID-19 protocol IV fluids Poor prognosis Family insists on full code Comfort Measures/ End of Life Care: Comfort Measures Discharge Diagnosis DNR Comfort care (1) COVID-19 Status: Acute Assessment & Plan: - Patient remains afebrile - satting well at 96% on RA - c/w isolation - c/w COVID-19 protocol (2) Urinary tract infection Status: Acute Assessment & Plan: - WBC 11.8 today (up from 11.4 05/27/21) - c/w meropenem - c/w IV fluids Qualifiers: Qualified Codes: T83.511D - Infection and inflammatory reaction due to indwelling urethral catheter, subsequent encounter; N39.0 - Urinary tract infection, site not specified (3) Primary hypertension Status: Chronic Assessment & Plan: - Continue lisinopril AUTUMN RANDOLPH DO Jun 01, 2021 12:40
[2021-06-01 15:03] VITALS: BP 154/81
== END 2021-06-01 15:05 | disposition hospice, inpatient (51) | DRG 871 ==
LOC: EDUNIT# 00:41 → ER FS 00:42 → ICU 06:17 → 4TH 05-26 10:27
PROVIDERS: ADMIT Internal Medicine; ATTEND Internal Medicine
DX: A41.89 Other specified sepsis (principal); U07.1 COVID-19; J12.82 Pneumonia due to coronavirus disease 2019; G93.41 Metabolic encephalopathy; R65.21 Severe sepsis with septic shock; J44.0 Chronic obstructive pulmonary disease with (acute) lower respiratory infection; N39.0 Urinary tract infection, site not specified; N17.9 Acute kidney failure, unspecified; Z66 Do not resuscitate; Z51.5 Encounter for palliative care; I25.2 Old myocardial infarction; N40.0 Benign prostatic hyperplasia without lower urinary tract symptoms; K58.9 Irritable bowel syndrome, unspecified; M19.90 Unspecified osteoarthritis, unspecified site; R53.81 Other malaise; N31.9 Neuromuscular dysfunction of bladder, unspecified; I25.10 Atherosclerotic heart disease of native coronary artery without angina pectoris; I10 Essential (primary) hypertension; D69.6 Thrombocytopenia, unspecified; F03.90 Unspecified dementia, unspecified severity, without behavioral disturbance, psychotic disturbance, mood disturbance, and anxiety; T83.511D Infection and inflammatory reaction due to indwelling urethral catheter, subsequent encounter; Z87.891 Personal history of nicotine dependence; I48.0 Paroxysmal atrial fibrillation; I71.2 Thoracic aortic aneurysm, without rupture
CPT/HCPCS: 36415; 36569; 51702; 71045; 71250; 74176; 76937; 80048; 80053; 81000; 82805; 82947; 83605; 83735; 84100; 85007; 85025; 85027; 87040; 87077; 87081; 87088; 87184; 87186; 93005; 94640; 94664; 94760; 96374; 96375